=== PATIENT | female | born 1965 | race Caucasian/White ===

== ENCOUNTER 2024-09-16 09:09 | Inpatient (IN) ==
--- NOTE | 2024-09-16 09:49 | Emergency Department Note ---
History of Present Illness General Chief complaint: Shortness of Breath/Dyspnea Stated complaint: SOB Time Seen by Provider: 09/16/24 09:36 History of Present Illness This is a 59-year-old female that presents to the emergency department via private vehicle with complaints of "shortness of breath, chest tightness". The patient notes history of COPD. She notes over the past 3 weeks she has had some sinus congestion. She states that she followed up recently with her PCP and on Thursday was prescribed antibiotics to include Augmentin plus doxycycline and an inhaler. She notes that this morning she noted some increasing dyspnea. She notes the cough was initially productive but now not productive. No hemoptysis. She notes there is a tightness sensation in the chest. She notes a history of lower extremity vascular procedures performed with Dr. Damon currently on Plavix and aspirin. She had aspirin this morning. She denies any fever. She does smoke between 10 and 20 cigarettes/day. She also notes that she drinks beer, about 3/day but over the past few days has not been consuming beer noting she feels unwell. She has also had diarrhea that has worsened she notes as of recent with the antibiotic use. Home Medications Medication Instructions Recorded Confirmed Type aspirin 81 mg tablet,delayed 81 mg PO DAILY ##0 07/26/15 09/16/24 History release coenzyme Q10 75 mg capsule (Ultra 75 mg PO DAILY 09/30/22 09/16/24 History CoQ10) pantoprazole 40 mg tablet,delayed 40 mg PO DAILY 09/30/22 09/16/24 History release acetaminophen 500 mg tablet 500 mg PO Q6H PRN Pain 09/16/24 09/16/24 History albuterol sulfate 90 mcg/actuation 2 puff inhalation Q4H PRN SOB or 09/16/24 09/16/24 History aerosol inhaler wheezing atorvastatin 10 mg tablet 10 mg PO HS 09/16/24 09/16/24 History budesonide-formoterol HFA 160 2 puff inhalation BID 09/16/24 09/16/24 History mcg-4.5 mcg/actuation aerosol inhaler (Symbicort) cholecalciferol (vitamin D3) 50 50 mcg PO DAILY 09/16/24 09/16/24 History mcg (2,000 unit) tablet (Vitamin D3) clopidogrel 75 mg tablet 75 mg PO QAM 09/16/24 09/16/24 History doxycycline hyclate 100 mg capsule 100 mg PO BID 09/16/24 09/16/24 History hydrocodone 5 mg-acetaminophen 325 1 tab PO DAILY PRN Pain 09/16/24 09/16/24 History mg tablet ipratropium 20 mcg-albuterol 100 1 puff inhalation QID 09/16/24 09/16/24 History mcg/actuation mist for inhalation (Combivent Respimat) prednisone 10 mg tablet See Rx Instructions .Route .COMPLEX 09/16/24 09/16/24 History telmisartan 80 1 tab PO DAILY 09/16/24 09/16/24 History mg-hydrochlorothiazide 25 mg tablet Allergies Allergy/AdvReac Type Severity Reaction Status Date / Time azithromycin Allergy Unknown turned Verified 09/16/24 12:52 red, hives erythromycin base Allergy Unknown PT BECOMES Verified 09/16/24 12:52 EXTREMELY RED celecoxib AdvReac Unknown GI UPSET Verified 09/16/24 12:52 Past Med/Surg History Problem List (Updated 09/16/24 @ 15:41 by Rj Valencia MD) Cachexia Acute and chronic respiratory failure, unspecified whether with hypoxia or hypercapnia Dyspnea (Acute) Acute heart failure with preserved ejection fraction (HFpEF) NSTEMI (non-ST elevated myocardial infarction) (Acute) Acute bronchitis COPD exacerbation (Acute) Hypomagnesemia (Acute) Hypokalemia (Acute) Elevated troponin (Acute) Chest pain Arthritis Iliac artery occlusion (Acute) Social History Smoking Status: Current every day smoker Tobacco Type: Cigarettes Cigarettes Per Day: 10-20; Second Hand Exposure: No; Do You Dip or Chew Tobacco: No; Tobacco Cessation Education Requested by Patient: No Hx Alcohol Use: Yes Alcohol type: beer Hx Substance Use: No Preferred Language: Croatian Communication Ability: Effective 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: No Beliefs That Will Affect Care: None Current Living Situation: Spouse and Other Current Living Situation Comment: Son Other Information That Helps Us Care for You: No Feels Safe at Home: Yes Safety Concerns: Feels Safe At This Time Assistive Devices: None Review of Systems A total of 10 systems reviewed and were otherwise negative Physical Exam Vital Signs Vital Signs - 24 hr 09/16/24 09:21 09/16/24 09:51 09/16/24 10:00 Temperature 36.6 C Temperature Source Temporal Artery Scan Pulse Rate 119 H 115 H Pulse Rate from SpO2 Sensor Pulse Rhythm Regular Pulse Strength Normal Respiratory Rate 24 Respiratory Effort / Characteristics Non-Labored Spontaneous Labored Respiratory Depth Normal Blood Pressure 139/96 Blood Pressure Mean 110 Blood Pressure Position Lying Pulse Oximetry 92 Oxygen Delivery Method Room Air Sepsis Recent Fever Within 48 Hours No Sepsis New/Unexplained Change in Mental Status No Sepsis Action Taken by Nursing No Action Required 09/16/24 10:00 09/16/24 10:00 09/16/24 10:03 Temperature Temperature Source Pulse Rate 115 H Pulse Rate from SpO2 Sensor 116 H Pulse Rhythm Pulse Strength Respiratory Rate 16 Respiratory Effort / Characteristics Respiratory Depth Blood Pressure 126/89 Blood Pressure Mean 101 Blood Pressure Position Pulse Oximetry 98 97 Oxygen Delivery Method Room Air Sepsis Recent Fever Within 48 Hours Sepsis New/Unexplained Change in Mental Status Sepsis Action Taken by Nursing 09/16/24 10:18 09/16/24 10:30 09/16/24 11:27 Temperature Temperature Source Pulse Rate 118 H 112 H Pulse Rate from SpO2 Sensor 116 H 112 H Pulse Rhythm Pulse Strength Respiratory Rate 23 22 Respiratory Effort / Characteristics Respiratory Depth Blood Pressure 128/91 Blood Pressure Mean 104 Blood Pressure Position Pulse Oximetry 95 91 Oxygen Delivery Method Sepsis Recent Fever Within 48 Hours Sepsis New/Unexplained Change in Mental Status Sepsis Action Taken by Nursing 09/16/24 11:30 09/16/24 11:39 09/16/24 12:00 Temperature Temperature Source Pulse Rate 108 H Pulse Rate from SpO2 Sensor Pulse Rhythm Pulse Strength Respiratory Rate 20 Respiratory Effort / Characteristics Respiratory Depth Blood Pressure 135/95 125/85 Blood Pressure Mean 104 100 Blood Pressure Position Pulse Oximetry Oxygen Delivery Method Sepsis Recent Fever Within 48 Hours Sepsis New/Unexplained Change in Mental Status Sepsis Action Taken by Nursing 09/16/24 12:00 Temperature Temperature Source Pulse Rate 112 H Pulse Rate from SpO2 Sensor Pulse Rhythm Pulse Strength Respiratory Rate 22 Respiratory Effort / Characteristics Respiratory Depth Blood Pressure Blood Pressure Mean Blood Pressure Position Pulse Oximetry Oxygen Delivery Method Sepsis Recent Fever Within 48 Hours Sepsis New/Unexplained Change in Mental Status Sepsis Action Taken by Nursing VITAL SIGNS - Vital signs and nursing notes were reviewed. Tachycardic, otherwise stable and afebrile. GENERAL - 59-year-old female appearing her stated age who is in no acute distress but is sitting upright in bed. Communicates well with provider and answers questions appropriately. SKIN - Without rashes. Stable and afebrile. HEAD - NC/AT. EYES - PERRL with EOMI bilaterally. Sclera anicteric. EARS - No deformities of external structures noted on gross examination bilaterally. NOSE - Midline and without cyanosis. MOUTH/OROPHARYNX - Without perioral cyanosis. No drooling, stridor, trismus, wheezing or tripoding. Normal phonation. NECK - Neck with FROM. No nuchal rigidity. LUNGS - Chest wall symmetric without accessory muscle use, intercostals retractions, or central cyanosis. Expiratory wheezing noted bilat. Mildly diminished breath sounds bilat without crackles. CARDIAC - RRR. ABDOMEN - Abdominal contour normal without pulsations or visible masses. BS normoactive all four quadrants. No tenderness, palpable masses, hepatosplenomegaly, or ascites noted. EXTREMITIES - No clubbing or peripheral cyanosis. No pretibial edema present. +5/5 strength noted in UE/LE bilaterally. NEUROLOGIC - Cranial nerves II through XII grossly intact. PSYCH -alert, oriented and pleasant on exam. Course Administered Medications Atorvastatin Calcium (Atorvastatin 20 Mg Tab) 20 mg OG QAM [facility] Stop: 10/16/24 15:44 Last Admin: 09/16/24 17:38 Dose: 20 mg Documented By: HERBERT Budesonide (Budesonide 0.5 Mg/2 Ml Vial (Pulmicort)) 0.5 mg NEB BIDR [facility] Stop: 10/16/24 18:59 Last Admin: 09/16/24 19:35 Dose: 0.5 mg Documented By: LICHA Doxycycline Hyclate (Doxycycline Hyclate 100 Mg Cap) 100 mg PO BID [facility] Stop: 09/23/24 20:59 Last Admin: 09/16/24 21:05 Dose: 100 mg Documented By: [id number] Enteral Nutritional Formula (Peptamen 1.5 Jose Daniel 1,000 Ml Bag) 1,000 ml OG .See Protocol NOELLE; Protocol Stop: 10/16/24 16:59 Last Admin: 09/16/24 17:46 Dose: 1,000 ml Documented By: HERBERT Formoterol Fumarate (Formoterol 20 Mcg/2 Ml Vial) 20 mcg NEB BIDR [facility] Stop: 10/16/24 18:59 Last Admin: 09/16/24 19:35 Dose: 20 mcg Documented By: LICHA Methylprednisolone 40 mg/ (Syringe) 0.64 mls @ 1.5 mls/min IV Q8H [facility] Stop: 10/16/24 18:59 Last Admin: 09/16/24 21:04 Dose: 1.5 mls/min Documented By: [id number] Propofol (Diprivan) 1,000 mg in 100 mls @ 8.988 mls/hr IV .[id number] NOELLE; Protocol Stop: 09/19/24 15:44 Last Titration: 09/16/24 20:15 Dose: 35 mcg/kg/min, 9 mls/hr Documented By: [id number] Titration: 09/16/24 19:19 Dose: 25 mcg/kg/min, 6.4 mls/hr Documented By: [id number] Admin: 09/16/24 15:56 Dose: 25 mcg/kg/min, 6.4 mls/hr Documented By: HERBERT Co-signed By: RUPERTO Heparin Sodium/Dextrose (Heparin Sodium/Dextrose) 25,000 units in 500 mls @ 15 mls/hr IV .Q24H NOELLE; Protocol Stop: 10/16/24 16:14 Last Titration: 09/16/24 19:18 Dose: 750 units/hr, 15 mls/hr Documented By: [id number] Co-signed By: HERBERT Admin: 09/16/24 16:17 Dose: 750 units/hr, 15 mls/hr Documented By: RUPERTO Co-signed By: HERBERT Lactated Ringer's (Lr) 1,000 mls @ 80 mls/hr IV .[id number] [facility] Stop: 09/17/24 15:59 Last Admin: 09/16/24 16:35 Dose: 80 mls/hr Documented By: RUPERTO Ipratropium Elkins (Ipratropium [place]kins Neb Soln 0.02% 0.5mg/2.5ml Vial) 0.5 mg NEB Q6R [facility] Stop: 10/16/24 13:24 Last Admin: 09/16/24 19:35 Dose: Not Given Documented By: Admin: 09/16/24 14:41 Dose: 0.5 mg Documented By: JT Lansoprazole (Lansoprazole 30 Mg Soltab) 30 mg PO QAM [facility] Stop: 10/16/24 15:59 Last Admin: 09/16/24 17:38 Dose: 30 mg Documented By: HERBERT Levalbuterol HCl (Levalbuterol 1.25 Mg/3 Ml Neb) 1.25 mg NEB Q6R [facility] Stop: 10/16/24 13:59 Last Admin: 09/16/24 19:35 Dose: Not Given Documented By: Admin: 09/16/24 14:41 Dose: 1.25 mg Documented By: JT Magnesium Oxide (Magnesium Oxide 400 Mg Tab) 400 mg PO BID [facility] Stop: 10/16/24 11:59 Last Admin: 09/16/24 21:08 Dose: 400 mg Documented By: [id number] Admin: 09/16/24 12:40 Dose: 400 mg Documented By: JAYSON Metoprolol Tartrate (Metoprolol Tartrate 25 Mg Tab) 12.5 mg PO Q6 [facility] Stop: 10/16/24 17:59 Last Admin: 09/16/24 18:40 Dose: 12.5 mg Documented By: HERBERT Midazolam HCl (Midazolam Hcl 1 Mg/Ml 2ml Vial) 2 mg IV Q2H PRN PRN Reason: RASS goal -1 Stop: 10/16/24 15:30 Last Admin: 09/16/24 17:01 Dose: 2 mg Documented By: HERBERT Nitroglycerin (Nitroglycerin 2% Ointment 30gm Tube) 0.5 inch EXT Q6H [facility] Stop: 10/16/24 12:14 Last Admin: 09/16/24 17:41 Dose: 0.5 inch Documented By: Admin: 09/16/24 12:36 Dose: 0.5 inch Documented By: JAYSON Potassium Chloride (Potassium Chloride 20 Meq/15 Ml Udc) 40 meq PO QID [facility] Stop: 10/16/24 16:59 Last Admin: 09/16/24 21:05 Dose: 40 meq Documented By: [id number] Admin: 09/16/24 17:38 Dose: 40 meq Documented By: HERBERT Propofol (Propofol Bolus From Bag) 20 mg IV Q5M PRN PRN Reason: Sedation Stop: 09/19/24 15:30 Last Admin: 09/16/24 20:14 Dose: 20 mg Documented By: [id number] Co-signed By: RIVAS Admin: 09/16/24 15:57 Dose: 20 mg Documented By: HERBERT Co-signed By: RUPERTO Sterile Water (Tube Feeding Water Flush) 125 ml OG Q4H [facility] Stop: 10/16/24 16:59 Last Admin: 09/16/24 21:08 Dose: 125 ml Documented By: [id number] Admin: 09/16/24 17:38 Dose: 125 ml Documented By: HERBERT Thiamine HCl (Thiamine Hcl 100 Mg Tab) 100 mg PO BID [facility] Stop: 10/16/24 20:59 Last Admin: 09/16/24 21:05 Dose: 100 mg Documented By: [id number] Discontinued Medications Albuterol (Albut/Ipratrop 3mg/0.5mg Neb 3 Ml Vial) 3 ml NEB NOW STA; Protocol Stop: 09/16/24 09:48 Last Admin: 09/16/24 10:01 Dose: 3 ml Documented By: MINAL Furosemide (Furosemide Inj 20 Mg/2 Ml Vial) Confirm Administered Dose 20 mg IV .STK-MED ONE Stop: 09/16/24 13:58 Last Admin: 09/16/24 14:01 Dose: 20 mg Documented By: MEGAN Furosemide (Furosemide Inj 20 Mg/2 Ml Vial) 20 mg IV ONE ONE Stop: 09/16/24 14:00 Last Admin: 09/16/24 14:09 Dose: Not Given Documented By: MEGAN Guaifenesin (Guaifenesin 600 Mg Tabcr) 1,200 mg PO Q12 [facility] Stop: 10/16/24 13:24 Last Admin: 09/16/24 14:45 Dose: 1,200 mg Documented By: HERBERT Magnesium Sulfate/Dextrose (Magnesium Sulfate / D5w) 1 gm in 100 mls @ 200 mls/hr IV ONE ONE Stop: 09/16/24 11:19 Last Infusion: 09/16/24 12:27 Dose: Infused Documented By: Admin: 09/16/24 11:15 Dose: 200 mls/hr Documented By: JIHAN Potassium Chloride (K Nathan / Wtr) 10 meq in 100 mls @ 100 mls/hr IV Q1H [facility]; Protocol Stop: 09/16/24 14:59 Last Infusion: 09/16/24 12:28 Dose: Infused Documented By: Admin: 09/16/24 11:14 Dose: 100 mls/hr Documented By: JIHAN Sodium Chloride (Nss) 1,000 mls @ 80 mls/hr IV .[id number] [facility] Stop: 09/17/24 11:29 Last Infusion: 09/16/24 14:02 Dose: Infused Documented By: Admin: 09/16/24 12:24 Dose: 80 mls/hr Documented By: JAYSON Thiamine HCl 100 mg/ Syringe 10 mls @ 2 mls/min IV NOW STA Stop: 09/16/24 11:32 Last Admin: 09/16/24 12:50 Dose: 2 mls/min Documented By: JAYSON Folic Acid 1 mg/ Syringe 10 mls @ 5 mls/min IV NOW STA Stop: 09/16/24 11:29 Last Admin: 09/16/24 12:50 Dose: 5 mls/min Documented By: JAYSON Magnesium Sulfate/Dextrose (Magnesium Sulfate / D5w) 1 gm in 100 mls @ 200 mls/hr IV Q30M [facility] Stop: 09/16/24 13:29 Last Infusion: 09/16/24 14:02 Dose: Infused Documented By: Admin: 09/16/24 12:58 Dose: 200 mls/hr Documented By: Infusion: 09/16/24 12:58 Dose: Infused Documented By: Admin: 09/16/24 12:57 Dose: 200 mls/hr Documented By: Infusion: 09/16/24 12:57 Dose: Infused Documented By: Admin: 09/16/24 12:35 Dose: 200 mls/hr Documented By: JAYSON Cefepime HCl (Maxipime 2000mg) 2,000 mg in 20 mls @ 5 mls/min IV Q8H [facility]; Protocol Stop: 09/23/24 13:59 Last Admin: 09/16/24 14:44 Dose: 5 mls/min Documented By: HERBERT Methylprednisolone 40 mg/ (Syringe) 0.64 mls @ 1.5 mls/min IV ONE ONE Stop: 09/16/24 14:16 Last Admin: 09/16/24 14:08 Dose: 1.5 mls/min Documented By: MEGAN Ioversol (Optiray 320 125ml) 112 ml IV ONCE ONE Stop: 09/16/24 11:04 Last Admin: 09/16/24 11:04 Dose: 112 ml Documented By: SHU Ipratropium Elkins (Ipratropium [place]kins Neb Soln 0.02% 0.5mg/2.5ml Vial) 0.5 mg NEB NOW STA Stop: 09/16/24 12:33 Last Admin: 09/16/24 13:14 Dose: 0.5 mg Documented By: JT Levalbuterol HCl (Levalbuterol 1.25 Mg/3 Ml Neb) 1.25 mg NEB NOW STA Stop: 09/16/24 12:33 Last Admin: 09/16/24 13:14 Dose: 1.25 mg Documented By: JT Magnesium Oxide (Magnesium Oxide 400 Mg Tab) 400 mg PO NOW STA Stop: 09/16/24 11:53 Last Admin: 09/16/24 13:27 Dose: Not Given Documented By: MEGAN Methylprednisolone (Methylprednisolone 125 Mg/2 Ml Vial) 40 mg IV NOW STA Stop: 09/16/24 12:33 Last Admin: 09/16/24 13:06 Dose: 40 mg Documented By: JAYSON Midazolam HCl (Midazolam Hcl 1 Mg/Ml 2ml Vial) Confirm Administered Dose 2 mg .ROUTE .STK-MED ONE Stop: 09/16/24 15:11 Last Admin: 09/16/24 15:34 Dose: Not Given Documented By: HERBERT Midazolam HCl (Midazolam Hcl 1 Mg/Ml 2ml Vial) 2 mg IV NOW Stop: 09/16/24 15:15 Last Admin: 09/16/24 15:33 Dose: 2 mg Documented By: HERBERT Miscellaneous (Rapid Sequence Induction Bag) Confirm Administered Dose 1 each N/A .STK-MED ONE Stop: 09/16/24 14:31 Last Admin: 09/16/24 15:35 Dose: 1 each Documented By: HERBERT Morphine Sulfate (Morphine Sulfate 2 Mg/Ml Carp) Confirm Administered Dose 2 mg .ROUTE .STK-MED ONE Stop: 09/16/24 14:31 Last Admin: 09/16/24 14:45 Dose: Not Given Documented By: HERBERT Morphine Sulfate (Morphine Sulfate 2 Mg/Ml Carp) 2 mg IV NOW STA Stop: 09/16/24 14:32 Last Admin: 09/16/24 14:40 Dose: 1 mg Documented By: ROSCOE Multivitamins/Minerals (Cerovite Adv Formula Tab) 1 tab PO NOW Stop: 09/16/24 11:29 Last Admin: 09/16/24 12:50 Dose: 1 tab Documented By: JAYSON Nitroglycerin (Nitroglycerin Sl 0.4 Mg/Tab Tab) Confirm Administered Dose 0.4 mg .ROUTE .STK-MED ONE Stop: 09/16/24 14:24 Last Admin: 09/16/24 15:36 Dose: Not Given Documented By: HERBERT Nitroglycerin (Nitroglycerin Sl 0.4 Mg/Tab Tab) 0.4 mg SL NOW STA Stop: 09/16/24 14:34 Last Admin: 09/16/24 14:26 Dose: 0.4 mg Documented By: HERBERT Potassium Chloride (Potassium Chloride 20 Meq/15 Ml Udc) 40 meq PO NOW STA Stop: 09/16/24 11:50 Last Admin: 09/16/24 13:27 Dose: Not Given Documented By: MEGAN Potassium Chloride (Potassium Chloride Crtab 20 Meq Tabcr) 40 meq PO NOW STA Stop: 09/16/24 11:53 Last Admin: 09/16/24 13:27 Dose: Not Given Documented By: MEGAN Potassium Chloride (Potassium Chloride 20 Meq/15 Ml Udc) 40 meq PO NOW STA Stop: 09/16/24 11:57 Last Admin: 09/16/24 13:30 Dose: Not Given Documented By: MEGAN Potassium Chloride (Potassium Chloride Crtab 20 Meq Tabcr) 40 meq PO NOW STA Stop: 09/16/24 12:24 Last Admin: 09/16/24 12:40 Dose: 40 meq Documented By: JAYSON Potassium Chloride (Potassium Chloride Crtab 20 Meq Tabcr) 40 meq PO ONE ONE Stop: 09/16/24 13:31 Last Admin: 09/16/24 12:52 Dose: 40 meq Documented By: JAYSON Propofol (Propofol Iv Emulsion 10 Mg/Ml 100 Ml Vial) Confirm Administered Dose 1,000 mg IV .STK-MED ONE Stop: 09/16/24 14:54 Last Admin: 09/16/24 15:34 Dose: Not Given Documented By: HERBERT Critical Care Time I have personally spent about 60 minutes of critical care time in the direct management of this patient. This includes bedside care, interpretation of diagnostic studies and testing, discussion with consultants, patient, and family member, and other required patient management activities. This 60 minutes is in excess of all separately billable procedures. Medical Decision Making Laboratory Data 09/16/24 09:51 09/16/24 16:57 Lab Results 09/16/24 09/16/24 09/16/24 Range/Units 09:51 09:53 10:16 WBC 15.91 H (4.8-10.8) K/ul RBC 4.16 L (4.20-5.40) M/uL Hgb 14.1 (12.0-16.0) g/dl Hct 39.5 (37.0-47.0) % MCV 95.0 (80.0-100.0) fL MCH 33.9 (25.0-34.0) pg MCHC 35.7 (32.0-36.0) g/dL RDW Std Deviation 40.8 (36.4-46.3) fL RDW Coeff of Marisol 11.7 (11.5-14.5) % Plt Count 409 H (130-400) K/uL MPV 8.5 L (9.4-12.4) fL Immature Gran % (Auto) 0.4 % Neut % (Auto) 75.2 % Lymph % (Auto) 15.1 % [place] % (Auto) 8.9 % Eos % (Auto) 0.1 % Baso % (Auto) 0.3 % Neut # (Auto) 11.97 H (1.40-6.50) K/uL Lymph # (Auto) 2.40 (1.20-3.40) K/uL [place] # (Auto) 1.41 H (0.11-0.59) K/uL Eos # (Auto) 0.02 (0.00-0.50) K/uL Baso # (Auto) 0.04 (0.00-0.20) K/uL Immature Gran # (Auto) 0.07 (0.01-0.20) K/uL PT 11.4 (9.0-12.0) Seconds INR 1.1 (0.9-1.1) APTT 26 (21-31) Seconds PTT Ratio 1.0 Sodium 137 (136-145) mmol/L Potassium 2.6 L (3.5-5.1) mmol/L Chloride 95 L (98-107) mmol/L Carbon Dioxide 30 (21-32) mmol/L Anion Gap 12 H (3-11) BUN 20 (6-23) mg/dl Creatinine 0.55 L (0.6-1.2) mg/dl Est Cr Clr Drug Dosing 75.3 ml/min eGFR 106.18 BUN/Creatinine Ratio 36.4 H (10-20) Glucose 89 (70-99(Fasting)) mg/dl Calcium 8.4 L (8.6-10.3) mg/dl Magnesium 0.7 L* (1.7-2.4) mg/dl Total Bilirubin 0.9 (0.2-1.0) mg/dl AST 44 H (13-39) U/L ALT 33 (7-52) U/L Alkaline Phosphatase 73 (34-104) U/L Troponin I High Sens 2483.6 H* (0-14) pg/ml Total Protein 6.2 (6.0-8.3) gm/dl Albumin 4.0 (3.4-5.0) gm/dl Globulin 2.2 L (2.5-4.0) gm/dl Albumin/Globulin Ratio 1.8 (0.9-2) TSH 1.174 (0.300-4.500) uIu/ml Urine Color Yellow Urine Appearance Clear (Clear) Urine pH 6.5 (4.5-7.5) Ur Specific [place] 1.011 (1.000-1.030) Urine Protein Negative (Negative) Urine Glucose (UA) Negative (Negative) Urine Ketones Negative (Negative) Urine Blood Negative (Negative) Urine Nitrite Negative (Negative) Urine Bilirubin Negative (Negative) Urine Urobilinogen Negative (Negative) Ur Leukocyte Esterase Negative (Negative) Adenovirus (PCR) Not Detected (NotDetected) B. pertussis DNA (PCR) Not Detected (NotDetected) B.parapertussis DNA PCR Not Detected (NotDetected) C. pneumoniae DNA (PCR) Not Detected (NotDetected) Coronavirus OC43 (PCR) Not Detected (NotDetected) Coronavirus HKU1 (PCR) Not Detected (NotDetected) Coronavirus 229E (PCR) Not Detected (NotDetected) SARS-CoV-2 (PCR) Not Detected (NotDetected) Coronavirus NL63 (PCR) Not Detected (NotDetected) Human Metapneumovir PCR Not Detected (NotDetected) Influenza Type A (PCR) Not Detected (NotDetected) Influenza Type B (PCR) Not Detected (NotDetected) M. pneumoniae (PCR) Not Detected (NotDetected) Parainfluenza 1 (PCR) Not Detected (NotDetected) Parainfluenza 2 (PCR) Not Detected (NotDetected) Parainfluenza 3 (PCR) Not Detected (NotDetected) Parainfluenza 4 (PCR) Not Detected (NotDetected) RSV (PCR) Not Detected (NotDetected) Entero/Rhino (PCR) Not Detected (NotDetected) 09/16/24 Range/Units 11:54 WBC (4.8-10.8) K/ul RBC (4.20-5.40) M/uL Hgb (12.0-16.0) g/dl Hct (37.0-47.0) % MCV (80.0-100.0) fL MCH (25.0-34.0) pg MCHC (32.0-36.0) g/dL RDW Std Deviation (36.4-46.3) fL RDW Coeff of Marisol (11.5-14.5) % Plt Count (130-400) K/uL MPV (9.4-12.4) fL Immature Gran % (Auto) % Neut % (Auto) % Lymph % (Auto) % [place] % (Auto) % Eos % (Auto) % Baso % (Auto) % Neut # (Auto) (1.40-6.50) K/uL Lymph # (Auto) (1.20-3.40) K/uL [place] # (Auto) (0.11-0.59) K/uL Eos # (Auto) (0.00-0.50) K/uL Baso # (Auto) (0.00-0.20) K/uL Immature Gran # (Auto) (0.01-0.20) K/uL PT (9.0-12.0) Seconds INR (0.9-1.1) APTT (21-31) Seconds PTT Ratio Sodium (136-145) mmol/L Potassium (3.5-5.1) mmol/L Chloride (98-107) mmol/L Carbon Dioxide (21-32) mmol/L Anion Gap (3-11) BUN (6-23) mg/dl Creatinine (0.6-1.2) mg/dl Est Cr Clr Drug Dosing ml/min eGFR BUN/Creatinine Ratio (10-20) Glucose (70-99(Fasting)) mg/dl Calcium (8.6-10.3) mg/dl Magnesium (1.7-2.4) mg/dl Total Bilirubin (0.2-1.0) mg/dl AST (13-39) U/L ALT (7-52) U/L Alkaline Phosphatase (34-104) U/L Troponin I High Sens 2761.9 H* (0-14) pg/ml Total Protein (6.0-8.3) gm/dl Albumin (3.4-5.0) gm/dl Globulin (2.5-4.0) gm/dl Albumin/Globulin Ratio (0.9-2) TSH (0.300-4.500) uIu/ml Urine Color Urine Appearance (Clear) Urine pH (4.5-7.5) Ur Specific [place] (1.000-1.030) Urine Protein (Negative) Urine Glucose (UA) (Negative) Urine Ketones (Negative) Urine Blood (Negative) Urine Nitrite (Negative) Urine Bilirubin (Negative) Urine Urobilinogen (Negative) Ur Leukocyte Esterase (Negative) Adenovirus (PCR) (NotDetected) B. pertussis DNA (PCR) (NotDetected) B.parapertussis DNA PCR (NotDetected) C. pneumoniae DNA (PCR) (NotDetected) Coronavirus OC43 (PCR) (NotDetected) Coronavirus HKU1 (PCR) (NotDetected) Coronavirus 229E (PCR) (NotDetected) SARS-CoV-2 (PCR) (NotDetected) Coronavirus NL63 (PCR) (NotDetected) Human Metapneumovir PCR (NotDetected) Influenza Type A (PCR) (NotDetected) Influenza Type B (PCR) (NotDetected) M. pneumoniae (PCR) (NotDetected) Parainfluenza 1 (PCR) (NotDetected) Parainfluenza 2 (PCR) (NotDetected) Parainfluenza 3 (PCR) (NotDetected) Parainfluenza 4 (PCR) (NotDetected) RSV (PCR) (NotDetected) Entero/Rhino (PCR) (NotDetected) Imaging Data Radiologist's Impression: Chest CTA 09/16/24 09:47 CT angio chest PE protocol CT DOSE: 237.62 mGy.cm HISTORY: 59 years-old Female with dyspnea, chest tightness, cough. Acute cough with chest tightness and shortness of breath TECHNIQUE: Multiple CTA images of the chest were obtained after the intravenous administration of 112 ml Optiray. Coronal and sagittal MIPS were obtained from the axial data set and were submitted for review. All measurements were obtained according to NASCET criteria. A dose lowering technique was utilized adhering to the principles of ALARA. COMPARISON: CT abdomen and pelvis 10/18/2018 FINDINGS: CTA: Heart is normal in size. Moderate coronary artery calcifications. Atherosclerosis of the aorta without aneurysm. Patency of the imaged great vessels. No pulmonary emboli identified. CT CHEST: No pneumothorax, no pleural effusion. Moderate bronchial wall thickening with areas of multifocal mucus plugging. Intraventricular septal thickening. 5 mm solid nodule right lower lobe on image 46 series 4 is noted from prior, low clinical suspicion. No suspicious pulmonary nodules or masses identified. Central airways are patent. 1.3 cm cyst of the superior pole left kidney. There is mild likely chronic superior end plate compression T3. IMPRESSION: 1. No pulmonary emboli identified. 2. Emphysema with bronchitis and mucous plugging. 3. Mild intralobular septal thickening likely represents a component of pulmonary edema. 4. 5 mm solid nodule of the basal right lower lobe. Please refer to below summary of Fleischner criteria recommendations for follow- up of incidental CT nodules (Marybel Blake, Guidelines for management of small pulmonary nodules detected on CT scans: A statement from the Fleischner Society, Radiology 237: [phone].) SOLID NODULES Solitary nodule size: <6 mm * Low risk patients: no follow-up needed * high risk patients: optional CT at 12 months Note: newly detected indeterminate nodule in persons 35 years of age or older. * Low risk patients: minimal or absent history of smoking and/or other known risk factors * high risk patients: history of smoking or of other known risk factors (e.g. first degree relative with lung cancer, or exposure to asbestos, radon, uranium) * if a nodule up to 8 mm is partly solid or is ground glass further follow-up is required after 24 months to exclude possible slow growing adenocarcinoma ([place]ANCHO) ACT 112: Negative or not required by law. The above report was generated using voice recognition software. It may contain grammatical, syntax or spelling errors. Electronically signed by: Vikas Madera M.D. 09/16/2024 12:03 PM MDM Narrative Patient was seen and evaluated as above in room B09. Review was performed of nursing triage notes and vital signs. Patient presents to us today for evaluation of sinus congestion x 3 weeks now with dyspnea, cough and some chest tightness as of this morning. On assessment the patient does have expiratory wheezing. Patient notes history of COPD. Patient is clinically dry in appearance. EKG was performed revealing sinus tachycardia at a rate of 110 bpm. QTc 492. QRS 98. No ST elevation. IV access was established. Labs were drawn. EKG was performed. A CTA of the chest was ordered noting the patient's dyspnea with tachycardia and I did order a DuoNeb as the patient does have wheezing at this time and has history of COPD. However, we will start with the single dose DuoNeb rather than hour-long pending repeat assessment and further testing results. Laboratory studies reveal leukocytosis 15.91. No anemia. Platelet count elevated at 409. Troponin returned elevated at 2483. I then accompanied the patient to the CT suite for CTA of the chest. CT results as above. No PE. The patient does have emphysema with bronchitis and mucous plugging noted on CT. Electrolytes then began to result and patient is with hypokalemia 2.6, and magnesium of 0.7. I did order repletion of these abnormalities intravenously. I did order the patient IV thiamine, IV folic acid and multivitamins. At 11:18 AM I did speak with Dr. Mera of cardiology. Echocardiogram ordered. We discussed heparin and at this time will hold off pending further assessment. We also discussed fluids and recommendation was fluids around 60 to 80 mL/h which was ordered. The patient does note chronic diarrhea that had worsened as of recent with the antibiotics. The diarrhea may be the source of the electrolyte abnormality and may be contributing to some dehydration however will be cautious and avoid fluid bolus at the present time pending echocardiogram results/further assessment. At 11:43 AM I again spoke with Dr. Mera and the echo was finished. He did note that the patient did have abnormalities and he will discuss with legal librarian as patient may go to crown and bridge dental lab technician for further assessment. He noted severe diffuse hypokinesis akinesis of the left ventricle at the apical and mid levels with specifics further outlined in the echocardiogram report. I then spoke with Dr. Silva, hospitalist. The patient is quite ill and certainly will require further evaluation and management in the inpatient setting. The patient was updated upon todays findings throughout her time here in the ED. Continuous cardiac monitoring was ordered and performed here in the ED and revealed sinus tachycardia at a rate of 110 bpm. GCS: 15 In the evaluation and treatment of this patient the following differential diagnoses were entertained: FL, PE, pericarditis, pneumonia, bronchitis, pneumothorax, CHF, dehydration, electrolyte disturbance, among others Impression & Plan Elevated troponin, Hypokalemia, Hypomagnesemia, COPD exacerbation, NSTEMI (non- ST elevated myocardial infarction), Dyspnea Discharge Plan Visit Data Chief Complaint: Shortness of Breath/Dyspnea Stated Complaint: SOB ED Provider: Ariana Case ED Midlevel Provider: Rodrigo Vasquez Discharge Problem: Elevated troponin, Hypokalemia, Hypomagnesemia, COPD exacerbation, NSTEMI (non- ST elevated myocardial infarction), Dyspnea Patient Disposition: Admitted As Inpatient Condition: Critical Discharge Instructions Interventions: ED Discharge Assessment Last Done: 09/16/24 13:20
[2024-09-16] MEDS: ALBUT/IPRATROP 3MG/0.5MG NEB 3 ML VIAL NEB STA (10:01)
[2024-09-16 10:14] LABS: Basophils # (auto) 0.04 K/uL (0.00-0.20); Basophils % (auto) 0.3 %; Eosinophils # (auto) 0.02 K/uL (0.00-0.50); Eosinophils % (auto) 0.1 %; Hematocrit (blood only) 39.5 % (37.0-47.0); Hemoglobin 14.1 g/dl (12.0-16.0); Immature Granulocytes # (auto) 0.07 K/uL (0.01-0.20); Immature Granulocytes % (auto) 0.4 %; Lymphocytes % (auto) 15.1 %; Mean Corpuscular Hemoglobin 33.9 pg (25.0-34.0); Mean Corpuscular Hgb Conc 35.7 g/dL (32.0-36.0); Mean Platelet Volume 8.5 fL (9.4-12.4); Monocytes # (auto) 1.41 K/uL (0.11-0.59); Monocytes % (auto) 8.9 %; Neutrophils # (auto) 11.97 K/uL (1.40-6.50); Neutrophils % (auto) 75.2 %; Platelet Count 409 K/uL (130-400); RDW Coefficient of Variation 11.7 % (11.5-14.5); RDW Standard Deviation 40.8 fL (36.4-46.3); Red Blood Count 4.16 M/uL (4.20-5.40); White Blood Count 15.91 K/ul (4.8-10.8)
[2024-09-16 10:26] LABS: Appearance Urine Clear (Clear); Bilirubin Urine Negative (Negative); Blood Urine Negative (Negative); Color Urine Yellow; Glucose Urine UA Negative (Negative); Ketones Urine Negative (Negative); Leukocyte Esterase Urine Negative (Negative); Nitrite Urine Negative (Negative); Protein Urine Negative (Negative); Specific Gravity Urine 1.011 (1.000-1.030); Urobilinogen Urine Negative (Negative); pH Urine 6.5 (4.5-7.5)
[2024-09-16 10:35] LABS: INR 1.1 (0.9-1.1); Partial Thromboplastin Time 26 Seconds (21-31); Prothrombin Time 11.4 Seconds (9.0-12.0)
[2024-09-16 10:38] LABS: Troponin I High Sensitivity 2483.6 pg/ml (0-14)
[2024-09-16 10:39] LABS: Thyroid Stimulating Hormone 1.174 uIu/ml (0.300-4.500)
[2024-09-16 10:47] LABS: Calcium 8.4 mg/dl (8.6-10.3); Magnesium 0.7 mg/dl (1.7-2.4); Potassium 2.6 mmol/L (3.5-5.1)
[2024-09-16 10:48] LABS: Bilirubin,Total 0.9 mg/dl (0.2-1.0)
[2024-09-16 10:53] LABS: Albumin Globulin Ratio 1.8 (0.9-2); BUN Creatinine Ratio 36.4 (10-20); Creatinine Clr Calc Pharmacy 75.3 ml/min; Globulin 2.2 gm/dl (2.5-4.0); Total Protein 6.2 gm/dl (6.0-8.3)
[2024-09-16 10:54] LABS: Adenovirus PCR Not Detected (NotDetected); Bordetella parapertussis PCR Not Detected (NotDetected); Bordetella pertussis PCR Not Detected (NotDetected); Chlamydia pneumoniae PCR Not Detected (NotDetected); Coronavirus 229E PCR Not Detected (NotDetected); Coronavirus CoV-2 (COVID19)PCR Not Detected (NotDetected); Coronavirus HKU1 PCR Not Detected (NotDetected); Coronavirus NL63 PCR Not Detected (NotDetected); Coronavirus OC43PCR Not Detected (NotDetected); Human Metapneumovirus PCR Not Detected (NotDetected); Influenza A PCR Not Detected (NotDetected); Influenza B PCR Not Detected (NotDetected); Mycoplasma pneumoniae PCR Not Detected (NotDetected); Parainfluenza Virus 1 PCR Not Detected (NotDetected); Parainfluenza Virus 2 PCR Not Detected (NotDetected); Parainfluenza Virus 3 PCR Not Detected (NotDetected); Parainfluenza Virus 4 PCR Not Detected (NotDetected); Respiratory Syncytial VirusPCR Not Detected (NotDetected); Rhinovirus/Enterovirus PCR Not Detected (NotDetected)
[2024-09-16] MEDS: OPTIRAY 320 125ml IV ONE (11:04)
[2024-09-16] MEDS: POTASSIUM CHLORIDE / WTR 10 MEQ/100 ML PLCT IV SCH (11:14)
[2024-09-16] MEDS: MAGNESIUM SULFATE / D5W 1 GM/100 ML BAG IV ONE (11:15)
--- OUTSIDE RECORDS SUMMARY | 2024-09-16 11:33 | External Medical Summary | Summary of Care ---
Author Name Unknown Organization [facility] Address [address] [place] [address] Phone [phone] Care Team Providers Care Cutter And Presser Name Role Phone Shauna Pope PA-C Primary Care Provider [phone]- [phone] Reason for Visit * Reason Onset Date Comments Test Results 09/14/2024 Encounter Details Date Type Department Care Team (Late st Contact Info) Description 09/14/2024 Telephone [place] [address] [place], [place] [phone] Shauna Pope PA-C [address] [place], [place] [phone] Test Results Allergies Active Allergy Reactions Criticality Noted Date Comments Atorvastatin Liver complications (Please comment) 06/26/2022 Elevated LFTs Celecoxib Diarrhea 11/20/2014 Severe diarrhea Ciprofloxacin Rash 11/29/2019 Rosuvastatin Muscle pain 06/26/2022 Erythromycin Hives 11/20/2014 Itchy hives Metronidazole Rash 11/29/2019 Sulfa Antibiotics Unknown 08/25/2024 Patient had sob Azithromycin Rash Medium 02/21/2013 documented as of this encounter (statuses as of 09/14/2024) Medications Medication Sig Dispensed Refills Start Date End Date Status Aspirin 81 MG Tablet Take 1 Tablet by mouth in the morning. Active Vitamin D (Cholecalciferol) 25 MCG (1000 UT) Oral CapsuleIndications:D yslipidemia, goal LDL below 70,Encounter for long-term (current) use of medications Take 1 Capsule by mouth in the morning. Please assist patient in finding this OTC. Thanks!. 90 Capsule 1 11/14/2022 Active Pantoprazole Sodium 40 MG Oral Tablet Delayed Release (Protonix)Indication s:Gastroesophageal reflux disease without esophagitis TAKE 1 TABLET BY MOUTH EVERY DAY IN THE MORNING 90 Tablet 3 06/23/2024 Active Clopidogrel Bisulfate 75 MG Oral Tablet (pLAVix)Indications: PAD (peripheral artery disease) (HCC) TAKE 1 TABLET BY MOUTH DAILY IN THE MORNING. 90 Tablet 3 06/23/2024 Active Symbicort 160-4.5 MCG/ACT Inhalation AerosolIndications:C OPD, mild (HCC) INHALE 2 PUFFS BY MOUTH IN THE MORNING AND BEFORE BEDTIME 30.6 g 3 06/23/2024 Active Telmisartan-HCTZ 80-25 MG Oral TabletIndications:HT N, goal below 130/80 TAKE 1 TABLET BY MOUTH EVERY DAY 90 Tablet 3 2024 Active Atorvastatin Calcium 10 MG Oral Tablet (Lipitor)Indications :PAD (peripheral artery disease) (HCC),Dyslipidemia, goal LDL below 70 TAKE 1 TABLET BY MOUTH EVERYDAY AT BEDTIME 90 Tablet 3 07/16/2024 Active Nortriptyline HCl 10 MG Oral Capsule (Pamelor)Indications :Lyme arthritis of hand (HCC) Take 1 Capsule by mouth at bedtime. 30 Capsule 1 07/25/2024 Active HYDROcodone-Acetamin ophen 5-325 MG Oral TabletIndications:Ly me arthritis of hand (HCC) Take 1 Tablet by mouth daily as needed for Pain, Moderate. 30 Tablet 09/07/2024 Active Doxycycline Hyclate 100 MG Oral CapsuleIndications:L yme disease Take 1 Capsule by mouth in the morning and 1 Capsule before bedtime. Until gone.. 42 Capsule 09/07/2024 Active Combivent Respimat 20-100 MCG/ACT Inhalation Aerosol Solution (Ipratropium-Albuter ol)Indications:COPD exacerbation (HCC) Inhale 1 Puff by mouth in the morning and 1 Puff at noon and 1 Puff in the evening and 1 Puff before bedtime. 4 g 11 09/13/2024 Active Amoxicillin-Pot Clavulanate 875-125 MG Oral Tablet (Augmentin)Indicatio ns:COPD exacerbation (HCC) Take 1 Tablet by mouth in the morning and 1 Tablet before bedtime. Do all this for 10 days. 20 Tablet 09/13/2024 09/23/2024 Active predniSONE 10 MG Oral Tablet (Deltasone)Indicatio ns:COPD exacerbation (HCC) Take 5 tabs for 2 days, 4 tabs for 2 days, 3 tabs for 2 days, 2 tabs for 2 days 1 tab for 2 days 30 Tablet 09/13/2024 Active documented as of this encounter (statuses as of 09/14/2024) Active Problems Problem Noted Date Diagnosed Date COPD, group B, by GOLD 2017 classification 10/27 Overview: Per COPD GOLD Classification Gastroesophageal reflux disease without esophagi tis 06/02/2022 Dyslipidemia, goal LDL below 70 05/14/2018 Hypokalemia 05/15/2016 HTN, goal below 130/80 04/28/2016 Overview: Per HTN Protocol Tobacco abuse disorder 12/14/2014 PAD (peripheral artery disease) 05/05/2014 AK (actinic keratosis) 03/07/2013 documented as of this encounter (statuses as of 09/14/2024) Resolved Problems Problem Noted Date Diagnosed Date Resolved Date DONN (generalized anxiety disorder) 12/14/2014 11/29/2019 COPD, mild 05/05/2014 10/30/2022 Overview: Per COPD GOLD Classification HTN, goal below 140/80 05/05/201405/01 Overview: Per HTN Protocol documented as of this encounter (statuses as of 09/14/2024) Immunizations Name Administration Dates Next Due Covid-19 Ad26, Single Dose (Jen/J&J) 05/24/2021 H1N1 2009 Influenza, IM 10/22/2009 Pneumococcal Conjugate Vacci ne, 20-valent ([id number]) 06/16/2023 Pneumococcal Polysaccharide PPV23 (Pneumovax) 11/05/2018,03/16/2012 Seasonal Influenza Vac., MDV , IM, 0.5 mL (Fluzone) 08/11/2013,09/01/2011,09/26/2010,09/14,08/14/2008 Seasonal Influenza, PF, 6 M & above, IM , (FluLaval or Fluzone) 08/17/2023,08/29/2022,08/30/2020,10/25 Seasonal Influenza, Quadriva lent, No Preserve, IM 09/03/2021,09/12/2018,10/24/2016 Seasonal Influenza, Trivalen t, (IIV3), PF, (Fluzone) 08/25/2024 TDAP (age 10 and older)(Boostrix) 10/25/2018 TDAP, Age 7 and older, IM (Adacel) 03/16/2012 Zoster Vaccine Recombinant (Shingrix) 07/31/2020 ,05/30/2020 documented as of this encounter Social History Tobacco Use Types Packs/Day Years Used Date Smoking Tobacco: Every Day Cigarettes Smokeless Tobacco: Never Alcohol Use Standard Drinks/Week Comments Yes 8 (1 standard drink = 0.6 oz pur e alcohol) occasionally PHQ-2 Answer Date Recorded PHQ Adult Total Score 0 06/02/2022 Hunger Vital Sign Answer Date Recorded Within the past 12 months, y ou worried that your food would run out before you got the money to buy more. Never true 06/02/20 22 Within the past 12 months, t he food you bought just didn't last and you didn't have money to get more. Never true 06/02/2022 Utilities Answer Date Recorded Do you have trouble paying y our heating, water, or electric bill? (Adult - for ages 18 years and over) Not on file 05/03/2024 Is your family able to pay t he heat, water, or electric bill? (Household - for ages 0-17 years) Not on file 05/03/2024 Does your family have access to good internet? (Household - for ages 0-17 years) Not on file 05/03/2024 Social Connections Answer Date Recorded How often do you feel lonely or isolated from those around you? (Adult - for ages 18 years and over) Not on file 05/03/2024 Sex and Gender Information Value Date Recorded Sex Assigned at Female 06/02/2022 7:04 AM EDT Gender Identity Female 06/02/2022 7:04 AM EDT Sexual Orientation Straight 06/02/2022 7: 04 AM EDT Job Start Date Occupation Industry Not on file Not on file Not on file documented as of this encounter Miscellaneous Notes * Telephone Encounter - Kay Mariano LPN - 09/14/2024 8:01 AM EDT T/C to pt at this time. patient aware and verbalized understanding * Telephone Encounter - Shauna Pope PA-C - 09/14/2024 7:42 AM EDT CXR is negative for PNA. Continue with current treatment regimen for COPD exacerbation. documented in this encounter Plan of Treatment Upcoming Encounters Date Type Department Care Team (Late st Contact Info) Description 09/16/2024 11:00 AM EDT Appointment Radiology, [place] [address] [place] [phone] 02/21/2025 8:20 AM EDT Office Visit Dermatology, [place] [address] [place] [phone] Germaine Rosa PA-C [address] [place] [phone] 06/26/2025 8:20 AM EDT Office Visit [facility] [address] [place] [phone] Shauna Pope PA-C [address] [place] [address] [place] [phone] Health Maintenance Due Date Last Done Comments Alpha-1 Antitrypsin 1984 Hepatitis B Vaccine (1 of 3 - 19+ 3-dose series) 1985 Fecal Occult Blood Test 2011 DISCUSS TOBACCO CESSATION (REFER TO SMARTSET #3291) 06/15/2016 06/15/2015 (Declined) Cologuard 12/08/2020 12/08/2017 Depression Screening 06/02/2023 06/02/2022, 06/15/2015 (Discussed) Sigmoidoscopy 11/02/2023 11/02/2018 COVID-19 Vaccine ( season) 2024 05/24/2021 Mammogram 09/10/2024 09/10/2023, 07/18, 07/19/2021, Additional history exists GFR 06/29/2025 06/29/2024, 08/0 11/2022, 01/12/2023, Additional history exists O2 ASSESSMENT COMPLETED IN PAST YEAR FOR COPD 09/13/2025 09/13/2024 Albumin/Creatinine Ratio 06/16/2026 06/16/2023 Pap Smear 12/30/2026 12/30/2023, 05/16, 05/14/2017, Additional history exists DTap/Tdap Vaccines (3 - Td or Tdap) 10/25/2028 10/25/2018, 03/16/2012 Colonoscopy 11/06/2028 11/06/2023, 10/17, 02/04/2018, Additional history exists Colorectal Cancer Screening 11/06/2028 Cervical Cancer Screening 12/30/2028 HPV/Co-Test 12/30/2028 12/30/2023 Lipid Panel 06/29/2029 06/29/2024, 08/0 11/2022, 01/12/2023, Additional history exists *COPD SEVERITY VERIFIED BY PFT Addressed 06/15/2015 (Declined) Overridden with th e intention of not completing the topic Zoster Vaccines Completed 07/31/2020, 05/30/2020 Pneumococcal Vaccine: Pediatrics (0 to 5 Years) and At-Risk Patients (6 to 64 Years) Completed 06/16/2023, 11/05/2018, 03/16/2012 RETIRED - COLONOSCOPY-EVERY 5 YRS AGES 18-100 Discontinued 11/06/2023, 11/06/2023, 02/04/2018, Additional history exists Influenza Vaccine (FLU shot) Completed 08/25/2024, 08/17/2023, 08/29/2022, Additional history exists HPV (Gardasil) Vaccine Aged Out No lo nger eligible based on patient's age to complete this topic MENINGOCOCCAL (MENACTRA/MENVEO) Aged Out No longer eligible based on patient's age to complete this topic documented as of this encounter Medical Devices Not on filedocumented as of this encounter Care Teams Cutter And Presser Relationship Specialty Start Date End Date Shauna Pope, OLGAC [address] [address] [place] [address] PCP - General Physician French Edge Operator 05/13/17 documented as of this encounter
--- OUTSIDE RECORDS SUMMARY | 2024-09-16 11:33 | External Medical Summary | Summary of Care ---
Author Name Unknown Organization [facility] Address [address] [place] [address] Phone [phone] Care Team Providers Care Home Mission Worker Name Role Phone Shauna Pope PA-C Primary Care Provider [phone]- [phone] Reason for Visit * Reason Onset Date Comments Test Results 09/14/2024 Encounter Details Date Type Department Care Team (Late st Contact Info) Description 09/14/2024 Telephone [place] [address] [place], [place] [phone] Shauna Pope PA-C [address] [place], [place] [phone] Test Results Allergies Active Allergy Reactions Criticality [...] IM 10/22/2009 Pneumococcal Conjugate Vacci ne, 20-valent ([id number]) 06/16/2023 Pneumococcal Polysaccharide PPV23 (Pneumovax) 11/05/2018,03/16/2012 Seasonal [...] encounter Miscellaneous Notes * Telephone Encounter - Shauna Pope PA-C - 09/14/2024 7:42 AM EDT CXR is negative for PNA. Continue with current treatment regimen for COPD exacerbation. documented in this encounter Plan of Treatment Upcoming Encounters Date Type Department Care Team (Late st Contact Info) Description 09/16/2024 11:00 AM EDT Appointment Radiology, [place] [address] [address] [phone] 02/21/2025 8:20 AM EDT Office Visit Dermatology, [place] [address] [place] [phone] Germaine Rosa PA-C [address] [place] [address] 06/26/2025 8:20 AM EDT [facility] [address] [place] [phone] Shauna Pope PA-C [address] [address] Health Maintenance Due Date Last Done Comments [...] HPV/Co-Test 12/30/2028 12/30/2023 Lipid Panel 06/29/2029 06/29/2024, 11/2022, 01/12/2023, Additional history exists *COPD SEVERITY [...] filedocumented as of this encounter Care Teams Home Mission Worker Relationship Specialty Start Date End Date Shauna Pope PA-C [address] [facility] [address] [facility] [place] [address] PCP - General Physician General Manager Farm 6/28/17 documented as of this encounter
--- OUTSIDE RECORDS SUMMARY | 2024-09-16 11:34 | External Medical Summary | Summary of Care ---
Author Name Unknown Organization [facility] Address [address] [place] [facility] [place] [address] Phone [phone] Care Team Providers Care Machine Setter Automatic Name Role Phone Shauna Pope PA-C Primary Care Provider [phone]- [phone] Reason for Visit * Reason Onset Date Comments Return Visit Medication Administration 08/25/2024 Flu an d/or Pneumo Inj Encounter Details Date Type Department Care Team (Late st Contact Info) Description 08/25/2024 1:40 PM EDT Office Visit [place] [address] [place], [place] [phone] Shauna Pope PA-C [facility] [place] [address] Lyme arthritis of hand (HCC)*; Primary osteoarthritis of both hands; Need for prophylactic vaccination and inoculation against influenza Allergies Active Allergy Reactions Criticality Noted Date Comments Atorvastatin Liver complications (Please comment) 06/26/2022 Elevated LFTs Celecoxib Diarrhea 11/20/2014 Severe diarrhea Ciprofloxacin Rash 11/29/2019 Rosuvastatin Muscle pain 06/26/2022 Erythromycin Hives 11/20/2014 Itchy hives Metronidazole Rash 11/29/2019 Sulfa Antibiotics Unknown 08/25/2024 Patient had sob Azithromycin Rash Medium 02/21/2013 documented as of this encounter (statuses as of 09/13/2024) Medications Medication Sig Dispensed Refills Start Date End Date Status Aspirin 81 MG Tablet Take 1 Tablet by mouth in the morning. Active Vitamin D (Cholecalciferol) 25 MCG (1000 UT) Oral CapsuleIndication s:Dyslipidemia, goal LDL below 70,Encounter for long-term (current) use of medications Take 1 Capsule by mouth in the morning. Please assist patient in finding this OTC. Thanks!. 90 Capsule 1 11/14/2022 Active Albuterol Sulfate HFA 108 (90 Base) MCG/ACT Inhalation Aerosol SolutionIndicatio ns:COPD, mild (HCC) INHALE 2 PUFFS BY MOUTH EVERY 4 HOURS NEEDED FOR COUGH FOR SHORTNESS OF BREATH OR WHEEZE 54 g 2 04/30/2024 Active Pantoprazole Sodium 40 MG Oral Tablet Delayed Release (Protonix)Indicat ions:Gastroesopha geal reflux disease without esophagitis TAKE 1 TABLET BY MOUTH EVERY DAY IN THE MORNING 90 Tablet 3 06/23/2024 Active Clopidogrel Bisulfate 75 MG Oral Tablet (pLAVix)Indicatio ns:PAD (peripheral artery disease) ([facility]) TAKE 1 TABLET BY MOUTH DAILY IN THE MORNING. 90 Tablet 3 06/23/2024 Active Symbicort 160-4.5 MCG/ACT Inhalation AerosolIndication s:COPD, mild (HCC) INHALE 2 PUFFS BY MOUTH IN THE MORNING AND BEFORE BEDTIME 30.6 g 3 06/23/2024 Active Telmisartan-HCTZ 80-25 MG Oral TabletIndications :HTN, goal below 130/80 TAKE 1 TABLET BY MOUTH EVERY DAY 90 Tablet 3 2024 Active Atorvastatin Calcium 10 MG Oral Tablet (Lipitor)Indicati ons:PAD (peripheral artery disease) (HCC),Dyslipidemi a, goal LDL below 70 TAKE 1 TABLET BY MOUTH EVERYDAY AT BEDTIME 90 Tablet 3 07/16/2024 Active Nortriptyline HCl 10 MG Oral Capsule (Pamelor)Indicati ons:Lyme arthritis of hand (HCC) Take 1 Capsule by mouth at bedtime. 30 Capsule 1 07/25/2024 Active Doxycycline Hyclate 100 MG Oral CapsuleIndication s:Lyme disease Take 1 Capsule by mouth in the morning and 1 Capsule before bedtime. Do all this for 21 days. Until gone.. 42 Capsule 04/18/2024 09/07/2024 Discontinue d(Refill) HYDROcodone-Aceta minophen 5-325 MG Oral TabletIndications :Lyme arthritis of hand (HCC) Take 1 Tablet by mouth daily as needed for Pain, Moderate. 30 Tablet 07/25/2024 09/06/2024 Discontinue d(Refill) documented as of this encounter (statuses as of 09/13/2024) Active Problems Problem Noted Date Diagnosed Date [...] as of this encounter (statuses as of 09/13/2024) Resolved Problems Problem Noted Date Diagnosed Date Resolved Date DONN (generalized anxiety disorder) 12/14/2014 11/29/2019 COPD, mild 05/05/2014 10/30/2022 Overview: Per COPD GOLD Classification HTN, goal below 140/80 05/05/201405/01 Overview: Per HTN Protocol documented as of this encounter (statuses as of 09/13/2024) Immunizations Name Administration Dates Next Due Covid-19 Ad26, Single Dose (Jen/J&J) 05/24/2021 H1N1 2009 Influenza, IM 10/22/2009 Pneumococcal Conjugate Vacci ne, 20-valent ([id number]) 06/16/2023 Pneumococcal Polysaccharide PPV23 (Pneumovax) 11/05/2018,03/16/2012 Seasonal [...] Tobacco: Every Day Cigarettes Smokeless Tobacco: Never Tobacco Cessation:Ready to Q uit: Not Asked; Counseling Given: Not Answered Alcohol Use Standard Drinks/Week Comments Yes 8 [...] on file documented as of this encounter Last Filed Vital Signs Vital Sign Reading Time Taken Comments Blood Pressure 116/60 08/25/2024 1:46 PM EDT Pulse 78 08/25/2024 1:46 PM EDT Temperature 36.5 C (97.7 F) 08/25/2024 1:46 PM ED T Respiratory Rate 18 08/25/2024 1:46 PM EDT Oxygen Saturation 97% 08/25/2024 1:46 PM EDT Inhaled Oxygen Concentration - - Weight 41.5 kg (91 lb 6.4 oz) 08/25/2024 1:46 PM EDT Height 165.1 cm (5' 5") 08/25/2024 1:46 PM EDT Body Mass Index 15.21 08/25/2024 1:46 PM EDT documented in this encounter Progress Notes * Shauna Pope PA-C - 08/25/2024 1:54 PM EDT Subjective: Nelsy Ng is a 59 year old female. 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 Vicodin added for once daily use with relief and able to do her paperwork. CHRONIC: COPD: Mostly well controlled. Using Symbicort as prescribed. No medication side effects noted. Denies associated shortness of breath, cough, wheezing, or increased sputum production. Unfortunately she continues to smoke and has no desire to quit despite recommendations/education. Hypertension: Well controlled. Taking Telmisartan-HCTZ as prescribed. Hyperlipidemia: Well controlled. Taking atorvastatin and Zetia as prescribed. Denies chest pain, SOB, edema, syncope, or palpitations. Lipid Panel Results: Results for orders placed or performed in visit on 06/29/24 LIPID PANEL WITH DIRECT LDL IF TG IS HIGH Result Value Ref Range Triglycerides 216 (H) <=174 mg/dL Cholesterol 178 <200 mg/dL HDL Cholesterol 79 >49 mg/dL Non-HDL Cholesterol 99 <=159 mg/dL Lab Results Component Value Date/Time LDL CHOLESTEROL (DIRECT MEASURE) - MENA Meier 06/29/2024 10:43 AM GERD: Well controlled. Taking Protonix as prescribed. Denies side effects. Denies abdominal pain, indigestion, regurgitation, or difficulty swallowing. PAD. Condition has been stable. Taking Plavix as prescribed. 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 Last 01/28/24. PMH: Patient Active Problem List Diagnosis AK (actinic keratosis) PAD (peripheral artery disease) ([facility]) Tobacco abuse disorder HTN, goal below 130/80 Hypokalemia Dyslipidemia, goal LDL below 70 Gastroesophageal reflux disease without esophagitis COPD, group B, by GOLD 2017 classification ([facility]) Current Outpatient Medications Medication Sig Dispense Refill Aspirin 81 MG Tablet Take 1 Tablet by mouth in the morning. Vitamin D (Cholecalciferol) 25 MCG (1000 UT) Oral Capsule Take 1 Capsule by mouth in the morning. Please assist patient in finding this OTC. Thanks!. 90 Capsule 1 Albuterol Sulfate HFA 108 (90 Base) MCG/ACT Inhalation Aerosol Solution INHALE 2 PUFFS BY MOUTH EVERY 4 HOURS NEEDED FOR COUGH FOR SHORTNESS OF BREATH OR WHEEZE 54 g 2 Pantoprazole Sodium 40 MG Oral Tablet Delayed Release (Protonix) TAKE 1 TABLET BY MOUTH EVERY DAY IN THE MORNING 90 Tablet 3 Clopidogrel Bisulfate 75 MG Oral Tablet (pLAVix) TAKE 1 TABLET BY MOUTH DAILY IN THE MORNING. 90 Tablet 3 Symbicort 160-4.5 MCG/ACT Inhalation Aerosol INHALE 2 PUFFS BY MOUTH IN THE MORNING AND BEFORE BEDTIME 30.6 g 3 Telmisartan-HCTZ 80-25 MG Oral Tablet TAKE 1 TABLET BY MOUTH EVERY DAY 90 Tablet 3 Atorvastatin Calcium 10 MG Oral Tablet (Lipitor) TAKE 1 TABLET BY MOUTH EVERYDAY AT BEDTIME 90 Tablet 3 HYDROcodone-Acetaminophen 5-325 MG Oral Tablet Take 1 Tablet by mouth daily as needed for Pain, Moderate. 30 Tablet 0 Nortriptyline HCl 10 MG Oral Capsule (Pamelor) Take 1 Capsule by mouth at bedtime. 30 Capsule 1 No current facility-administered medications for this visit. Past Medical History: Diagnosis Date Actinic keratosis Acute sinusitis, unspecified Asthma Chronic airway obstruction, not elsewhere classified Essential hypertension, benign Mucopurulent chronic bronchitis (HCC) Obstructive chronic bronchitis with exacerbation (HCC) Tobacco use disorder Unspecified essential hypertension Unspecified sinusitis (chronic) Past Surgical History: Procedure Laterality Date DELIVERY COLONOSCOPY, DIAGNOSTIC (RECTUM) N/A 02/04/2018 serrated adenomatous polyp/1 year recall/Colonoscopy COLONOSCOPY, DIAGNOSTIC (RECTUM) N/A 02/04/2018 COLONOSCOPY FLEXIBLE PROXIMAL DIAGNOSTIC performed by Angelito Mendez MD at ENDOSCOPY [facility] DENTAL SURGERY PROCEDURE NEC REMOVE TONSILS & ADENOIDS, AGE 12+ SINUS SURGERY PROCEDURE NEC 09/12/2011 XR SINUS TRACT Review of patient's allergies indicates: Allergen Reactions Z-Raymond [Azithromycin] Rash Atorvastatin Liver complications (Please comment) Elevated LFTs Celebrex [Celecoxib] Diarrhea Severe diarrhea Ciprofloxacin Rash Crestor [Rosuvastatin] Muscle pain Erythromycin Hives Itchy hives Metronidazole Rash Sulfa Antibiotics Unknown Patient had sob Family History Problem Relation Name Age of Onset Diabetes Father Heart Disorder Father CAD Hypertension Father Lung Disorder Father COPD Other (skin ca) Father unknown type Other (Sleep Anpea) Father No Past Hx Other unaware of family hx of melanoma or skin dz Other (Hyperlipidemia) Other Other (Multiple Sclerosis) Mother due to MS Other (accident) Brother due to accident Breast Cancer Grandmother (Maternal) 50 Social History Substance Use Topics Smoking status: Current Every Day Smoker Smokeless tobacco: Never Used Alcohol use Yes Review of Systems: All reviewed and negative unless mentioned in HPI. Objective: BP 116/60 | Pulse 78 | Temp 36.5 C (97.7 F) (Tympanic) | Resp 18 | Ht 1.651 m (5' 5") | Wt 41.5kg (91 lb 6.4 oz) | SpO2 97% | BMI 15.21 kg/m | BSA 1.38 m Physical Exam: General: alert, healthy, no distress Neck: supple, no adenopathy, no bruits, thyroid normal size, non-tender, without nodularity Heart: regular rate & rhythm, no murmurs and no gallops Lungs: clear to auscultation Pulses: radial=2/4, femoral=2/4, posterior tibial=1/4, dorsalis pedis=2/4 Abdomen: abdomen soft, non-tender, normal bowel sounds and no masses Extremities: less than 2 second capillary refill, no edema, no clubbing, no cyanosis Neuro Exam: no focal motor/sensory deficits, gait normal Skin: skin color, texture, turgor are normal, no rashes Musculoskeletal: arthritic deformities of bilateral hands ASSESSMENT/PLAN: Lyme arthritis of hand (HCC) (Primary) Primary osteoarthritis of both hands - Continue with PRN Tylenol and Vicodin. Need for prophylactic vaccination and inoculation against influenza - INFLUENZA VAC, TRIVALENT, (IIV3), PF, 0.5 ML (FLUZONE) Follow Up: Return in about 10 months (around 06/25/2025) for Physical. Shauna Pope PA-C * Sparkle Saxena CCMA - 08/25/2024 1:47 PM EDT PRE - ADMINISTRATION DOCUMENTATION Are you experiencing any cold symptoms or fever? No Have you had Guillain-Beacon Syndrome (an illness that causes paralysis) within the last 6 weeks? No Have you had the flu shot in the past? YES Have you ever had a reaction to the flu shot? No RENEE Rosario, 08/25/2024 1:47 PM Immunization Administration Documentation Time Out Procedure Performed: Yes Patient Identified (Ask Name/Date of ): Yes Does the patient have a fever greater than 101 degrees today? No Patient allergic to latex? No VFC Stock: No Immunization(s) verified: Yes, Immunization Name: Flu, VIS Sheet(s) given: Yes Verified Side and Site: Yes Verified Shot(s) with Parent(s)/Patient: Yes documented in this encounter Nursing Notes * Sparkle Saxena CCMA - 08/25/2024 1:42 PM EDT Chief Complaint Patient presents with Return Visit documented in this encounter Plan of Treatment Upcoming Encounters Date Type Department Care Team (Late st Contact Info) Description 09/13/2024 9:40 AM EDT Office Visit [place] [address] [place] [address] Shauna Pope PA-C [facility] [address] [place] [address] 09/16/2024 11:00 AM EDT Appointment Tono Crenshaw [address] [facility] [place] [address] 02/21/2025 8:20 AM EDT Office Visit Dermatology, Nayla HaleyTono [address] [place] [address] Germaine Rsoa PA-C [address] [place] [address] 06/26/2025 8:20 AM EDT Office Visit Family Practice, [place] [address] [place] [phone] Shauna Pope PA-C [address] [facility] [address] [place] [address] Health Maintenance Due Date Last Done Comments [...] 07/19/2021, Additional history exists GFR 06/29/2025 06/29/2024, 08/11/2022, 01/12/2023, Additional history exists O2 ASSESSMENT COMPLETED IN PAST YEAR FOR COPD 08/25/2025 08/25/2024 Albumin/Creatinine Ratio 06/16/2026 06/16/2023 Pap Smear 12/30/2026 [...] Not on filedocumented as of this encounter Visit Diagnoses Diagnosis Lyme arthritis of hand (HCC)- Primary Lyme disease Primary osteoarthritis of both hands Need for prophylactic vaccination and inoculation against influenza documented in this encounter Care Teams Machine Setter Automatic Relationship Specialty Start Date End Date Shauna Pope PA-C [facility] [facility] [address] [facility] [place] [address] PCP - General Physician Concrete Foreman 05/13/17 documented as of this encounter
--- OUTSIDE RECORDS SUMMARY | 2024-09-16 11:34 | External Medical Summary | Summary of Care ---
Author Name Unknown Organization [facility] Address [address] [facility] [place] [address] Phone [phone] Care Team Providers Care Drier Unloader Name Role Phone Dennis Pope PA-C Primary Care Provider +1- [phone] Reason for Visit * Reason Onset Date Comments Medication Refill 09/06/2024 Encounter Details Date Type Department Care Team (Late st Contact Info) Description 09/06/2024 Refill [place] [address] [place], [place] [phone] Dennis Pope PA-C [facility] [place] [address] Lyme disease; Lyme arthritis of hand (HCC) Allergies Active Allergy Reactions Criticality Noted Date Comments Atorvastatin Liver complications (Please comment) 06/26/2022 Elevated LFTs Celecoxib Diarrhea 11/20/2014 Severe diarrhea Ciprofloxacin Rash 11/29/2019 Rosuvastatin Muscle pain 06/26/2022 Erythromycin Hives 11/20/2014 Itchy hives Metronidazole Rash 11/29/2019 Sulfa Antibiotics Unknown 08/25/2024 Patient had sob Azithromycin Rash Medium 02/21/2013 documented as of this encounter (statuses as of 09/07/2024) Medications Medication Sig Dispensed Refills Start Date [...] Oral Tablet (pLAVix)Indicatio ns:PAD (peripheral artery disease) ([facility]) TAKE 1 TABLET BY MOUTH DAILY IN [...] at bedtime. 30 Capsule 1 07/25/2024 Active HYDROcodone-Aceta minophen 5-325 MG Oral TabletIndications :Lyme arthritis of hand (HCC) Take 1 Tablet by mouth daily as needed for Pain, Moderate. 30 Tablet 09/07/2024 Active HYDROcodone-Aceta minophen 5-325 MG Oral TabletIndications :Lyme arthritis of hand (HCC) Take 1 Tablet by mouth daily as needed for Pain, Moderate. 30 Tablet 07/25/2024 09/06/2024 Discontinue d(Refill) documented as of this encounter (statuses as of 09/07/2024) Active Problems Problem Noted Date Diagnosed Date [...] as of this encounter (statuses as of 09/07/2024) Resolved Problems Problem Noted Date Diagnosed Date Resolved Date DONN (generalized anxiety disorder) 12/14/2014 11/29/2019 COPD, mild 05/05/2014 10/30/2022 Overview: Per COPD GOLD Classification HTN, goal below 140/80 05/05/201405/01 Overview: Per HTN Protocol documented as of this encounter (statuses as of 09/07/2024) Immunizations Name Administration Dates Next Due Covid-19 Ad26, Single Dose (Jen/J&J) 05/24/2021 H1N1 2009 Influenza, IM 10/22/2009 Pneumococcal Conjugate Vacci ne, 20-valent ([id number]) 06/16/2023 Pneumococcal Polysaccharide PPV23 (Pneumovax) 11/05/2018,03/16/2012 Seasonal [...] encounter Miscellaneous Notes * Telephone Encounter - Dennis Pope PA-C - 09/07/2024 7:18 AM EDTSigned Prescriptions: Disp Refills HYDROcodone-Acetaminophen 5-325 MG Oral Ta*30 Tab*0 Sig: Take 1 Tablet by mouth daily as needed for Pain, Moderate.Authorizing Provider: DENNIS POPE NRefused Prescriptions: Disp Refills Doxycycline Hyclate 100 MG Oral Capsule 42 Cap*0 Sig: Take 1 Capsule by mouth in the morning and 1 Capsule before bedtime. Until gone..Refused By: DENNIS POPE NReason for Refusal: Refill Not Appropriate * Telephone Encounter - Dennis Pope PA-C - 09/07/2024 7:17 AM EDT Refill of Vicodin provided. What does she need the doxy for? * Telephone Encounter - Nereida Norris OSA - 09/06/2024 9:42 AM EDT Did you pend patient's preferred pharmacy and medication before forwarding?yes Pharmacy: [facility] [address], [place] Pending Prescriptions: Disp Refills Doxycycline Hyclate 100 MG Oral Capsule 42 Cap*0 Sig: Take 1 Capsule by mouth in the morning and 1 Capsule before bedtime. Until gone.. HYDROcodone-Acetaminophen 5-325 MG Oral T*30 Tab*0 Sig: Take 1 Tablet by mouth daily as needed for Pain, Moderate. Last Visit: 08/25/2024 (in office), Visit date not found (telemedicine) Next Visit: Visit date not found If no future appointments scheduled, and last appointment is greater than a year ago, please schedule patient for a follow-up appointment Last date the medication was ordered: 04/18/24,07/25/24 Is this request for a controlled substance?Yes, What was the last refill date 07/25/24 w/ quantity 30and dosage 5-325 and Urine Drug Screen Not completed Urine Drug Screen:No results found for this or any previous visit. Patient Phone Numbers Labs: Lab Results Component Value Date/Time CREAT 0.6 06/29/2024 10:43 AM CREAT 0.6 05/30/2020 09:14 AM POTASSIUM 3.4 (L) 06/29/2024 10:43 AM POTASSIUM 3.9 05/30/2020 09:14 AM TSH 0.58 05/14/2016 08:44 AM LDL 71 06/29/2024 10:43 AM LDL 67 01/12/2023 08:01 AM LDL 66 05/30/2020 09:14 AM LDL NOT APPLICABLE 05/30/2020 09:14 AM ALT 56 (H) 06/29/2024 10:43 AM ALT 33 05/30/2020 09:14 AM documented in this encounter Plan of Treatment Upcoming Encounters Date Type Department Care Team (Late st Contact Info) Description 09/16/2024 11:00 AM EDT Appointment Radiology, [place] [address] [place] [address] 02/21/2025 8:20 AM EDT Office Visit Dermatology, Tono Gonzalez [address] [place] [address] Germaine Rosa PA-C [address] [place] [address] 06/26/2025 8:20 AM EDT Office Visit Family [facility] [address] [place] [address] Dennis Pope, PAAndresC [address] [place] [address] [place] [address] Health Maintenance Due Date Last Done Comments [...] of this encounter Visit Diagnoses Diagnosis Lyme disease Lyme arthritis of hand (HCC) Lyme disease documented in this encounter Care Teams Drier Unloader Relationship Specialty Start Date End Date Dennis Pope PA-C [address] [place] [address] [place] [address] PCP - General Physician Metal Tube Cutter 05/13/17 documented as of this encounter
--- OUTSIDE RECORDS SUMMARY | 2024-09-16 11:34 | External Medical Summary | Summary of Care ---
Author Name Unknown Organization [facility] Address [address] [place] [address] Phone [phone] Care Team Providers Care Clothes Wringer Name Role Phone Shauna Pope PA-C Primary Care Provider [phone]- [phone] Reason for Visit * Reason Comments Acute SOB, cough, mucus in green coloring. On going for a few weeks, pt has generalized malaise at this time, weaker than normal. Kay Mariano LPN Encounter Details Date Type Department Care Team (Late st Contact Info) Description 09/13/2024 9:40 AM EDT Office Visit [place] [address] [place] [address] Shuana Pope PA-C [address] [place] [address] [place] [address] [id number] COPD exacerbation (HCC)* Allergies Active Allergy Reactions Criticality Noted Date [...] D (Cholecalciferol) 25 MCG (1000 UT) Oral CapsuleIndications :Dyslipidemia, goal LDL below 70,Encounter for long-term (current) use of medications Take 1 Capsule by mouth in the morning. Please assist patient in finding this OTC. Thanks!. 90 Capsule 1 11/14/2022 Active Pantoprazole Sodium 40 MG Oral Tablet Delayed Release (Protonix)Indicati ons:Gastroesophage al reflux disease without esophagitis TAKE 1 TABLET BY MOUTH EVERY DAY IN THE MORNING 90 Tablet 3 06/23/2024 Active Clopidogrel Bisulfate 75 MG Oral Tablet (pLAVix)Indication s:PAD (peripheral artery disease) ([facility]) TAKE 1 TABLET BY MOUTH DAILY IN THE MORNING. 90 Tablet 3 06/23/2024 Active Symbicort 160-4.5 MCG/ACT Inhalation AerosolIndications :COPD, mild ([facility]) INHALE 2 PUFFS BY MOUTH IN THE MORNING AND BEFORE BEDTIME 30.6 g 3 06/23/2024 Active Telmisartan-HCTZ 80-25 MG Oral TabletIndications: HTN, goal below 130/80 TAKE 1 TABLET BY MOUTH EVERY DAY 90 Tablet 3 2024 Active Atorvastatin Calcium 10 MG Oral Tablet (Lipitor)Indicatio ns:PAD (peripheral artery disease) ([facility]),Dyslipidemia , goal LDL below 70 TAKE 1 TABLET BY MOUTH EVERYDAY AT BEDTIME 90 Tablet 3 07/16/2024 Active Nortriptyline HCl 10 MG Oral Capsule (Pamelor)Indicatio ns:Lyme arthritis of hand ([facility]) Take 1 Capsule by mouth at bedtime. 30 Capsule 1 07/25/2024 Active HYDROcodone-Acetam inophen 5-325 MG Oral TabletIndications: Lyme arthritis of hand (HCC) Take 1 Tablet by mouth daily as needed for Pain, Moderate. 30 Tablet 09/07/2024 Active Doxycycline Hyclate 100 MG Oral CapsuleIndications :Lyme disease Take 1 Capsule by mouth in the morning and 1 Capsule before bedtime. Until gone.. 42 Capsule 09/07/2024 Active Combivent Respimat 20-100 MCG/ACT Inhalation Aerosol Solution (Ipratropium-Albut ethan)Indications:C OPD exacerbation (HCC) Inhale 1 Puff by mouth in the morning and 1 Puff at noon and 1 Puff in the evening and 1 Puff before bedtime. 4 g 11 09/13/2024 Active Amoxicillin-Pot Clavulanate 875-125 MG Oral Tablet (Augmentin)Indicat ions:COPD exacerbation (HCC) Take 1 Tablet by mouth in the morning and 1 Tablet before bedtime. Do all this for 10 days. 20 Tablet 09/13/2024 4 Active predniSONE 10 MG Oral Tablet (Deltasone)Indicat ions:COPD exacerbation (HCC) Take 5 tabs for 2 days, 4 tabs for 2 days, 3 tabs for 2 days, 2 tabs for 2 days 1 tab for 2 days 30 Tablet 09/13/2024 Active Albuterol Sulfate HFA 108 (90 Base) MCG/ACT Inhalation Aerosol SolutionIndication s:COPD, mild (HCC) INHALE 2 PUFFS BY MOUTH EVERY 4 HOURS NEEDED FOR COUGH FOR SHORTNESS OF BREATH OR WHEEZE 54 g 2 04/30/2024 Discontinued documented as of this encounter (statuses as [...] IM 10/22/2009 Pneumococcal Conjugate Vacci ne, 20-valent ([id number]) 06/16/2023 Pneumococcal Polysaccharide PPV23 (Pneumovax) 11/05/2018,03/16/2012 Seasonal [...] Sign Reading Time Taken Comments Blood Pressure 96/52 09/13/2024 9:37 AM EDT Pulse 122 09/13/2024 9:37 AM EDT Temperature 36.7 C (98 F) 09/13/2024 9:37 AM EDT Respiratory Rate 18 09/13/2024 9:37 AM EDT Oxygen Saturation 98% 09/13/2024 9:37 AM EDT Inhaled Oxygen Concentration - - Weight 41.7 kg (91 lb 14.4 oz) 09/13/2024 9:37 A M EDT Height 167.6 cm (5' 6") 09/13/2024 9:37 AM EDT Body Mass Index 14.83 09/13/2024 9:37 AM EDT documented in this encounter Progress Notes * Shauna Pope PA-C - 09/13/2024 9:43 AM EDT Chief Complaint Patient presents with Acute SOB, cough, mucus in green coloring. On going for a few weeks, pt has generalized malaise at this time, weaker than normal. Kay Mariano LPN HPI: Nelsy Ng is a 59 year old female comes in today with productive cough, SOB, chest tightness,wheezing, and malaise progressing over the last 2 weeks. Denies fever/chills. Using Symbicort and Albuterol with little improvement. Currently on doxycycline for Lyme flare. Review of patient's allergies indicates: Allergen Reactions Z-Raymond [Azithromycin] Rash Atorvastatin Liver complications (Please comment) Elevated LFTs Celebrex [Celecoxib] Diarrhea Severe diarrhea Ciprofloxacin Rash Crestor [Rosuvastatin] Muscle pain Erythromycin Hives Itchy hives Metronidazole Rash Sulfa Antibiotics Unknown Patient had sob Social History Tobacco Use Smoking status: Every Day Current packs/day: 0.50 Types: Cigarettes Smokeless tobacco: Never Substance Use Topics Alcohol use: Yes Alcohol/week: 8.0 standard drinks of alcohol Types: 8 12 oz of beer per week Comment: occasionally Vaping/E-Cigarette Use Vaping/E-Cigarette Use Never User Vaping/E-Cigarette Substances Vaping/E-Cigarette Devices OBJECTIVE: BP 96/52 | Pulse 122 | Temp 36.7 C (98 F) (Temporal Artery) | Resp 18 | Ht 1.676 m (5' 6") | Wt41.7 kg (91 lb 14.4 oz) | SpO2 98% | BMI 14.83 kg/m | BSA 1.39 m General: Nelsy appears in no acute distress and non-toxic Ears: External ears normal, Canals clear, TM's Normal Nose: no mucosal erythema, no mucosal edema, no purulent discharge, no sinus tenderness Throat: no exudate and no erythema Neck: supple and no adenopathy Lungs: moderate expiratory wheezing throughout with decreased BS at bases Heart: Regular rate and rhythm without significant murmur Abd: soft, non-distended Ext: no clubbing, cyanosis, or edema Skin: skin color, texture, turgor are normal, no rashes ASSESSMENT/PLAN: COPD exacerbation (HCC) (Primary) - Combivent Respimat 20-100 MCG/ACT Inhalation Aerosol Solution (Ipratropium- Albuterol); Inhale 1 Puff by mouth in the morning and 1 Puff at noon and 1 Puff in the evening and 1 Puff before bedtime. - Amoxicillin-Pot Clavulanate 875-125 MG Oral Tablet (Augmentin); Take 1 Tablet by mouth in the morning and 1 Tablet before bedtime. Do all this for 10 days. - predniSONE 10 MG Oral Tablet (Deltasone); Take 5 tabs for 2 days, 4 tabs for 2 days, 3 tabs for 2days, 2 tabs for 2 days 1 tab for 2 days - XR CHEST 2 VIEWS Follow Up: Return if symptoms worsen or fail to improve. Shauna Pope PA-C * Kay Mariano LPN - 09/13/2024 9:39 AM EDT Chief Complaint Patient presents with Acute SOB, cough, mucus in green coloring. On going for a few weeks, pt has generalized malaise at this time, weaker than normal. Kay Mariano LPN Patient has been verbally educated on the need or importance of HepB Vaccine and has declined topic(s). Kay Mariano LPN documented in this encounter Plan of Treatment Upcoming Encounters Date Type Department Care Team (Late st Contact Info) Description 09/13/2024 10:30 AM EDT Imaging Radiology, [place] [address] [place] [address] 09/16/2024 11:00 AM EDT Appointment Radiology, [place] [address] [address] 02/21/2025 8:20 AM EDT Office Visit Dermatology, [place] [facility] [address] [place] [address] [address] Germaine Rosa PA-C [address] [place] [address] 06/26/2025 8:20 AM EDT Office Visit Family [facility] [address] [place] [address] Shauna Pope PA-C [address] [place] [address] [place] [address] Scheduled Orders Name Type Priority Associated Diagnoses Orde r Schedule XR CHEST 2 VIEWS Medical Imaging STAT COPD exacerbation (HCC) Ordered: 09/13/2024 Health Maintenance Due Date Last Done Comments [...] as of this encounter Visit Diagnoses Diagnosis COPD exacerbation (HCC)- Primary Obstructive chronic bronchitis with exacerbation documented in this encounter Care Teams Clothes Wringer Relationship Specialty Start Date End Date Shauna Pope, OLGAC [address] [place] [address] [place] [address] PCP - General Physician Surgery Attendant 05/13/17 documented as of this encounter
--- OUTSIDE RECORDS SUMMARY | 2024-09-16 11:34 | External Medical Summary | Summary of Care ---
Author Name Unknown Organization [facility] Address [address] [place] [address] Phone [phone] Care Team Providers Care Steam Tank Operator Name Role Phone Shauna Pope PA-C Primary Care Provider [phone]- [phone] Reason for Visit * Reason Comments Follow Up 6 month return Encounter Details Date Type Department Care Team (Late st Contact Info) Description 06/29/2024 9:40 AM EDT Office Visit [place] [address] [place], [place] [id number] Shauna Pope PA-C [facility] [address] [place] [address] PAD (peripheral artery disease) (HCC)*; Lyme arthritis of hand (HCC); Dyslipidemia, goal LDL below 70; HTN, goal below 130/80; COPD, mild (HCC); Gastroesophageal reflux disease without esophagitis Allergies Active Allergy Reactions Criticality Noted Date Comments Atorvastatin Liver complications (Please comment) 06/26/2022 Elevated LFTs Celecoxib Diarrhea 11/20/2014 Severe diarrhea Ciprofloxacin Rash 11/29/2019 Rosuvastatin Muscle pain 06/26/2022 Erythromycin Hives 11/20/2014 Itchy hives Metronidazole Rash 11/29/2019 Azithromycin Rash Medium 02/21/2013 documented as of this encounter (statuses as of 07/27/2024) Medications Medication Sig Dispensed Refills Start Date End Date Status Aspirin 81 MG Tablet Take 1 Tablet by mouth in the morning. Active Vitamin D (Cholecalciferol ) 25 MCG (1000 UT) Oral CapsuleIndicatio ns:Dyslipidemia, goal LDL below 70,Encounter for long-term (current) use of medications Take 1 Capsule by mouth in the morning. Please assist patient in finding this OTC. Thanks!. 90 Capsule 1 11/14/2022 Active Albuterol Sulfate HFA 108 (90 Base) MCG/ACT Inhalation Aerosol SolutionIndicati ons:COPD, mild (HCC) INHALE 2 PUFFS BY MOUTH EVERY 4 HOURS NEEDED FOR COUGH FOR SHORTNESS OF BREATH OR WHEEZE 54 g 2 04/30/2024 Active Pantoprazole Sodium 40 MG Oral Tablet Delayed Release (Protonix)Indica tions:Gastroesop hageal reflux disease without esophagitis TAKE 1 TABLET BY MOUTH EVERY DAY IN THE MORNING 90 Tablet 3 06/23/2024 Active Clopidogrel Bisulfate 75 MG Oral Tablet (pLAVix)Indicati ons:PAD (peripheral artery disease) (HCC) TAKE 1 TABLET BY MOUTH DAILY IN THE MORNING. 90 Tablet 3 06/23/2024 Active Symbicort 160-4.5 MCG/ACT Inhalation AerosolIndicatio ns:COPD, mild (HCC) INHALE 2 PUFFS BY MOUTH IN THE MORNING AND BEFORE BEDTIME 30.6 g 3 06/23/2024 Active Chlorhexidine Gluconate 0.12 % Mouth/Throat Solution (Periogard) PLACE 15 MLS IN THE MOUTH 2 TIMES PER DAY (AFTER MEALS), SWISH IN MOUTH FOR 30 SECONDS THEN SPIT OUT 01/30/2022 06/29/20 24 Discontinued(Med ication List Clean Up) Ezetimibe 10 MG Oral Tablet (Zetia)Indicatio ns:Dyslipidemia, goal LDL below 70 Take 1 Tablet by mouth in the morning. 90 Tablet 3 06/16/2023 06/29/20 24 Discontinued(Med ication List Clean Up) Atorvastatin Calcium 10 MG Oral Tablet (Lipitor)Indicat ions:PAD (peripheral artery disease) (HCC),Dyslipidem ia, goal LDL below 70 Take 1 Tablet by mouth at bedtime. 90 Tablet 3 06/16/2023 07/16/20 24 Discontinued Telmisartan-HCTZ 80-25 MG Oral TabletIndication s:HTN, goal below 130/80 TAKE BY MOUTH 1 TABLET DAILY . 90 Tablet 3 07/01/2023 07/09/20 24 Discontinued Ondansetron HCl 4 MG Oral Tablet Take 1 Tablet by mouth every 6 hours as needed for Nausea. 30 Tablet 1 08/28/2023 06/29/20 24 Discontinued(Med ication List Clean Up) Nortriptyline HCl 10 MG Oral Capsule (Pamelor)Indicat ions:Lyme arthritis of hand (HCC) Take 1 Capsule by mouth at bedtime. 30 Capsule 1 06/29/2024 07/25/20 24 Discontinued(Ref ill) HYDROcodone-Acet aminophen 5-325 MG Oral TabletIndication s:Lyme arthritis of hand (HCC) Take 1 Tablet by mouth daily as needed for Pain, Moderate. 3 Tablet 06/29/2024 07/01/20 24 Discontinued(Ref ill) documented as of this encounter (statuses as of 07/27/2024) Active Problems Problem Noted Date Diagnosed Date [...] as of this encounter (statuses as of 07/27/2024) Resolved Problems Problem Noted Date Diagnosed Date Resolved Date DONN (generalized anxiety disorder) 12/14/2014 11/29/2019 COPD, mild 05/05/2014 10/30/2022 Overview: Per COPD GOLD Classification HTN, goal below 140/80 05/05/201405/01 Overview: Per HTN Protocol documented as of this encounter (statuses as of 07/27/2024) Immunizations Name Administration Dates Next Due Covid-19 Ad26, Single Dose (Jen/J&J) 05/24/2021 H1N1 2009 Influenza, IM 10/22/2009 Pneumococcal Conjugate Vacci ne, 20-valent ([id number]) 06/16/2023 Pneumococcal Polysaccharide PPV23 (Pneumovax) 11/05/2018,03/16/2012 Seasonal Influenza, PF, 6 M & above, IM , (FluLaval or Fluzone) 08/17/2023,08/29/2022,08/30/2020,10/25 Seasonal Influenza, Quadriva lent, No Preserve, IM 09/03/2021,09/12/2018,10/24/2016 Seasonal Influenza, Trivalen t, (IIV3), with Preserv, (Fluzone) 08/11/2013,09/01/2011,09/26/2010,09/14,08/14/2008 TDAP (age 10 and older)(Boostrix) 10/25/2018 TDAP, [...] 7:04 AM EDT Sexual Orientation Straight 06/02/2022 7 :04 AM EDT Job Start Date Occupation Industry Not on file Not on file Not on file documented as of this encounter Last Filed Vital Signs Vital Sign Reading Time Taken Comments Blood Pressure 138/62 06/29/2024 9:44 AM EDT Pulse 60 06/29/2024 9:44 AM EDT Temperature 36.6 C (97.9 F) 06/29/2024 9:44 AM ED T Respiratory Rate 18 06/29/2024 9:44 AM EDT Oxygen Saturation - - Inhaled Oxygen Concentration - - Weight 39.4 kg (86 lb 12.8 oz) 06/29/2024 9:44 A M EDT Height 165.7 cm (5' 5.25") 06/29/2024 9:44 AM ED T Body Mass Index 14.33 06/29/2024 9:44 AM EDT documented in this encounter Progress Notes * Shauna Pope PA-C - 06/29/2024 9:59 AM EDT Subjective: Nelsy Ng is a 59 year old female. Chief Complaint Patient presents with Follow Up 6 month return HPI: Patient presents for routine follow up. States she is doing okay, but struggling with pain in her hands from her OA. Hands are crippled. Works a lot with her hands and can hardly do her job at times. Taking Tylenol with little improvement. COPD: Mostly well controlled. Using Symbicort as [...] orders placed or performed in visit on 01/12/23 LIPID PANEL WITH DIRECT LDL IF TG IS HIGH Result Value Ref Range Triglycerides 132 <=174 mg/dL Cholesterol 166 <200 mg/dL HDL Cholesterol 73 >49 mg/dL Non-HDL Cholesterol 93 <=159 mg/dL LDL Cholesterol 67 <=129 mg/dL GERD: Well controlled. Taking Protonix as prescribed. Denies side effects. Denies abdominal pain, indigestion, regurgitation, or difficulty swallowing. PAD. Condition has been stable. Taking Plavix as prescribed. 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 Last 01/28/24. PMH: Patient Active Problem List Diagnosis AK (actinic keratosis) PAD (peripheral artery disease) ([facility]) Tobacco abuse disorder HTN, goal below 130/80 Hypokalemia Dyslipidemia, goal LDL below 70 Gastroesophageal reflux disease without esophagitis COPD, group B, by GOLD 2017 classification ([facility]) Current Outpatient Medications Medication Sig Dispense Refill Aspirin 81 MG Tablet Take 1 Tablet by mouth in the morning. Vitamin D (Cholecalciferol) 25 MCG (1000 UT) Oral Capsule Take 1 Capsule by mouth in the morning. Please assist patient in finding this OTC. Thanks!. 90 Capsule 1 Atorvastatin Calcium 10 MG Oral Tablet (Lipitor) Take 1 Tablet by mouth at bedtime. 90 Tablet 3 Telmisartan-HCTZ 80-25 MG Oral Tablet TAKE BY MOUTH 1 TABLET DAILY . 90 Tablet 3 Albuterol Sulfate HFA 108 (90 Base) MCG/ACT [...] MORNING AND BEFORE BEDTIME 30.6 g 3 No current facility-administered medications for this visit. [...] pain Erythromycin Hives Itchy hives Metronidazole Rash Family History Problem Relation Name Age of [...] Used Alcohol use Yes Review of Systems: General: No change in weight, No weakness, No fatigue and No fevers, sweats, or chills Eyes: No recent significant change in vision, No eye pain, redness, discharge, or excessive tearingand No diplopia Ears: No recent change in hearing, No tinnitus or vertigo, No ear pain and No ear discharge Nose: No nasal stuffiness and No significant epistaxis Throat/Oropharynx: No teeth or gum problems, No bleeding gums, No tongue complaints, No sore throatand No recent change in voice or hoarseness Neck: No complaint of lumps in neck, No swollen glands, No recent swelling in thyroid area and No significant pain in neck Respiratory: No sputum, or hemoptysis, No wheezing, No shortness of breath and No recent change in breathing, No cough Cardiac: No chest pain, No shortness of breath, No dyspnea on exertion, No orthopnea, No paroxysmalnocturnal dyspnea, No edema, No palpitations and No syncope Gastrointestinal: No dysphagia, No significant heartburn, No significant change in appetite, No nausea, vomiting, diarrhea, or constipation, No hematemesis, No blood in stools or black tarry stools, No abdominal bloating or early satiety and No abdominal pain Urinary: No urinary frequency, No dysuria, No hematuria, No urinary urgency, No polyuria, No nocturia, No incontinence, No hesitancy and No sensation of incomplete voiding Skin: No edema, No rash and No itching Psychiatric: No depression. No anxiety Objective: BP 138/62 | Pulse 60 | Temp 36.6 C (97.9 F) (Temporal Artery) | Resp 18 | Ht 1.657 m (5' 5.25")| Wt 39.4 kg (86 lb 12.8 oz) | BMI 14.33 kg/m | BSA 1.35 m Physical Exam: General: alert, healthy, no distress Head: Normocephalic, No masses, lesions, tenderness or abnormalities Ears: External ears normal, Canals clear, TM's Normal Nose: no mucosal erythema, no mucosal edema, no purulent discharge Oropharynx: no exudate, no erythema, lips, buccal mucosa, and tongue normal and mucous membranes are moist Neck: supple, no adenopathy, no bruits, thyroid normal size, non-tender, without nodularity Heart: regular rate & rhythm, no murmurs and no gallops Lungs: clear to auscultation Pulses: radial=2/4, femoral=2/4, posterior tibial=1/4, dorsalis pedis=2/4 Abdomen: abdomen soft, non-tender, normal bowel sounds and no masses or organomegaly Extremities: less than 2 second capillary refill, no edema, no clubbing, no cyanosis Neuro Exam: alert & oriented x 3 with fluent speech, no focal motor/sensory deficits, gait normal Skin: skin color, texture, turgor are normal, no rashes or significant lesions ASSESSMENT/PLAN: PAD (peripheral artery disease) (HCC) (Primary) Lyme arthritis of hand (HCC) - Vicodin 5/325 - 1 tab by mouth daily as needed for pain. Dyslipidemia, goal LDL below 70 HTN, goal below 130/80 COPD, mild (HCC) Gastroesophageal reflux disease without esophagitis Follow Up: Return in about 6 weeks (around 08/10/2024). Shauna Pope PA-C documented in this encounter Nursing Notes * Kay Mariano LPN - 06/29/2024 9:47 AM EDT Chief Complaint Patient presents with Follow Up 6 month return Pt asking about flare up of Lymes, darkness on the hands and wrists, generalized weakness, lethargypt c/o SOB at this time she states " I know I smoke but theres something more going on here". Patient has been verbally educated on the need or importance of Immunizations: Hep B and has declined topic(s). Kay Mariano LPN documented in this encounter Plan of Treatment Upcoming Encounters Date Type Department Care Team (Late st Contact Info) Description 08/15/2024 8:20 AM EDT Office Visit [facility], [place] [address] [place] [address] Shauna Pope PA-C [facility] [address] [place] [address] 09/16/2024 11:00 AM EDT Appointment Radiology, [place] [address] [address] 02/21/2025 8:20 AM EDT Office Visit Dermatology, [place] [address] [place] [address] Germaine Rosa PA-C [address] [address] [address] Health Maintenance Due Date Last Done Comments Alpha-1 Antitrypsin 1984 Hepatitis B Vaccine (1 of 3 - 19+ 3-dose series) 1985 Fecal Occult Blood Test 2011 DISCUSS TOBACCO CESSATION (REFER TO SMARTSET #3291) 06/15/2016 06/15/2015 (Declined) Cologuard 12/08/2020 12/08/2017 Depression Screening 06/02/2023 06/02/2022, 06/15/2015 (Discussed) Sigmoidoscopy 11/02/2023 11/02/2018 COVID-19 Vaccine (2 - 2022- season) 2024 05/24/2021 Influenza Vaccine (FLU shot) (#1) 2024 08/17/2023, 08/29/2022, 09/03/2021, Additional history exists Mammogram 09/10/2024 09/10/2023, 07/18, 07/19/2021, Additional history exists O2 ASSESSMENT COMPLETED IN PAST YEAR FOR COPD 12/30/2024 12/30/2023 GFR 06/29/2025 06/29/2024, 08/0 11/2022, 01/12/2023, Additional history exists Albumin/Creatinine Ratio 06/16/2026 06/16/2023 Pap Smear 12/30/2026 [...] Discontinued 11/06/2023, 11/06/2023, 02/04/2018, Additional history exists HPV (Gardasil) Vaccine Aged Out No lo nger eligible based on patient's age to complete this topic MENINGOCOCCAL (MENACTRA/MENVEO) Aged Out No longer eligible based on patient's age to complete this topic documented as of this encounter Medical Devices Not on filedocumented as of this encounter Visit Diagnoses Diagnosis PAD (peripheral artery disease) (HCC)- Primary Peripheral vascular disease, unspecified Lyme arthritis of hand (HCC) Lyme disease Dyslipidemia, goal LDL below 70 Other and unspecified hyperlipidemia HTN, goal below 130/80 Unspecified essential hypertension COPD, mild (HCC) Chronic airway obstruction, not elsewhere classified Gastroesophageal reflux disease without esophagitis Esophageal reflux documented in this encounter Care Teams Steam Tank Operator Relationship Specialty Start Date End Date Shauna Pope PA-C [address] [facility] [address] [place] [address] PCP - General Physician Cyanide Pot Hardener 05/13/17 documented as of this encounter
--- OUTSIDE RECORDS SUMMARY | 2024-09-16 11:34 | External Medical Summary | Summary of Care ---
Author Name Unknown Organization [facility] Address [address] [facility] [place] [address] Phone [phone] Care Team Providers Care Developmental Writing Instructor Name Role Phone Shauna Pope PA-C Primary Care Provider +1- [phone] Reason for Visit * Reason Onset Date Comments Medication Refill 09/06/2024 Encounter Details Date Type Department Care Team (Late st Contact Info) Description 09/06/2024 Refill [place] [address] [place], [place] [phone] Shauna Pope PA-C [facility] [place] [address] Lyme disease; Lyme arthritis of [...] Oral Tablet (pLAVix)Indicatio ns:PAD (peripheral artery disease) ([facility]) TAKE 1 TABLET BY MOUTH DAILY IN [...] Oral Tablet (Lipitor)Indicati ons:PAD (peripheral artery disease) ([facility]),Dyslipidemi a, goal LDL below 70 TAKE 1 [...] 09/07/2024 Active Doxycycline Hyclate 100 MG Oral CapsuleIndication s:Lyme disease Take 1 Capsule by mouth in the morning and 1 Capsule before bedtime. Until gone.. 42 Capsule 09/07/2024 Active Doxycycline Hyclate 100 MG Oral CapsuleIndication [...] IM 10/22/2009 Pneumococcal Conjugate Vacci ne, 20-valent ([id number]) 06/16/2023 Pneumococcal Polysaccharide PPV23 (Pneumovax) 11/05/2018,03/16/2012 Seasonal [...] as of this encounter Miscellaneous Notes * Addendum Note - Shauna Pope PA-C - 09/07/2024 9:21 AM EDTAddended by: SHAUNA POPE on: 09/07/2024 09:21 AM Modules accepted: Orders * Telephone Encounter - Ruth Pool CCMA - 09/07/2024 8:04 AM EDT T/C to pt at this time. Relayed below message. Pt states she is having ticks on her again and she is still have symptoms relayed to her last office visit 08/25 and that is why she requested the doxycycline. * Telephone Encounter - Shauna Pope PA-C - 09/07/2024 7:18 AM EDTSigned Prescriptions: Disp Refills HYDROcodone-Acetaminophen 5-325 MG Oral Ta*30 Tab*0 Sig: Take 1Tablet by mouth daily as needed for Pain, Moderate.Authorizing Provider: SHAUNA POPE NRefused Prescriptions: Disp Refills Doxycycline Hyclate 100 MG Oral Capsule 42 Cap*0 Sig: Take 1 Capsule by mouth in the morning and 1 Capsule before bedtime. Until gone..Refused By: SHAUNA POPE NReason for Refusal: Refill Not Appropriate * Telephone Encounter - Shauna Pope PA-C - 09/07/2024 7:17 AM EDT Refill of Vicodin provided. What does she need the doxy for? * Telephone Encounter - Nereida Norris OSA - 09/06/2024 9:42 AM EDT Did you pend patient's preferred pharmacy and medication before forwarding?yes Pharmacy: [facility] [place] [address], [place] Pending Prescriptions: Disp Refills [...] 11:00 AM EDT Appointment Radiology, [place] [address] [place] [address] 02/21/2025 8:20 AM EDT Office Visit Dermatology, Nayla Haley [place] [address] [place] [address] [place] [address] Germaine Rosa PA-C [address] [place] [address] 06/26/2025 8:20 AM EDT Office Visit Family Practice, [place] [address] [place] [phone] Shauna Pope PA-C [address] [facility] [address] [place] [address] Health Maintenance Due Date Last Done Comments [...] 07/19/2021, Additional history exists GFR 06/29/2025 06/29/2024, 0811/2022, 01/12/2023, Additional history exists O2 ASSESSMENT COMPLETED [...] disease documented in this encounter Care Teams Developmental Writing Instructor Relationship Specialty Start Date End Date Shauna Pope PAAndresC [address] [facility] [address] [place] [address] PCP - General Physician Health Care Legal Assistant 05/13/17 documented as of this encounter
--- OUTSIDE RECORDS SUMMARY | 2024-09-16 11:34 | External Medical Summary | Summary of Care ---
Author Name Unknown Organization [facility] Address [address] [place] [facility] [place] [address] Phone [phone] Care Team Providers Care Plastic Tile Setter Name Role Phone Dennis Pope PA-C Primary Care Provider +1- [phone] Reason for Visit * Reason Onset Date Comments Medication Refill 09/06/2024 Encounter Details Date Type Department Care Team (Late st Contact Info) Description 09/06/2024 Refill [place] [address] [place], [place] [phone] Dennis Pope PA-C [facility] [place] [address] Lyme disease; Lyme arthritis of [...] Oral Tablet (pLAVix)Indicatio ns:PAD (peripheral artery disease) ([facility]) TAKE 1 TABLET BY MOUTH [...] IM 10/22/2009 Pneumococcal Conjugate Vacci ne, 20-valent ([id number]) 06/16/2023 Pneumococcal Polysaccharide PPV23 (Pneumovax) 11/05/2018,03/16/2012 Seasonal [...] encounter Miscellaneous Notes * Telephone Encounter - Ruth Pool CCMA - 09/07/2024 8:04 AM EDT T/C to pt at this time. Relayed below message. Pt states she is having ticks on her again and she is still have symptoms relayed to her last office visit 08/25 and that is why she requested the doxycycline. * Telephone Encounter - Dennis Pope PA-C [...] medication before forwarding?yes Pharmacy: [facility] [place] [address] [address] Pending Prescriptions: Disp Refills Doxycycline Hyclate 100 [...] EDT Appointment Radiology, [place] [address] [place] [address] 02/21/2025 8:20 AM EDT Office Visit Dermatology, [place] [address] [place] [address] [place] [address] Germaine Rosa PA-C [address] [place] [address] 06/26/2025 8:20 AM EDT Office Visit [facility] [address] [place] [phone] Dennis Pope, THEE [address] [place] [address] [place] [phone] Health Maintenance Due Date Last Done Comments Alpha-1 Antitrypsin 1984 Hepatitis B Vaccine (1 of 3 - 19+ 3-dose series) 1985 Fecal Occult Blood Test 2011 DISCUSS TOBACCO CESSATION (REFER TO SMARTSET #3601) 06/15/2016 06/15/2015 (Declined) Cologuard 12/08/2020 12/08/2017 Depression [...] disease documented in this encounter Care Teams Plastic Tile Setter Relationship Specialty Start Date End Date Dennis Pope PA-C [address] [place] [address] [place] [address] PCP - General Physician Database Consultant 05/13/17 documented as of this encounter
--- OUTSIDE RECORDS SUMMARY | 2024-09-16 11:35 | External Medical Summary ---
Author Name Unknown Address Unknown Organization K01:[facility] - [address] [facility] [place] [address] Laboratory Report Ordering Provider Test Date Status BOBY COLLINS 07/15/2024 08:12:30 Final Observation Date Value Abnormality Reference (Units ) Status Campylobacter sp DNA.diarrheagenic [Presence] in Stool by NAYELI with probe detection 07/15/2024 08:12:30 Negative Negative Final Salmonella sp rpoD gene [Presence] in Stool by NAYELI with probe detection 07/15/2024 08:12:30 Positive Abnormal Negative Final Salmonella species detected by PCR (amplified probe). Test results reported to [facility]. Shigella species+EIEC invasi on plasmid antigen H ipaH gene [Presence] in Stool by NAYELI with probe detection 07/15/2024 08:12:30 Negative Negati ve Final Vibrio sp DNA [Identifier] i n Specimen by NAYELI with probe detection 07/15/2024 08:12:30 Negative Negati ve Final Yersinia enterocolitica recN gene [Presence] in Stool by NAYELI with probe detection 07/15/2024 08:12:30 Negative Negative Final Escherichia coli Stx1 toxin stx1 gene [Presence] in Stool by NAYELI with probe detection 07/15/2024 08:12:30 Negative Negative Final Escherichia coli Stx2 toxin stx2 gene [Presence] in Stool by NAYELI with probe detection 07/15/2024 08:12:30 Negative Negative Final Norovirus genogroups I and I I RNA panel - Stool by NAYELI with probe detection 07/15/2024 08:12:30 Negative Negative Final Rotavirus A RNA [Presence] i n Stool by NAYELI with probe detection 07/15/2024 08:12:30 Negative Negative Final Performing Location [facility] - [address] [facility] [address]
--- OUTSIDE RECORDS SUMMARY | 2024-09-16 11:35 | External Medical Summary | Summary of Care ---
Author Name Unknown Organization [facility] Address [address] [place] [address] Phone [phone] Care Team Providers Care Tank Welder Name Role Phone Dennis Pope PA-C Primary Care Provider +1- [phone] Encounter Details Date Type Department Care Team (Late st Contact Info) Description 07/25/2024 Refill [place] [address] [place] [address] Dennis Pope PA-C [facility] [place], [place] [phone] Lyme arthritis of hand (HCC) Allergies Active Allergy Reactions Criticality Noted Date Comments Atorvastatin Liver complications (Please comment) 06/26/2022 Elevated LFTs Celecoxib Diarrhea 11/20/2014 Severe diarrhea Ciprofloxacin Rash 11/29/2019 Rosuvastatin Muscle pain 06/26/2022 Erythromycin Hives 11/20/2014 Itchy hives Metronidazole Rash 11/29/2019 Azithromycin Rash Medium 02/21/2013 documented as of this encounter (statuses as of 07/25/2024) Medications Medication Sig Dispensed Refills Start Date [...] Oral Tablet (pLAVix)Indicatio ns:PAD (peripheral artery disease) (HCC) TAKE 1 TABLET [...] AT BEDTIME 90 Tablet 3 07/16/2024 Active HYDROcodone-Aceta minophen 5-325 MG Oral TabletIndications :Lyme arthritis of hand (HCC) Take 1 Tablet by mouth daily as needed for Pain, Moderate. 30 Tablet 07/25/2024 Active Nortriptyline HCl 10 MG Oral Capsule (Pamelor)Indicati ons:Lyme arthritis of hand (HCC) Take 1 Capsule by mouth at bedtime. 30 Capsule 1 07/25/2024 Active Nortriptyline HCl 10 MG Oral Capsule (Pamelor)Indicati ons:Lyme arthritis of hand (HCC) Take 1 Capsule by mouth at bedtime. 30 Capsule 1 06/29/2024 07/25/2024 Discontinue d(Refill) documented as of this encounter (statuses as of 07/25/2024) Active Problems Problem Noted Date Diagnosed Date [...] as of this encounter (statuses as of 07/25/2024) Resolved Problems Problem Noted Date Diagnosed Date Resolved Date DONN (generalized anxiety disorder) 12/14/2014 11/29/2019 COPD, mild 05/05/2014 10/30/2022 Overview: Per COPD GOLD Classification HTN, goal below 140/80 05/05/201405/01 Overview: Per HTN Protocol documented as of this encounter (statuses as of 07/25/2024) Immunizations Name Administration Dates Next Due Covid-19 Ad26, Single Dose (Jen/J&J) 05/24/2021 H1N1 2009 Influenza, IM 10/22/2009 Pneumococcal Conjugate Vacci ne, 20-valent ([id number]) 06/16/2023 Pneumococcal Polysaccharide PPV23 (Pneumovax) 11/05/2018,03/16/2012 Seasonal [...] Telephone Encounter - Dennis Pope PA-C - 07/25/2024 2:18 PM EDTSigned Prescriptions: Disp Refills Nortriptyline HCl 10 MG Oral Capsule (Sheri*30 Cap*1 Sig: Take 1 Capsule by mouth at bedtime.Authorizing Provider: DENNIS POPE * Telephone Encounter - Ruth Pool CCMA - 07/25/2024 2:12 PM EDT Did you pend patient's preferred pharmacy and medication before forwarding?yes Pharmacy: [id number] [place] Pending Prescriptions: Disp Refills Nortriptyline HCl 10 MG Oral Capsule (Maddi*30 Cap*1 Sig: Take 1 Capsule by mouth at bedtime. Last Visit: 06/29/2024 (in office), Visit date not found (telemedicine) Next Visit: 08/15/2024 If no future appointments scheduled, and last appointment is greater than a year ago, please schedule patient for a follow-up appointment Last date the medication was ordered: 06/29/2024 Is this request for a controlled substance?No Urine Drug Screen:No results found for this [...] Description 08/15/2024 8:20 AM EDT Office Visit [place] [address] [place] [address] Dennis Pope, PAJeremias [address] [place] [address] 09/16/2024 11:00 AM EDT Appointment Radiology, [place] [address] [place] [address] 02/21/2025 8:20 AM EDT Office Visit Dermatology, Nayla Haley [place] [address] [place] [address] [place] [address] Germaine Rosa PA-C [address] [place] [address] Health Maintenance Due Date Last Done Comments Alpha-1 Antitrypsin 1984 Hepatitis B Vaccine (1 of 3 - 19+ 3-dose series) 1985 Fecal Occult Blood Test 2011 DISCUSS TOBACCO CESSATION (REFER TO SMARTSET #3291) 06/15/2016 06/15/2015 (Declined) Cologuard 12/08/2020 12/08/2017 Depression Screening 06/02/2023 06/02/2022, 06/15/2015 (Discussed) Sigmoidoscopy 11/02/2023 11/02/2018 COVID-19 Vaccine ( season) 2024 05/24/2021 Influenza Vaccine (FLU shot) [...] Visit Diagnoses Diagnosis Lyme arthritis of hand (HCC) Lyme disease documented in this encounter Care Teams Tank Welder Relationship Specialty Start Date End Date Dennis Pope PA-C [address] [facility] [address] [facility] [place] [address] PCP - General Physician Drugless Physician 05/13/17 documented as of this encounter
--- OUTSIDE RECORDS SUMMARY | 2024-09-16 11:35 | External Medical Summary | Summary of Care ---
Author Name Unknown Organization [facility] Address [address] [place] [address] Phone [phone] Care Team Providers Care Epic Cadence Specialists Name Role Phone Dennis Pope PA-C Primary Care Provider +1- [phone] Reason for Visit * Reason Comments eRx-Medication Refill Encounter Details Date Type Department Care Team (Late st Contact Info) Description 06/22/2024 Refill [place] [address] [place], [place] [phone] Dennis Pope PA-C [facility] [facility] [address] [place], [place] [phone] Hypokalemia*; Gastroesophageal reflux disease without esophagitis; PAD (peripheral artery disease) (HCC); Dyslipidemia, goal LDL below 70; HTN, goal below 130/80 Allergies Active Allergy Reactions Criticality Noted Date Comments Atorvastatin Liver complications (Please comment) 06/26/2022 Elevated LFTs Celecoxib Diarrhea 11/20/2014 Severe diarrhea Ciprofloxacin Rash 11/29/2019 Rosuvastatin Muscle pain 06/26/2022 Erythromycin Hives 11/20/2014 Itchy hives Metronidazole Rash 11/29/2019 Azithromycin Rash Medium 02/21/2013 documented as of this encounter (statuses as of 06/26/2024) Medications Medication Sig Dispensed Refills Start Date End Date Status Aspirin 81 MG Tablet Take 1 Tablet by mouth in the morning. Active Chlorhexidine Gluconate 0.12 % Mouth/Throat Solution (Periogard) PLACE 15 MLS IN THE MOUTH 2 TIMES PER DAY (AFTER MEALS), SWISH IN MOUTH FOR 30 SECONDS THEN SPIT OUT 01/30/2022 Active Vitamin D (Cholecalciferol ) 25 MCG (1000 UT) Oral CapsuleIndicatio ns:Dyslipidemia, goal LDL below 70,Encounter for long-term (current) use of medications Take 1 Capsule by mouth in the morning. Please assist patient in finding this OTC. Thanks!. 90 Capsule 1 11/14/2022 Active Ezetimibe 10 MG Oral Tablet (Zetia)Indicatio ns:Dyslipidemia, goal LDL below 70 Take 1 Tablet by mouth in the morning. 90 Tablet 3 06/16/2023 Active Additional Information Patient not taking.Reported on 02/18/2024 Atorvastatin Calcium 10 MG Oral Tablet (Lipitor)Indicat ions:PAD (peripheral artery disease) (HCC),Dyslipidem ia, goal LDL below 70 Take 1 Tablet by mouth at bedtime. 90 Tablet 3 06/16/2023 Active Telmisartan-HCTZ 80-25 MG Oral TabletIndication s:HTN, goal below 130/80 TAKE BY MOUTH 1 TABLET DAILY . 90 Tablet 3 07/01/2023 Active Ondansetron HCl 4 MG Oral Tablet Take 1 Tablet by mouth every 6 hours as needed for Nausea. 30 Tablet 1 08/28/2023 Active Additional Information Patient not taking.Reported on 02/18/2024 Albuterol Sulfate HFA 108 (90 Base) MCG/ACT [...] 160-4.5 MCG/ACT Inhalation AerosolIndicatio ns:COPD, mild (HCC) Inhale 2 Puffs by mouth in the morning and 2 Puffs before bedtime. 30.6 g 3 06/16/2023 08/08/202 4 Discontinued Clopidogrel Bisulfate 75 MG Oral Tablet (pLAVix)Indicati ons:PAD (peripheral artery disease) (HCC) Take 1 Tablet by mouth in the morning. 1 tablet by mouth daily. 90 Tablet 3 06/16/2023 4 Discontinued Pantoprazole Sodium 40 MG Oral Tablet Delayed Release (Protonix)Indica tions:Gastroesop hageal reflux disease without esophagitis Take 1 Tablet by mouth in the morning. 90 Tablet 3 06/16/2023 4 Discontinued documented as of this encounter (statuses as of 06/26/2024) Active Problems Problem Noted Date Diagnosed Date [...] as of this encounter (statuses as of 06/26/2024) Resolved Problems Problem Noted Date Diagnosed Date Resolved Date DONN (generalized anxiety disorder) 12/14/2014 11/29/2019 COPD, mild 05/05/2014 10/30/2022 Overview: Per COPD GOLD Classification HTN, goal below 140/80 05/05/201405/01 Overview: Per HTN Protocol documented as of this encounter (statuses as of 06/26/2024) Immunizations Name Administration Dates Next Due Covid-19 Ad26, Single Dose (Jen/J&J) 05/24/2021 H1N1 2009 Influenza, IM 10/22/2009 Pneumococcal Conjugate Vacci ne, 20-valent ([id number]) 06/16/2023 Pneumococcal Polysaccharide PPV23 (Pneumovax) 11/05/2018,03/16/2012 Seasonal Influenza, PF, 6 M & above, IM , (FluLaval or Fluzone) 08/17/2023,08/29/2022,08/30/2020,10/25 Seasonal Influenza, Quadriva lent, No Preserve, IM 09/03/2021,09/12/2018,10/24/2016 Seasonal Influenza, Split, I IV3, With Preserve, Inj 08/11/2013,09/01/2011,09/26/2010,09/14,08/14/2008 TDAP (age 10 and older)(Boostrix) 10/25/2018 [...] encounter Miscellaneous Notes * Telephone Encounter - Iah, Care Gaps - 06/26/2024 7:44 PM EDT Received message from [facility] regarding patient needing labs. Patient was notified. Successfully contacted patient and provided [facility] message. * Telephone Encounter - Mabel Jeronimo RPh - 06/23/2024 6:39 AM EDTSigned Prescriptions: Disp Refills Pantoprazole Sodium 40 MG Oral Tablet Torrie*90 Tab*3 Sig: TAKE 1 TABLET BY MOUTH EVERY DAY IN THE MORNING Authorizing Provider: DENNIS POPE Ordering User: MABEL JERONIMO Clopidogrel Bisulfate 75 MG Oral Tablet (p*90 Tab*3 Sig: TAKE 1 TABLET BY MOUTH DAILY IN THE MORNING. Authorizing Provider: DENNIS POPE Ordering User: MABEL CUELLAR * Telephone Encounter - Mabel Jeronimo RPh - 06/23/2024 6:38 AM EDT Provided 90 days supply with 0 refill(s) until upcoming appointment. Per refill protocol patient should have routine on file within past year. Reviewed AMP report, Care Gaps/Health Maintenance, medications list, and for any routine labs typically ordered for this patient. Lab orders placed. Please contact patient to advise of labs ordered for blood draw. Recommend patient to fast if able for labs. Patient may still have water and regular medications. Advise to obtain labs before requesting the next refill. Thank you, Mabel Jeronimo, PharmD. Clinical Pharmacist [facility] ([facility]) 06/23/2024, 6:38 AM documented in this encounter Plan of Treatment Upcoming Encounters Date Type Department Care Team (Late st Contact Info) Description 06/29/2024 9:40 AM EDT Office Visit Family [facility], [place] [phone] [place] [address] Dennis Pope PA-C [address] [place] [address] 09/16/2024 11:00 AM EDT Appointment Radiology, [place] [address] [place] [address] 02/21/2025 8:20 AM EDT Office Visit Dermatology, [place] [address] [place] [address] [place] [address] Germaine Rosa PA-C [address] [place] [address] Scheduled Orders Name Type Priority Associated Diagnoses Orde r Schedule COMPREHENSIVE METABOLIC PANEL Lab Routine HTN, goal below 130/80 Expected: 06/23/2024 (Approximate), Expires: 06/23/2025 LIPID PANEL WITH DIRECT LDL IF TG IS HIGH Lab Routine Dyslipidemia, goal LDL below 70 Expected: 06/23/2024 (Approximate), Expires: 06/23/2025 CBC Lab Routine PAD (peripheral artery disease) (HCC) Expected: 06/23/2024 (Approximate), Expires: 06/23/2025 Health Maintenance Due Date Last Done Comments Alpha-1 Antitrypsin 1984 Hepatitis B Vaccine (1 of 3 - 19+ 3-dose series) 1985 Fecal Occult Blood Test 2011 DISCUSS TOBACCO CESSATION (REFER TO SMARTSET #3291) 06/15/2016 06/15/2015 (Declined) Cologuard 12/08/2020 12/08/2017 Depression Screening 06/02/2023 06/02/2022, 06/15/2015 (Discussed) COVID-19 Vaccine ( season) 2023 05/24/2021 Sigmoidoscopy 11/02/2023 11/02/2018 GFR 06/16/2024 06/16/2023, 12/18, 10/02/2022, Additional history exists Influenza Vaccine (FLU shot) (#1) 2024 08/17/2023, 08/29/2022, 09/03/2021, Additional history exists Mammogram 09/10/2024 09/10/2023, 07/18, 07/19/2021, Additional history exists O2 ASSESSMENT COMPLETED IN PAST YEAR FOR COPD 12/30/2024 12/30/2023 Albumin/Creatinine Ratio 06/16/2026 06/16/2023 Pap Smear 12/30/2026 12/30/2023, 05/16, 05/14/2017, Additional history exists Lipid Panel 06/16/2028 06/16/2023, 12/18, 10/02/2022, Additional history exists DTaP,Tdap,and Td Vaccines (3 - Td or Tdap) 10/25/2028 10/25/2018, 03/16/2012 Colonoscopy 11/06/2028 11/06/2023, 10/17, 02/04/2018, Additional history exists Colorectal Cancer Screening 11/06/2028 Cervical Cancer Screening 12/30/2028 HPV/Co-Test 12/30/2028 12/30/2023 *COPD SEVERITY VERIFIED BY PFT Addressed 06/15/2015 [...] as of this encounter Visit Diagnoses Diagnosis Hypokalemia- Primary Hypopotassemia Gastroesophageal reflux disease without esophagitis Esophageal reflux PAD (peripheral artery disease) (HCC) Peripheral vascular disease, unspecified Dyslipidemia, goal LDL below 70 Other and unspecified hyperlipidemia HTN, goal below 130/80 Unspecified essential hypertension documented in this encounter Care Teams Epic Cadence Specialists Relationship Specialty Start Date End Date Dennis Pope PA-C [address] [facility] [address] [facility] [place] [address] PCP - General Physician Trimmer Press Clippings 05/13/17 documented as of this encounter
--- OUTSIDE RECORDS SUMMARY | 2024-09-16 11:35 | External Medical Summary ---
Author Name Unknown Address Unknown Organization : Laboratory Report Ordering Provider Test Date Status BOBY COLLINS 07/15/2024 08:12:30 Final Observation Date Value Abnormality Reference (Units ) Status Fat.microscopic observation [Identifier] in Stool by [place] IV stain 07/15/2024 08:12:30 Normal Normal Final
Test Performed at:
[facility]
[id number] [facility]
[place] [address]
Alf Hand M.D., Ph.D.,Director of Laboratories Performing Location
--- OUTSIDE RECORDS SUMMARY | 2024-09-16 11:35 | External Medical Summary | Summary of Care ---
Author Name Unknown Organization [facility] Address [address] [place] [address] Phone [phone] Care Team Providers Care Territory Service Representative Name Role Phone Dennis Pope PA-C Primary Care Provider +1- [phone] Reason for Visit * Reason Comments eRx-Medication Refill Encounter Details Date Type Department Care Team (Late st Contact Info) Description 07/08/2024 Refill [place] [address] [place], [place] [phone] Dennis Pope PA-C [facility] [place], [place] [phone] HTN, goal below 130/80 Allergies Active Allergy Reactions Criticality Noted Date Comments Atorvastatin Liver complications (Please comment) 06/26/2022 Elevated LFTs Celecoxib Diarrhea 11/20/2014 Severe diarrhea Ciprofloxacin Rash 11/29/2019 Rosuvastatin Muscle pain 06/26/2022 Erythromycin Hives 11/20/2014 Itchy hives Metronidazole Rash 11/29/2019 Azithromycin Rash Medium 02/21/2013 documented as of this encounter (statuses as of 2024) Medications Medication Sig Dispensed Refills Start Date [...] OTC. Thanks!. 90 Capsule 1 11/14/2022 Active Atorvastatin Calcium 10 MG Oral Tablet (Lipitor)Indicati ons:PAD (peripheral artery disease) (HCC),Dyslipidemi a, goal LDL below 70 Take 1 Tablet by mouth at bedtime. 90 Tablet 3 06/16/2023 Active Albuterol Sulfate HFA 108 (90 Base) [...] BEFORE BEDTIME 30.6 g 3 06/23/2024 Active Nortriptyline HCl 10 MG Oral Capsule (Pamelor)Indicati ons:Lyme arthritis of hand (HCC) Take 1 Capsule by mouth at bedtime. 30 Capsule 1 06/29/2024 Active HYDROcodone-Aceta minophen 5-325 MG Oral TabletIndications :Lyme arthritis of hand (HCC) Take 1 Tablet by mouth daily as needed for Pain, Moderate. 30 Tablet 07/01/2024 Active Telmisartan-HCTZ 80-25 MG Oral TabletIndications :HTN, goal below 130/80 TAKE 1 TABLET BY MOUTH EVERY DAY 90 Tablet 3 2024 Active Telmisartan-HCTZ 80-25 MG Oral TabletIndications :HTN, goal below 130/80 TAKE BY MOUTH 1 TABLET DAILY . 90 Tablet 3 07/01/2023 4 Discontinued documented as of this encounter (statuses as of 2024) Active Problems Problem Noted Date Diagnosed Date [...] as of this encounter (statuses as of 2024) Resolved Problems Problem Noted Date Diagnosed Date Resolved Date DONN (generalized anxiety disorder) 12/14/2014 11/29/2019 COPD, mild 05/05/2014 10/30/2022 Overview: Per COPD GOLD Classification HTN, goal below 140/80 05/05/201405/01 Overview: Per HTN Protocol documented as of this encounter (statuses as of 2024) Immunizations Name Administration Dates Next Due Covid-19 Ad26, Single Dose (Chat Sports/J&J) 05/24/2021 H1N1 2009 Influenza, IM 10/22/2009 Pneumococcal Conjugate Vacci ne, 20-valent ([id number]) 06/16/2023 Pneumococcal Polysaccharide PPV23 (Pneumovax) 11/05/2018,03/16/2012 Seasonal [...] encounter Miscellaneous Notes * Telephone Encounter - Nelda Purdy [facility] - 2024 11:59 AM EDTSigned Prescriptions: Disp Refills Telmisartan-HCTZ 80-25 MG Oral Tablet 90 Tab*3 Sig: TAKE 1 TABLET BY MOUTH EVERY DAYAuthorizing Provider: DENNIS POPE User: NELDA PURDY-------- documented in this encounter Plan of Treatment Upcoming Encounters Date Type Department Care Team (Late st Contact Info) Description 08/15/2024 8:20 AM EDT Office Visit Family [facility], [place] [phone] [place] [address] Dennis Pope PA-C [address] [place] [address] 09/16/2024 11:00 AM EDT Appointment Radiology, [place] [address] [place] [address] 02/21/2025 8:20 AM EDT Office Visit Dermatology, Tono Gonzalez [address] [place] [address] Germaine Rosa PA-C [address] [place] [address] Health Maintenance Due Date Last Done Comments Alpha-1 Antitrypsin 1984 Hepatitis B Vaccine (1 of 3 - 19+ 3-dose series) 1985 Fecal Occult Blood Test 2011 DISCUSS TOBACCO CESSATION (REFER TO SMARTSET #3291) 06/15/2016 06/15/2015 (Declined) Cologuard 12/08/2020 12/08/2017 Depression Screening 06/02/2023 06/02/2022, 06/15/2015 (Discussed) COVID-19 Vaccine ( season) 2023 05/24/2021 Sigmoidoscopy 11/02/2023 11/02/2018 Influenza Vaccine (FLU shot) (#1) 2024 08/17/2023, 08/29/2022, 09/03/2021, Additional history exists Mammogram 09/10/2024 09/10/2023, 07/18, 07/19/2021, Additional history exists O2 ASSESSMENT COMPLETED IN PAST YEAR FOR COPD 12/30/2024 12/30/2023 GFR 06/29/2025 06/29/2024, 08/0 11/2022, 01/12/2023, Additional history exists Albumin/Creatinine Ratio 06/16/2026 06/16/2023 Pap Smear 12/30/2026 12/30/2023, 05/16, 05/14/2017, Additional history exists DTaP,Tdap,and Td Vaccines (3 [...] as of this encounter Visit Diagnoses Diagnosis HTN, goal below 130/80 Unspecified essential hypertension documented in this encounter Care Teams Territory Service Representative Relationship Specialty Start Date End Date Dennis Pope PA-C [address] [facility] [address] [facility] [place] [address] PCP - General Physician Facilities Engineering Manager 05/13/17 documented as of this encounter
--- OUTSIDE RECORDS SUMMARY | 2024-09-16 11:35 | External Medical Summary ---
Author Name Unknown Address Unknown Organization K01:[facility] [place] [address] [place] [address] Laboratory Report Ordering Provider Test Date Status KIZZY CRUZ 06/29/2024 10:43:02 Final Observation Date Value Abnormality Reference (Units ) Status Triglyceride 06/29/2024 10:43:02 216 Above high normal <=174 (mg/dL) Final Triglyceride Reference Range s (mg/dL):
<150 Acceptable
150-174 Borderline high
175-499 High
>=500 Very high Cholesterol 06/29/2024 10:43:02 178 <200 (mg /dL) Final Total Cholesterol Reference Ranges (mg/dL):
<200 Desirable
200-239 Borderline high
>=240 High HDL 06/29/2024 10:43:02 79 >49 (mg/dL ) Final HDL Cholesterol Reference Ra nges (mg/dL):
>=60 High (Desirable)
<50 Low (Undesirable) For Females
<40 Low (Undesirable) For Males NON-HDL CHOLESTEROL 06/29/2024 10:43:02 99 <=159 (mg/dL) Final Non-HDL Cholesterol Referenc e Range (mg/dL):
<100 Target level for high risk ASCVD patient
<130 Optimal for general population
130-159 Near optimal for general population
160-189 Borderline High
190-219 High
>=220 Very High Performing Location [facility] [place] [facility] [address] [facility] [address]
--- OUTSIDE RECORDS SUMMARY | 2024-09-16 11:35 | External Medical Summary | Summary of Care ---
Author Name Unknown Organization [facility] Address [address] [place] [address] Phone [phone] Care Team Providers Care Rubber Splicer Name Role Phone Shauna Pope PA-C Primary Care Provider +1- [phone] Reason for Visit * Reason Onset Date Comments Advice 07/14/2024 Encounter Details Date Type Department Care Team (Late st Contact Info) Description 07/14/2024 Telephone [place] [address] [place], [place] [phone] Shauna Pope PA-C [facility] [facility] [address] [place], [place] [phone] Advice Allergies Active Allergy Reactions Criticality Noted Date Comments Atorvastatin Liver complications (Please comment) 06/26/2022 Elevated LFTs Celecoxib Diarrhea 11/20/2014 Severe diarrhea Ciprofloxacin Rash 11/29/2019 Rosuvastatin Muscle pain 06/26/2022 Erythromycin Hives 11/20/2014 Itchy hives Metronidazole Rash 11/29/2019 Azithromycin Rash Medium 02/21/2013 documented as of this encounter (statuses as of 07/15/2024) Medications Medication Sig Dispensed Refills Start Date [...] artery disease) (HCC),Dyslipidemia, goal LDL below 70 Take 1 Tablet by mouth at bedtime. 90 Tablet 3 06/16/2023 Active Albuterol Sulfate HFA 108 (90 Base) MCG/ACT Inhalation Aerosol SolutionIndications: COPD, mild (HCC) INHALE 2 PUFFS BY MOUTH [...] at bedtime. 30 Capsule 1 06/29/2024 Active HYDROcodone-Acetamin ophen 5-325 MG Oral TabletIndications:Ly me arthritis of hand (HCC) Take 1 Tablet by mouth daily as needed for Pain, Moderate. 30 Tablet 07/01/2024 Active Telmisartan-HCTZ 80-25 MG Oral TabletIndications:HT N, goal below 130/80 TAKE 1 TABLET BY MOUTH EVERY DAY 90 Tablet 3 2024 Active documented as of this encounter (statuses as of 07/15/2024) Active Problems Problem Noted Date Diagnosed Date [...] as of this encounter (statuses as of 07/15/2024) Resolved Problems Problem Noted Date Diagnosed Date Resolved Date DONN (generalized anxiety disorder) 12/14/2014 11/29/2019 COPD, mild 05/05/2014 10/30/2022 Overview: Per COPD GOLD Classification HTN, goal below 140/80 05/05/201405/01 Overview: Per HTN Protocol documented as of this encounter (statuses as of 07/15/2024) Immunizations Name Administration Dates Next Due Covid-19 Ad26, Single Dose (Jen/J&J) 05/24/2021 H1N1 2008 Influenza, IM 10/22/2009 Pneumococcal Conjugate Vacci ne, 20-valent ([id number]) 06/16/2023 Pneumococcal Polysaccharide PPV23 (Pneumovax) 11/05/2018,03/16/2012 Seasonal [...] encounter Miscellaneous Notes * Telephone Encounter - Radha Kennedy CCMA - 07/14/2024 3:04 PM EDT Pt called and voiced understanding, 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 * Telephone Encounter - Shauna Pope PA-C - 07/14/2024 3:00 PM EDT Orders placed * Telephone Encounter - Amairani Parrish OSA - 07/14/2024 11:41 AM EDT Patient came into the office complaining of having diarrhea "forever", but very bad in the last twoweeks. Sh stated there was "white" things in stool (she said not mucus). She has C. Diff prior and it does not seem like that. Seems more like when she had abscesses, but with no blood at this point. Patient requesting some sort of stool test to try and find out what the problem may be. Please make aware at [phone]. documented in this encounter Plan of Treatment Upcoming Encounters Date Type Department Care Team (Late st Contact Info) Description 08/15/2024 8:20 AM EDT Office Visit [facility], [place] [address] [place] [address] Shauna Pope PA-C [address] [place] [address] 09/16/2024 11:00 AM EDT Appointment Radiology, [place] [address] [place] [address] 02/21/2025 8:20 AM EDT Office Visit Dermatology, Tono Gonzalez [address] [place] [address] Germaine Rosa PA-C [address] [place] [address] Pending Results Name Type Priority Associated Diagnoses Date /Time FECAL FAT, QUALITATIVE Lab Routine Diarrhea, unspecified type 07/15/2024 8:12 AM EDT GASTROINTESTINAL PATHOGEN PANEL, STOOL Lab Routine Diarrhea, unspecified type 07/15/2024 8:12 AM EDT Scheduled Orders Name Type Priority Associated Diagnoses Orde r Schedule FECAL FAT, QUALITATIVE Lab Routine Diarrhea, unspecified type Expected: 07/14/2024, Expires: 07/14/2025 GASTROINTESTINAL PATHOGEN PANEL, STOOL Lab Routine Diarrhea, unspecified type Expected: 07/14/2024 (Approximate), Expires: 07/14/2025 Health Maintenance Due Date Last Done Comments Alpha-1 Antitrypsin 1984 Hepatitis B Vaccine (1 of 3 - 19+ 3-dose series) 1985 Fecal Occult Blood Test 2011 DISCUSS TOBACCO CESSATION (REFER TO SMARTSET #1287) 06/15/2016 06/15/2015 (Declined) Cologuard 12/08/2020 12/08/2017 Depression Screening 06/02/2023 06/02/2022, 06/15/2015 (Discussed) COVID-19 Vaccine (2 - season) 2023 05/24/2021 Sigmoidoscopy 11/02/2023 11/02/2018 Influenza [...] as of this encounter Visit Diagnoses Diagnosis Diarrhea, unspecified type- Primary documented in this encounter Additional Health Concerns Infection Onset Date Last Indicated Resolved Time C. difficile Rule-Out 07/15/2024 07/15/20242023 1:43 PM EDT Gastrointestinal Rule-Out 07/15/2024 07/15/2024 documented as of this encounter Care Teams Rubber Splicer Relationship Specialty Start Date End Date Shauna Pope PA-C [address] [facility] [place] [address] PCP - General Physician Millwright Instructor 05/13/17 documented as of this encounter
--- OUTSIDE RECORDS SUMMARY | 2024-09-16 11:35 | External Medical Summary | Summary of Care ---
Author Name Unknown Organization [facility] Address [address] [facility] [address] Phone [phone] Care Team Providers Care Manager Hvac Name Role Phone Shauna Pope PA-C Primary Care Provider +1- [phone] Reason for Referral * Medication Prior Authorization - Closed Specialty Diagnoses / Procedures Referred By Sangita jolly Referred To Contact Diagnoses Lyme arthritis of hand (HCC) Shauna Pope PA-C [address] [facility] [address] [place] [address] Referral ID Status Reason Start Date Expiration Date Visits Re quested Visits Authorized [id number] Closed [phone] Reason for Visit * Reason Onset Date Comments Medication Refill 07/01/2024 Encounter Details Date Type Department Care Team (Late st Contact Info) Description 07/01/2024 Refill [place] [address] [facility] [place] [address] Shauna Pope PA-C [facility] [facility] [address] [place] [address] Lyme arthritis of hand (HCC) Allergies Active Allergy Reactions Criticality Noted Date Comments Atorvastatin Liver complications (Please comment) 06/26/2022 Elevated LFTs Celecoxib Diarrhea 11/20/2014 Severe diarrhea Ciprofloxacin Rash 11/29/2019 Rosuvastatin Muscle pain 06/26/2022 Erythromycin Hives 11/20/2014 Itchy hives Metronidazole Rash 11/29/2019 Azithromycin Rash Medium 02/21/2013 documented as of this encounter (statuses as of 07/01/2024) Medications Medication Sig Dispensed Refills Start Date [...] 3 06/16/2023 Active Telmisartan-HCTZ 80-25 MG Oral TabletIndications :HTN, goal below 130/80 TAKE BY MOUTH 1 TABLET DAILY . 90 Tablet 3 07/01/2023 Active Albuterol Sulfate HFA 108 (90 Base) [...] for Pain, Moderate. 30 Tablet 07/01/2024 Active HYDROcodone-Aceta minophen 5-325 MG Oral TabletIndications :Lyme arthritis of hand (HCC) Take 1 Tablet by mouth daily as needed for Pain, Moderate. 30 Tablet 07/01/2024 07/01/2024 Discontinue d(Refill) documented as of this encounter (statuses as of 07/01/2024) Active Problems Problem Noted Date Diagnosed Date [...] as of this encounter (statuses as of 07/01/2024) Resolved Problems Problem Noted Date Diagnosed Date Resolved Date DONN (generalized anxiety disorder) 12/14/2014 11/29/2019 COPD, mild 05/05/2014 10/30/2022 Overview: Per COPD GOLD Classification HTN, goal below 140/80 05/05/201405/01 Overview: Per HTN Protocol documented as of this encounter (statuses as of 07/01/2024) Immunizations Name Administration Dates Next Due Covid-19 Ad26, Single Dose (Jen/J&J) 05/24/2021 H1N1 2009 Influenza, IM 10/22/2009 Pneumococcal Conjugate Vacci ne, 20-valent ([id number]) 06/16/2023 Pneumococcal Polysaccharide PPV23 (Pneumovax) 11/05/2018,03/16/2012 Seasonal [...] Telephone Encounter - Shauna Pope PA-C - 07/01/2024 4:47 PM EDTSigned Prescriptions: Disp Refills HYDROcodone-Acetaminophen 5-325 MG Oral Ta*30 Tab*0 Sig: Take 1 Tablet by mouth daily as needed for Pain, Moderate. Authorizing Provider: SHAUNA POPE * Telephone Encounter - Amairani Parrish, TRISTAN - 07/01/2024 4:27 PM EDT Did you pend patient's preferred pharmacy and medication before forwarding?yes Pharmacy: [facility] - [place] [address] [address], [place] Pending Prescriptions: Disp Refills HYDROcodone-Acetaminophen 5-325 MG Oral T*30 Tab*0 Sig: Take 1 Tablet by mouth daily as needed for Pain, Moderate. Last Visit: 06/29/2024 (in office), Visit date not found (telemedicine) Next Visit: 08/15/2024 If no future appointments scheduled, and last appointment is greater than a year ago, please schedule patient for a follow-up appointment Last date the medication was ordered: 07/01/2024. Is this request for a controlled substance?Yes, What was the last refill date 07/01/2024 w/ [id number] tablets and dosage 5/325 mg. and Urine Drug Screen Not completed Urine Drug Screen:No results found for this or any previous visit. Patient Phone Numbers Labs: Lab Results Component Value Date/Time CREAT 0.6 06/29/2024 10:43 AM CREAT 0.6 05/30/2020 09:14 AM POTASSIUM 3.4 (L) 06/29/2024 10:43 AM POTASSIUM 3.9 05/30/2020 09:14 AM TSH 0.58 05/14/2016 08:44 AM LDLCALC 67 01/12/2023 08:01 AM LDLCALC 66 05/30/2020 09:14 AM LDLDIRECT 71 06/29/2024 10:43 AM LDLDIRECT NOT APPLICABLE 05/30/2020 09:14 AM ALT 56 (H) 06/29/2024 10:43 AM ALT 33 05/30/2020 09:14 AM documented in this encounter Plan of Treatment Upcoming Encounters Date Type Department Care Team (Late st Contact Info) Description 08/15/2024 8:20 AM EDT Office Visit Family [facility], [place] [address] [place] [address] Shauna Pope PA-C [address] [facility] [address] 09/16/2024 11:00 AM EDT Appointment Radiology, [place] [address] [place] [address] 02/21/2025 8:20 AM EDT Office Visit Dermatology, T[place] Gonzalez [address] [place] [address] Germaine Rosa PA-C [address] [place] [address] Health Maintenance Due Date Last Done Comments Alpha-1 Antitrypsin 1984 Hepatitis B Vaccine (1 of 3 - 19+ 3-dose series) 1985 Fecal Occult Blood Test 2011 DISCUSS TOBACCO CESSATION (REFER TO SMARTSET #3291) 06/15/2016 06/15/2015 (Declined) Cologuard 12/08/2020 12/08/2017 Depression Screening 06/02/2023 06/02/2022, 06/15/2015 (Discussed) COVID-19 Vaccine (2 - 2022- season) 2023 05/24/2021 Sigmoidoscopy 11/02/2023 11/02/2018 Influenza [...] disease documented in this encounter Care Teams Manager Hvac Relationship Specialty Start Date End Date Shauna Pope PA-C [address] [facility] [address] [place] [address] PCP - General Physician Rooming House Keeper 05/13/17 documented as of this encounter
--- OUTSIDE RECORDS SUMMARY | 2024-09-16 11:35 | External Medical Summary | Summary of Care ---
Author Name Unknown Organization [facility] Address [address] [place] [address] Phone [phone] Care Team Providers Care Weight Tester Name Role Phone Shauna Pope PA-C Primary Care Provider +1- [phone] Reason for Visit * Reason Onset Date Comments Advice 07/15/2024 Encounter Details Date Type Department Care Team (Late st Contact Info) Description 07/15/2024 Telephone [place] [address] [place], [place] [phone] Shauna Pope PA-C [facility] [address] [place], [place] [phone] Advice Allergies Active Allergy Reactions Criticality Noted Date Comments Atorvastatin Liver complications (Please comment) 06/26/2022 Elevated LFTs Celecoxib Diarrhea 11/20/2014 Severe diarrhea Ciprofloxacin Rash 11/29/2019 Rosuvastatin Muscle pain 06/26/2022 Erythromycin Hives 11/20/2014 Itchy hives Metronidazole Rash 11/29/2019 Azithromycin Rash Medium 02/21/2013 documented as of this encounter (statuses as of 07/20/2024) Medications Medication Sig Dispensed Refills Start Date [...] Active Nortriptyline HCl 10 MG Oral Capsule (Pamelor)Indicat ions:Lyme arthritis of hand (HCC) Take 1 Capsule by mouth at bedtime. 30 Capsule 1 06/29/2024 Active Telmisartan-HCTZ 80-25 MG Oral TabletIndication s:HTN, goal below 130/80 TAKE 1 TABLET BY MOUTH EVERY DAY 90 Tablet 3 2024 Active Sulfamethoxazole -Trimethoprim 800-160 MG Oral Tablet (Bactrim DS) Take 1 Tablet by mouth in the morning and 1 Tablet before bedtime. Do all this for 7 days. Until gone. 14 Tablet 07/15/2024 07/22/20 24 Active HYDROcodone-Acet aminophen 5-325 MG Oral TabletIndication s:Lyme arthritis of hand (HCC) Take 1 Tablet by mouth daily as needed for Pain, Moderate. 30 Tablet 07/20/2024 Active Atorvastatin Calcium 10 MG Oral Tablet (Lipitor)Indicat ions:PAD (peripheral artery disease) (HCC),Dyslipidem ia, goal LDL below 70 Take 1 Tablet by mouth at bedtime. 90 Tablet 3 06/16/2023 07/16/20 24 Discontinued HYDROcodone-Acet aminophen 5-325 MG Oral TabletIndication s:Lyme arthritis of hand (HCC) Take 1 Tablet by mouth daily as needed for Pain, Moderate. 30 Tablet 07/01/2024 07/19/20 24 Discontinued(Ref ill) documented as of this encounter (statuses as of 07/20/2024) Active Problems Problem Noted Date Diagnosed Date [...] as of this encounter (statuses as of 07/20/2024) Resolved Problems Problem Noted Date Diagnosed Date Resolved Date DONN (generalized anxiety disorder) 12/14/2014 11/29/2019 COPD, mild 05/05/2014 10/30/2022 Overview: Per COPD GOLD Classification HTN, goal below 140/80 05/05/201405/01 Overview: Per HTN Protocol documented as of this encounter (statuses as of 07/20/2024) Immunizations Name Administration Dates Next Due Covid-19 Ad26, Single Dose (Jen/J&J) 05/24/2021 H1N1 2009 Influenza, IM 10/22/2009 Pneumococcal Conjugate Vacci ne, 20-valent ([id number]) 06/16/2023 Pneumococcal Polysaccharide PPV23 (Pneumovax) 11/05/2018,03/16/2012 Seasonal [...] Notes * Telephone Encounter - Ruth Pool [facility] - 07/19/2024 10:25 AM EDT Did you pend patient's preferred pharmacy and medication before forwarding?yes Pharmacy: [id number] [place] Pending Prescriptions: Disp Refills HYDROcodone-Acetaminophen 5-325 MG Oral T*30 Tab*0 Sig: Take 1 Tablet by mouth daily as needed for Pain, Moderate. Signed Prescriptions: Disp Refills Sulfamethoxazole-Trimethoprim 800-160 MG O*14 Tab*0 Sig: Take 1 Tablet by mouth in the morning and 1 Tablet before bedtime. Do all this for 7 days. Until gone. Authorizing Provider: ARCHIE ROBBINS Last Visit: 06/29/2024 (in office), Visit date not found (telemedicine) Next Visit: 08/15/2024 If no future appointments scheduled, and last appointment is greater than a year ago, please schedule patient for a follow-up appointment Last date the medication was ordered: 07/01/2024 Is this request for a controlled substance?Yes, What was the last refill date 07/01/2024 w/ quantity 30 and dosage 5-325 and Urine Drug Screen Not [...] 10:43 AM ALT 33 05/30/2020 09:14 AM * Telephone Encounter - Ruth Pool CCMA - 07/19/2024 10:15 AM EDT Pt stating has been tired for a few weeks and is asking if this would have to do with the finding of salmonella in her stool. Did advise pt that antobiotic was sent to [facility] pharmacy. Pt aware and understands. Pt also requesting hydrocodone refill sent to [facility] pharmacy. * Telephone Encounter - Archie Robbins MD - 07/15/2024 10:02 PM EDT Salmonella is noted. Antibiotic called in. Archie Robbins MD 07/15/2024 * Telephone Encounter - Alondra Avila LPN - 07/15/2024 1:28 PM EDT Andrea from the lab calling. The specimen for C-diff test was not in a sterile container so it cannot be run. They were able to run the GI pathogen panel. Andrea indicated the order provider may want to wait for the GI panel to return before reordering the C-diff. documented in this encounter Plan of Treatment Upcoming Encounters Date Type Department Care Team (Late st Contact Info) Description 08/15/2024 8:20 AM EDT Office Visit [place] [address] [place] [address] Shauna Pope PA-C [address] [place] [address] [place] [address] 09/16/2024 11:00 AM EDT Appointment Radiology, [place] [address] [place] [address] [address] 02/21/2025 8:20 AM EDT Office Visit Dermatology, [place] [address] [place] [address] Germaine Rosa PA-C [address] [place] [address] [address] Health Maintenance Due Date Last Done Comments Alpha-1 Antitrypsin 1984 Hepatitis B Vaccine (1 of 3 - 19+ 3-dose series) 1985 Fecal Occult Blood Test 2011 DISCUSS TOBACCO CESSATION (REFER TO SMARTSET #9065) 06/15/2016 06/15/2015 (Declined) Cologuard 12/08/2020 12/08/2017 Depression Screening 06/02/2023 06/02/2022, 06/15/2015 (Discussed) Sigmoidoscopy 11/02/2023 11/02/2018 COVID-19 Vaccine (2 - season) 2024 05/24/2021 Influenza Vaccine (FLU shot) [...] (HCC) Lyme disease documented in this encounter Additional Health Concerns Infection Onset Date Last Indicated Resolved Time C. difficile Rule-Out 07/15/2024 07/15/20242023 1:43 PM EDT Gastrointestinal Rule-Out 07/15/2024 07/15/2024 5:49 PM EDT documented as of this encounter Care Teams Weight Tester Relationship Specialty Start Date End Date Shauna Pope PA-C [address] [facility] [address] [place] [address] PCP - General Physician Openstack Cloud Consulting Architect 05/13/17 documented as of this encounter
--- OUTSIDE RECORDS SUMMARY | 2024-09-16 11:35 | External Medical Summary ---
Author Name Unknown Address Unknown Organization K01:[facility] [place] [facility] [address] [place] [address] Laboratory Report Ordering Provider Test Date Status KIZZY CRUZ 06/29/2024 10:43:02 Final Observation Date Value Abnormality Reference (Units ) Status WBC, Total 06/29/2024 10:43:02 8.81 4.00-10.80 (K/uL) Final RBC 06/29/2024 10:43:02 4.74 3.85-5.15 (M/uL) Final Hemoglobin 06/29/2024 10:43:02 16.6 Above high normal 12.0-15.3 (g/dL) Final HCT 06/29/2024 10:43:02 48.7 Above high normal 36.0-45.2 (%) Final MCV 06/29/2024 10:43:02 102.7 81.5-97.5 (fL) Final MCH 06/29/2024 10:43:02 35.0 27.0-34.0 (pg) Final MCHC 06/29/2024 10:43:02 34.1 32.0-36.0 (g/dL) Final RDW 06/29/2024 10:43:02 11.9 11.5-15.5 (%) Final Platelets 06/29/2024 10:43:02 463 Above high normal 140-400 (K/uL) Final MPV 06/29/2024 10:43:02 8.9 6.6-11.1 (fL) Final Nucleated erythrocytes/100 leukocytes [Ratio] in Blood by Automated count 06/29/2024 10:43:02 0 <=0 (/100 WBCs) Final Performing Location [facility] [place] [address] [place] [address]
--- OUTSIDE RECORDS SUMMARY | 2024-09-16 11:35 | External Medical Summary | Summary of Care ---
Author Name Unknown Organization [facility] Address [address] [facility] [place] [address] Phone [phone] Care Team Providers Care Valve Inserter Name Role Phone Shauna Pope PA-C Primary Care Provider +1- [phone] Reason for Visit * Reason Comments Outpatient Testing Encounter Details Date Type Department Care Team (Late st Contact Info) Description 07/15/2024 8:20 AM EDT Laboratory Laboratory, [facility] [address] [place] [id number] [address], Specimen Drop Off [facility] [address] [place], [place] [id number] Diarrhea, unspecified type Allergies Active Allergy Reactions Criticality Noted Date [...] IM 10/22/2009 Pneumococcal Conjugate Vacci ne, 20-valent ([id number]) 06/16/2023 Pneumococcal Polysaccharide PPV23 (Pneumovax) 11/05/2018,03/16/2012 Seasonal [...] on file documented as of this encounter Plan of Treatment Upcoming Encounters Date Type Department Care Team (Late st Contact Info) Description 08/15/2024 8:20 AM EDT Office Visit [place] [address] [place] [address] Shauna Pope PAJeremias [address] [place] [address] [address] [place] [address] 09/16/2024 11:00 AM EDT Appointment Radiology, [address] [address] [place] [address] [address] 02/21/2025 8:20 AM EDT Office Visit Dermatology, Tono Gonzalez [address] [place] [address] [address] Germaine Rosa PA-C [address] [address] Pending Results Name Type Priority Associated Diagnoses Date /Time FECAL FAT, QUALITATIVE Lab Routine Diarrhea, unspecified type 07/15/2024 8:12 AM EDT CLOSTRIDIUM DIFFICILE, PCR Lab Routine Diarrhea, unspecified type 07/15/2024 8:12 AM EDT GASTROINTESTINAL PATHOGEN PANEL, STOOL Lab Routine Diarrhea, unspecified type 07/15/2024 8:12 AM EDT GASTROINTESTINAL PATHOGEN PANEL PCR Lab Routine Diarrhea, unspecified type 07/15/2024 8:12 AM EDT GASTROINTESTINAL PATHOGEN PANEL CULTURE Lab Routine Diarrhea, unspecified type 07/15/2024 8:12 AM EDT Health Maintenance Due Date Last Done Comments Alpha-1 Antitrypsin 1984 Hepatitis B Vaccine (1 of 3 - 19+ 3-dose series) 1985 Fecal Occult Blood Test 2011 DISCUSS TOBACCO CESSATION (REFER TO SMARTSET #4769) 06/15/2016 06/15/2015 (Declined) Cologuard 12/08/2020 12/08/2017 Depression [...] Ratio 06/16/2026 06/16/2023 Pap Smear 12/30/2026 12/30/2023, 0703/2020, 05/14/2017, Additional history exists DTap/Tdap Vaccines (3 [...] this encounter Visit Diagnoses Diagnosis Diarrhea, unspecified type documented in this encounter Additional Health Concerns Infection Onset Date Last Indicated Resolved Time C. difficile Rule-Out 07/15/2024 07/15/2024 Gastrointestinal Rule-Out 07/15/2024 07/15/2024 documented as of this encounter Care Teams Valve Inserter Relationship Specialty Start Date End Date Shauna Pope PA-C [address] [facility] [address] [place] [address] PCP - General Physician Cloth Folder Hand 05/13/17 documented as of this encounter
--- OUTSIDE RECORDS SUMMARY | 2024-09-16 11:35 | External Medical Summary ---
Author Name Unknown Address Unknown Organization K01:LABORATORY [facility] - [address] [place] [address] Laboratory Report Ordering Provider Test Date Status KIZZY CRUZ 06/29/2024 10:43:02 Final Observation Date Value Abnormality Reference (Units ) Status LDL, (direct) 06/29/2024 10:43:02 71 <=129 (mg/dL) Final LDL Cholesterol Reference Ra nges (mg/dL):
<70 Target level for high risk ASCVD patient
<100 Optimal for general population
100-129 Near optimal for general population
130-159 Borderline high
160-189 High
>=190 Very high Performing Location LABORATORY [facility] - [address] [place] [address]
--- OUTSIDE RECORDS SUMMARY | 2024-09-16 11:35 | External Medical Summary ---
Author Name Unknown Address Unknown Organization K01:[facility]ORY [facility] [place] - [address] [facility] [place] [address] Laboratory Report Ordering Provider Test Date Status KIZZY CRUZ 06/29/2024 10:43:02 Final Observation Date Value Abnormality Reference (Units ) Status BUN 06/29/2024 10:43:02 14 6-20 (mg/dL) Final Creatinine 06/29/2024 10:43:02 0.6 0.5-1.0 (mg/dL) Final Glomerular filtration rate/1.73 sq M.predicted [Volume Rate/Area] in Serum, Plasma or Blood by Creatinine-based formula (CKD-EPI) 06/29/2024 10:43:02 >90 >=60 (mL/min) Final eGFR is calculated based on the CKD-EPI 2020 equation. Sodium 06/29/2024 10:43:02 135 135-146 (m mol/L) Final Potassium 06/29/2024 10:43:02 3.4 Below low normal 3.5 -5.1 (mmol/L) Final Cl 06/29/2024 10:43:02 92 Below low normal 98- 107 (mmol/L) Final CO2 06/29/2024 10:43:02 26 22-32 (mmo l/L) Final Anion gap 06/29/2024 10:43:02 17 Above high normal 7- 15 (mmol/L) Final Glucose 06/29/2024 10:43:02 92 70-120 (mg /dL) Final Albumin 06/29/2024 10:43:02 4.9 3.8-5.0 (g /dL) Final AST (Aspartate aminotransferase) 06/29/2024 10:43:02 65 Above high normal 10-35 (U/L) Final Alk Phos 06/29/2024 10:43:02 92 35-130 (U/ L) Final Bilirubin, Total 06/29/2024 10:43:02 0.8 <=1 .2 (mg/dL) Final Calcium 06/29/2024 10:43:02 10.1 8.4-10.2 ( mg/dL) Final Protein 06/29/2024 10:43:02 7.1 6.0-8.3 (g /dL) Final ALT (Alanine aminotransferase) 06/29/2024 10:43:02 56 Above high normal 10-35 (U/L) Final Performing Location LABORATORY [facility] [place] - [address] [facility] [address]
--- OUTSIDE RECORDS SUMMARY | 2024-09-16 11:35 | External Medical Summary | Summary of Care ---
Author Name Unknown Organization [facility] Address [address] [place] [address] Phone [phone] Care Team Providers Care Decision Analyst Name Role Phone Dennis Pope PA-C Primary Care Provider +1- [phone] Reason for Visit * Reason Comments eRx-Medication Refill Encounter Details Date Type Department Care Team (Late st Contact Info) Description 07/15/2024 Refill [place] [address] [place], [place] [phone] Dennis Pope PA-C [address] [place] [address] [address] [place], [place] [phone] PAD (peripheral artery disease) (HCC); Dyslipidemia, goal LDL below 70 Allergies Active Allergy Reactions Criticality Noted Date Comments Atorvastatin Liver complications (Please comment) 06/26/2022 Elevated LFTs Celecoxib Diarrhea 11/20/2014 Severe diarrhea Ciprofloxacin Rash 11/29/2019 Rosuvastatin Muscle pain 06/26/2022 Erythromycin Hives 11/20/2014 Itchy hives Metronidazole Rash 11/29/2019 Azithromycin Rash Medium 02/21/2013 documented as of this encounter (statuses as of 07/16/2024) Medications Medication Sig Dispensed Refills Start Date [...] AT BEDTIME 90 Tablet 3 07/16/2024 Active Sulfamethoxazole- Trimethoprim 800-160 MG Oral Tablet (Bactrim DS) Take 1 Tablet by mouth in the morning and 1 Tablet before bedtime. Do all this for 7 days. Until gone. 14 Tablet 07/15/2024 4 Active Atorvastatin Calcium 10 MG Oral Tablet (Lipitor)Indicati ons:PAD (peripheral artery disease) (HCC),Dyslipidemi a, goal LDL below 70 Take 1 Tablet by mouth at bedtime. 90 Tablet 3 06/16/2023 4 Discontinued documented as of this encounter (statuses as of 07/16/2024) Active Problems Problem Noted Date Diagnosed Date [...] as of this encounter (statuses as of 07/16/2024) Resolved Problems Problem Noted Date Diagnosed Date Resolved Date DONN (generalized anxiety disorder) 12/14/2014 11/29/2019 COPD, mild 05/05/2014 10/30/2022 Overview: Per COPD GOLD Classification HTN, goal below 140/80 05/05/201405/01 Overview: Per HTN Protocol documented as of this encounter (statuses as of 07/16/2024) Immunizations Name Administration Dates Next Due Covid-19 Ad26, Single Dose (Jen/J&J) 05/24/2021 H1N1 2009 Influenza, IM 10/22/2009 Pneumococcal Conjugate Vacci ne, 20-valent ([id number]) 06/16/2023 Pneumococcal Polysaccharide PPV23 (Pneumovax) 11/05/2018,03/16/2012 Seasonal [...] encounter Miscellaneous Notes * Telephone Encounter - Matthew Smith RPh - 07/16/2024 10:32 AM EDTSigned Prescriptions: Disp Refills Atorvastatin Calcium 10 MG Oral Tablet (Li*90 Tab*3 Sig: TAKE 1 TABLET BY MOUTH EVERYDAY AT BEDTIMEAuthorizing Provider: DENNIS POPE User: MATTHEW SMITH documented in this encounter Plan of Treatment Upcoming Encounters Date Type Department Care Team (Late st Contact Info) Description 08/15/2024 8:20 AM EDT Office Visit [facility] [place] [address] [place] [address] Dennis Pope PA-C [address] [facility] [address] [place] [address] 09/16/2024 11:00 AM EDT Appointment Radiology, [place] [address] [address] [address] 02/21/2025 8:20 AM EDT Office Visit Dermatology, Tono Gonzalez [address] [place] [address] Germaine Rosa PA-C [address] [place] [address] Health Maintenance Due Date Last Done Comments Alpha-1 Antitrypsin 1984 Hepatitis B Vaccine (1 of 3 - 19+ 3-dose series) 1985 Fecal Occult Blood Test 2011 DISCUSS TOBACCO CESSATION (REFER TO SMARTSET #3291) 06/15/2016 06/15/2015 (Declined) Cologuard 12/08/2020 12/08/2017 Depression Screening 06/02/2023 06/02/2022, 06/15/2015 (Discussed) COVID-19 Vaccine ( - season) 2023 05/24/2021 Sigmoidoscopy 11/02/2023 11/02/2018 [...] Visit Diagnoses Diagnosis PAD (peripheral artery disease) (HCC) Peripheral vascular disease, unspecified Dyslipidemia, goal LDL below 70 Other and unspecified hyperlipidemia documented in this encounter Additional Health Concerns Infection Onset Date Last Indicated Resolved Time C. difficile Rule-Out 07/15/2024 07/15/20242023 1:43 PM EDT Gastrointestinal Rule-Out 07/15/2024 07/15/2024 5:49 PM EDT documented as of this encounter Care Teams Decision Analyst Relationship Specialty Start Date End Date Dennis Pope PA-C [address] [place] [address] [place] [address] PCP - General Physician Manager File 05/13/17 documented as of this encounter
--- OUTSIDE RECORDS SUMMARY | 2024-09-16 11:35 | External Medical Summary | Summary of Care ---
Author Name Unknown Organization [facility] Address [address] [place] [address] Phone [phone] Care Team Providers Care Steel Melter Name Role Phone Shauna Pope PA-C Primary Care Provider +1- [phone] Reason for Visit * Reason Comments Outpatient Testing Encounter Details Date Type Department Care Team (Late st Contact Info) Description 06/29/2024 10:40 AM EDT Laboratory Laboratory Patient Service [place] [address] [place] [phone] [place] [address] [place] [address] HTN, goal below 130/80; Dyslipidemia, goal LDL below 70; PAD (peripheral artery disease) (HCC) Allergies Active Allergy Reactions Criticality Noted Date Comments Atorvastatin Liver complications (Please comment) 06/26/2022 Elevated LFTs Celecoxib Diarrhea 11/20/2014 Severe diarrhea Ciprofloxacin Rash 11/29/2019 Rosuvastatin Muscle pain 06/26/2022 Erythromycin Hives 11/20/2014 Itchy hives Metronidazole Rash 11/29/2019 Azithromycin Rash Medium 02/21/2013 documented as of this encounter (statuses as of 06/29/2024) Medications Medication Sig Dispensed Refills Start Date [...] 3 06/16/2023 Active Telmisartan-HCTZ 80-25 MG Oral TabletIndications:HT N, goal below 130/80 TAKE BY MOUTH 1 [...] needed for Pain, Moderate. 3 Tablet 06/29/2024 Active documented as of this encounter (statuses as of 06/29/2024) Active Problems Problem Noted Date Diagnosed Date [...] as of this encounter (statuses as of 06/29/2024) Resolved Problems Problem Noted Date Diagnosed Date Resolved Date DONN (generalized anxiety disorder) 12/14/2014 11/29/2019 COPD, mild 05/05/2014 10/30/2022 Overview: Per COPD GOLD Classification HTN, goal below 140/80 05/05/201405/01 Overview: Per HTN Protocol documented as of this encounter (statuses as of 06/29/2024) Immunizations Name Administration Dates Next Due Covid-19 Ad26, Single Dose (Jen/J&J) 05/24/2021 H1N1 2009 Influenza, IM 10/22/2009 Pneumococcal Conjugate Vacci ne, 20-valent ([id number]) 06/16/2023 Pneumococcal Polysaccharide PPV23 (Pneumovax) 11/05/2018,03/16/2012 Seasonal [...] Description 08/15/2024 8:20 AM EDT Office Visit [place] [address] [place] [address] Shauna Pope PAJeremias [address] [place] [address] [address] [place] [address] 09/16/2024 11:00 AM EDT Appointment Radiology, [place] [address] [place] [address] [address] 02/21/2025 8:20 AM EDT Office Visit Dermatology, Tono Gonzalez [address] [place] [address] [address] Germaine Rosa PA-C [address] [address] Pending Results Name Type Priority Associated Diagnoses Date /Time COMPREHENSIVE METABOLIC PANEL Lab Routine HTN, goal below 130/80 06/29/2024 10:43 AM EDT LIPID PANEL WITH DIRECT LDL IF TG IS HIGH Lab Routine Dyslipidemia, goal LDL below 70 06/29/2024 10:43 AM EDT CBC Lab Routine PAD (peripheral artery disease) (HCC) 06/29/2024 10:43 AM EDT Health Maintenance Due Date Last [...] HTN, goal below 130/80 Unspecified essential hypertension Dyslipidemia, goal LDL below 70 Other and unspecified hyperlipidemia PAD (peripheral artery disease) (HCC) Peripheral vascular disease, unspecified documented in this encounter Care Teams Steel Melter Relationship Specialty Start Date End Date Shauna Pope PA-C [address] [facility] [address] [place] [address] PCP - General Physician Supervisor [employer] 05/13/17 documented as of this encounter
--- OUTSIDE RECORDS SUMMARY | 2024-09-16 11:35 | External Medical Summary ---
Author Name Unknown Address Unknown Organization K01:LABORATORY [facility] [place] - [address] [facility] Laboratory Report Ordering Provider Test Date Status BOBY COLLINS 07/15/2024 08:12:30 Preliminary Observation Date Value Abnormality Reference (Units) Status Bacteria identified in Specimen by Culture 07/15/2024 08:12:30 No Aeromonas species or Plesiomonas species isolated. Preliminary Test: Gastrointestinal Patho gen Panel Culture
Specimen Source: Stool
Specimen Type: Stool
Specimen Date: 07/15/2024 0812
Result Date: 07/17/2024 1530
Result Status: Preliminary result
Resulting Lab: LABORATORY [facility] [place]
[address]
[place] [address]

CULTURE

No Aeromonas species or Plesiomonas species isolated.

null Performing Location LABORATORY [facility] [place] - [address] [place] [address]
--- OUTSIDE RECORDS SUMMARY | 2024-09-16 11:35 | External Medical Summary | Summary of Care ---
Author Name Unknown Organization [facility] Address [address] [place] [address] Phone [phone] Care Team Providers Care Commodities Manager Name Role Phone Dennis Pope PA-C Primary Care Provider +1- [phone] Reason for Visit * Reason Onset Date Comments Medication Refill 07/25/2024 Encounter Details Date Type Department Care Team (Late st Contact Info) Description 07/25/2024 Refill [place] [address] [place], [place] [phone] Dennis Pope PA-C [facility] [place] [address] Lyme arthritis of hand (HCC) Allergies Active [...] Oral Tablet (pLAVix)Indicatio ns:PAD (peripheral artery disease) ([facility]) TAKE 1 TABLET BY MOUTH [...] 30 Capsule 1 06/29/2024 07/25/2024 Discontinue d(Refill) HYDROcodone-Aceta minophen 5-325 MG Oral TabletIndications :Lyme arthritis of hand (HCC) Take 1 Tablet by mouth daily as needed for Pain, Moderate. 30 Tablet 07/20/2024 07/25/2024 Discontinue d(Refill) documented as of this [...] IM 10/22/2009 Pneumococcal Conjugate Vacci ne, 20-valent ([id number]) 06/16/2023 Pneumococcal Polysaccharide PPV23 (Pneumovax) 11/05/2018,03/16/2012 Seasonal [...] Telephone Encounter - Kay Mariano LPN - 07/25/2024 2:12 PM EDT T/C to pt at this time verbalized understanding at this time * Telephone Encounter - Dennis Pope PA-C - 07/25/2024 2:00 PM EDTSigned Prescriptions: Disp Refills HYDROcodone-Acetaminophen 5-325 MG Oral Ta*30 Tab*0 Sig: Take 1 Tablet by mouth daily as needed for Pain, Moderate. Authorizing Provider: DENNIS POPE * Telephone Encounter - eDnnis Pope PA-C - 07/25/2024 2:00 PM EDTSigned Prescriptions: Disp Refills HYDROcodone-Acetaminophen 5-325 MG Oral Ta*30 Tab*0 Sig: Take 1 Tablet by mouth daily as needed for Pain, Moderate. Authorizing Provider: DENNIS POPE * Telephone Encounter - Dennis Pope PA-C - 07/25/2024 2:00 PM EDT Rx sent. * Telephone Encounter - Sita Carlin CPhT - 07/25/2024 1:53 PM EDT Patient calling to check on status of Pharmacy change asking if this can be dne today Thank you, Sita Carlin Benefits Manager II [facility] ([facility]) (formerly Telepharmacy) 07/25/2024 1:53 PM * Telephone Encounter - Nereida Norris OSA - 07/25/2024 10:36 AM EDT [facility] like [facility] transfer prescription to [facility]. Did you pend patient's preferred pharmacy and medication before forwarding?yes Pharmacy: [facility] [address] [address] Pending Prescriptions: Disp Refills HYDROcodone-Acetaminophen 5-325 MG Oral T*30 Tab*0 Sig: Take 1 Tablet by mouth daily as needed for Pain, Moderate. Last Visit: 06/29/2024 (in office), Visit date not found (telemedicine) Next Visit: 08/15/2024 If no future appointments scheduled, and last appointment is greater than a year ago, please schedule patient for a follow-up appointment Last date the medication was ordered: 07/20/24 Is this request for a controlled substance?Yes, What was the last refill date 07/20/24 w/ quantity 30and dosage 325mg and Urine Drug Screen Not completed Urine [...] Description 08/15/2024 8:20 AM EDT Office Visit [place] [address] [place] [address] Dennis Pope PA-C [facility] [address] [place] [address] 09/16/2024 11:00 AM EDT Appointment Radiology, [place] [address] [address] 02/21/2025 8:20 AM EDT Office Visit Dermatology, Tono Gonzalez [address] [place] [address] [address] Germaine Rosa PA-C [address] [place] [address] Health Maintenance Due Date Last Done Comments [...] disease documented in this encounter Care Teams Commodities Manager Relationship Specialty Start Date End Date Dennis Pope PA-C [address] [facility] [address] [facility] [place] [address] PCP - General Physician Supervisor Dental Laboratory 05/13/17 documented as of this encounter
--- OUTSIDE RECORDS SUMMARY | 2024-09-16 11:35 | External Medical Summary | Summary of Care ---
Author Name Unknown Organization [facility] Address [address] [place] [address] Phone [phone] Care Team Providers Care Lapel Padder Blindstitch Name Role Phone Dennis Pope PA-C Primary Care Provider +1- [phone] Encounter Details Date Type Department Care Team (Late st Contact Info) Description 07/01/2024 Refill [place] [address] [place] [address] Dennis Pope PA-C [facility] [place], [place] [phone] Lyme arthritis of hand (HCC) Allergies Active [...] needed for Pain, Moderate. 3 Tablet 06/29/2024 07/01/2024 Discontinue d(Refill) documented as of this [...] IM 10/22/2009 Pneumococcal Conjugate Vacci ne, 20-valent ([id number]) 06/16/2023 Pneumococcal Polysaccharide PPV23 (Pneumovax) 11/05/2018,03/16/2012 Seasonal [...] Telephone Encounter - Dennis Pope PA-C - 07/01/2024 10:16 AM EDTSigned Prescriptions: Disp Refills HYDROcodone-Acetaminophen 5-325 MG Oral Ta*30 Tab*0 Sig: Take 1 Tablet by mouth daily as needed for Pain, Moderate.Authorizing Provider: DENNIS POPE * Telephone Encounter - Kay Mariano LPN - 07/01/2024 10:03 AM EDT Did you pend patient's preferred pharmacy and medication before forwarding?yes Pharmacy: [id number] [place] Pending Prescriptions: Disp Refills HYDROcodone-Acetaminophen 5-325 MG Oral T*3 Tabl*0 Sig: Take 1 Tablet by mouth daily as needed for Pain, Moderate. Last Visit: 06/29/2024 (in office), Visit date not found (telemedicine) Next Visit: 08/15/2024 If no future appointments scheduled, and last appointment is greater than a year ago, please schedule patient for a follow-up appointment Last date the medication was ordered: 06/29/24 Is this request for a controlled substance?Yes, What was the last refill date 06/29/24 w/ quantity 3and dosage 5/325mg and Urine Drug Screen Not completed Urine [...] Description 08/15/2024 8:20 AM EDT Office Visit [address] [address] Dennis Pope PA-C [address] [facility] [address] [place] [address] 09/16/2024 11:00 AM EDT Appointment Radiology, [place] [address] [place] [address] 02/21/2025 8:20 AM EDT Office Visit Dermatology, Tono Gonzalez [address] [place] [address] Germaine Rosa PA-C [address] [place] [address] Health Maintenance Due Date Last Done Comments [...] disease documented in this encounter Care Teams Lapel Padder Blindstitch Relationship Specialty Start Date End Date Dennis Pope PA-C [address] [facility] [address] [facility] [place] [address] PCP - General Physician Production Inspector 05/13/17 documented as of this encounter
--- OUTSIDE RECORDS SUMMARY | 2024-09-16 11:36 | External Medical Summary | Summary of Care ---
Author Name Unknown Organization [facility] Address [address] [place] [facility] [place] [place] [address] Phone [phone] Care Team Providers Care Clipper Automatic Name Role Phone Shauna Pope PA-C Primary Care Provider +1- [phone] Reason for Visit * Reason Comments Outpatient Testing Encounter Details Date Type Department Care Team (Late st Contact Info) Description 04/15/2024 7:40 AM EDT Laboratory Laboratory Patient Service [place] [address] [place] [phone] [place] [address] [place] [address] [id number] Arthralgia of multiple joints Allergies Active Allergy Reactions Criticality Noted Date Comments Atorvastatin Liver complications (Please comment) 06/26/2022 Elevated LFTs Celecoxib Diarrhea 11/20/2014 Severe diarrhea Ciprofloxacin Rash 11/29/2019 Rosuvastatin Muscle pain 06/26/2022 Erythromycin Hives 11/20/2014 Itchy hives Metronidazole Rash 11/29/2019 Azithromycin Rash Medium 02/21/2013 documented as of this encounter (statuses as of 04/15/2024) Medications Medication Sig Dispensed Refills Start Date End Date Status Aspirin 81 MG Tablet Take 1 Tablet by mouth in the morning. Active Chlorhexidine Gluconate 0.12 % Mouth/Throat Solution (Periogard) PLACE 15 MLS IN THE MOUTH 2 TIMES PER DAY (AFTER MEALS), SWISH IN MOUTH FOR 30 SECONDS THEN SPIT OUT 01/30/2022 Active Vitamin D (Cholecalciferol) 25 MCG (1000 UT) Oral CapsuleIndications: Dyslipidemia, goal LDL below 70,Encounter for long-term (current) use of medications Take 1 Capsule by mouth in the morning. Please assist patient in finding this OTC. Thanks!. 90 Capsule 1 11/14/2022 Active Ezetimibe 10 MG Oral Tablet (Zetia)Indications: Dyslipidemia, goal LDL below 70 Take 1 Tablet by mouth in the morning. 90 Tablet 3 06/16/2023 Active Additional Information Patient not taking.Reported on 02/18/2024 Atorvastatin Calcium 10 MG Oral Tablet (Lipitor)Indication s:PAD (peripheral artery disease) (HCC),Dyslipidemia, goal LDL below 70 Take 1 Tablet by mouth at bedtime. 90 Tablet 3 06/16/2023 Active Symbicort 160-4.5 MCG/ACT Inhalation AerosolIndications: COPD, mild (HCC) Inhale 2 Puffs by mouth in the morning and 2 Puffs before bedtime. 30.6 g 3 06/16/2023 Active Clopidogrel Bisulfate 75 MG Oral Tablet (pLAVix)Indications :PAD (peripheral artery disease) (HCC) Take 1 Tablet by mouth in the morning. 1 tablet by mouth daily. 90 Tablet 3 06/16/2023 Active Pantoprazole Sodium 40 MG Oral Tablet Delayed Release (Protonix)Indicatio ns:Gastroesophageal reflux disease without esophagitis Take 1 Tablet by mouth in the morning. 90 Tablet 3 06/16/2023 Active Telmisartan-HCTZ 80-25 MG Oral TabletIndications:H TN, goal below 130/80 TAKE BY MOUTH 1 TABLET DAILY . 90 Tablet 3 07/01/2023 Active Ondansetron HCl 4 MG Oral Tablet Take 1 Tablet by mouth every 6 hours as needed for Nausea. 30 Tablet 1 08/28/2023 Active Additional Information Patient not taking.Reported on 02/18/2024 Albuterol Sulfate HFA 108 (90 Base) MCG/ACT Inhalation Aerosol SolutionIndications :COPD, mild (HCC) Inhale 2 Puffs by mouth every 4 hours as needed for Cough, Shortness of Breath or Wheezing. 18 g 5 10/30/2023 Active documented as of this encounter (statuses as of 04/15/2024) Active Problems Problem Noted Date Diagnosed Date [...] as of this encounter (statuses as of 04/15/2024) Resolved Problems Problem Noted Date Diagnosed Date Resolved Date DONN (generalized anxiety disorder) 12/14/2014 11/29/2019 COPD, mild 05/05/2014 10/30/2022 Overview: Per COPD GOLD Classification HTN, goal below 140/80 05/05/201405/01 Overview: Per HTN Protocol documented as of this encounter (statuses as of 04/15/2024) Immunizations Name Administration Dates Next Due Covid-19 Ad26, Single Dose (Jen/J&J) 05/24/2021 H1N1 2009 Influenza, IM 10/22/2009 Pneumococcal Conjugate Vacci ne, 20-valent ([id number]) 06/16/2023 Pneumococcal Polysaccharide PPV23 (Pneumovax) 11/05/2018,03/16/2012 Seasonal [...] money to get more. Never true 06/02/2022 Sex and Gender Information Value Date Recorded [...] Description 06/29/2024 9:40 AM EDT Office Visit [address] [place] [address] Shauna Pope PA-C [facility] [address] [place] [address] 09/16/2024 11:00 AM EDT Appointment Radiology, [place] [address] [place] [address] 02/21/2025 8:20 AM EDT Office Visit Dermatology, [place] [address] [place] [address] Germaine Rosa PA-C [address] [place] [address] Pending Results Name Type Priority Associated Diagnoses Date /Time LYME DISEASE ANTIBODY SCREEN WITH REFLEX TO CONFIRMATION Lab Routine Arthralgia of multiple joints 04/15/2024 7:38 AM EDT LYME DISEASE ANTIBODY SCREEN Lab Routine Arthralgia of multiple joints 04/15/2024 7:38 AM EDT Health Maintenance Due Date Last Done Comments Alpha-1 Antitrypsin 1984 Hepatitis B (1 of 3 - 19+ 3-dose series) 1985 Fecal Occult Blood Test 2011 DISCUSS TOBACCO CESSATION (REFER TO SMARTSET #6333) 06/15/2016 06/15/2015 (Declined) Cologuard 12/08/2020 12/08/2017 Depression Screening 06/02/2023 06/02/2022, 06/15/2015 (Discussed) COVID-19 Vaccine ( season) 2023 05/24/2021 Sigmoidoscopy 11/02/2023 11/02/2018 GFR 06/16/2024 06/16/2023, 12/18, 10/02/2022, Additional history exists Mammogram 09/10/2024 09/10/2023, 07/18, [...] to 64 Years) Completed 06/16/2023, 11/05/2018, 03/16/2012 Influenza Vaccine (FLU shot) Completed 08/17/2023, 08/29/2022, 09/03/2021, Additional history exists RETIRED - COLONOSCOPY-EVERY 5 YRS AGES 18-100 Discontinued 11/06/2023, 11/06/2023, 02/04/2018, Additional history exists GARDASIL-HPV IMMUNIZATION SERIES Aged Out No longer eligible based on patient's age to complete this topic MENINGOCOCCAL (MENACTRA/MENVEO) Aged Out No longer eligible based on patient's age to complete this topic documented as of this encounter Medical Devices Not on filedocumented as of this encounter Visit Diagnoses Diagnosis Arthralgia of multiple joints Pain in joint, multiple sites documented in this encounter Care Teams Clipper Automatic Relationship Specialty Start Date End Date Shauna Pope PA-C [facility] [place] [address] PCP - General Physician Rap Artist 05/13/17 documented as of this encounter
--- OUTSIDE RECORDS SUMMARY | 2024-09-16 11:36 | External Medical Summary | Summary of Care ---
Author Name Unknown Organization [facility] Address [address] [place] [place] [address] Phone [phone] Care Team Providers Care Field Technical Assistant Name Role Phone Shauna Pope PA-C Primary Care Provider +1- [phone] Reason for Visit * Reason Comments Outpatient Testing Encounter Details Date Type Department Care Team (Late st Contact Info) Description 04/15/2024 7:40 AM EDT Laboratory Laboratory Patient Service [place] [address] [place] [phone] [place] [address] [place] [address] [phone] Arthralgia of multiple joints Allergies Active Allergy [...] IM 10/22/2009 Pneumococcal Conjugate Vacci ne, 20-valent ([id number]) 06/16/2023 Pneumococcal Polysaccharide PPV23 (Pneumovax) 11/05/2018,03/16/2012 Seasonal [...] Description 06/29/2024 9:40 AM EDT Office Visit [address] [place] [address] Shauna Pope PA-C [facility] [address] [place] [address] 09/16/2024 11:00 AM EDT Appointment Radiology, [place] [address] [address] 02/21/2025 8:20 AM EDT Office Visit Dermatology, [place] [address] [place] [address] Germaine Rosa PA-C [address] [place] [address] Pending Results Name Type Priority Associated Diagnoses [...] 2011 DISCUSS TOBACCO CESSATION (REFER TO SMARTSET #7568) 06/15/2016 06/15/2015 (Declined) Cologuard 12/08/2020 12/08/2017 Depression [...] sites documented in this encounter Care Teams Field Technical Assistant Relationship Specialty Start Date End Date Shauna Pope PA-C [facility] [place] [address] PCP - General Physician Manager Cancer 05/13/17 documented as of this encounter
--- OUTSIDE RECORDS SUMMARY | 2024-09-16 11:36 | External Medical Summary | Summary of Care ---
Author Name Unknown Organization [facility] [address] [facility] [address] Phone [phone] Care Team Providers Care Customer Marketing Manager Name Role Phone Shauna Pope PA-C Primary Care Provider +1- [phone] Encounter Details Date Type Department Care Team (Late st Contact Info) Description 06/25/2024 Orders Only PATIENT PORTAL DO NOT DELETE THIS DEPT USED BY [place] [id number] Allergies Active Allergy Reactions Criticality Noted Date Comments Atorvastatin Liver complications (Please comment) 06/26/2022 Elevated LFTs Celecoxib Diarrhea 11/20/2014 Severe diarrhea Ciprofloxacin Rash 11/29/2019 Rosuvastatin Muscle pain 06/26/2022 Erythromycin Hives 11/20/2014 Itchy hives Metronidazole Rash 11/29/2019 Azithromycin Rash Medium 02/21/2013 documented as of this encounter (statuses as of 06/25/2024) Medications Medication Sig Dispensed Refills Start Date [...] MCG/ACT Inhalation Aerosol SolutionIndications :COPD, mild (HCC) INHALE 2 PUFFS BY MOUTH EVERY 4 HOURS NEEDED FOR COUGH FOR SHORTNESS OF BREATH OR WHEEZE 54 g 2 04/30/2024 Active Pantoprazole Sodium 40 MG Oral Tablet Delayed Release (Protonix)Indicatio ns:Gastroesophageal reflux disease without esophagitis TAKE 1 TABLET BY MOUTH EVERY DAY IN THE MORNING 90 Tablet 3 06/23/2024 Active Clopidogrel Bisulfate 75 MG Oral Tablet (pLAVix)Indications :PAD (peripheral artery disease) (HCC) TAKE 1 TABLET BY MOUTH DAILY IN THE MORNING. 90 Tablet 3 06/23/2024 Active Symbicort 160-4.5 MCG/ACT Inhalation AerosolIndications: COPD, mild (HCC) INHALE 2 PUFFS BY MOUTH IN THE MORNING AND BEFORE BEDTIME 30.6 g 3 06/23/2024 Active documented as of this encounter (statuses as of 06/25/2024) Active Problems Problem Noted Date Diagnosed Date [...] as of this encounter (statuses as of 06/25/2024) Resolved Problems Problem Noted Date Diagnosed Date Resolved Date DONN (generalized anxiety disorder) 12/14/2014 11/29/2019 COPD, mild 05/05/2014 10/30/2022 Overview: Per COPD GOLD Classification HTN, goal below 140/80 05/05/201405/01 Overview: Per HTN Protocol documented as of this encounter (statuses as of 06/25/2024) Immunizations Name Administration Dates Next Due Covid-19 Ad26, Single Dose (Jen/J&J) 05/24/2021 H1N1 2009 Influenza, IM 10/22/2009 Pneumococcal Conjugate Vacci ne, 20-valent ([id number]) 06/16/2023 Pneumococcal Polysaccharide PPV23 (Pneumovax) 11/05/2018,03/16/2012 Seasonal [...] Description 06/29/2024 9:40 AM EDT Office Visit [place] [address] [place] [address] Shauna Pope PA-C [address] [place] [address] [place] [address] 09/16/2024 11:00 AM EDT Appointment Radiology, [place] [address] [address] [address] 02/21/2025 8:20 AM EDT Office Visit Dermatology, [place] [address] [place] [address] Germaine Rosa PA-C [address] [place] [address] Health Maintenance Due Date Last Done Comments Alpha-1 Antitrypsin 1984 Hepatitis B Vaccine (1 of 3 - 19+ 3-dose series) 1985 Fecal Occult Blood Test 2011 DISCUSS TOBACCO CESSATION (REFER TO SMARTSET #5074) 06/15/2016 06/15/2015 (Declined) Cologuard 12/08/2020 12/08/2017 Depression [...] filedocumented as of this encounter Care Teams Customer Marketing Manager Relationship Specialty Start Date End Date Shauna Pope PA-C [facility] [place] [address] [place] [address] PCP - General Physician Shrimp Peeler 05/13/17 documented as of this encounter
--- OUTSIDE RECORDS SUMMARY | 2024-09-16 11:36 | External Medical Summary | Summary of Care ---
Author Name Unknown Organization [facility] Address [address] [facility] [place] [address] Phone [phone] Care Team Providers Care Industrial Maintenance Tech Name Role Phone Shauna Pope PA-C Primary Care Provider +1- [phone] Reason for Visit * Reason Onset Date Comments Test Results 04/18/2024 Encounter Details Date Type Department Care Team (Late st Contact Info) Description 04/18/2024 Telephone [facility] [address] [place] [address] Cyndi Burt PA-C [address] [place] [address] Test Results Allergies Active Allergy Reactions Criticality Noted Date Comments Atorvastatin Liver complications (Please comment) 06/26/2022 Elevated LFTs Celecoxib Diarrhea 11/20/2014 Severe diarrhea Ciprofloxacin Rash 11/29/2019 Rosuvastatin Muscle pain 06/26/2022 Erythromycin Hives 11/20/2014 Itchy hives Metronidazole Rash 11/29/2019 Azithromycin Rash Medium 02/21/2013 documented as of this encounter (statuses as of 04/18/2024) Medications Medication Sig Dispensed Refills Start Date [...] 11/14/2022 Active Ezetimibe 10 MG Oral Tablet (Zetia)Indications :Dyslipidemia, goal LDL below 70 Take 1 Tablet by mouth in the morning. 90 Tablet 3 06/16/2023 Active Additional Information Patient not taking.Reported on 02/18/2024 Atorvastatin Calcium 10 MG Oral Tablet (Lipitor)Indicatio ns:PAD (peripheral artery disease) (HCC),Dyslipidemia , goal LDL below 70 Take 1 Tablet by mouth at bedtime. 90 Tablet 3 06/16/2023 Active Symbicort 160-4.5 MCG/ACT Inhalation AerosolIndications :COPD, mild (HCC) Inhale 2 Puffs by mouth in the morning and 2 Puffs before bedtime. 30.6 g 3 06/16/2023 Active Clopidogrel Bisulfate 75 MG Oral Tablet (pLAVix)Indication s:PAD (peripheral artery disease) (HCC) Take 1 Tablet by mouth in the morning. 1 tablet by mouth daily. 90 Tablet 3 06/16/2023 Active Pantoprazole Sodium 40 MG Oral Tablet Delayed Release (Protonix)Indicati ons:Gastroesophage al reflux disease without esophagitis Take 1 Tablet by mouth in the morning. 90 Tablet 3 06/16/2023 Active Telmisartan-HCTZ 80-25 MG Oral TabletIndications: HTN, goal below 130/80 TAKE BY MOUTH 1 TABLET DAILY . 90 Tablet 3 07/01/2023 Active Ondansetron HCl 4 MG Oral Tablet Take 1 Tablet by mouth every 6 hours as needed for Nausea. 30 Tablet 1 08/28/2023 Active Additional Information Patient not taking.Reported on 02/18/2024 Albuterol Sulfate HFA 108 (90 Base) MCG/ACT Inhalation Aerosol SolutionIndication s:COPD, mild (HCC) Inhale 2 Puffs by mouth every 4 hours as needed for Cough, Shortness of Breath or Wheezing. 18 g 5 10/30/2023 Active Doxycycline Hyclate 100 MG Oral CapsuleIndications :Lyme disease Take 1 Capsule by mouth in the morning and 1 Capsule before bedtime. Do all this for 21 days. Until gone.. 42 Capsule 04/18/2024 05/09/2024 Active documented as of this encounter (statuses as of 04/18/2024) Active Problems Problem Noted Date Diagnosed Date [...] as of this encounter (statuses as of 04/18/2024) Resolved Problems Problem Noted Date Diagnosed Date Resolved Date DONN (generalized anxiety disorder) 12/14/2014 11/29/2019 COPD, mild 05/05/2014 10/30/2022 Overview: Per COPD GOLD Classification HTN, goal below 140/80 05/05/201405/01 Overview: Per HTN Protocol documented as of this encounter (statuses as of 04/18/2024) Immunizations Name Administration Dates Next Due Covid-19 Ad26, Single Dose (Jen/J&J) 05/24/2021 H1N1 2009 Influenza, IM 10/22/2009 Pneumococcal Conjugate Vacci ne, 20-valent (Patuxct68) 06/16/2023 Pneumococcal Polysaccharide PPV23 (Pneumovax) 11/05/2018,03/16/2012 Seasonal [...] encounter Miscellaneous Notes * Telephone Encounter - Ngoc Marlow CMA - 04/18/2024 5:28 PM EDT Called and informed pt. * Telephone Encounter - Cyndi Burt PA-C - 04/18/2024 5:22 PM EDT Lyme's testing was positive. Should start Doxycycline 100mg twice daily for 21 days. Follow up withDR as needed Meds sent to pharmacy Pharmacy Selected: [id number] [place] Medication Orders Placed This Encounter Medications Doxycycline Hyclate 100 MG Oral Capsule Sig: Take 1 Capsule by mouth in the morning and 1 Capsule before bedtime. Do all this for 21 days. Until gone.. Dispense: 42 Capsule Refill: 0 documented in this encounter Plan of Treatment Upcoming Encounters Date Type Department Care Team (Late st Contact Info) Description 06/29/2024 9:40 AM EDT Office Visit Family Practice, [place] [address] [place] [address] Shauna Pope PA-C [address] [place] [address] 09/16/2024 11:00 AM EDT Appointment Radiology, [place] [address] [place] [address] 02/21/2025 8:20 AM EDT Office Visit Dermatology, [place] [address] [place] [address] Germaine Rosa PA-C [address] [place] [address] [place] [address] Health Maintenance Due Date Last Done Comments [...] of this encounter Visit Diagnoses Diagnosis Lyme disease- Primary documented in this encounter Care Teams Industrial Maintenance Tech Relationship Specialty Start Date End Date Shauna Pope, PAAndresC [address] [facility] [address] [place] [address] PCP - General Physician Zone Supervisor Firearms 05/13/17 documented as of this encounter
--- OUTSIDE RECORDS SUMMARY | 2024-09-16 11:36 | External Medical Summary | Summary of Care ---
Author Name Unknown Organization [facility] Address [address] [place] [address] Phone [phone] Care Team Providers Care Corporate Trust Officer Name Role Phone Dennis Pope PA-C Primary Care Provider +1- [phone] Reason for Visit * Reason Comments eRx-Medication Refill Encounter Details Date Type Department Care Team (Late st Contact Info) Description 06/23/2024 Refill [place] [address] [address] [place], [place] [phone] Dennis Pope PA-C [facility] [place], [place] [phone] COPD, mild (HCC) Allergies Active Allergy Reactions Criticality Noted Date Comments Atorvastatin Liver complications (Please comment) 06/26/2022 Elevated LFTs Celecoxib Diarrhea 11/20/2014 Severe diarrhea Ciprofloxacin Rash 11/29/2019 Rosuvastatin Muscle pain 06/26/2022 Erythromycin Hives 11/20/2014 Itchy hives Metronidazole Rash 11/29/2019 Azithromycin Rash Medium 02/21/2013 documented as of this encounter (statuses as of 06/23/2024) Medications Medication Sig Dispensed Refills Start Date [...] BEFORE BEDTIME 30.6 g 3 06/23/2024 Active Symbicort 160-4.5 MCG/ACT Inhalation AerosolIndicatio ns:COPD, mild (HCC) Inhale 2 Puffs by mouth in the morning and 2 Puffs before bedtime. 30.6 g 3 06/16/2023 4 Discontinued documented as of this encounter (statuses as of 06/23/2024) Active Problems Problem Noted Date Diagnosed Date [...] as of this encounter (statuses as of 06/23/2024) Resolved Problems Problem Noted Date Diagnosed Date Resolved Date DONN (generalized anxiety disorder) 12/14/2014 11/29/2019 COPD, mild 05/05/2014 10/30/2022 Overview: Per COPD GOLD Classification HTN, goal below 140/80 05/05/201405/01 Overview: Per HTN Protocol documented as of this encounter (statuses as of 06/23/2024) Immunizations Name Administration Dates Next Due Covid-19 Ad26, Single Dose (Jen/J&J) 05/24/2021 H1N1 2009 Influenza, IM 10/22/2009 Pneumococcal Conjugate Vacci ne, 20-valent ([id number]) 06/16/2023 Pneumococcal Polysaccharide PPV23 (Pneumovax) 11/05/2018,03/16/2012 Seasonal [...] Miscellaneous Notes * [facility] 5:48 PM EDTSigned Prescriptions: Disp Refills Symbicort 160-4.5 MCG/ACT Inhalation Aeros*30.6 g 3 Sig: INHALE 2 PUFFS BY MOUTH IN THE MORNING AND BEFORE BEDTIMEAuthorizing Provider: DENNIS POPE User: NELDA PURDY documented in this encounter Plan of Treatment Upcoming Encounters Date Type Department Care Team (Late st Contact Info) Description 06/29/2024 9:40 AM EDT Office Visit [place] [address] [address] [place] [address] Dennis Pope PA-C [facility] [address] [place] [address] [place] [address] 09/16/2024 11:00 AM EDT Appointment Radiology, [place] [address] [place] [address] 02/21/2025 8:20 AM EDT Office Visit Dermatology, [place] [address] [place] [address] Germaine Rosa PA-C [address] [place] [address] Health Maintenance Due Date Last Done Comments [...] as of this encounter Visit Diagnoses Diagnosis COPD, mild (HCC) Chronic airway obstruction, not elsewhere classified documented in this encounter Care Teams Corporate Trust Officer Relationship Specialty Start Date End Date Dennis Pope PA-C [address] [facility] [place] [address] PCP - General Physician Test Tech 05/13/17 documented as of this encounter
--- OUTSIDE RECORDS SUMMARY | 2024-09-16 11:36 | External Medical Summary | Summary of Care ---
Author Name Unknown Organization [facility] Address [address] [facility] [place] [address] Phone [phone] Care Team Providers Care Gps Field Data Collector Name Role Phone Shauna Pope PA-C Primary Care Provider +1- [phone] Reason for Visit * Reason Onset Date Comments Test Results 04/18/2024 Encounter Details Date Type Department Care Team (Late st Contact Info) Description 04/18/2024 Telephone [facility] [address] [place] [address] Cyndi Burt PA-C [address] [place] [address] Test Results Allergies Active [...] IM 10/22/2009 Pneumococcal Conjugate Vacci ne, 20-valent (Suzrmlz14) 06/16/2023 Pneumococcal Polysaccharide PPV23 (Pneumovax) 11/05/2018,03/16/2012 Seasonal [...] Meds sent to pharmacy Pharmacy Selected: [facility] #[id number] [place] Medication Orders Placed This [...] 9:40 AM EDT Office Visit Family Practice, [place] [address] [place] [address] Shauna Pope PA-C [address] [place] [address] 09/16/2024 11:00 AM EDT Appointment Radiology, [place] [address] [place] [address] 02/21/2025 8:20 AM EDT Office Visit Dermatology, [place] [address] [place] [address] Germaine Rosa PA-C [address] [place] [address] Health Maintenance Due Date Last Done Comments [...] Primary documented in this encounter Care Teams Gps Field Data Collector Relationship Specialty Start Date End Date Shauna Pope, PAAndresC [address] [facility] [address] [place] [address] PCP - General Physician Sonogram Technician 05/13/17 documented as of this encounter
--- OUTSIDE RECORDS SUMMARY | 2024-09-16 11:36 | External Medical Summary ---
Author Name Unknown Address Unknown Organization K01:[facility] - [address] [place] [address] Laboratory Report Ordering Provider Test Date Status BOBY COLLINS 04/15/2024 07:38:16 Final Observation Date Value Abnormality Reference (Units ) Status Borrelia burgdorferi IgG and IgM [Interpretation] in Serum by Immunoassay 04/15/2024 07:38:16 Positive Abnormal Negative Final Result is preliminary and no t diagnostic. Second-tier testing will be reflexively performed to confirm preliminary antibody screen result and reported separately.

Test result reported to [facility]. Performing Location [facility] - [address] [place] [address]
--- OUTSIDE RECORDS SUMMARY | 2024-09-16 11:36 | External Medical Summary ---
Author Name Unknown Address Unknown Organization K01:[facility] [place] - [facility] [address] Laboratory Report Ordering Provider Test Date Status BOBY COLLINS 04/15/2024 07:38:16 Final Observation Date Value Abnormality Reference (Units ) Status Borrelia burgdorferi IgM Ab [Presence] in Serum 04/15/2024 07:38:16 Positive Abnormal Negative Final Borrelia burgdorferi IgG Ab [Presence] in Serum 04/15/2024 07:38:16 Negative Negative Final LYME IGM/IGG CONFIRMATION INTERPRETATION- [facility] 04/15/2024 07:38:16 Final Results are consistent with acute or recent infection with B. burgdorferi (Lyme disease). IgM immunoassay results should only be considered as indicative of recent infections in patients presenting within 30 days of symptom onset. Consideration of IgM results in patients with symptoms lasting >30 days is discouraged due to the risk of false positive IgM results or prolonged IgM seropositivity following disease resolution.

Testing of a new specimen collected in 7-14 days to demonstrate IgG seroconversion may be considered to confirm infection.

Test results reported to [facility]. Performing Location [facility] [place] - [facility] [address]
--- OUTSIDE RECORDS SUMMARY | 2024-09-16 11:36 | External Medical Summary | Summary of Care ---
Author Name Unknown Organization [facility] Address [address] [place] [address] Phone [phone] Care Team Providers Care Customer Experience Leader Name Role Phone Dennis Pope PA-C Primary Care Provider +1- [phone] Reason for Visit * Reason Comments eRx-Medication Refill Encounter Details Date Type Department Care Team (Late st Contact Info) Description 04/29/2024 Refill [place] [address] [place], [place] [phone] Dennis Pope PA-C [facility] [place], [place] [phone] COPD, mild (HCC) Allergies Active Allergy Reactions Criticality Noted Date Comments Atorvastatin Liver complications (Please comment) 06/26/2022 Elevated LFTs Celecoxib Diarrhea 11/20/2014 Severe diarrhea Ciprofloxacin Rash 11/29/2019 Rosuvastatin Muscle pain 06/26/2022 Erythromycin Hives 11/20/2014 Itchy hives Metronidazole Rash 11/29/2019 Azithromycin Rash Medium 02/21/2013 documented as of this encounter (statuses as of 04/30/2024) Medications Medication Sig Dispensed Refills Start Date [...] 3 06/16/2023 Active Symbicort 160-4.5 MCG/ACT Inhalation AerosolIndicatio ns:COPD, [...] Additional Information Patient not taking.Reported on 02/18/2024 Doxycycline Hyclate 100 MG Oral CapsuleIndicatio ns:Lyme disease Take 1 Capsule by mouth in the morning and 1 Capsule before bedtime. Do all this for 21 days. Until gone.. 42 Capsule 04/18/2024 4 Active Albuterol Sulfate HFA 108 (90 Base) MCG/ACT Inhalation Aerosol SolutionIndicati ons:COPD, mild (HCC) INHALE 2 PUFFS BY MOUTH EVERY 4 HOURS NEEDED FOR COUGH FOR SHORTNESS OF BREATH OR WHEEZE 54 g 2 04/30/2024 Active Albuterol Sulfate HFA 108 (90 Base) MCG/ACT Inhalation Aerosol SolutionIndicati ons:COPD, mild (HCC) Inhale 2 Puffs by mouth every 4 hours as needed for Cough, Shortness of Breath or Wheezing. 18 g 5 10/30/2023 4 Discontinued documented as of this encounter (statuses as of 04/30/2024) Active Problems Problem Noted Date Diagnosed Date [...] as of this encounter (statuses as of 04/30/2024) Resolved Problems Problem Noted Date Diagnosed Date Resolved Date DONN (generalized anxiety disorder) 12/14/2014 11/29/2019 COPD, mild 05/05/2014 10/30/2022 Overview: Per COPD GOLD Classification HTN, goal below 140/80 05/05/201405/01 Overview: Per HTN Protocol documented as of this encounter (statuses as of 04/30/2024) Immunizations Name Administration Dates Next Due Covid-19 Ad26, Single Dose (Jen/J&J) 05/24/2021 H1N1 2009 Influenza, IM 10/22/2009 Pneumococcal Conjugate Vacci ne, 20-valent ([id number]) 06/16/2023 Pneumococcal Polysaccharide PPV23 (Pneumovax) 11/05/2018,03/16/2012 Seasonal [...] encounter Miscellaneous Notes * Telephone Encounter - Liliaen Sepulveda [facility] - 04/30/2024 7:51 AM EDT Signed Prescriptions: Disp Refills Albuterol Sulfate HFA 108 (90 Base) MCG/AC*54 g 2 Sig: INHALE 2 PUFFS BY MOUTH EVERY 4 HOURS NEEDED FOR COUGH FOR SHORTNESS OF BREATH OR WHEEZEAuthorizing Provider: DENNIS POPE User: LILIANE SEPULVEDA documented in this encounter Plan of Treatment Upcoming Encounters Date Type Department Care Team (Late st Contact Info) Description 06/29/2024 9:40 AM EDT Office Visit [facility], [place] [address] [place] [address] Dennis Pope PA-C [address] [place] [address] 09/16/2024 11:00 AM EDT Appointment Radiology, [address] [address] [place] [address] 02/21/2025 8:20 AM EDT Office Visit Dermatology, [place] [address] [place] [address] [place] [address] Germaine Rosa PA-C [address] [place] [address] [place] [address] Health Maintenance Due Date Last Done Comments [...] classified documented in this encounter Care Teams Customer Experience Leader Relationship Specialty Start Date End Date Dennis Pope PA-C [address] [facility] [address] [place] [address] PCP - General Physician Teacher Education Director 05/13/17 documented as of this encounter
--- OUTSIDE RECORDS SUMMARY | 2024-09-16 11:36 | External Medical Summary | Summary of Care ---
Author Name Unknown Organization [facility] Address [address] [place] [place] [address] Phone [phone] Care Team Providers Care Perishable Freight Inspector Name Role Phone Shauna Pope PA-C Primary Care Provider +1- [phone] Reason for Visit * Reason Onset Date Comments Precert Denied 04/18/2024 595[address] EXERCISE S TRESS DENIED Encounter Details Date Type Department Care Team (Late st Contact Info) Description 04/18/[address] [place], [place] [phone] Lee Carmona MD [address] [facility] [address] [place] [address] Precert Denied ([address] EXERCISE STRESS DENIED) Allergies Active Allergy Reactions Criticality Noted Date Comments Atorvastatin Liver complications (Please comment) 06/26/2022 Elevated LFTs Celecoxib Diarrhea 11/20/2014 Severe diarrhea Ciprofloxacin Rash 11/29/2019 Rosuvastatin Muscle pain 06/26/2022 Erythromycin Hives 11/20/2014 Itchy hives Metronidazole Rash 11/29/2019 Azithromycin Rash Medium 02/21/2013 documented as of this encounter (statuses as of 04/21/2024) Medications Medication Sig Dispensed Refills Start Date [...] as of this encounter (statuses as of 04/21/2024) Active Problems Problem Noted Date Diagnosed Date [...] as of this encounter (statuses as of 04/21/2024) Resolved Problems Problem Noted Date Diagnosed Date Resolved Date DONN (generalized anxiety disorder) 12/14/2014 11/29/2019 COPD, mild 05/05/2014 10/30/2022 Overview: Per COPD GOLD Classification HTN, goal below 140/80 05/05/201405/01 Overview: Per HTN Protocol documented as of this encounter (statuses as of 04/21/2024) Immunizations Name Administration Dates Next Due Covid-19 Ad26, Single Dose (Jen/J&J) 05/24/2021 H1N1 2009 Influenza, IM 10/22/2009 Pneumococcal Conjugate Vacci ne, 20-valent ([id number]) 06/16/2023 Pneumococcal Polysaccharide PPV23 (Pneumovax) 11/05/2018,03/16/2012 Seasonal [...] encounter Miscellaneous Notes * Telephone Encounter - Sparkle Cisneros LPN - 04/21/2024 3:52 PM EDT Patient informed * Telephone Encounter - Bharti Basilio MD - 04/21/2024 11:48 AM EDT I am unsure if this cause as I did not examine pt She can discuss with pcp in jun * Telephone Encounter - Sparkle Cisneros LPN - 04/21/2024 11:41 AM EDT I spoke to the patient, she did not have the stress test. She is aware it is denied. She reports she is currently being treated for a Lymes flair up and she is starting to feel better. This is her third time since May for having flairs and being treated. She is wondering if there sherrie reason for the frequent flairs? * Telephone Encounter - Bharti Basilio MD - 04/21/2024 8:55 AM EDT Was the test already completed? * Telephone Encounter - Vivian Watson OSA - 04/18/2024 3:11 PM EDT Good Afternoon, Per Dorian the [address] Exercise Stress scheduled for [facility] has been DENIED. Please see the DENIAL RATIONAL: Per [place]- Case DENIED- You must have one of the following. -Findings on a tracing of your heart's electrical activity (electrocardiogram or ECG) that could make it hard to tell if your heart is getting enough blood supply with exercise. -Results of an ECG and blood pressure check done before, during, and after walking on a treadmill (exercise stress test) were unclear (inconclusive) or not normal as defined in the guideline. -Other indication as listed in this guideline Please call provide case# [id number] Please advise me as well as the patient on how you would like to proceed. Thank you, Vivian documented in this encounter Plan of Treatment Upcoming Encounters Date Type Department Care Team (Late st Contact Info) Description 06/29/2024 9:40 AM EDT Office Visit [place] [address] [place] [address] Shauna Pope PA-C [address] [place] [address] [address] [place] [address] 09/16/2024 11:00 AM EDT Appointment Radiology, [place] [address] [place] [address] 02/21/2025 8:20 AM EDT Office Visit Dermatology, [place] [address] [place] [address] [place] [phone] Germaine Rosa PA-C [address] [place] [address] [place] [address] Health Maintenance Due Date Last Done Comments Alpha-1 Antitrypsin 1984 Hepatitis B (1 of 3 - 19+ 3-dose series) 1985 Fecal Occult Blood Test 2011 DISCUSS TOBACCO CESSATION (REFER TO SMARTSET #7280) 06/15/2016 06/15/2015 (Declined) Cologuard 12/08/2020 12/08/2017 Depression [...] filedocumented as of this encounter Care Teams Perishable Freight Inspector Relationship Specialty Start Date End Date Shauna Pope PAAndresC [address] [facility] [address] [place] [address] PCP - General Physician Telecommunications Operator 05/13/17 documented as of this encounter
--- OUTSIDE RECORDS SUMMARY | 2024-09-16 11:37 | External Medical Summary | Summary of Care ---
Author Name Unknown Organization [facility] Address [address] [facility] [place] [address] Phone [phone] Care Team Providers Care Svp Digital Sales Food & Cooking Name Role Phone Shauna Pope PA-C Primary Care Provider +1- [phone] Reason for Visit * Reason Onset Date Comments Advice 04/05/202404/05 Encounter Details Date Type Department Care Team (Late st Contact Info) Description 04/05/2024 Telephone [place] [address] [facility] [place] [phone] Shauna Pope PA-C [facility] [place] [address] Advice (04/05) Allergies Active Allergy Reactions Criticality Noted Date Comments Atorvastatin Liver complications (Please comment) 06/26/2022 Elevated LFTs Celecoxib Diarrhea 11/20/2014 Severe diarrhea Ciprofloxacin Rash 11/29/2019 Rosuvastatin Muscle pain 06/26/2022 Erythromycin Hives 11/20/2014 Itchy hives Metronidazole Rash 11/29/2019 Azithromycin Rash Medium 02/21/2013 documented as of this encounter (statuses as of 04/06/2024) Medications Medication Sig Dispensed Refills Start Date [...] as of this encounter (statuses as of 04/06/2024) Active Problems Problem Noted Date Diagnosed Date [...] as of this encounter (statuses as of 04/06/2024) Resolved Problems Problem Noted Date Diagnosed Date Resolved Date DONN (generalized anxiety disorder) 12/14/2014 11/29/2019 COPD, mild 05/05/2014 10/30/2022 Overview: Per COPD GOLD Classification HTN, goal below 140/80 05/05/201405/01 Overview: Per HTN Protocol documented as of this encounter (statuses as of 04/06/2024) Immunizations Name Administration Dates Next Due Covid-19 Ad26, Single Dose (Jen/J&J) 05/24/2021 H1N1 2009 Influenza, IM 10/22/2009 Pneumococcal Conjugate Vacci ne, 20-valent ([id number]) 06/16/2023 Pneumococcal Polysaccharide PPV23 (Pneumovax) 11/05/2018,03/16/2012 Seasonal Influenza, PF, 6 M & above, IM , (FluLaval or Fluzone) 08/17/2023,08/29/2022,08/30/2020,10/25 Seasonal Influenza, Quadriva lent, No Preserve, IM 09/03/2021,09/12/2018,10/24/2016 Seasonal Influenza, Split, I IV3, With Preserve, Inj 08/11/2013,09/01/2011,09/26/2010,09/14,08/14/2008 TDAP (age 10 and older)(Boostrix) 10/25/2018 TDAP (age 11 and older)(Adacel) 03/16/2012 Zoster Vaccine Recombinant (Shingrix) 07/31/2020 ,05/30/2020 [...] money to buy more. Never true 06/02/20 Within the past 12 months, t he [...] encounter Miscellaneous Notes * Telephone Encounter - Nereida Norris OSA - 04/06/2024 9:11 AM EDT Sent to gissell be at high priority. * Telephone Encounter - Ashley Roland LPN - 04/05/2024 2:41 PM EDT Ale from [facility] is asking for a prior auth for pt's stress test, they do not do those and they do not want pt get stuck with a bill. Also stated that if PCP is willing pt would benefit from seeing cardio there as well. * Telephone Encounter - Lee Carmona MD - 04/05/2024 2:19 PM EDT I am not sure the exact nature of the question. Yesterday, we received a note from the patient which stated she was scheduled for a stress test today. As this is to be done at an outside facility, I am not sure if she has had the stress echo or not. Lee Carmona MD 04/05/2024 * Telephone Encounter - Sonia Vyas OSA - 04/05/2024 11:01 AM EDT Good morning, Received a call from Ale from [facility] - Cardiology, she wanting to the know the status of the patient's referral for Echo-Stress. It's showing that "Pending Review" as of 12/30/2023. Patient is going to have to reschedule her appointment until the referral is authorized. If there are any questions, or concerns please call Ale at [phone]. Thank you. TRISTAN Kerr documented in this encounter Plan of Treatment Upcoming Encounters Date Type Department Care Team (Late st Contact Info) Description 06/29/2024 9:40 AM EDT Office Visit [address] [place] [address] Shauna Pope PA-C [address] [place] [address] [place] [address] 09/16/2024 11:00 AM EDT Appointment Radiology, [place] [address] [place] [address] [address] 02/21/2025 8:20 AM EDT Office Visit Dermatology, [place] [address] [place] [address] Germaine Rosa PA-C [address] [place] [address] [place] [address] Health Maintenance Due Date Last Done Comments [...] filedocumented as of this encounter Care Teams Svp Digital Sales Food & Cooking Relationship Specialty Start Date End Date Shauna Pope PA-C [address] [place] [address] [place] [address] PCP - General Physician International Account Executive 05/13/17 documented as of this encounter
--- OUTSIDE RECORDS SUMMARY | 2024-09-16 11:37 | External Medical Summary | Summary of Care ---
Author Name Unknown Organization [facility] Address [address] [place] [address] Phone [phone] Care Team Providers Care Coding Quality Analyst Name Role Phone Shauna Pope PA-C Primary Care Provider +1- [phone] Reason for Visit * Reason Onset Date Comments Order Request 04/13/2024 Encounter Details Date Type Department Care Team (Late st Contact Info) Description 04/13/2024 Telephone [place] [address] [place], [place] [phone] Shauna Pope PA-C [facility] [place], [place] [phone] Order Request Allergies Active Allergy Reactions Criticality Noted Date Comments Atorvastatin Liver complications (Please comment) 06/26/2022 Elevated LFTs Celecoxib Diarrhea 11/20/2014 Severe diarrhea Ciprofloxacin Rash 11/29/2019 Rosuvastatin Muscle pain 06/26/2022 Erythromycin Hives 11/20/2014 Itchy hives Metronidazole Rash 11/29/2019 Azithromycin Rash Medium 02/21/2013 documented as of this encounter (statuses as of 04/14/2024) Medications Medication Sig Dispensed Refills Start Date [...] as of this encounter (statuses as of 04/14/2024) Active Problems Problem Noted Date Diagnosed Date [...] as of this encounter (statuses as of 04/14/2024) Resolved Problems Problem Noted Date Diagnosed Date Resolved Date DONN (generalized anxiety disorder) 12/14/2014 11/29/2019 COPD, mild 05/05/2014 10/30/2022 Overview: Per COPD GOLD Classification HTN, goal below 140/80 05/05/201405/01 Overview: Per HTN Protocol documented as of this encounter (statuses as of 04/14/2024) Immunizations Name Administration Dates Next Due Covid-19 Ad26, Single Dose (Jen/J&J) 05/24/2021 H1N1 2008 Influenza, IM 10/22/2009 Pneumococcal Conjugate Vacci ne, 20-valent ([id number]) 06/16/2023 Pneumococcal Polysaccharide PPV23 (Pneumovax) 11/05/2018,03/16/2012 Seasonal [...] encounter Miscellaneous Notes * Telephone Encounter - Amairani Parrish OSA - 04/14/2024 2:15 PM EDT Call and made patient aware. * Telephone Encounter - Shauna Pope PA-C - 04/14/2024 2:01 PM EDT Ordered. * Telephone Encounter - Amairani Parrish OSA - 04/13/2024 8:41 AM EDT Patient walked into the office requesting a lyme titer stating she has been feeling achy, nauseated, tired. Feels just like last time last year when she was positive for lyme. Please call: Work: (does not get good service in [place]). documented in this encounter Plan of Treatment Upcoming Encounters Date Type Department Care Team (Late st Contact Info) Description 06/29/2024 9:40 AM EDT Office Visit [facility], [place] [address] [place] [address] Shauna Pope PA-C [address] [place] [address] 09/16/2024 11:00 AM EDT Appointment Radiology, [place] [address] [place] [address] 02/21/2025 8:20 AM EDT Office Visit Dermatology, [place] [address] [place] [address] Germaine Rosa PA-C [address] [place] [address] [place] [address] Scheduled Orders Name Type Priority Associated Diagnoses Orde r Schedule LYME DISEASE ANTIBODY SCREEN WITH REFLEX TO CONFIRMATION Lab Routine Arthralgia of multiple joints Expected: 04/14/2024 (Approximate), Expires: 04/14/2025 Health Maintenance Due Date Last Done Comments [...] encounter Visit Diagnoses Diagnosis Arthralgia of multiple joints- Primary Pain in joint, multiple sites documented in this encounter Care Teams Coding Quality Analyst Relationship Specialty Start Date End Date Shauna Pope PA-C [address] [facility] [address] [place] [address] PCP - General Physician Digital Advisor 05/13/17 documented as of this encounter
--- OUTSIDE RECORDS SUMMARY | 2024-09-16 11:37 | External Medical Summary | Summary of Care ---
Author Name Unknown Organization [facility] Address [address] [place] [address] Phone [phone] Care Team Providers Care Hop Sorter Name Role Phone Shauna Pope PA-C Primary Care Provider +1- [phone] Reason for Visit * Reason Onset Date Comments Advice 04/04/2024 Encounter Details Date Type Department Care Team (Late st Contact Info) Description 04/04/2024 Telephone [place] [address] [place], [place] [phone] Shauna Pope PA-C [facility] [address] [place], [place] [phone] Advice Allergies Active Allergy Reactions Criticality Noted Date Comments Atorvastatin Liver complications (Please comment) 06/26/2022 Elevated LFTs Celecoxib Diarrhea 11/20/2014 Severe diarrhea Ciprofloxacin Rash 11/29/2019 Rosuvastatin Muscle pain 06/26/2022 Erythromycin Hives 11/20/2014 Itchy hives Metronidazole Rash 11/29/2019 Azithromycin Rash Medium 02/21/2013 documented as of this encounter (statuses as of 04/04/2024) Medications Medication Sig Dispensed Refills Start Date [...] as of this encounter (statuses as of 04/04/2024) Active Problems Problem Noted Date Diagnosed Date [...] as of this encounter (statuses as of 04/04/2024) Resolved Problems Problem Noted Date Diagnosed Date Resolved Date DONN (generalized anxiety disorder) 12/14/2014 11/29/2019 COPD, mild 05/05/2014 10/30/2022 Overview: Per COPD GOLD Classification HTN, goal below 140/80 05/05/201405/01 Overview: Per HTN Protocol documented as of this encounter (statuses as of 04/04/2024) Immunizations Name Administration Dates Next Due Covid-19 Ad26, Single Dose (Jen/J&J) 05/24/2021 H1N1 2009 Influenza, IM 10/22/2009 Pneumococcal Conjugate Vacci ne, 20-valent ([id number]) 06/16/2023 Pneumococcal Polysaccharide PPV23 (Pneumovax) 11/05/2018,03/16/2012 Seasonal [...] Telephone Encounter - Ngoc Marlow CMA - 04/04/2024 4:53 PM EDT Called and informed pt. * Telephone Encounter - Lee Carmona MD - 04/04/2024 4:40 PM EDT Please continue routinely scheduled medications. It does not appear that she is taking a beta charis nor calcium channel charis. Lee Carmona MD 04/04/2024 * Telephone Encounter - Ngoc Marlow CMA - 04/04/2024 11:11 AM EDT Pt walked into the clinic. She is scheduled tomorrow for stress test. She got a paper in the mail stating to contact the physician that ordered the test concerning medications. (Beta blockers or calcium channel blockers) that should be held for the test. Please advise documented in this encounter Plan of Treatment Upcoming Encounters Date Type Department Care Team (Late st Contact Info) Description 06/29/2024 9:40 AM EDT Office Visit Family Practice, [place] [address] [place] [address] Shauna Pope PA-C [address] [place] [address] 09/16/2024 11:00 AM EDT Appointment Radiology, [place] [address] [place] [address] 02/21/2025 8:20 AM EDT Office Visit Dermatology, [place] [address] [place] [address] [place] [address] Germaine Rosa PA-C [address] [place] [address] [place] [address] Health Maintenance Due Date Last Done Comments [...] filedocumented as of this encounter Care Teams Hop Sorter Relationship Specialty Start Date End Date Shauna Pope PA-C [facility] [address] [place] [address] PCP - General Physician Literacy Coach 05/13/17 documented as of this encounter
--- OUTSIDE RECORDS SUMMARY | 2024-09-16 11:37 | External Medical Summary | Summary of Care ---
Author Name Unknown Organization [facility] Address [address] [place] [address] Phone [phone] Care Team Providers Care Special Forces Officer Name Role Phone Shauna Pope PA-C Primary Care Provider +1- [phone] Reason for Visit * Reason Onset Date Comments Fax 04/04/2024 Encounter Details Date Type Department Care Team (Late st Contact Info) Description 04/04/2024 Telephone [place] [address] [place], [place] [phone] Shauna Pope PA-C [facility] [address] [place], [place] [phone] Fax Allergies Active Allergy Reactions Criticality Noted Date [...] IM 10/22/2009 Pneumococcal Conjugate Vacci ne, 20-valent ([id number]) 06/16/2023 Pneumococcal Polysaccharide PPV23 (Pneumovax) 11/05/2018,03/16/2012 Seasonal [...] Encounter - Ngoc Marlow CMA - 04/04/2024 11:21 AM EDT faxed * Telephone Encounter - Yessenia Reeves OSA - 04/04/2024 11:13 AM EDT Caller requesting the following information to be faxed: Name/Company of caller: Dr Damon Information requested to be faxed: EKG and Tracing from 12/30/2023 Fax number: [phone] Attention to Name/Company: [employer] Any additional information?: na documented in this encounter Plan of Treatment Upcoming Encounters Date Type Department Care Team (Late st Contact Info) Description 06/29/2024 9:40 AM EDT Office Visit [place] [address] [place] [address] Shauna Pope PA-C [address] [place] [address] 09/16/2024 11:00 AM EDT Appointment Radiology, [place] [address] [place] [address] 02/21/2025 8:20 AM EDT Office Visit Dermatology, [place] [address] [place] [address] [place] [address] Germaine Rosa PA-C [address] [place] [address] [place] [address] Health Maintenance Due Date Last Done Comments [...] filedocumented as of this encounter Care Teams Special Forces Officer Relationship Specialty Start Date End Date Shauna Pope PA-C [address] [facility] [address] [facility] [place] [address] PCP - General Physician Corporate Communications Manager 05/13/17 documented as of this encounter
--- NOTE | 2024-09-16 11:39 | Cardiology Consultation ---
Date of Consultation September 16, 2024 Assessment & Plan (1) NSTEMI (non-ST elevated myocardial infarction): (2) Acute heart failure with preserved ejection fraction (HFpEF): (3) COPD exacerbation: (4) Hypokalemia: (5) Hypomagnesemia: Plan Patient admitted with worsening SOB and chest tightness. HS troponin elevated at 2400 EKG demonstrating NSR with possible lateral T wave abnormality Echo with apical wall motion abnormality - possible ischemic vs Takotsubo She has multiple risk factors for CAD - PVD, tobacco abuse, HTN, dyslipidemia. She was treated for COPD exacerbation 3 days ago and given Augmentin with worsening of her chronic diarrhea. Mag critically low at 0.7. Supplements started with IV mag Potassium low at 2.6 - supplements ordered Given her chest pain, wall motion abnormalities, elevated troponin, will need to proceed with diagnostic cardiac cath today once her electrolytes have stabilized and her pulm status has improved. Supplemental O2 ordered Nebulizer treatment provided in ER for wheezing She took morning dose of ASA and plavix. Nitro paste ordered. Keep NPO except meds Recheck electrolytes in 2 hours prior to cath. Trend troponin. Repeat EKG No heparin for now pending cardiac cath today. Further recommendations pending response to medications and cardiac cath later today. Case discussed with Dr. Mera I spent a total of 45 minutes on the date of service in preparation, delivery, and documentation of the care provided to this patient, excluding any time spent in the performance of separately billed services. Jessica Zamora PA-C Department of Cardiology, [facility] This chart was completed in part utilizing Speech Voice Recognition Software. Grammatical errors, random word insertions, pronoun errors, and incomplete sentences are an occasional consequence of this system due to software limitations, ambient noise, and hardware issues. Any formal questions or concerns about the content, text, or information contained within the body of this dictation should be directly addressed to the provider for clarification. Supervising Physician Co-Signing Physician Notes Attending attestation: Case reviewed with the advanced practitioner. I have personally performed a history and physical examination on the patient. I have reviewed the advanced practitioner's documentation on the date of service referenced in note, and I agree with, and take responsibility for the plan of care. Subject:59-year-old female with past medical history of ongoing cigarette smoking, peripheral arterial disease status post bifemoral bypass in 2014, d yslipidemia, hypertension, chronic diarrhea with history of partial bowel resection presents with progressive shortness of breath and chest tightness. This morning debilitatingly short of breath with minimal exertion. Described ongoing 05/25 chest tightness on my arrival in the emergency room. Exam: General appearance ill in appearance, thin Cardiovascular: Tachycardic, no murmurs, no edema Data: Troponin 2,483 pg/ ml--> 2,761 pg/ml. Summary transthoracic echocardiogram performed today in the emergency room 09/16/2024 There is normal left ventricular wall thickness. There is severe diffuse hypokinesis akinesis of the left ventricle at the apical and mid levels with relative sparing of the basal segments. Left ventricular systolic function is severely reduced. Left Ventricular Ejection Fraction = 25-30%. The right ventricle is normal size. The right ventricle is hyperdynamic. There is trace mitral regurgitation. There is trace tricuspid regurgitation. Mild to moderate pulmonary hypertension is present. The pulmonary artery systolic pressure is estimated to be 58 mmHg assuming a right atrial pressure of 8 mmHg. Potassium 2.6, magnesium 0.7 Impression/ Plan: Since patient's initial presentation, she was transferred from the emergency department to the PCU, room 244. She then developed progressive respiratory distress and a rapid response alert was called. As part of the response team, I recommended 20 mg of IV furosemide, patient also received an additional dose of 40 mg of IV Solu-Medrol. Her IV fluids and IV electrolyte replacement were discontinued. The patient did not tolerate initial trials of oxy mask or BiPAP due to sensation of claustrophobia. She was subsequently transferred to the first floor ICU. In addition to the previously placed topical nitroglycerin, a dose of sublingual nitroglycerin was administered with no improvement in symptoms. An EKG was performed at 1422, it was technically limited due to baseline artifact, but appears to reveal similar poor R wave progression in the anterior precordial leads without ST segment elevation. The patient's severe left ventricular systolic dysfunction is at a proportion to the relatively small elevation in the troponin I. Question if patient has had progressive respiratory distress due to acute exacerbation of COPD with superimposed stress-induced cardiomyopathy with or without underlying obstructive coronary heart disease. Is felt that if this was an acute coronary syndrome as a culprit, she would have a isabela ST elevation which does not appear present. She continues to have difficulty from a respiratory status standpoint. She has consented to endotracheal intubation which is underway by Dr. Valencia of critical care. Once the patient's airway is stabilized, we will plan on repeating EKG to exclude the presence of ST elevation. If ST of elevation is present, will plan on emergent invasive coronary angiography, if not, we will proceed with ongoing medical management and stabilization. Case discussed extensively with the patient's , Miki, whom I accompanied to the surgical waiting room during the intubation procedure. I spent a total of 90 minutes coordinating, documenting, and providing care for this patient excluding time spent in the performance of separately billed services or time spent by another provider. Angel Mera, DO History of Present Illness Reason for Consultation: SOB; Chest Tightness Requesting Physician: Rodrigo Vasquez PA-C, Emergency Room provider Attending Physician: Dr. Mera History of Present Illness Patient is a 59 year old female who presents to [facility] ER with complaints of SOB and chest tightness. She was evaluated by PCP office 09/13 for similar symptoms and diagnosed with COPD exacerbation. Started on Augmentin and steroids. Symptoms progressed over the last 2 days and she came to the ER for evaluation. She reports increased SOB, chest tightness, wheezing, and dyspnea with minimal exertion. On arrival, potassium low at 2.6 and magnesium critically low at 0.7. Supplements initiated. HS troponin elevated at 2,483. Chest CTA completed and was without PE, underlying emphysema and mucous plugging. Patient reports chronic diarrhea, but slightly worse over the last few days since starting Augmentin. prelim echo findings demonstrate apical wall motion abnormality consistent with possible Takotsubo vs ischemic changes EKG reviewed demonstrating NSR, T wave abnormality in lateral leads. At time of evaluation by cardiology, patient reported 7/10 chest pain. No known cardiac history. Patient was to have a stress echo in Dec 2023 but this was not completed. She is on chronic ASA, plavix for PVD. History includes: 1. PVD following with Dr. Peters - s/p selin femoral bypass surgery in 2015 at the age of 50. 2. Tobacco abuse 3. COPD 4. HTN 5. dyslipidemia 6. Hypokalemia 7. History of lyme disease 8. History of colon resection 6 years ago - chronic diarrhea Allergies Allergy/AdvReac Type Severity Reaction Status Date / Time azithromycin Allergy Unknown turned Verified 09/16/24 12:52 red, hives erythromycin base Allergy Unknown PT BECOMES Verified 09/16/24 12:52 EXTREMELY RED celecoxib AdvReac Unknown GI UPSET Verified 09/16/24 12:52 Home Medications Medication Instructions Recorded Confirmed Type aspirin 81 mg tablet,delayed 81 mg PO DAILY ##0 07/26/15 09/16/24 History release coenzyme Q10 75 mg capsule (Ultra 75 mg PO DAILY 09/30/22 09/16/24 History CoQ10) pantoprazole 40 mg tablet,delayed 40 mg PO DAILY 09/30/22 09/16/24 History release acetaminophen 500 mg tablet 500 mg PO Q6H PRN Pain 09/16/24 09/16/24 History albuterol sulfate 90 mcg/actuation 2 puff inhalation Q4H PRN SOB or 09/16/24 09/16/24 History aerosol inhaler wheezing atorvastatin 10 mg tablet 10 mg PO HS 09/16/24 09/16/24 History budesonide-formoterol HFA 160 2 puff inhalation BID 09/16/24 09/16/24 History mcg-4.5 mcg/actuation aerosol inhaler (Symbicort) cholecalciferol (vitamin D3) 50 50 mcg PO DAILY 09/16/24 09/16/24 History mcg (2,000 unit) tablet (Vitamin D3) clopidogrel 75 mg tablet 75 mg PO QAM 09/16/24 09/16/24 History doxycycline hyclate 100 mg capsule 100 mg PO BID 09/16/24 09/16/24 History hydrocodone 5 mg-acetaminophen 325 1 tab PO DAILY PRN Pain 09/16/24 09/16/24 History mg tablet ipratropium 20 mcg-albuterol 100 1 puff inhalation QID 09/16/24 09/16/24 History mcg/actuation mist for inhalation (Combivent Respimat) prednisone 10 mg tablet See Rx Instructions .Route .COMPLEX 09/16/24 09/16/24 History telmisartan 80 1 tab PO DAILY 09/16/24 09/16/24 History mg-hydrochlorothiazide 25 mg tablet Patient History Social History Smoking Status: Current every day smoker Tobacco Type: Cigarettes Preferred Language: Welsh Feels Safe at Home: Yes Review of Systems Review of Systems: All systems reviewed & are unremarkable except as noted in HPI & below Physical Exam Constitutional: + ill appearing and + thin Neck: trachea midline, no thyromegaly Respiratory: + labored breathing and + tachypneic; + not able to speak in complete sentence Auscultation: + wheezes Cardiovascular: Rate/Rhythm: regular rhythm and + tachycardic Heart Sounds: normal S1 and normal S2; no murmur Vessels: no JVD Extremities: no edema Gastrointestinal (Abdomen): normal bowel sounds, soft, nontender, no hepatosplenomegaly Skin: no rashes, warm and dry Neurologic: PERRL, EOMI, accommodation nl, no face palsy, no dysarthria Psychiatric: A+Ox3, euthymic affect Results & Data Vital Signs (Past 12 Hours) Vital Signs Temp Pulse Resp BP Pulse Ox O2 Del Method 09/16/24 09:51 115 H 09/16/24 09:21 36.6 C 119 H 24 139/96 92 Room Air Laboratory Results Cardiac Enzymes 09/16/24 Range/Units 09:51 AST 44 H (13-39) U/L Troponin I High Sens 2483.6 H* (0-14) pg/ml Coagulation 09/16/24 Range/Units 09:51 PT 11.4 (9.0-12.0) Seconds APTT 26 (21-31) Seconds CBC 09/16/24 Range/Units 09:51 WBC 15.91 H (4.8-10.8) K/ul RBC 4.16 L (4.20-5.40) M/uL Hgb 14.1 (12.0-16.0) g/dl Hct 39.5 (37.0-47.0) % Plt Count 409 H (130-400) K/uL Neut # (Auto) 11.97 H (1.40-6.50) K/uL Lymph # (Auto) 2.40 (1.20-3.40) K/uL Wharton # (Auto) 1.41 H (0.11-0.59) K/uL Eos # (Auto) 0.02 (0.00-0.50) K/uL Baso # (Auto) 0.04 (0.00-0.20) K/uL Comprehensive Metabolic Panel 09/16/24 Range/Units 09:51 Sodium 137 (136-145) mmol/L Potassium 2.6 L (3.5-5.1) mmol/L Chloride 95 L (98-107) mmol/L Carbon Dioxide 30 (21-32) mmol/L BUN 20 (6-23) mg/dl Creatinine 0.55 L (0.6-1.2) mg/dl Glucose 89 (70-99(Fasting)) mg/dl Calcium 8.4 L (8.6-10.3) mg/dl AST 44 H (13-39) U/L ALT 33 (7-52) U/L Total Protein 6.2 (6.0-8.3) gm/dl Albumin 4.0 (3.4-5.0) gm/dl Intake and Output 09/15/24 09/16/24 09/16/24 22:59 06:59 14:59 Other: Weight 42.8 kg Weight Measurement Method Chair Scale Patient Weight 09/17/24 06:59 Weight 42.8 kg Diagnostic Findings EKG reviewed from admission: NSR, T wave abnormality in lateral leads. Telemetry reviewed: SInus and sinus tachycardia at around 115 bmp Chest CTA report IMPRESSION: 1. No pulmonary emboli identified. 2. Emphysema with bronchitis and mucous plugging. 3. Mild intralobular septal thickening likely represents a component of pulmonary edema. 4. 5 mm solid nodule of the basal right lower lobe. Prelim echo report - Apical wall motion abnormality - Takotsubo vs ischemic Medications Administered Current Inpatient Medications Potassium Chloride (K Nathan / Wtr) 10 meq in 100 mls @ 100 mls/hr IV Q1H NOELLE; Protocol Stop: 09/16/24 12:59 Last Admin: 09/16/24 11:14 Dose: 100 mls/hr Sodium Chloride (Nss) 1,000 mls @ 80 mls/hr IV .[id number] NOELLE Stop: 09/17/24 11:29 Magnesium Oxide (Magnesium Oxide 400 Mg Tab) 400 mg PO BID NOELLE Stop: 10/16/24 11:59 Potassium Chloride (Potassium Chloride 20 Meq/15 Ml Udc) 40 meq PO NOW STA Stop: 09/16/24 11:50 Potassium Chloride (Potassium Chloride 20 Meq/15 Ml Udc) 40 meq PO ONE ONE Stop: 09/16/24 13:01
--- NOTE | 2024-09-16 12:05 | CT Scan Report ---
CT angio chest PE protocol CT DOSE: 237.62 mGy.cm HISTORY: 59 years-old Female with dyspnea, chest tightness, cough. Acute cough with chest tightness and shortness of breath TECHNIQUE: Multiple CTA images of the chest were obtained after the intravenous administration of 112 ml Optiray. Coronal and sagittal MIPS were obtained from the axial data set and were submitted for review. All measurements were obtained according to NASCET criteria. A dose lowering technique was u tilized adhering to the principles of ALARA. COMPARISON: CT abdomen and pelvis 10/18/2018 FINDINGS: CTA: Heart is normal in size. Moderate coronary artery calcifications. Atherosclerosis of the aorta withou t aneurysm. Patency of the imaged great vessels. No pulmonary emboli identified. CT CHEST: No pneumothorax, no pleural effusion. Moderate bronchial wall thickening with areas of multifocal muc us plugging. Intraventricular septal thickening. 5 mm solid nodule right lower lobe on image 46 serie s 4 is noted from prior, low clinical suspicion. No suspicious pulmonary nodules or masses identified . Central airways are patent. 1.3 cm cyst of the superior pole left kidney. There is mild likely chronic superior end plate ajit lacey T3. IMPRESSION: 1. No pulmonary emboli identified. 2. Emphysema with bronchitis and mucous plugging. 3. Mild intralobular septal thickening likely represents a component of pulmonary edema. 4. 5 mm solid nodule of the basal right lower lobe. Please refer to below summary of Fleischner criteria recommendations for follow-up of incidental CT n odules (Marybel Blake, Guidelines for management of small pulmonary nodules detected on CT scans: A sta tement from the Fleischner Society, Radiology 237: [id number].) SOLID NODULES Solitary nodule size: <6 mm * Low risk patients: no follow-up needed * high risk patients: optional CT at 12 months Note: newly detected indeterminate nodule in persons 35 years of age or older. * Low risk patients: minimal or absent history of smoking and/or other known risk factors * high risk patients: history of smoking or of other known risk factors (e.g. first degree relative with lung cancer, or exposure to asbestos, radon, uranium) * if a nodule up to 8 mm is partly solid or is ground glass further follow-up is required after 24 m onths to exclude possible slow growing adenocarcinoma (PANCHO) ACT 112: Negative or not required by law. The above report was generated using voice recognition software. It may contain grammatical, syntax o r spelling errors. Electronically signed by: Vikas Madera M.D. 09/16/2024 12:03 PM
[2024-09-16] MEDS: SODIUM CHLORIDE 0.9% 1,000 ML IV SCH (12:24)
[2024-09-16] MEDS: MAGNESIUM SULFATE / D5W 1 GM/100 ML BAG IV SCH (12:35)
[2024-09-16] MEDS: NITROGLYCERIN 2% OINTMENT 30GM TUBE EXT SCH (12:36)
[2024-09-16] MEDS: POTASSIUM CHLORIDE CRTAB 20 MEQ TABCR PO STA ×2 (12:40→13:27)
[2024-09-16] MEDS: MAGNESIUM OXIDE 400 MG TAB PO SCH (12:40)
[2024-09-16] MEDS: FOLIC ACID 1 MG in SYRINGE 9.8 ML IV STA (12:50)
[2024-09-16] MEDS: CEROVITE ADV FORMULA TAB PO STA (12:50)
[2024-09-16] MEDS: THIAMINE HCL 100 MG in SYRINGE 9 ML IV STA (12:50)
[2024-09-16] MEDS: POTASSIUM CHLORIDE CRTAB 20 MEQ TABCR PO ONE (12:52)
--- NOTE | 2024-09-16 12:59 | History & Physical Report ---
Date of Service September 16, 2024 Assessment & Plan (1) COPD exacerbation: (2) Acute bronchitis: (3) Elevated troponin: (4) Hypomagnesemia: (5) Hypokalemia: Plan: 59-year-old female with history of COPD, hypertension, peripheral artery disease, GERD, smoker, drinker presenting with cough and shortness of breath times few days. Acute COPD exacerbation Acute bronchitis Did not improve with outpatient Augmentin, prednisone, doxycycline prescribed [address] angiogram of the chest: 1. No pulmonary emboli identified. 2. Emphysema with bronchitis and mucous plugging. 3. Mild intralobular septal thickening likely represents a component of pulmonary edema. 4. 5 mm solid nodule of the basal right lower lobe. BioFire: Negative Currently saturating 97% on 2 L of oxygen, afebrile BioFire: Negative Sputum culture ordered ABG ordered Solu-Medrol 40 mg every 8 hours IV cefepime every 8 hours Xopenex/Atrovent every 6 hours, hypertonic saline every 12 hours Incentive spirometry, flutter valve Troponin elevation Possible non-ST elevation RI Rule out acute coronary syndrome Troponin 2761 EKG no signs of ischemia or infarct Folder Machine Adjuster consulted, evaluated by Dr. Mera and JOSE Zamora at the bedside Plan for possible cardiac cath N.p.o. for now at around 150pm, Max esparza called upon patient's arrival to PCU due to respiratory distress Seen at the bedside, tachypneic, with accessory muscle use O2 sat 98% on 10 L Positive expiratory wheezing, with some crackles EKG: No acute ischemia Chest x-ray: Positive pulmonary edema Echo: EF 25%, possible Takatsubo ABG: pH 7.3, pCO2 51, pO2 54 Patient cannot tolerate BiPAP, oxy mask maintained, saturating 98% on [address] Mera at the bedside Lasix 20 mg IV given Solu-Medrol 40 mg IV given Transferred to ICU Dr. Mera discussing with Dr. Spangler for possible cardiac cath Hypomagnesemia, hypokalemia Magnesium 0.7 Potassium 2.6 IV n.p.o. replacements ordered Repeat levels at 3 PM Patient reports she has chronic diarrhea 3-4 episodes per day after colorectal surgery Check for stool PCR and C. difficile Also on HCTZ Lyme arthritis flare, Right hand Diagnosed by PCP a few days ago Currently on doxycycline course Smoker At least 10 cigarettes/day Patient trying to quit Declines nicotine patch at this point Alcohol use Patient's last drink was a few days ago Ativan as needed, monitor closely Other chronic conditions: Hypertension-hold off on telmisartan/hydrochlorothiazide to prevent hypotension Peripheral artery disease-continue usual aspirin, Plavix, Lipitor GERD-continue Protonix DVT prophylaxis SCDs for now in light of plans for possible cardiac cath Full code as per patient Disposition Lives at home with family History of Present Illness Chief Complaint: Cough and shortness of breath times few days Primary Care Provider: Shauna Pope PA-C 59-year-old female with history of COPD, hypertension, peripheral artery disease, GERD, smoker, drinker presenting with cough and shortness of breath times few days. Patient reports having cough, chest congestion and shortness of breath for the past few days. She had a PCP visit 2 days ago and was placed on Augmentin and prednisone taper starting at 50 mg. She was also continued on her doxycycline course which she was taking for a Lyme arthritis flareup of the hand. Unfortunately patient's symptoms worsened prompting consult to the ER. On admission, patient was received with O2 sats of 92% on room air but was having bilateral wheezing. She was given a DuoNeb treatment. Troponin level was in the 1999's, EKG no signs of acute ischemia or infarct. Cardiology consulted and was seen by Dr. De Jesus and JOSE Miller at the bedside. Patient also noted to have magnesium of 0.7 and potassium of 2.6 IV magnesium and IV potassium ordered at the ER. On my exam, patient seen resting in bed, sitting up, on 2 L of O2, not in distress. States breathing treatment earlier has helped somewhat but still feels short of breath. She says she is unable to expectorate sputum. No active chest pain, nausea, vomiting, dizziness, sweating, palpitations on my exam. Allergies Allergy/AdvReac Type Severity Reaction Status Date / Time azithromycin Allergy Unknown turned Verified 09/16/24 12:52 red, hives erythromycin base Allergy Unknown PT BECOMES Verified 09/16/24 12:52 EXTREMELY RED celecoxib AdvReac Unknown GI UPSET Verified 09/16/24 12:52 Home Medications Medication Instructions Recorded Confirmed Type aspirin 81 mg tablet,delayed 81 mg PO DAILY ##0 07/26/15 09/16/24 History release coenzyme Q10 75 mg capsule (Ultra 75 mg PO DAILY 09/30/22 09/16/24 History CoQ10) pantoprazole 40 mg tablet,delayed 40 mg PO DAILY 09/30/22 09/16/24 History release acetaminophen 500 mg tablet 500 mg PO Q6H PRN Pain 09/16/24 09/16/24 History albuterol sulfate 90 mcg/actuation 2 puff inhalation Q4H PRN SOB or 09/16/24 09/16/24 History aerosol inhaler wheezing atorvastatin 10 mg tablet 10 mg PO HS 09/16/24 09/16/24 History budesonide-formoterol HFA 160 2 puff inhalation BID 09/16/24 09/16/24 History mcg-4.5 mcg/actuation aerosol inhaler (Symbicort) cholecalciferol (vitamin D3) 50 50 mcg PO DAILY 09/16/24 09/16/24 History mcg (2,000 unit) tablet (Vitamin D3) clopidogrel 75 mg tablet 75 mg PO QAM 09/16/24 09/16/24 History doxycycline hyclate 100 mg capsule 100 mg PO BID 09/16/24 09/16/24 History hydrocodone 5 mg-acetaminophen 325 1 tab PO DAILY PRN Pain 09/16/24 09/16/24 History mg tablet ipratropium 20 mcg-albuterol 100 1 puff inhalation QID 09/16/24 09/16/24 History mcg/actuation mist for inhalation (Combivent Respimat) prednisone 10 mg tablet See Rx Instructions .Route .COMPLEX 09/16/24 09/16/24 History telmisartan 80 1 tab PO DAILY 09/16/24 09/16/24 History mg-hydrochlorothiazide 25 mg tablet Past Med/Surg History Problem List (Updated 09/16/24 @ 14:17 by Rodrigo Vasquez PA-C) Dyspnea (Acute) Acute heart failure with preserved ejection fraction (HFpEF) NSTEMI (non-ST elevated myocardial infarction) (Acute) Acute bronchitis COPD exacerbation (Acute) Hypomagnesemia (Acute) Hypokalemia (Acute) Elevated troponin (Acute) Chest pain Arthritis Iliac artery occlusion (Acute) Social History Smoking Status: Current every day smoker Tobacco Type: Cigarettes Preferred Language: Welsh Feels Safe at Home: Yes Review of Systems Review of Systems: all noted and negative except for above Physical Exam Physical Exam: General- oriented x 3, not in distress, speaks in sentences with no effort or accessory muscle use Head- atraumatic Eyes- PERRL, EOMI, anicteric ENT- oropharynx clear Neck- supple, no JVD, no adenopathy, no thyromegaly; carotids +2/2, no bruits appreciated Lungs- Positive mild scattered wheeze bilaterally, no crackles noted, (+) good air entry Heart- normal rate, regular rhythm; no murmur, no gallop, no rub appreciated Abdomen- normal bowel sounds, nondistended, soft, nontender, no masses or hepatosplenomegaly Extremities- no pretibial edema, no calf tenderness; peripheral pulses intact Neuro- alert, oriented x 3; CN 2-12 grossly intact; motor 5/5 bilaterally;sensation 100% on all extremities; no other gross focal neurologic deficits Skin- warm & dry Results & Data Results & Data Vital Signs (Past 12 Hours) Vital Signs Temp Pulse Resp BP Pulse Ox O2 Del Method 09/16/24 12:24 120 H 26 H 98 09/16/24 12:00 112 H 22 09/16/24 12:00 125/85 09/16/24 11:39 108 H 20 09/16/24 11:30 135/95 09/16/24 11:27 112 H 22 91 09/16/24 10:30 128/91 09/16/24 10:18 118 H 23 95 09/16/24 10:03 115 H 16 97 09/16/24 10:00 126/89 09/16/24 10:00 98 Room Air 09/16/24 09:51 115 H 09/16/24 09:21 36.6 C 119 H 24 139/96 92 Room Air all noted and reviewed including below Laboratory Results all noted and reviewed including below Code Status & VTE Plan VTE Prophylaxis Plan VTE Prophylaxis will be ordered: Yes
[2024-09-16] MEDS ORDERED: POTASSIUM CHLORIDE 20 MEQ/15 ML UDC PO ONE (13:00)
[2024-09-16] MEDS: methylPREDNISolone 125 MG/2 ML VIAL IV STA (13:06)
[2024-09-16] MEDS: IPRATROPIUM BROMIDE NEB SOLN 0.02% 0.5MG/2.5ML VIAL NEB STA (13:14)
[2024-09-16] MEDS: LEVALBUTEROL 1.25 MG/3 ML NEB NEB STA (13:14)
[2024-09-16] MEDS ORDERED: LORazepam 2 MG/1 ML VIAL IV PRN (13:25)
[2024-09-16] MEDS ORDERED: methylPREDNISolone 125 MG/2 ML VIAL IV STA (13:27)
[2024-09-16] MEDS: MAGNESIUM OXIDE 400 MG TAB PO STA (13:27)
[2024-09-16] MEDS: POTASSIUM CHLORIDE 20 MEQ/15 ML UDC PO STA ×2 (13:27→13:30)
[2024-09-16] MEDS ORDERED: methylPREDNISolone 20 MG in SYRINGE 0 ML IV ONE (13:45)
[2024-09-16] MEDS: FUROSEMIDE INJ 20 MG/2 ML VIAL IV ONE ×2 (14:01→14:09)
[2024-09-16] MEDS: methylPREDNISolone 40 MG in SYRINGE 0 ML IV ONE (14:08)
[2024-09-16] MEDS: NITROGLYCERIN SL 0.4 MG/TAB TAB SL STA (14:26)
[2024-09-16] MEDS: LEVALBUTEROL 1.25 MG/3 ML NEB NEB SCH (14:27)
[2024-09-16] MEDS: IPRATROPIUM BROMIDE NEB SOLN 0.02% 0.5MG/2.5ML VIAL NEB SCH (14:27)
[2024-09-16] MEDS: MoRPHine SULFATE 2 MG/ML CARP IV STA (14:40)
[2024-09-16] MEDS: CEFEPIME 2000MG 2,000 MG/20 ML SYR IV SCH (14:44)
[2024-09-16] MEDS: MoRPHine SULFATE 2 MG/ML CARP ONE (14:45)
[2024-09-16] MEDS: guaiFENesin 600 MG TABCR PO SCH (14:45)
--- NOTE | 2024-09-16 14:55 | XRay Report ---
XR chest 1V portable CLINICAL HISTORY: hypoxia COMPARISON STUDY: Chest radiograph July 31, 2015. Chest CT performed earlier today. FINDINGS: Interstitial thickening has progressed. This represents pulmonary edema. There is no pneumo thorax. No definite pleural effusion is identified although costophrenic angles were excluded. There is emphysema. Bibasilar opacities have developed. IMPRESSION: 1. Progression of pulmonary edema. 2. Interval development of bibasilar opacities. These may reflect atelectasis or be related to pulmon nelly edema however aspiration pneumonia could appear similar. ACT 112: Negative or not required by law. Electronically signed by: Constantin Luevano M.D. 09/16/2024 2:54 PM
[2024-09-16 15:22] LABS: iSTAT Arterial Blood Gas HCO3 26 meg/L (19-24); iSTAT Arterial Blood Gas pCO2 51 mmHg (35-46); iSTAT Arterial Blood Gas pH 7.32 (7.35-7.45); iSTAT Arterial Blood Gas pO2 54 mmHg (80-95); iSTAT Carbon Dioxide 28 mmol/L (24-31); iSTAT Hematocrit 45 % (37-47); iSTAT Hemoglobin 15.3 g/dl (12.0-16.0); iSTAT Potassium 3.8 mmol/L (3.3-5.0); iSTAT Sodium 129 mmol/L (135-144)
--- NOTE | 2024-09-16 15:22 | Procedure Note ---
Procedure Note Date of Service September 16, 2024 INTUBATION PROCEDURE NOTE: Provider: Rj Valencia MD A time-out was completed verifying correct patient, procedure, site, positioning. Patient was evaluated and required intubation for hypoxemic and hypercarbic respiratory failure with acute COPD exacerbation failing noninvasive positive pressure ventilation. Sedative agent used: Etomidate and Versed Paralysis agent used: None Emergent consent was implied given patients rapidly declining clinical status and need for airway protection. The patient did not her head in agreement with intubation and was in agreement at the bedside The patient was prepared in the appropriate fashion. Sedation was achieved utilizing etomidate and Versed. Video laryngoscopy was performed yielding a grade 1 view. A 7.5 endotracheal tube was passed through the cords and the balloon inflated with colorimetric change and bilateral breath sounds auscultated. Tube was secured at 26 cm at the incisors. Chest x-ray pending [facility] Procedure Codes (Charges) Resuscitation Resuscitation: [id number] Endotracheal Intubation, emergency Coding CPT Codes Resuscitation - Resuscitation: 09851 Endotracheal Intubation, emergency ([id number]) Additional Codes Date of Service (PG.SURGERY)
[2024-09-16] MEDS ORDERED: STAT IV Infusion **Titration per Protocol STA (15:31)
[2024-09-16] MEDS: MIDAZOLAM HCL 1 MG/ML 2ML VIAL IV STA (15:33)
[2024-09-16] MEDS: PROPOFOL IV EMULSION 10 MG/ML 100 ML VIAL IV ONE (15:34)
[2024-09-16] MEDS: MIDAZOLAM HCL 1 MG/ML 2ML VIAL ONE (15:34)
[2024-09-16] MEDS: RAPID SEQUENCE INDUCTION BAG ONE (15:35)
[2024-09-16] MEDS: NITROGLYCERIN SL 0.4 MG/TAB TAB ONE (15:36)
--- NOTE | 2024-09-16 15:42 | Critical Care Consultation ---
Date of Consultation September 16, 2024 Assessment & Plan (1) Acute and chronic respiratory failure, unspecified whether with hypoxia or hypercapnia: (2) COPD exacerbation: (3) NSTEMI (non-ST elevated myocardial infarction): (4) Hypokalemia: (5) Hypomagnesemia: (6) Cachexia: Plan Impression: 59-year-old female with extensive history of tobacco and alcohol abuse and cachexia admitted with shortness of breath likely due to COPD exacerbation. Also found to have elevated troponin and decreased ejection fraction, possibly Takotsubo. Recommendations: 1. Neurologic: Currently sedated with propofol and Versed. Continue for now pending improvement in respiratory status and allowing for liberation of mechanical ventilation. At risk for alcohol withdrawal. Will use Versed as well as propofol on an as-needed basis. Continue high-dose thiamine and folate replacement as well as daily multivitamin. 2. Cardiovascular: Elevated troponin with decreased ejection fraction. The patient appears clinically dry. Giving 1 L crystalloid currently and then will reassess. Trend cardiac enzymes. Defer additional evaluation including assessment of coronary arteries to cardiology. No indication for heparin currently normal pulmonary standpoint. Patient has severe peripheral vascular disease status post bilateral femoral bypass graft. 3. Pulmonary: Acute exacerbation of COPD with hypoxemic and hypercarbic respiratory failure. Failed noninvasive positive pressure ventilation x 3. Intubated for persistent acidosis and respiratory failure. Continue current vent settings. Follow-up VBG. Given her vascular anatomy, do not think an arterial line will be achievable. Will place on Perforomist and budesonide as well as DuoNebs and continue Solu-Medrol. Doxycycline for acute exacerbation of COPD given her adverse effects associated with azithromycin. Daily chest x-ray 4. GI: Nutritional consult given her profound cachexia (body mass index of 15). Will initiate tube feeding per dietitian. Initiate oral PPI 5. Renal: Severe electrolyte abnormalities. Aggressively replace potassium and magnesium. Follow-up serial electrolytes. 6. Endocrine: Placing the control per protocol. 7. Heme-onc: No current issues. Subcu heparin for DVT prophylaxis 8. ID: Patient was initiated on cefepime in the emergency room. Her CT scan shows no evidence of infiltrate and I see no significant infectious etiology. Would continue doxycycline for acute exacerbation of COPD and follow clinically. Patient's prognosis is extremely guarded. She has very poor protoplasm to begin with with profound cachexia and ongoing tobacco and alcohol abuse. Discussed with in detail at bedside. I advised them that I think the utility of CPR or defibrillation in this setting would be unlikely to improve the patient's overall quality of life and he is in agreement. Will make her conditional code. He understands the severity of her current situation and is contacting family members. Patient is critically ill. A total of 90 minutes in critical care time exc lusive of procedures was spent in evaluation management stabilization of this patient History of Present Illness Attending Physician: Bill Silva MD History of Present Illness Asked by hospitalist to assist in evaluation management as patient with respiratory distress and COPD exacerbation transferred emergently to the ICU. History is obtained from review the electronic medical record as well as discussion with medical consultants. Patient is unable to provide any significant history due to respiratory extremis. Her does provide some additional history. The patient is a 59-year-old chronically ill female with an extensive history of alcohol and tobacco abuse who continues to smoke at the rate of a pack per day. She has not been seen by pulmonary previously and has never had PFTs. She has minimal records in our system and appears to receive primary care [facility]. According to the note the patient has significant peripheral vascular disease status post bilateral Calle bypass grafts in 2015. She has chronic diarrhea as well as hypertension and COPD. There is no mention of PFTs being performed in the outpatient setting based on her last clinical note and she reportedly uses Symbicort on the outpatient setting. She presented to the emergency room this morning with complaints of chest tightness and shortness of breath. She has had sinus symptoms going on for several weeks previously. She had been treated with Augmentin and then doxycycline for a sinus infection in the outpatient setting. She had an elevated troponin in the emergency room. She underwent CT angiogram without evidence of PE. Bronchitis and mucous plug ging were noted. Electrolytes were abnormal. Echocardiogram was obtained which demonstrated severe decrease in ejection fraction. Patient was admitted to the floor with plans to pursue cardiac catheterization given her depressed EF and elevated troponin. On the floor the patient developed increasing respiratory distress. Blood gas showed hypercarbic respiratory failure. Multiple attempts were made including an attempt by me to get the patient to use noninvasive positive pressure ventilation however the patient refuses to wear the mask and refuses to wear nebulized therapies. She is sitting up in bed. I had a long discussion with her and advised her that if she is not willing to consider noninvasive positive pressure ventilation, the neck step would be intubation and mechanical ventilation. She is agreeable. She was subsequently intubated. Please refer to separate procedure notes. Allergies Allergy/AdvReac Type Severity Reaction Status Date / Time azithromycin Allergy Unknown turned Verified 09/16/24 12:52 red, hives erythromycin base Allergy Unknown PT BECOMES Verified 09/16/24 12:52 EXTREMELY RED celecoxib AdvReac Unknown GI UPSET Verified 09/16/24 12:52 Home Medications Medication Instructions Recorded Confirmed Type aspirin 81 mg tablet,delayed 81 mg PO DAILY ##0 07/26/15 09/16/24 History release coenzyme Q10 75 mg capsule (Ultra 75 mg PO DAILY 09/30/22 09/16/24 History CoQ10) pantoprazole 40 mg tablet,delayed 40 mg PO DAILY 09/30/22 09/16/24 History release acetaminophen 500 mg tablet 500 mg PO Q6H PRN Pain 09/16/24 09/16/24 History albuterol sulfate 90 mcg/actuation 2 puff inhalation Q4H PRN SOB or 09/16/24 09/16/24 History aerosol inhaler wheezing atorvastatin 10 mg tablet 10 mg PO HS 09/16/24 09/16/24 History budesonide-formoterol HFA 160 2 puff inhalation BID 09/16/24 09/16/24 History mcg-4.5 mcg/actuation aerosol inhaler (Symbicort) cholecalciferol (vitamin D3) 50 50 mcg PO DAILY 09/16/24 09/16/24 History mcg (2,000 unit) tablet (Vitamin D3) clopidogrel 75 mg tablet 75 mg PO QAM 09/16/24 09/16/24 History doxycycline hyclate 100 mg capsule 100 mg PO BID 09/16/24 09/16/24 History hydrocodone 5 mg-acetaminophen 325 1 tab PO DAILY PRN Pain 09/16/24 09/16/24 History mg tablet ipratropium 20 mcg-albuterol 100 1 puff inhalation QID 09/16/24 09/16/24 History mcg/actuation mist for inhalation (Combivent Respimat) prednisone 10 mg tablet See Rx Instructions .Route .COMPLEX 09/16/24 09/16/24 History telmisartan 80 1 tab PO DAILY 09/16/24 09/16/24 History mg-hydrochlorothiazide 25 mg tablet Patient History Social History Smoking Status: Current every day smoker Tobacco Type: Cigarettes Preferred Language: Georgian Feels Safe at Home: Yes Review of Systems Review of Systems: Please refer to the admission H&P. Physical Exam Constitutional: + acute distress and + cachectic Neck: trachea midline, no thyromegaly Respiratory: + respiratory distress, + labored breath ing and + tachypneic Auscultation: + wheezes Cardiovascular: RRR, no murmur, no edema Gastrointestinal (Abdomen): normal bowel sounds, soft, nontender, no hepatosplenomegaly Musculoskeletal: Extremities: extremities normal to inspection Skin: + mottling and + purpura Neurologic: Unable to complete dedicated neurological exam due to the patient being in respiratory extremis Lymphatic: no cervical lymphadenopathy Results & Data Results & Data Vital Signs (Past 12 Hours) Vital Signs Temp Pulse Pulse Resp BP Pulse Ox O2 Del Method 09/16/24 14:41 130 H 24 100 Oxymask 09/16/24 13:16 118 H 20 99 Nasal Cannula 09/16/24 12:24 120 H 26 H 98 09/16/24 12:00 112 H 22 09/16/24 12:00 125/85 09/16/24 11:39 108 H 20 09/16/24 11:30 135/95 09/16/24 11:27 112 H 22 91 09/16/24 10:30 128/91 09/16/24 10:18 118 H 23 95 09/16/24 10:03 115 H 16 97 09/16/24 10:00 126/89 09/16/24 10:00 98 Room Air 09/16/24 09:51 115 H 09/16/24 09:21 36.6 C 119 H 24 139/96 92 Room Air O2 Flow Rate 09/16/24 14:41 9 09/16/24 13:16 2 09/16/24 12:24 09/16/24 12:00 09/16/24 12:00 09/16/24 11:39 09/16/24 11:30 09/16/24 11:27 09/16/24 10:30 09/16/24 10:18 09/16/24 10:03 09/16/24 10:00 09/16/24 10:00 09/16/24 09:51 09/16/24 09:21 Critical Care Results & Data Vital Signs (Past 12 Hours) Vital Signs Temp Pulse Pulse Resp BP Pulse Ox O2 Del Method 09/16/24 15:24 14 09/16/24 15:03 129 H 10 L 100 09/16/24 14:41 130 H 24 100 Oxymask 09/16/24 13:16 118 H 20 99 Nasal Cannula 09/16/24 12:24 120 H 26 H 98 09/16/24 12:00 112 H 22 09/16/24 12:00 125/85 09/16/24 11:39 108 H 20 09/16/24 11:30 135/95 09/16/24 11:27 112 H 22 91 09/16/24 10:30 128/91 09/16/24 10:18 118 H 23 95 09/16/24 10:03 115 H 16 97 09/16/24 10:00 126/89 09/16/24 10:00 98 Room Air 09/16/24 09:51 115 H 09/16/24 09:21 36.6 C 119 H 24 139/96 92 Room Air O2 Flow Rate FiO2 09/16/24 15:24 50 09/16/24 15:03 60 09/16/24 14:41 9 09/16/24 13:16 2 09/16/24 12:24 09/16/24 12:00 09/16/24 12:00 09/16/24 11:39 09/16/24 11:30 09/16/24 11:27 09/16/24 10:30 09/16/24 10:18 09/16/24 10:03 09/16/24 10:00 09/16/24 10:00 09/16/24 09:51 09/16/24 09:21 Lab & Micro Results (Past 24 Hours) RBC 4.16 M/uL (4.20-5.40) L 09/16/24 WBC 15.91 K/ul (4.8-10.8) H 09/16/24 Hgb 14.1 g/dl (12.0-16.0) 09/16/24 Hct 39.5 % (37.0-47.0) 09/16/24 MCV 95.0 fL (80.0-100.0) 09/16/24 MCH 33.9 pg (25.0-34.0) 09/16/24 MCHC 35.7 g/dL (32.0-36.0) 09/16/24 RDW Standard Deviation 40.8 fL (36.4-46.3) 09/16/24 RDW Coefficient of Variation 11.7 % (11.5-14.5) 09/16/24 Plt Count 409 K/uL (130-400) H 09/16/24 MPV 8.5 fL (9.4-12.4) L 09/16/24 Neutrophils (%) (Auto) 75.2 % 09/16/24 Lymphocytes (%) (Auto) 15.1 % 09/16/24 Monocytes # (Auto) 1.41 K/uL (0.11-0.59) H 09/16/24 Eosinophils # (Auto) 0.02 K/uL (0.00-0.50) 09/16/24 Immature Granulocyte % (Auto) 0.4 % 09/16/24 Neutrophils # (Auto) 11.97 K/uL (1.40-6.50) H 09/16/24 Lymphocytes # (Auto) 2.40 K/uL (1.20-3.40) 09/16/24 Monocytes # (Auto) 1.41 K/uL (0.11-0.59) H 09/16/24 Eosinophils # (Auto) 0.02 K/uL (0.00-0.50) 09/16/24 Basophils # (Auto) 0.04 K/uL (0.00-0.20) 09/16/24 Immature Granulocyte # (Auto) 0.07 K/uL (0.01-0.20) 4 Na 137 mmol/L (136-145) 09/16/24 K 2.6 mmol/L (3.5-5.1) L 09/16/24 Cl 95 mmol/L (98-107) L 09/16/24 CO2 30 mmol/L (21-32) 09/16/24 Anion Gap 12 (3-11) H 09/16/24 BUN 20 mg/dl (6-23) 09/16/24 Creatinine 0.55 mg/dl (0.6-1.2) L 09/16/24 BUN/Creatinine Ratio 36.4 (10-20) H 09/16/24 Glu 89 mg/dl (70-99(Fasting)) 09/16/24 Ca 8.4 mg/dl (8.6-10.3) L 09/16/24 Total Bilirubin 0.9 mg/dl (0.2-1.0) 09/16/24 AST 44 U/L (13-39) H 09/16/24 ALT 33 U/L (7-52) 09/16/24 Alkaline Phosphatase 73 U/L (34-104) 09/16/24 TP 6.2 gm/dl (6.0-8.3) 09/16/24 Albumin 4.0 gm/dl (3.4-5.0) 09/16/24 Globulin 2.2 gm/dl (2.5-4.0) L 09/16/24 Albumin/Globulin Ratio 1.8 (0.9-2) 09/16/24 Mg 0.7 mg/dl (1.7-2.4) L* 09/16/24 09:51 Calcium Level 8.4 mg/dl (8.6-10.3) L 09/16/24 09:51 Prothromb Time International Ratio 1.1 (0.9-1.1) 09/16/24 09:5 1 Diagnostic Findings (Past 24 Hours) Chest CTA 09/16/24 09:47 CT angio chest PE protocol CT DOSE: 237.62 mGy.cm HISTORY: 59 years-old Female with dyspnea, chest tightness, cough. Acute cough with chest tightness and shortness of breath TECHNIQUE: Multiple CTA images of the chest were obtained after the intravenous administration of 112 ml Optiray. Coronal and sagittal MIPS were obtained from the axial data set and were submitted for review. All measurements were obtained according to NASCET criteria. A dose lowering technique was utilized a dhering to the principles of ALARA. COMPARISON: CT abdomen and pelvis 10/18/2018 FINDINGS: CTA: Heart is normal in size. Moderate coronary artery calcifications. Atherosclerosis of the aorta without aneurysm. Patency of the imaged great vessels. No pulmonary emboli identified. CT CHEST: No pneumothorax, no pleural effusion. Moderate bronchial wall thickening with areas of multifocal mucus plugging. Intraventricular septal thickening. 5 mm solid nodule right lower lobe on image 46 series 4 is noted from prior, low clinical suspicion. No suspicious pulmonary nodules or masses identified. Central airways are patent. 1.3 cm cyst of the superior pole left kidney. There is mild likely chronic superior end plate compression T3. IMPRESSION: 1. No pulmonary emboli identified. 2. Emphysema with bronchitis and mucous plugging. 3. Mild intralobular septal thickening likely represents a component of pulmonary edema. 4. 5 mm solid nodule of the basal right lower lobe. Please refer to below summary of Fleischner criteria recommendations for follow- up of incidental CT nodules (Marybel Blake, Guidelines for management of small p ulmonary nodules detected on CT scans: A statement from the Fleischner Society, Radiology 237: [phone].) SOLID NODULES Solitary nodule size: <6 mm * Low risk patients: no follow-up needed * high risk patients: optional CT at 12 months Note: newly detected indeterminate nodule in persons 35 years of age or older. * Low risk patients: minimal or absent history of smoking and/or other known risk factors * high risk patients: history of smoking or of other known risk factors (e.g. first degree relative with lung cancer, or exposure to asbestos, radon, uranium) * if a nodule up to 8 mm is partly solid or is ground glass further follow-up is required after 24 months to exclude possible slow growing adenocarcinoma ([place]ANCHO) ACT 112: Negative or not required by law. The above report was generated using voice recognition software. It may contain grammatical, syntax or spelling errors. Electronically signed by: Vikas Madera M.D. 09/16/2024 12:03 PM Chest X-Ray 09/16/24 14:25 XR chest 1V portable CLINICAL HISTORY: hypoxia COMPARISON STUDY: Chest radiograph July 31, 2015. Chest CT performed earlier today. FINDINGS: Interstitial thickening has progressed. This represents pulmonary edema. There is no pneumothorax. No definite pleural effusion is identified although costophrenic angles were excluded. There is emphysema. Bibasilar opacities have developed. IMPRESSION: 1. Progression of pulmonary edema. 2. Interval development of bibasilar opacities. These may reflect atelectasis or be related to pulmonary edema however aspiration pneumonia could appear similar. ACT 112: Negative or not required by law. Electronically signed by: Constantin Luevano M.D. 09/16/2024 2:54 PM I & O Totals 24 Hours 09/15/24 09/16/24 09/17/24 06:59 06:59 06:59 Intake Total 507.333 / 507.333 Balance 507.333 / 507.333 Cumulative 09/16/24 09:09 thru 09/16/24 14:02 Intake Total 507.333 Balance 507.333 RT Ventilator Mngmt (Last Documented) Ventilator Ordered Settings Ventilator Support Mode Assist Control 09/16/24 15:03 Respiratory Rate 14 09/16/24 15:24 Ventilator Tidal Volume 500 09/16/24 15:03 Setting Minute Ventilation 4.8 09/16/24 15:03 Positive End Expiratory 8 09/16/24 15:03 Pressure Fraction of Inspired Oxygen 50 09/16/24 15:24 Machine Comment weaned to 50%O2 and RR increased 09/16/24 15:[address] Valencia Ventilator - PT Measurements Respiratory Rate 14 Exhaled Tidal Volume 500 Minute Ventilation 4.8 Peak Inspiratory Airway 26 Pressure Plateau Pressure 17 Respiratory Cycle Inspiratory: 1:5.7 Expiratory Ratio Inspiratory Phase Time 0.90 End-Tidal CO2 29 Static Lung Compliance 55.56 Dynamic Lung Compliance 27.78 Normal Static Lung Compliance 47.00 Coding Level of Care Code 81216 CRITICAL CARE EA ADD 30M Diagnoses Acute and chronic respiratory failure, unspecified whether with hypoxia or hypercapnia J96.20 COPD exacerbation J44.1 NSTEMI (non-ST elevated myocardial infarction) I21.4 Hypokalemia E87.6 Hypomagnesemia E83.42 Cachexia R64
--- NOTE | 2024-09-16 15:44 | Communication Note ---
Date of Service: September 16, 2024 Repeat EKG obtained post intubation, 09/16/2024 1524 and reviewed/interpreted independently: Sinus tachycardia 122 bpm present with mild J-point elevation limited to leads V3 and V4 without reciprocal changes. Case reviewed with interventional cardiology. Will proceed with ongoing optimization. Await results of the repeat basic metabolic panel and magnesium level with regards to electrolyte abnormalities. I will replace accordingly. If potassium level is stable, will plan on initiating metoprolol via her orogastric tube, initially with metoprolol to tartrate as it is crushable, and post intubation we will transition her to metoprolol succinate given LV systolic dysfunction. 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 Wraparound LAD territory injury however also not excluded. Will initiate heparin infusion now that intubation performed successfully. Aspirin, clopidogrel, atorvastatin to be administered via orogastric tube while intubated. Vernon Mera , DO
[2024-09-16] MEDS ORDERED: Heparin IV Adult Wt-Based Standard *NO* INITIAL Bolus Protocol IV STA (15:48)
--- NOTE | 2024-09-16 15:50 | XRay Report ---
KUB HISTORY: Status post placement of an enteric tube Check plcmt of OGT COMPARISON: CT 10/18/2018 FINDINGS: Distal tip of enteric tube projects over the distal the esophagus. Nonobstructive bowel gas pattern. Mild distention of the stomach. Left iliac arterial graft. Hyperinflation with chronic inte rstitial coarsening of the lungs. No renal calculi. No ureteral calculi. No pneumoperitoneum or pneu matosis. No fracture. IMPRESSION: Tip of enteric tube projects over the distal esophagus. Advancement of approximately 9 cm recommended with follow-up imaging. ACT 112: Negative or not required by law. The above report was generated using voice recognition software. It may contain grammatical, syntax o r spelling errors. Electronically signed by: Vikas Madera M.D. 09/16/2024 3:49 PM
--- NOTE | 2024-09-16 15:50 | XRay Report ---
XR chest 1V portable CLINICAL HISTORY: intubation /OG placement COMPARISON STUDY: Chest radiograph and chest CT performed earlier today. FINDINGS: The tip of the endotracheal tube is 3.3 cm above the rolf. Tip of nasogastric tube projec ts over the distal esophagus. There is no pneumothorax. There are trace bilateral pleural effusions. There is underlying emphysema. Interstitial thickening is again noted. There are mild right lower pat g opacities. Cardiomediastinal silhouette is stable. IMPRESSION: 1. Satisfactory positioning of the endotracheal tube. 2. Tip of nasogastric tube projects over the distal esophagus. The tube should be advanced. 3. Interstitial thickening consistent with pulmonary edema. Trace bilateral pleural effusions. 4. Mild right lower lung airspace opacity. 5. No pneumothorax. ACT 112: Negative or not required by law. Electronically signed by: Constantin Luevano M.D. 09/16/2024 3:49 PM
[2024-09-16] MEDS: propofoL 1,000 MG/100 ML VIAL IV SCH (15:56)
[2024-09-16] MEDS: PROPOFOL BOLUS FROM BAG IV PRN (15:57)
[2024-09-16] MEDS: HEPARIN SODIUM/DEXTROSE 25,000 UNITS/500 ML BAG IV SCH (16:17)
[2024-09-16] MEDS ORDERED: HEPARIN SOD (PORCINE) 1000 UNIT/ML IV ONE (16:22)
[2024-09-16 16:31] LABS: Anion Gap 16 (3-11); Blood Urea Nitrogen 17 mg/dl (6-23); Calcium 7.6 mg/dl (8.6-10.3); Carbon Dioxide 18 mmol/L (21-32); Chloride 99 mmol/L (98-107); Creatinine Clr Calc Pharmacy 67.9 ml/min; Glucose Fasting 169 mg/dl (70-99); Magnesium 2.7 mg/dl (1.7-2.4); Sodium 133 mmol/L (136-145)
[2024-09-16] MEDS: LACTATED RINGER'S 1,000 ML IV SCH (16:35)
--- NOTE | 2024-09-16 16:41 | Communication Note ---
Date of Service: September 16, 2024 Magnesium up from 0.7 to 2.7. No need for additional supplementation. POC potassium was up to 3.8 , other sample was hemolyzed. Will need to redraw potassium.
[2024-09-16 16:45] LABS: Phosphorus 5.9 mg/dl (2.5-4.9)
[2024-09-16] MEDS: MIDAZOLAM HCL 1 MG/ML 2ML VIAL IV PRN (17:01)
[2024-09-16 17:11] LABS: HCO3 VBG 28 mmol/L; Oxygen Saturation VBG < 60.0 %; PCO2 VBG 71 mmHg (38-50); PO2 VBG 35 mmHg
[2024-09-16 17:24] LABS: Potassium 3.4 mmol/L (3.5-5.1)
[2024-09-16] MEDS: ATORVASTATIN 20 MG TAB OG SCH (17:38)
[2024-09-16] MEDS: LANSOPRAZOLE 30 MG SOLTAB PO SCH (17:38)
[2024-09-16] MEDS: TUBE FEEDING WATER FLUSH OG SCH (17:38)
[2024-09-16] MEDS: POTASSIUM CHLORIDE 20 MEQ/15 ML UDC PO SCH (17:38)
[2024-09-16] MEDS: PEPTAMEN 1.5 CAL 1,000 ML BAG OG SCH (17:46)
--- NOTE | 2024-09-16 17:59 | Electrocardiogram Report ---
Test Reason : Blood Pressure : */* mmHG Vent. Rate : 122 BPM Atrial Rate : 122 BPM P-R Int : 120 ms QRS Dur : 68 ms QT Int : 304 ms P-R-T Axes : 82 52 88 degrees QTcB Int : 433 ms Poor data quality, interpretation may be adversely affected Sinus tachycardia Biatrial enlargement Cannot rule out Anteroseptal infarct (cited on or before 16-Sep-2024) ST segement elevation concerning for injury, pericarditis or early repolarization Abnormal ECG When compared with ECG of 16-Sep-2024 14:22, (unconfirmed) Nonspecific T wave abnormality now evident in Anterior leads Confirmed by Lloyd Elaine ([id number]) on 09/16/2024 5:59:25 PM Referred By: REFERRED SELF Confirmed By: Lloyd Elaine
--- NOTE | 2024-09-16 18:01 | Electrocardiogram Report ---
Test Reason : Blood Pressure : */* mmHG Vent. Rate : 134 BPM Atrial Rate : 134 BPM P-R Int : 116 ms QRS Dur : 70 ms QT Int : 280 ms P-R-T Axes : 81 35 91 degrees QTcB Int : 418 ms Poor data quality, interpretation may be adversely affected Sinus tachycardia Biatrial enlargement Anterior infarct ST segement elevation concerning for injury, pericarditis or early repolarization Abnormal ECG When compared with ECG of 16-Sep-2024 09:34, (unconfirmed) Premature atrial complexes are no longer Present Serial changes of Anterior infarct Present Confirmed by Lloyd Elaine ([id number]) on 09/16/2024 6:00:57 PM Referred By: REFERRED SELF Confirmed By: Lloyd Elaine
--- NOTE | 2024-09-16 18:01 | Electrocardiogram Report ---
Test Reason : Blood Pressure : */* mmHG Vent. Rate : 110 BPM Atrial Rate : 110 BPM P-R Int : 100 ms QRS Dur : 98 ms QT Int : 364 ms P-R-T Axes : 76 -6 75 degrees QTcB Int : 492 ms Sinus tachycardia with short GA with Premature atrial complexes Biatrial enlargement Minimal voltage criteria for LVH, may be normal variant Cannot rule out Anterior infarct , age undetermined Abnormal ECG Confirmed by Lloyd Elaine ([id number]) on 09/16/2024 6:01:18 PM Referred By: REFERRED SELF Confirmed By: Lloyd Elaine
[2024-09-16] MEDS ORDERED: MIDAZOLAM HCL 5 MG/ML 2ML VIAL IV ONE (18:30)
[2024-09-16] MEDS ORDERED: ETOMIDATE 2 MG/ML 20 ML VIAL IV ONE (18:30)
[2024-09-16 18:34] LABS: Troponin I High Sensitivity 2090.7 pg/ml (0-14)
[2024-09-16] MEDS: METOPROLOL TARTRATE 25 MG TAB PO SCH (18:40)
[2024-09-16] MEDS ORDERED: methylPREDNISolone 125 MG/2 ML VIAL IV SCH (19:00)
[2024-09-16] MEDS ORDERED: SODIUM CHLOR 7% 4 ML NEB NEB SCH (19:00)
[2024-09-16] MEDS: FORMOTEROL 20 MCG/2 ML VIAL NEB SCH (19:35)
[2024-09-16] MEDS: BUDESONIDE 0.5 MG/2 ML VIAL (PULMICORT) NEB SCH (19:35)
[2024-09-16] MEDS ORDERED: HEPARIN SOD 5,000 UNIT/0.5 ML VIAL SQ SCH (21:00)
[2024-09-16] MEDS: methylPREDNISolone 40 MG in SYRINGE 0 ML IV SCH (21:04)
[2024-09-16] MEDS: THIAMINE HCL 100 MG TAB PO SCH (21:05)
[2024-09-16] MEDS: DOXYCYCLINE HYCLATE 100 MG CAP PO SCH (21:05)
[2024-09-16 23:16] LABS: ANTI-Xa, UFH(UnfractionatedHep 0.52 IU/ml (0.3-0.7)
[2024-09-17] MEDS: ALBUMIN 5% 250 ML IV ONE (00:23)
[2024-09-17 04:42] LABS: iSTAT Allen Test Pass; iSTAT Art Bld Gas pCO2 Correct 42 mmHg (35-46); iSTAT Art Bld Gas pH Corrected 7.347 (7.35-7.45); iSTAT Arterial Blood Gas HCO3 23 meg/L (19-24); iSTAT Arterial Blood Gas pCO2 40 mmHg (35-46); iSTAT Arterial Blood Gas pH 7.36 (7.35-7.45); iSTAT Arterial Blood Gas pO2 49 mmHg (80-95); iSTAT Arterial Blood Gas pO2 C 53; iSTAT Carbon Dioxide 24 mmol/L (24-31); iSTAT FiO2 40 %; iSTAT Hematocrit 40 % (37-47); iSTAT Hemoglobin 13.6 g/dl (12.0-16.0); iSTAT Potassium 4.6 mmol/L (3.3-5.0); iSTAT Sample Type Arterial; iSTAT Site L Radial; iSTAT Sodium 133 mmol/L (135-144); iSTAT SpO2 100
[2024-09-17 04:59] LABS: Hematocrit (blood only) 40.1 % (37.0-47.0); Hemoglobin 13.8 g/dl (12.0-16.0); Immature Granulocytes # (auto) 0.05 K/uL (0.01-0.20); Immature Granulocytes % (auto) 0.4 %; Lymphocytes # (auto) 0.84 K/uL (1.20-3.40); Lymphocytes % (auto) 7.5 %; Mean Corpuscular Hgb Conc 34.4 g/dL (32.0-36.0); Mean Corpuscular Volume 98.8 fL (80.0-100.0); Mean Platelet Volume 9.1 fL (9.4-12.4); Monocytes % (auto) 6.3 %; Neutrophils # (auto) 9.55 K/uL (1.40-6.50); Neutrophils % (auto) 85.8 %; Platelet Count 338 K/uL (130-400); RDW Coefficient of Variation 12.2 % (11.5-14.5); RDW Standard Deviation 44.9 fL (36.4-46.3); Red Blood Count 4.06 M/uL (4.20-5.40); White Blood Count 11.14 K/ul (4.8-10.8)
[2024-09-17 05:23] LABS: Albumin Globulin Ratio 1.8 (0.9-2); Albumin Level 3.7 gm/dl (3.4-5.0); BUN Creatinine Ratio 22.7 (10-20); Bilirubin,Total 0.8 mg/dl (0.2-1.0); Creatinine Clr Calc Pharmacy 62.8 ml/min; Globulin 2.1 gm/dl (2.5-4.0); Magnesium 2.3 mg/dl (1.7-2.4); Phosphorus 2.7 mg/dl (2.5-4.9); Potassium 4.8 mmol/L (3.5-5.1); Total Protein 5.8 gm/dl (6.0-8.3); Troponin I High Sensitivity 1087.9 pg/ml (0-14)
[2024-09-17] MEDS: LORazepam 2 MG/1 ML VIAL IV STA ×3 (07:58→21:44)
[2024-09-17] MEDS: LORazepam 2 MG/1 ML VIAL ONE (08:02)
--- NOTE | 2024-09-17 08:32 | Critical Care Progress Note ---
Date of Service September 17, 2024 Assessment & Plan (1) Acute and chronic respiratory failure, unspecified whether with hypoxia or hypercapnia: (2) COPD exacerbation: (3) NSTEMI (non-ST elevated myocardial infarction): (4) Hypokalemia: (5) Hypomagnesemia: (6) Cachexia: Plan Impression: 59-year-old female with extensive history of tobacco and alcohol abuse and cachexia admitted with shortness of breath likely due to COPD exacerbation. Also found to have elevated troponin and decreased ejection fraction, possibly Takotsubo. 24-hour events: Patient was admitted to the floor from the ER. She decompensated was transferred to the ICU. She failed noninvasive positive pressure ventilation and was intubated due to hypoxemic hypercarbic respiratory failure and respiratory distress. She has persistent elevations of troponin which have now peaked Recommendations: 1. Neurologic: Discontinue sedation in hopes of SBT and liberation for mechanical ventilation. Continue high-dose thiamine and folate replacement as well as daily multivitamin. 2. Cardiovascular: Elevated troponin with decreased ejection fraction. Responded to crystalloid. Patient has severe peripheral vascular disease status post bilateral femoral bypass graft. Additional workup and evaluation per cardiology. May require cardiac catheterization at some point. Patient is chest pain-free. Management per cardiology 3. Pulmonary: Acute exacerbation of COPD with hypoxemic and hypercarbic respiratory failure. The patient was able to have a conversation while on the ventilator. She is now amenable to trial of noninvasive positive pressure ventilation which makes weaning her little bit easier. Will plan on pursuing vent liberation with use of BiPAP as needed. Continue budesonide Perforomist and as needed Xopenex Atrovent. Continue Solu-Medrol at 40 mg IV every 8 currently. 4. GI: Nutritional consult given her profound cachexia (body mass index of 15). Hold tube feeds and hope of vent liberation 5. Renal: Electrolytes repleted. Kidney function normal. Volume status acceptable. 6. Endocrine: Glycemic control per protocol. 7. Heme-onc: No current issues. Subcu heparin for DVT prophylaxis 8. ID: Would continue doxycycline for acute exacerbation of COPD and follow clinically. Will observe in ICU pending liberation from mechanical ventilation. Admission and Anticipated Discharge Date Admission Date: September 16, 2024 Subjective Patient seen and examined. EMR reviewed. Patient is awake on propofol on the ventilator writing notes. She does endorse some anxiety but feels her breathing is okay. She had no acute events overnight Review of Systems Review of Systems: All systems reviewed & are unremarkable except as noted in Subjective Physical Exam Constitutional: + acute distress and + cachectic Neck: trachea midline, no thyromegaly Respiratory: no respiratory distress, no labored breathing and not tachypneic Auscultation: + wheezes Cardiovascular: RRR, no murmur, no edema Gastrointestinal (Abdomen): normal bowel sounds, soft, nontender, no hepatosplenomegaly Musculoskeletal: Extremities: extremities normal to inspection Skin: + mottling and + purpura Lymphatic: no cervical lymphadenopathy Results & Data Results & Data Vital Signs (Past 12 Hours) Vital Signs Temp Pulse Pulse Resp BP BP Pulse Ox 09/17/24 08:30 37.8 C H 122 H 24 112/77 99 09/17/24 08:15 37.8 C H 117 H 27 H 98 09/17/24 08:00 37.8 C H 110 H 22 112/79 99 09/17/24 07:56 109 H 19 100 09/17/24 07:30 37.7 C H 104 H 22 116/80 100 09/17/24 07:25 106 H 21 100 09/17/24 07:00 37.7 C H 109 H 18 112/81 99 09/17/24 06:30 113 H 112/78 09/17/24 06:00 93/71 L 09/17/24 05:57 37.7 C H 116 H 18 100 09/17/24 05:54 37.7 C H 115 H 18 100 09/17/24 05:30 98/72 L 09/17/24 05:30 98/72 L 09/17/24 05:30 98/72 L 09/17/24 05:24 37.9 C H 119 H 19 100 09/17/24 05:15 37.9 C H 120 H 18 99 09/17/24 04:33 38.0 C H 123 H 21 100 09/17/24 04:30 124 H 20 99 09/17/24 04:30 125/88 09/17/24 04:30 125/88 09/17/24 04:30 125/88 09/17/24 04:00 09/17/24 04:00 09/17/24 04:00 09/17/24 04:00 103/77 09/17/24 03:50 37.9 C H 116 H 18 112/82 100 09/17/24 02:15 88/68 L 09/17/24 02:10 95/72 L 09/17/24 02:05 91/67 L 09/17/24 02:00 94/69 L 09/17/24 01:59 37.9 C H 124 H 18 100 09/17/24 01:55 89/70 L 09/17/24 01:55 89/70 L 09/17/24 01:55 89/70 L 09/17/24 01:55 89/70 L 09/17/24 01:44 38.0 C H 124 H 19 100 09/17/24 01:40 98/72 L 09/17/24 01:40 98/72 L 09/17/24 01:32 38.0 C H 121 H 19 100 09/17/24 01:30 92/66 L 09/17/24 01:30 92/66 L 09/17/24 01:30 92/66 L 09/17/24 01:30 92/66 L 09/17/24 01:25 94/67 L 09/17/24 01:17 38.0 C H 117 H 19 100 09/17/24 01:15 86/64 L 09/17/24 01:05 38.0 C H 116 H 19 100 09/17/24 01:05 89/67 L 09/17/24 01:05 89/67 L 09/17/24 01:02 38.0 C H 105 H 18 100 09/17/24 01:00 91/70 L 09/17/24 01:00 91/70 L 09/17/24 00:42 82/63 L 09/17/24 00:40 115 H 18 100 09/17/24 00:40 115 H 18 100 09/17/24 00:35 38.1 C H 121 H 18 100 09/17/24 00:33 80/59 L 09/17/24 00:33 80/59 L 09/17/24 00:29 38.1 C H 123 H 18 99 09/17/24 00:02 38.1 C H 123 H 18 100 09/17/24 00:00 09/17/24 00:00 124 H 09/17/24 00:00 83/65 L 09/16/24 23:59 38.1 C H 124 H 18 100 09/16/24 23:38 82/61 L 09/16/24 23:38 82/61 L 09/16/24 23:36 38.1 C H 124 H 18 100 09/16/24 23:30 82/66 L 09/16/24 23:27 38.2 C H 124 H 18 100 09/16/24 23:00 83/64 L 09/16/24 23:00 83/64 L 09/16/24 23:00 83/64 L 09/16/24 23:00 38.3 C H 125 H 22 100 09/16/24 22:31 97/76 L 09/16/24 22:31 97/76 L 09/16/24 22:30 38.2 C H 123 H 17 97 09/16/24 22:06 38.1 C H 120 H 23 99 09/16/24 22:00 09/16/24 22:00 91/67 L 09/16/24 22:00 91/67 L 09/16/24 21:48 37.9 C H 120 H 23 98 09/16/24 21:30 38.0 C H 125 H 25 H 100 09/16/24 21:30 95/66 L 09/16/24 21:30 95/66 L 09/16/24 21:30 95/66 L 09/16/24 21:02 86/68 L 09/16/24 21:02 86/68 L 09/16/24 21:00 37.8 C H 128 H 24 99 O2 Del Method FiO2 09/17/24 08:30 Mechanical Vent 98 09/17/24 08:15 09/17/24 08:00 Mechanical Vent 40 09/17/24 07:56 Mechanical Vent 40 09/17/24 07:30 Mechanical Vent 40 09/17/24 07:25 40 09/17/24 07:00 Mechanical Vent 40 09/17/24 06:30 09/17/24 06:00 09/17/24 05:57 09/17/24 05:54 09/17/24 05:30 09/17/24 05:30 09/17/24 05:30 09/17/24 05:24 09/17/24 05:15 09/17/24 04:33 09/17/24 04:30 40 09/17/24 04:30 09/17/24 04:30 09/17/24 04:30 09/17/24 04:00 40 09/17/24 04:00 09/17/24 04:00 09/17/24 04:00 09/17/24 03:50 Mechanical Vent 40 09/17/24 02:15 09/17/24 02:10 09/17/24 02:05 09/17/24 02:00 09/17/24 01:59 09/17/24 01:55 09/17/24 01:55 09/17/24 01:55 09/17/24 01:55 09/17/24 01:44 09/17/24 01:40 09/17/24 01:40 09/17/24 01:32 09/17/24 01:30 09/17/24 01:30 09/17/24 01:30 09/17/24 01:30 09/17/24 01:25 09/17/24 01:17 09/17/24 01:15 09/17/24 01:05 09/17/24 01:05 09/17/24 01:05 09/17/24 01:02 09/17/24 01:00 09/17/24 01:00 09/17/24 00:42 09/17/24 00:40 40 09/17/24 00:40 Mechanical Vent 40 09/17/24 00:35 09/17/24 00:33 09/17/24 00:33 09/17/24 00:29 09/17/24 00:02 09/17/24 00:00 40 09/17/24 00:00 09/17/24 00:00 09/16/24 23:59 09/16/24 23:38 09/16/24 23:38 09/16/24 23:36 09/16/24 23:30 09/16/24 23:27 09/16/24 23:00 09/16/24 23:00 09/16/24 23:00 09/16/24 23:00 09/16/24 22:31 09/16/24 22:31 09/16/24 22:30 09/16/24 22:06 09/16/24 22:00 Mechanical Vent 40 09/16/24 22:00 09/16/24 22:00 09/16/24 21:48 09/16/24 21:30 09/16/24 21:30 09/16/24 21:30 09/16/24 21:30 09/16/24 21:02 09/16/24 21:02 09/16/24 21:00 Critical Care Results & Data Vital Signs (Past 12 Hours) Vital Signs Temp Pulse Pulse Resp BP BP Pulse Ox 09/17/24 08:30 37.8 C H 122 H 24 112/77 99 09/17/24 08:15 37.8 C H 117 H 27 H 98 09/17/24 08:00 37.8 C H 110 H 22 112/79 99 09/17/24 07:56 109 H 19 100 09/17/24 07:30 37.7 C H 104 H 22 116/80 100 09/17/24 07:25 106 H 21 100 09/17/24 07:00 37.7 C H 109 H 18 112/81 99 09/17/24 06:30 113 H 112/78 09/17/24 06:00 93/71 L 09/17/24 05:57 37.7 C H 116 H 18 100 09/17/24 05:54 37.7 C H 115 H 18 100 09/17/24 05:30 98/72 L 09/17/24 05:30 98/72 L 09/17/24 05:30 98/72 L 09/17/24 05:24 37.9 C H 119 H 19 100 09/17/24 05:15 37.9 C H 120 H 18 99 09/17/24 04:33 38.0 C H 123 H 21 100 09/17/24 04:30 124 H 20 99 09/17/24 04:30 125/88 09/17/24 04:30 125/88 09/17/24 04:30 125/88 09/17/24 04:00 09/17/24 04:00 103/77 09/17/24 04:00 103/77 09/17/24 04:00 103/77 09/17/24 03:50 37.9 C H 116 H 18 112/82 100 09/17/24 02:15 88/68 L 09/17/24 02:10 95/72 L 09/17/24 02:05 91/67 L 09/17/24 02:00 94/69 L 09/17/24 01:59 37.9 C H 124 H 18 100 09/17/24 01:55 89/70 L 09/17/24 01:55 89/70 L 09/17/24 01:55 89/70 L 09/17/24 01:55 89/70 L 09/17/24 01:44 38.0 C H 124 H 19 100 09/17/24 01:40 98/72 L 09/17/24 01:40 98/72 L 09/17/24 01:32 38.0 C H 121 H 19 100 09/17/24 01:30 92/66 L 09/17/24 01:30 92/66 L 09/17/24 01:30 92/66 L 09/17/24 01:30 92/66 L 09/17/24 01:25 94/67 L 09/17/24 01:17 38.0 C H 117 H 19 100 09/17/24 01:15 86/64 L 09/17/24 01:05 38.0 C H 116 H 19 100 09/17/24 01:05 89/67 L 09/17/24 01:05 89/67 L 09/17/24 01:02 38.0 C H 105 H 18 100 09/17/24 01:00 91/70 L 09/17/24 01:00 91/70 L 09/17/24 00:42 82/63 L 09/17/24 00:40 115 H 18 100 09/17/24 00:40 115 H 18 100 09/17/24 00:35 38.1 C H 121 H 18 100 09/17/24 00:33 80/59 L 09/17/24 00:33 80/59 L 09/17/24 00:29 38.1 C H 123 H 18 99 09/17/24 00:02 38.1 C H 123 H 18 100 09/17/24 00:00 09/17/24 00:00 124 H 09/17/24 00:00 83/65 L 09/16/24 23:59 38.1 C H 124 H 18 100 09/16/24 23:38 82/61 L 09/16/24 23:38 82/61 L 09/16/24 23:36 38.1 C H 124 H 18 100 09/16/24 23:30 82/66 L 09/16/24 23:27 38.2 C H 124 H 18 100 09/16/24 23:00 83/64 L 09/16/24 23:00 83/64 L 09/16/24 23:00 83/64 L 09/16/24 23:00 38.3 C H 125 H 22 100 09/16/24 22:31 97/76 L 09/16/24 22:31 97/76 L 09/16/24 22:30 38.2 C H 123 H 17 97 09/16/24 22:06 38.1 C H 120 H 23 99 09/16/24 22:00 09/16/24 22:00 91/67 L 09/16/24 22:00 91/67 L 09/16/24 21:48 37.9 C H 120 H 23 98 09/16/24 21:30 38.0 C H 125 H 25 H 100 09/16/24 21:30 95/66 L 09/16/24 21:30 95/66 L 09/16/24 21:30 95/66 L 09/16/24 21:02 86/68 L 09/16/24 21:02 86/68 L 09/16/24 21:00 37.8 C H 128 H 24 99 O2 Del Method FiO2 09/17/24 08:30 Mechanical Vent 98 09/17/24 08:15 09/17/24 08:00 Mechanical Vent 40 09/17/24 07:56 Mechanical Vent 40 09/17/24 07:30 Mechanical Vent 40 09/17/24 07:25 40 09/17/24 07:00 Mechanical Vent 40 09/17/24 06:30 09/17/24 06:00 09/17/24 05:57 09/17/24 05:54 09/17/24 05:30 09/17/24 05:30 09/17/24 05:30 09/17/24 05:24 09/17/24 05:15 09/17/24 04:33 09/17/24 04:30 40 09/17/24 04:30 09/17/24 04:30 09/17/24 04:30 09/17/24 04:00 40 09/17/24 04:00 09/17/24 04:00 09/17/24 04:00 09/17/24 03:50 Mechanical Vent 40 09/17/24 02:15 09/17/24 02:10 09/17/24 02:05 09/17/24 02:00 09/17/24 01:59 09/17/24 01:55 09/17/24 01:55 09/17/24 01:55 09/17/24 01:55 09/17/24 01:44 09/17/24 01:40 09/17/24 01:40 09/17/24 01:32 09/17/24 01:30 09/17/24 01:30 09/17/24 01:30 09/17/24 01:30 09/17/24 01:25 09/17/24 01:17 09/17/24 01:15 09/17/24 01:05 09/17/24 01:05 09/17/24 01:05 09/17/24 01:02 09/17/24 01:00 09/17/24 01:00 09/17/24 00:42 09/17/24 00:40 40 09/17/24 00:40 Mechanical Vent 40 09/17/24 00:35 09/17/24 00:33 09/17/24 00:33 09/17/24 00:29 09/17/24 00:02 09/17/24 00:00 40 09/17/24 00:00 09/17/24 00:00 09/16/24 23:59 09/16/24 23:38 09/16/24 23:38 09/16/24 23:36 09/16/24 23:30 09/16/24 23:27 09/16/24 23:00 09/16/24 23:00 09/16/24 23:00 09/16/24 23:00 09/16/24 22:31 09/16/24 22:31 09/16/24 22:30 09/16/24 22:06 09/16/24 22:00 Mechanical Vent 40 09/16/24 22:00 09/16/24 22:00 09/16/24 21:48 09/16/24 21:30 09/16/24 21:30 09/16/24 21:30 09/16/24 21:30 09/16/24 21:02 09/16/24 21:02 09/16/24 21:00 Lab & Micro Results (Past 24 Hours) RBC 4.06 M/uL (4.20-5.40) L 09/17/24 WBC 11.14 K/ul (4.8-10.8) H 09/17/24 Hgb 13.8 g/dl (12.0-16.0) 09/17/24 Hct 40.1 % (37.0-47.0) 09/17/24 MCV 98.8 fL (80.0-100.0) 09/17/24 MCH 34.0 pg (25.0-34.0) 09/17/24 MCHC 34.4 g/dL (32.0-36.0) 09/17/24 RDW Standard Deviation 44.9 fL (36.4-46.3) 09/17/24 RDW Coefficient of Variation 12.2 % (11.5-14.5) 09/17/24 Plt Count 338 K/uL (130-400) 09/17/24 MPV 9.1 fL (9.4-12.4) L 09/17/24 Neutrophils (%) (Auto) 85.8 % 09/17/24 Lymphocytes (%) (Auto) 7.5 % 09/17/24 Monocytes # (Auto) 0.70 K/uL (0.11-0.59) H 09/17/24 Eosinophils # (Auto) 0.00 K/uL (0.00-0.50) 09/17/24 Immature Granulocyte % (Auto) 0.4 % 09/17/24 Neutrophils # (Auto) 9.55 K/uL (1.40-6.50) H 09/17/24 Lymphocytes # (Auto) 0.84 K/uL (1.20-3.40) L 09/17/24 Monocytes # (Auto) 0.70 K/uL (0.11-0.59) H 09/17/24 Eosinophils # (Auto) 0.00 K/uL (0.00-0.50) 09/17/24 Basophils # (Auto) 0.00 K/uL (0.00-0.20) 09/17/24 Immature Granulocyte # (Auto) 0.05 K/uL (0.01-0.20) 4 Na 136 mmol/L (136-145) 09/17/24 K 4.8 mmol/L (3.5-5.1) 09/17/24 Cl 102 mmol/L (98-107) 09/17/24 CO2 25 mmol/L (21-32) 09/17/24 Anion Gap 9 (3-11) 09/17/24 BUN 15 mg/dl (6-23) 09/17/24 Creatinine 0.66 mg/dl (0.6-1.2) 09/17/24 BUN/Creatinine Ratio 22.7 (10-20) H 09/17/24 Glu 189 mg/dl (70-99(Fasting)) H 09/17/24 Ca 8.0 mg/dl (8.6-10.3) L 09/17/24 Phosphorus Level 2.7 mg/dl (2.5-4.9) 09/17/24 Total Bilirubin 0.8 mg/dl (0.2-1.0) 09/17/24 AST 55 U/L (13-39) H 09/17/24 ALT 34 U/L (7-52) 09/17/24 Alkaline Phosphatase 64 U/L (34-104) 09/17/24 TP 5.8 gm/dl (6.0-8.3) L 09/17/24 Albumin 3.7 gm/dl (3.4-5.0) 09/17/24 Globulin 2.1 gm/dl (2.5-4.0) L 09/17/24 Albumin/Globulin Ratio 1.8 (0.9-2) 09/17/24 Mg 2.3 mg/dl (1.7-2.4) 09/17/24 04:20 Calcium Level 8.0 mg/dl (8.6-10.3) L 09/17/24 04:20 Prothromb Time International Ratio 1.1 (0.9-1.1) 09/16/24 09:5 1 Venous Blood pH 7.20 (7.36-7.41) L 09/16/24 16:57 Venous Blood Partial Pressure CO2 71 mmHg (38-50) H 09/16/24 16 :57 Venous Blood Partial Pressure O2 35 mmHg 09/16/24 16:57 Venous Blood HCO3 28 mmol/L 09/16/24 16:57 Venous Blood Base Excess -2.0 mEq/L 09/16/24 16:57 Venous Blood Oxygen Saturation < 60.0 % 09/16/24 16:57 Pierce Test Pass 09/17/24 04:32 Diagnostic Findings (Past 24 Hours) Chest CTA 09/16/24 09:47 CT angio chest PE protocol CT DOSE: 237.62 mGy.cm HISTORY: 59 years-old Female with dyspnea, chest tightness, cough. Acute cough with chest tightness and shortness of breath TECHNIQUE: Multiple CTA images of the chest were obtained after the intravenous administration of 112 ml Optiray. Coronal and sagittal MIPS were obtained from the axial data set and were submitted for review. All measurements were obtained according to NASCET criteria. A dose lowering technique was utilized adhering to the principles of ALARA. COMPARISON: CT abdomen and pelvis 10/18/2018 FINDINGS: CTA: Heart is normal in size. Moderate coronary artery calcifications. Atherosclerosis of the aorta without aneurysm. Patency of the imaged great vessels. No pulmonary emboli identified. CT CHEST: No pneumothorax, no pleural effusion. Moderate bronchial wall thickening with areas of multifocal mucus plugging. Intraventricular septal thickening. 5 mm solid nodule right lower lobe on image 46 series 4 is noted from prior, low clinical suspicion. No suspicious pulmonary nodules or masses identified. Central airways are patent. 1.3 cm cyst of the superior pole left kidney. There is mild likely chronic superior end plate compression T3. IMPRESSION: 1. No pulmonary emboli identified. 2. Emphysema with bronchitis and mucous plugging. 3. Mild intralobular septal thickening likely represents a component of pulmonary edema. 4. 5 mm solid nodule of the basal right lower lobe. Please refer to below summary of Fleischner criteria recommendations for follow- up of incidental CT nodules (Marybel Blake, Guidelines for management of small pulmonary nodules detected on CT scans: A statement from the Fleischner Society, Radiology 237: [phone].) SOLID NODULES Solitary nodule size: <6 mm * Low risk patients: no follow-up needed * high risk patients: optional CT at 12 months Note: newly detected indeterminate nodule in persons 35 years of age or older. * Low risk patients: minimal or absent history of smoking and/or other known risk factors * high risk patients: history of smoking or of other known risk factors (e.g. first degree relative with lung cancer, or exposure to asbestos, radon, uranium) * if a nodule up to 8 mm is partly solid or is ground glass further follow-up is required after 24 months to exclude possible slow growing adenocarcinoma ([place]) ACT 112: Negative or not required by law. The above report was generated using voice recognition software. It may contain grammatical, syntax or spelling errors. Electronically signed by: Vikas Madera M.D. 09/16/2024 12:03 PM Chest X-Ray 09/16/24 14:25 XR chest 1V portable CLINICAL HISTORY: hypoxia COMPARISON STUDY: Chest radiograph July 31, 2015. Chest CT performed earlier today. FINDINGS: Interstitial thickening has progressed. This represents pulmonary edema. There is no pneumothorax. No definite pleural effusion is identified although costophrenic angles were excluded. There is emphysema. Bibasilar opacities have developed. IMPRESSION: 1. Progression of pulmonary edema. 2. Interval development of bibasilar opacities. These may reflect atelectasis or be related to pulmonary edema however aspiration pneumonia could appear similar. ACT 112: Negative or not required by law. Electronically signed by: Constantin Luevano M.D. 09/16/2024 2:54 PM Chest X-Ray 09/16/24 15:07 XR chest 1V portable CLINICAL HISTORY: intubation /OG placement COMPARISON STUDY: Chest radiograph and chest CT performed earlier today. FINDINGS: The tip of the endotracheal tube is 3.3 cm above the rolf. Tip of nasogastric tube projects over the distal esophagus. There is no pneumothorax. There are trace bilateral pleural effusions. There is underlying emphysema. Interstitial thickening is again noted. There are mild right lower lung opacities. Cardiomediastinal silhouette is stable. IMPRESSION: 1. Satisfactory positioning of the endotracheal tube. 2. Tip of nasogastric tube projects over the distal esophagus. The tube should be advanced. 3. Interstitial thickening consistent with pulmonary edema. Trace bilateral pleural effusions. 4. Mild right lower lung airspace opacity. 5. No pneumothorax. ACT 112: Negative or not required by law. Electronically signed by: Constantin Luevano M.D. 09/16/2024 3:49 PM KUB X-Ray 09/16/24 15:32 KUB HISTORY: Status post placement of an enteric tube Check plcmt of OGT COMPARISON: CT 10/18/2018 FINDINGS: Distal tip of enteric tube projects over the distal the esophagus. Nonobstructive bowel gas pattern. Mild distention of the stomach. Left iliac arterial graft. Hyperinflation with chronic interstitial coarsening of the lungs. No renal calculi. No ureteral calculi. No pneumoperitoneum or pneumatosis. No fracture. IMPRESSION: Tip of enteric tube projects over the distal esophagus. Advancement of approximately 9 cm recommended with follow-up imaging. ACT 112: Negative or not required by law. The above report was generated using voice recognition software. It may contain grammatical, syntax or spelling errors. Electronically signed by: Vikas Madera M.D. 09/16/2024 3:49 PM I & O Totals 24 Hours 09/16/24 09/17/24 09/18/24 06:59 06:59 05:59 Intake Total 2001.676 / 2001.676 70.458 / 70.458 Output Total 775 / 775 Balance 1227.676 / 1227.676 70.458 / 70.458 Cumulative 09/16/24 09:09 thru 09/17/24 08:17 Intake Total 2073.134 Output Total 775 Balance 1298.134 RT Ventilator Mngmt (Last Documented) Ventilator Ordered Settings Ventilator Support Mode CPAP 09/17/24 07:25 Respiratory Rate 24 09/17/24 08:30 Ventilator Tidal Volume 500 09/17/24 04:30 Setting Minute Ventilation 9.8 09/17/24 07:25 Ventilator Positive Pressure 8 09/17/24 07:25 Support Setting Positive End Expiratory 5 09/17/24 07:55 Pressure Fraction of Inspired Oxygen 98 09/17/24 08:30 Machine Comment weaned peep to [address] Valencia 09/17/24 07:55 Ventilator - PT Measurements Respiratory Rate 24 Exhaled Tidal Volume 488 Minute Ventilation 9.8 Peak Inspiratory Airway 20 Pressure Plateau Pressure 20 Respiratory Cycle Inspiratory: 1:2.6 Expiratory Ratio Inspiratory Phase Time 1.0 End-Tidal CO2 31 Static Lung Compliance 42.17 Dynamic Lung Compliance 40.67 Normal Static Lung Compliance 48.00 Coding Level of Care Code 78862 SUB INP/OBS CARE 3/50MIN Diagnoses Acute and chronic respiratory failure, unspecified whether with hypoxia or hypercapnia J96.20 COPD exacerbation J44.1 NSTEMI (non-ST elevated myocardial infarction) I21.4 Hypokalemia E87.6 Hypomagnesemia E83.42 Cachexia R64
--- NOTE | 2024-09-17 08:53 | XRay Report ---
EXAM: XR KUB/Abdomen 1 view CLINICAL HISTORY: PLACEMENT OF OGT BME/KIS TECHNIQUE: A limited X-ray image of the chest and upper abdomen is obtained in AP projection. COMPARISON: No prior studies are available for comparison. FINDINGS: The naso/orogastric tube is seen, its tip lies within the stomach, and its side opening is seen at the gastroesophageal junction. An endotracheal tube is seen as well positioned. Mild right pleural effusion with basal atelectasis. COPD changes in the visualized lungs. IMPRESSION: The naso/orogastric tube is seen, its tip lies within the stomach, and its side opening is seen at the gastroesophageal junction. An approximate 5 cm push is advised for proper position. The endotracheal tube is well positioned. Electronically signed by Clyde Gabriel 09-17-2024 08:53 AM
[2024-09-17] MEDS ORDERED: ASPIRIN 81 MG ECTAB PO SCH (09:00)
[2024-09-17] MEDS ORDERED: THIAMINE HCL 100 MG TAB PO SCH (09:00)
[2024-09-17] MEDS: ASPIRIN 81 MG CHEW PO SCH (10:11)
[2024-09-17] MEDS: CLOPIDOGREL BISULFATE 75 MG TAB PO SCH (10:12)
[2024-09-17] MEDS: FOLIC ACID 1 MG TAB PO SCH (10:13)
[2024-09-17] MEDS: MULTIVITAMIN TAB PO SCH (10:13)
--- NOTE | 2024-09-17 11:31 | XRay Report ---
XR chest 1V portable HISTORY: 59 years-old Female Resp failure acute respiratory failure COMPARISON: 09/16/2024 TECHNIQUE: AP view of the chest FINDINGS: Cardiac silhouette is normal. Endotracheal tube overlies midline, 5.7 cm superior to the rolf. Dist al tip of enteric tube projects over the mid stomach. No pneumothorax, large pleural effusion or over t pulmonary edema. There is improvement of the previously seen pulmonary edema. Prove aeration of the lung bases. Emphysema with chronic interstitial coarsening. IMPRESSION: 1. Emphysema with improvement of the pulmonary edema with improved aeration of the lung bases. 2. Lines and tubes as above. 3. No pneumothorax. ACT 112: Negative or not required by law. The above report was generated using voice recognition software. It may contain grammatical, syntax o r spelling errors. Electronically signed by: Vikas Madera M.D. 09/17/2024 11:29 AM
--- NOTE | 2024-09-17 11:45 | Hospitalist Progress Note ---
Date of Service September 17, 2024 Assessment & Plan (1) COPD exacerbation: (2) Acute bronchitis: (3) Elevated troponin: (4) Hypomagnesemia: (5) Hypokalemia: Plan: 59-year-old female with history of COPD, hypertension, peripheral artery disease, GERD, smoker, drinker presenting with cough and shortness of breath times few days. Acute respiratory failure with hypoxia and hypercarbia Acute COPD exacerbation Failed outpatient treatment with Augmentin, prednisone, doxycycline prescribed 2 days ago -- CTA: No pulmonary emboli identified. Emphysema with bronchitis and mucous plugging. Mild intralobular septal thickening likely represents a component of pulmonary edema. 5 mm solid nodule of the basal right lower lobe. --BioFire: Negative -- S/P extubation on 09/17/2024 --Wean off of supplemental oxygen as able to keep sats 88 to 92% --Continue IV Solu-Medrol, budesonide, Perforomist, nebs --Continue doxycycline Counseled to quit smoking Appreciate critical care input Continue pulmonary hygiene with spirometry, flutter Aspiration precautions Takotsubo syndrome Pulmonary edema Secondary to above Suspected NSTEMI H/O peripheral vascular disease S/P bilateral femoral bypass graft --ECHO: Severe diffuse hypokinesis akinesis of the left ventricular the apical and mid levels with relative sparing of the basal segments. EF 25 to 30%. Right ventricle is hyperdynamic. Trace mitral, tricuspid regurgitation, mild to moderate pulmonary hypertension. -- Continue Plavix, atorvastatin --Added aspirin, metoprolol -- Continue IV heparin for now --Appreciate cardiology input --May need cardiac cath eventually --Will need repeat echo in 1 month --Check lipid panel Received IV Lasix Monitor volume status closely Right lower lobe pulmonary nodule Tobacco use disorder Counseled to quit smoking Needs follow-up as outpatient Hypomagnesemia Hypokalemia Reports chronic diarrhea after colorectal surgery HCTZ likely contributing as well Monitor and replete electrolytes as needed Lyme arthritis flare, Right hand Diagnosed by PCP a few days ago Currently on doxycycline course Tobacco use disorder Counseled to quit smoking Alcohol use Patient's last drink was a few days ago Continue thiamine, folic acid Monitor for withdrawal Other chronic conditions: Hypertension GERD Cachexia Continue home medications as able DVT Px: On IV heparin CODE STATUS Conditional code Admission and Anticipated Discharge Date Admission Date: September 16, 2024 Subjective Patient is seen and examined at bedside Extubated this morning Currently saturating well on 2 L supplemental oxygen Sinus tachycardia on monitor Chest pain resolved Dyspnea much improved States having minimal cough Family at bedside Offers no other complaints Review of Systems Review of Systems: All systems reviewed & are unremarkable except as noted in Subjective Physical Exam Physical Exam: Physical Exam: Vitals signs as noted above General Appearance: Thin, frail, no apparent distress Head: normocephalic, Atraumatic Eyes: normal inspection, EOMI Neck: supple, Trachea midline Respiratory/Chest: B/L coarse breath sounds, no accessory muscle use Cardiovascular: S1, S2, No murmur, tachycardia Abdomen/GI:Soft, Non tender, Bowel sounds present Extremities/Musculoskeletal:normal inspection, no edema Neurologic/Psych:AAOX3, grossly no focal neurological deficits Skin: normal color, warm Results & Data Results & Data Vital Signs (Past 12 Hours) Vital Signs Temp Pulse Pulse Resp BP BP Pulse Ox 09/17/24 10:30 37.5 C 114 H 20 112/76 97 09/17/24 10:00 37.6 C H 120 H 22 100/71 96 09/17/24 09:36 37.5 C 117 H 25 H 109/77 98 09/17/24 09:00 37.6 C H 121 H 23 104/69 98 09/17/24 08:30 112/77 09/17/24 08:30 37.8 C H 122 H 24 112/77 99 09/17/24 08:15 37.8 C H 117 H 27 H 98 09/17/24 08:00 37.8 C H 110 H 22 112/79 99 09/17/24 07:56 109 H 19 100 09/17/24 07:30 37.7 C H 104 H 22 116/80 100 09/17/24 07:25 09/17/24 07:25 106 H 21 100 09/17/24 07:00 09/17/24 07:00 37.7 C H 109 H 18 112/81 99 09/17/24 07:00 09/17/24 06:30 113 H 112/78 09/17/24 06:00 93/71 L 09/17/24 05:57 37.7 C H 116 H 18 100 09/17/24 05:54 37.7 C H 115 H 18 100 09/17/24 05:30 98/72 L 09/17/24 05:30 98/72 L 09/17/24 05:30 98/72 L 09/17/24 05:24 37.9 C H 119 H 19 100 09/17/24 05:15 37.9 C H 120 H 18 99 09/17/24 04:33 38.0 C H 123 H 21 100 09/17/24 04:30 124 H 20 99 09/17/24 04:30 125/88 09/17/24 04:30 125/88 09/17/24 04:30 125/88 09/17/24 04:00 09/17/24 04:00 103/77 09/17/24 04:00 103/77 09/17/24 04:00 103/77 09/17/24 03:50 37.9 C H 116 H 18 112/82 100 09/17/24 02:15 88/68 L 09/17/24 02:10 95/72 L 09/17/24 02:05 91/67 L 09/17/24 02:00 94/69 L 09/17/24 01:59 37.9 C H 124 H 18 100 09/17/24 01:55 89/70 L 09/17/24 01:55 89/70 L 09/17/24 01:55 89/70 L 09/17/24 01:55 89/70 L 09/17/24 01:44 38.0 C H 124 H 19 100 09/17/24 01:40 98/72 L 09/17/24 01:40 98/72 L 09/17/24 01:32 38.0 C H 121 H 19 100 09/17/24 01:30 92/66 L 09/17/24 01:30 92/66 L 09/17/24 01:30 92/66 L 09/17/24 01:30 92/66 L 09/17/24 01:25 94/67 L 09/17/24 01:17 38.0 C H 117 H 19 100 09/17/24 01:15 86/64 L 09/17/24 01:05 38.0 C H 116 H 19 100 09/17/24 01:05 89/67 L 09/17/24 01:05 89/67 L 09/17/24 01:02 38.0 C H 105 H 18 100 09/17/24 01:00 91/70 L 09/17/24 01:00 91/70 L 09/17/24 00:42 82/63 L 09/17/24 00:40 115 H 18 100 09/17/24 00:40 115 H 18 100 09/17/24 00:35 38.1 C H 121 H 18 100 09/17/24 00:33 80/59 L 09/17/24 00:33 80/59 L 09/17/24 00:29 38.1 C H 123 H 18 99 09/17/24 00:02 38.1 C H 123 H 18 100 09/17/24 00:00 09/17/24 00:00 124 H 09/17/24 00:00 83/65 L 09/16/24 23:59 38.1 C H 124 H 18 100 09/16/24 23:38 82/61 L 09/16/24 23:38 82/61 L 09/16/24 23:36 38.1 C H 124 H 18 100 09/16/24 23:30 82/66 L O2 Del Method O2 Flow Rate FiO2 09/17/24 10:30 Nasal Cannula 2 09/17/24 10:00 Nasal Cannula 2 09/17/24 09:36 Mechanical Vent 40 09/17/24 09:00 Mechanical Vent 40 09/17/24 08:30 09/17/24 08:30 Mechanical Vent 98 09/17/24 08:15 09/17/24 08:00 Mechanical Vent 40 09/17/24 07:56 Mechanical Vent 40 09/17/24 07:30 Mechanical Vent 40 09/17/24 07:25 40 09/17/24 07:25 40 09/17/24 07:00 Mechanical Vent 40 09/17/24 07:00 Mechanical Vent 40 09/17/24 07:00 40 09/17/24 06:30 09/17/24 06:00 09/17/24 05:57 09/17/24 05:54 09/17/24 05:30 09/17/24 05:30 09/17/24 05:30 09/17/24 05:24 09/17/24 05:15 09/17/24 04:33 09/17/24 04:30 40 09/17/24 04:30 09/17/24 04:30 09/17/24 04:30 09/17/24 04:00 40 09/17/24 04:00 09/17/24 04:00 09/17/24 04:00 09/17/24 03:50 Mechanical Vent 40 09/17/24 02:15 09/17/24 02:10 09/17/24 02:05 09/17/24 02:00 09/17/24 01:59 09/17/24 01:55 09/17/24 01:55 09/17/24 01:55 09/17/24 01:55 09/17/24 01:44 09/17/24 01:40 09/17/24 01:40 09/17/24 01:32 09/17/24 01:30 09/17/24 01:30 09/17/24 01:30 09/17/24 01:30 09/17/24 01:25 09/17/24 01:17 09/17/24 01:15 09/17/24 01:05 09/17/24 01:05 09/17/24 01:05 09/17/24 01:02 09/17/24 01:00 09/17/24 01:00 09/17/24 00:42 09/17/24 00:40 40 09/17/24 00:40 Mechanical Vent 40 09/17/24 00:35 09/17/24 00:33 09/17/24 00:33 09/17/24 00:29 09/17/24 00:02 09/17/24 00:00 40 09/17/24 00:00 09/17/24 00:00 09/16/24 23:59 09/16/24 23:38 09/16/24 23:38 09/16/24 23:36 09/16/24 23:30 Laboratory Results Short CBC 09/17/24 Range/Units 04:20 WBC 11.14 H (4.8-10.8) K/ul Hgb 13.8 (12.0-16.0) g/dl Hct 40.1 (37.0-47.0) % Plt Count 338 (130-400) K/uL BMP 09/16/24 09/16/24 09/17/24 15:51 16:57 04:20 Sodium 133 L 136 Potassium TNP 3.4 L D 4.8 D Chloride 99 102 Carbon Dioxide 18 L 25 BUN 17 15 Creatinine 0.61 0.66 Glucose 189 H Calcium 7.6 L 8.0 L Liver Function 09/16/24 09/17/24 Range/Units 09:51 04:20 Total Bilirubin 0.8 (0.2-1.0) mg/dl AST 55 H (13-39) U/L ALT 34 (7-52) U/L Alkaline Phosphatase 73 64 (34-104) U/L Albumin 3.7 (3.4-5.0) gm/dl
--- NOTE | 2024-09-17 12:16 | Cardiology Progress Note ---
Date of Service September 17, 2024 Assessment & Plan (1) Acute and chronic respiratory failure, unspecified whether with hypoxia or hypercapnia: (2) NSTEMI (non-ST elevated myocardial infarction): (3) COPD exacerbation: (4) Hypokalemia: (5) Hypomagnesemia: (6) Acute heart failure with reduced ejection fraction (HFrEF, <= 40%) and combined systolic and diastolic dysfunction: Plan 09/16/24: Patient admitted with worsening SOB and chest tightness. HS troponin elevated at 2400 EKG demonstrating NSR with possible lateral T wave abnormality Echo with apical wall motion abnormality - possible ischemic vs Takotsubo She has multiple risk factors for CAD - PVD, tobacco abuse, HTN, dyslipidemia. She was treated for COPD exacerbation 3 days ago and given Augmentin with worsening of her chronic diarrhea. Mag critically low at 0.7. Supplements started with IV mag Potassium low at 2.6 - supplements ordered Given her chest pain, wall motion abnormalities, elevated troponin, will need to proceed with diagnostic cardiac cath today once her electrolytes have stabilized and her pulm status has improved. Supplemental O2 ordered Nebulizer treatment provided in ER for wheezing She took morning dose of ASA and plavix. Nitro paste ordered. Keep NPO except meds Recheck electrolytes in 2 hours prior to cath. Since patient's initial presentation, she was transferred from the emergency department to the PCU, room 244. She then developed progressive respiratory distress and a rapid response alert was called. As part of the response team, I recommended 20 mg of IV furosemide, patient also received an additional dose of 40 mg of IV Solu-Medrol. Her IV fluids and IV electrolyte replacement were discontinued. The patient did not tolerate initial trials of oxy mask or BiPAP due to sensation of claustrophobia. She was subsequently transferred to the first floor ICU. In addition to the previously placed topical nitroglycerin, a dose of sublingual nitroglycerin was administered with no improvement in symptoms. An EKG was performed at 1422, it was technically limited due to baseline artifact, but appears to reveal similar poor R wave progression in the anterior precordial leads without ST segment elevation. The patient's severe left ventricular systolic dysfunction is at a proportion to the relatively small elevation in the troponin I. Question if patient has had progressive respiratory distress due to acute exacerbation of COPD with superimposed stress-induced cardiomyopathy with or without underlying obstructive coronary heart disease. Is felt that if this was an acute coronary syndrome as a culprit, she would have a isabela ST elevation which does not appear present. Repeat EKG obtained post intubation, 09/16/2024 1524 and reviewed/interpreted independently: Sinus tachycardia 122 bpm present with mild J-point elevation limited to leads V3 and V4 without reciprocal changes. Case reviewed with interventional cardiology. Will proceed with ongoing optimization. Await results of the repeat basic metabolic panel and magnesium level with regards to electrolyte abnormalities. I will replace accordingly. If potassium level is stable, will plan on initiating metoprolol via her orogastric tube, initially with metoprolol to tartrate as it is crushable, and post intubation we will transition her to metoprolol succinate given LV systolic dysfunction. 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 Wraparound LAD territory injury however also not excluded. Will initiate heparin infusion now that intubation performed successfully. 09/17/24 Patient managed by critical care overnight. She was successfully extubated this morning and maintaining oxygen saturations on 2 L NC No reported chest pain. EKG this morning with evidence of anterior infarct and T wave inversions in anterolateral leads Continue IV heparin Continue nitro paste Increase metoprolol tartrate to 25 mg q6 hours for HR support. Currently sinus tachycardia in the 120's. HS troponin peaked at 2761 and now 1087 this morning. LVEF reduced at 25%. Consider stress induced cardiomyopathy vs ischemic. Will need respiratory status optimized and then likely cardiac cath early next week. Continue ASA, plavix (taking for PVD), and statin Ongoing wheezing noted on evaluation. Appreciate recommendations from critical care/pulm team. Case discussed with Dr. Marie I spent a total of 35 minutes on the date of service in preparation, delivery, and documentation of the care provided to this patient, excluding any time spent in the performance of separately billed services. Jessica Zamora PA-C Department of Cardiology, [facility] This chart was completed in part utilizing Speech Voice Recognition Software. Grammatical errors, random word insertions, pronoun errors, and incomplete sentences are an occasional consequence of this system due to software limitations, ambient noise, and hardware issues. Any formal questions or concerns about the content, text, or information contained within the body of this dictation should be directly addressed to the provider for clarification. Admission and Anticipated Discharge Date Admission Date: September 16, 2024 Supervising Physician Co-Signing Physician Notes Attending attestation: Case reviewed with the advanced practitioner. I have personally performed a history and physical examination on the patient. I have reviewed the advanced practitioner's documentation on the date of service referenced in note, and I agree with, and take responsibility for the plan of care. 59-year-old female with known history of COPD, smoker, peripheral vascular disease post bifemoral bypass, hypertension, dyslipidemia presents with hypokalemia chest tightness noted to have significant frequently elevated troponins 2700 . She developed worsening respiratory distress and required intubation yesterday . echocardiogram showed severe systolic dysfunction , with basal hyperkinesis and distal to mid hypokinesis concern for ischemic/Takotsubo cardiomyopathy. On heparin drip. Overnight patient did good today morning she has been extubated . Denies further chest pain Assessment and plan Non-STEMI with EF of 25% possible stress-induced/ischemic we will continue with heparin drip EKG today shows T wave inversions in the anterior leads, troponins have been downtrending electrolytes stable Plan for cardiac cath early next week I spent a total of 15 minutes coordinating, documenting, and providing care for this patient excluding time spent in the performance of separately billed services or time spent by another provider. Subjective Patient successfully extubated this morning. Sitting in bed, eating lunch. Reports feeling much better than yesterady. Denies chest pain. SOB improved. Still with audible wheezing and cough. No LE edema. Review of Systems Review of Systems: All systems reviewed & are unremarkable except as noted in HPI & below Physical Exam Constitutional: + ill appearing and + thin Neck: trachea midline, no thyromegaly Respiratory: no labored breathing Auscultation: + wheezes Cardiovascular: Rate/Rhythm: regular rhythm and + tachycardic Heart Sounds: normal S1 and normal S2; no murmur Vessels: no JVD Extremities: no edema Gastrointestinal (Abdomen): normal bowel sounds, soft, nontender, no hepatosplenomegaly Skin: no rashes, warm and dry Neurologic: PERRL, EOMI, accommodation nl, no face palsy, no dysarthria Psychiatric: A+Ox3, euthymic affect Results & Data Vital Signs (Past 12 Hours) Vital Signs Temp Pulse Pulse Resp BP BP Pulse Ox 09/17/24 11:31 37.6 C H 125 H 24 119/89 93 09/17/24 11:00 37.5 C 115 H 23 105/72 99 09/17/24 10:30 37.5 C 114 H 20 112/76 97 09/17/24 10:00 37.6 C H 120 H 22 100/71 96 09/17/24 09:36 37.5 C 117 H 25 H 109/77 98 09/17/24 09:00 37.6 C H 121 H 23 104/69 98 09/17/24 08:30 112/77 09/17/24 08:30 37.8 C H 122 H 24 112/77 99 09/17/24 08:15 37.8 C H 117 H 27 H 98 09/17/24 08:00 37.8 C H 110 H 22 112/79 99 09/17/24 07:56 109 H 19 100 09/17/24 07:30 37.7 C H 104 H 22 116/80 100 09/17/24 07:25 09/17/24 07:25 106 H 21 100 09/17/24 07:00 09/17/24 07:00 37.7 C H 109 H 18 112/81 99 09/17/24 07:00 09/17/24 06:30 113 H 112/78 09/17/24 06:00 93/71 L 09/17/24 05:57 37.7 C H 116 H 18 100 09/17/24 05:54 37.7 C H 115 H 18 100 09/17/24 05:30 98/72 L 09/17/24 05:30 98/72 L 09/17/24 05:30 98/72 L 09/17/24 05:24 37.9 C H 119 H 19 100 09/17/24 05:15 37.9 C H 120 H 18 99 09/17/24 04:33 38.0 C H 123 H 21 100 09/17/24 04:30 124 H 20 99 09/17/24 04:30 125/88 09/17/24 04:30 125/88 09/17/24 04:30 125/88 09/17/24 04:00 09/17/24 04:00 103/77 09/17/24 04:00 103/77 09/17/24 04:00 103/77 09/17/24 03:50 37.9 C H 116 H 18 112/82 100 09/17/24 02:15 88/68 L 09/17/24 02:10 95/72 L 09/17/24 02:05 91/67 L 09/17/24 02:00 94/69 L 09/17/24 01:59 37.9 C H 124 H 18 100 09/17/24 01:55 89/70 L 09/17/24 01:55 89/70 L 09/17/24 01:55 89/70 L 09/17/24 01:55 89/70 L 09/17/24 01:44 38.0 C H 124 H 19 100 09/17/24 01:40 98/72 L 09/17/24 01:40 98/72 L 09/17/24 01:32 38.0 C H 121 H 19 100 09/17/24 01:30 92/66 L 09/17/24 01:30 92/66 L 09/17/24 01:30 92/66 L 09/17/24 01:30 92/66 L 09/17/24 01:25 94/67 L 09/17/24 01:17 38.0 C H 117 H 19 100 09/17/24 01:15 86/64 L 09/17/24 01:05 38.0 C H 116 H 19 100 09/17/24 01:05 89/67 L 09/17/24 01:05 89/67 L 09/17/24 01:02 38.0 C H 105 H 18 100 09/17/24 01:00 91/70 L 09/17/24 01:00 91/70 L 09/17/24 00:42 82/63 L 09/17/24 00:40 115 H 18 100 09/17/24 00:40 115 H 18 100 09/17/24 00:35 38.1 C H 121 H 18 100 09/17/24 00:33 80/59 L 09/17/24 00:33 80/59 L 09/17/24 00:29 38.1 C H 123 H 18 99 O2 Del Method O2 Flow Rate FiO2 09/17/24 11:31 Nasal Cannula 2 09/17/24 11:00 Nasal Cannula 2 09/17/24 10:30 Nasal Cannula 2 09/17/24 10:00 Nasal Cannula 2 09/17/24 09:36 Mechanical Vent 40 09/17/24 09:00 Mechanical Vent 40 09/17/24 08:30 09/17/24 08:30 Mechanical Vent 98 09/17/24 08:15 09/17/24 08:00 Mechanical Vent 40 09/17/24 07:56 Mechanical Vent 40 09/17/24 07:30 Mechanical Vent 40 09/17/24 07:25 40 09/17/24 07:25 40 09/17/24 07:00 Mechanical Vent 40 09/17/24 07:00 Mechanical Vent 40 09/17/24 07:00 40 09/17/24 06:30 09/17/24 06:00 09/17/24 05:57 09/17/24 05:54 09/17/24 05:30 09/17/24 05:30 09/17/24 05:30 09/17/24 05:24 09/17/24 05:15 09/17/24 04:33 09/17/24 04:30 40 09/17/24 04:30 09/17/24 04:30 09/17/24 04:30 09/17/24 04:00 40 09/17/24 04:00 09/17/24 04:00 09/17/24 04:00 09/17/24 03:50 Mechanical Vent 40 09/17/24 02:15 09/17/24 02:10 09/17/24 02:05 09/17/24 02:00 09/17/24 01:59 09/17/24 01:55 09/17/24 01:55 09/17/24 01:55 09/17/24 01:55 09/17/24 01:44 09/17/24 01:40 09/17/24 01:40 09/17/24 01:32 09/17/24 01:30 09/17/24 01:30 09/17/24 01:30 09/17/24 01:30 09/17/24 01:25 09/17/24 01:17 09/17/24 01:15 09/17/24 01:05 09/17/24 01:05 09/17/24 01:05 09/17/24 01:02 09/17/24 01:00 09/17/24 01:00 09/17/24 00:42 09/17/24 00:40 40 09/17/24 00:40 Mechanical Vent 40 09/17/24 00:35 09/17/24 00:33 09/17/24 00:33 09/17/24 00:29 Laboratory Results Cardiac Enzymes 09/16/24 09/16/24 09/17/24 Range/Units 11:54 16:57 04:20 AST 55 H (13-39) U/L Troponin I High Sens 2761.9 H* 2090.7 H* D 1087.9 H* D (0-14) pg/ml CBC 09/17/24 Range/Units 04:20 WBC 11.14 H (4.8-10.8) K/ul RBC 4.06 L (4.20-5.40) M/uL Hgb 13.8 (12.0-16.0) g/dl Hct 40.1 (37.0-47.0) % Plt Count 338 (130-400) K/uL Neut # (Auto) 9.55 H (1.40-6.50) K/uL Lymph # (Auto) 0.84 L (1.20-3.40) K/uL [place] # (Auto) 0.70 H (0.11-0.59) K/uL Eos # (Auto) 0.00 (0.00-0.50) K/uL Baso # (Auto) 0.00 (0.00-0.20) K/uL Comprehensive Metabolic Panel 09/16/24 09/16/24 09/17/24 Range/Units 15:51 16:57 04:20 Sodium 133 L 136 (136-145) mmol/L Potassium TNP 3.4 L D 4.8 D Chloride 99 102 (98-107) mmol/L Carbon Dioxide 18 L 25 (21-32) mmol/L BUN 17 15 (6-23) mg/dl Creatinine 0.61 0.66 (0.6-1.2) mg/dl Glucose 189 H (70-99(Fasting)) mg/dl Calcium 7.6 L 8.0 L (8.6-10.3) mg/dl AST 55 H (13-39) U/L ALT 34 (7-52) U/L Alkaline Phosphatase 64 (34-104) U/L Total Protein 5.8 L (6.0-8.3) gm/dl Albumin 3.7 (3.4-5.0) gm/dl Intake and Output 09/16/24 09/17/24 09/17/24 22:59 06:59 14:59 Intake Total 72.876 / 2001.676 1422.467 / 6 458.458 / 458.458 Output Total 550 / 775 225 / 775 175 / 175 Balance -477.124 / 8025.429 1673.467 / 1227.676 283.458 / 283.458 Intake: IV 72.876 / 676 1422.467 / 6 458.458 / 458.458 Albumin 5% 250 ml @ 500 mls/hr 250 / 250 IV ONE ONE Rx#:[id number] Heparin Sodium/Dextrose 25,000 45.25 / 200.50 155.25 / 200.50 22.5 / 22.5 units In 500 ml @ 750 UNITS/HR 15 mls/hr IV .Q24H [facility] Rx#: [id number] Lactated Ringer's 1,000 ml @ 80 978.667 / 978.667 388 / 388 mls/hr IV .[id number] NOELLE Rx#: [id number] propofoL 1,000 mg In 100 ml @ 0 27.626 / 66.176 38.55 / 66.176 47.958 / 47.958 MCG/KG/MIN IV .Q0M [facility] Rx#: [id number] Output: Urine Amount (Catheter) 550 / 775 225 / 775 175 / 175 Dolan/Indwelling 550 / 775 225 / 775 175 / 175 Other: Weight 42.8 kg 44.9 kg Weight Measurement Method Built in [facility] Diagnostic Findings Telemetry reviewed: Sinus tachycardia - 110-130's. No arrhythmias EKG reviewed from this morning at 5:19 AM Sinus tachycardia with evidence of anterior infarct and T wave abnormality in anterolateral leads Summary transthoracic echocardiogram performed today in the emergency room 09/16/2024 There is normal left ventricular wall thickness. There is severe diffuse hypokinesis akinesis of the left ventricle at the apical and mid levels with relative sparing of the basal segments. Left ventricular systolic function is severely reduced. Left Ventricular Ejection Fraction = 25-30%. The right ventricle is normal size. The right ventricle is hyperdynamic. There is trace mitral regurgitation. There is trace tricuspid regurgitation. Mild to moderate pulmonary hypertension is present. The pulmonary artery systolic pressure is estimated to be 58 mmHg assuming a right atrial pressure of 8 mmHg. (1) Acute and chronic respiratory failure, unspecified whether with hypoxia or hypercapnia Respiratory failure complication: hypoxia Qualified Code(s): J96.21 - Acute and chronic respiratory failure with hypoxia
[2024-09-17] MEDS: METOPROLOL TARTRATE 25 MG TAB PO SCH ×2 (12:19→17:32)
[2024-09-17 13:46] LABS: Adenovirus F 40/41 PCR Not Detected (NotDetected); Astrovirus PCR Not Detected (NotDetected); Campylobacter PCR Not Detected (NotDetected); Cryptosporidium PCR Not Detected (NotDetected); Cyclospora cayetanensis PCR Not Detected (NotDetected); Entamoeba histolytica PCR Not Detected (NotDetected); Enteroaggregative E.coli(EAEC) Not Detected (NotDetected); Enteropathogenic E.coli (EPEC) Not Detected (NotDetected); Enterotoxigenic E.coli (ETEC) Not Detected (NotDetected); Giardia lamblia PCR Not Detected (NotDetected); Norovirus GI/GII PCR Not Detected (NotDetected); Plesiomonas shigelloides PCR Not Detected (NotDetected); Rotavirus A PCR Not Detected (NotDetected); Salmonella PCR Not Detected (NotDetected); Sapovirus PCR Not Detected (NotDetected); Shiga-like Toxin E.coli (STEC) Not Detected (NotDetected); Shigella/Enteroinvasive E.coli Not Detected (NotDetected); Vibrio cholerae PCR Not Detected (NotDetected); Vibrio species PCR Not Detected (NotDetected); Yersinia enterocolitica PCR Not Detected (NotDetected)
--- NOTE | 2024-09-17 19:50 | Electrocardiogram Report ---
Test Reason : Blood Pressure : */* mmHG Vent. Rate : 120 BPM Atrial Rate : 120 BPM P-R Int : 120 ms QRS Dur : 74 ms QT Int : 344 ms P-R-T Axes : 85 71 224 degrees QTcB Int : 486 ms Sinus tachycardia Anterior infarct (cited on or before 16-Sep-2024) probably recent T wave abnormality, consider inferolateral ischemia Abnormal ECG When compared with ECG of 16-Sep-2024 15:24, Serial changes of evolving Anterior infarct Present Confirmed by Renea Hunt ([id number]) on 09/17/2024 7:50:09 PM Referred By: REFERRED SELF Confirmed By: Renea Hunt
[2024-09-17] MEDS: RACEPINEPHRINE 2.25% NEBU SOLN 0.5 ML VIAL NEB STA ×2 (21:36→22:54)
[2024-09-17] MEDS: RACEPINEPHRINE 2.25% NEBU SOLN 0.5 ML VIAL ONE (21:41)
[2024-09-17] MEDS ORDERED: STAT IV Infusion **Titration per Protocol STA (21:43)
[2024-09-17] MEDS: dexMEDEtomidine 200 MCG/50 ML BAG IV SCH (21:57)
[2024-09-17 22:39] LABS: Base Excess VBG -7.9 mEq/L; HCO3 VBG 22 mmol/L; Oxygen Saturation VBG 60.6 %; PCO2 VBG 65 mmHg (38-50); PO2 VBG 46 mmHg; pH VBG 7.14 (7.36-7.41)
--- NOTE | 2024-09-18 00:59 | Communication Note ---
Date of Service: September 18, 2024 Earlier this evening patient was noted to have upper airway wheezing with tripoding and labored breathing. She was given racemic epi x 2 and had recently had Xopenex and Atrovent nebulizers. She showed marginal improvement and was placed on BiPAP after receiving Ativan and was started on Precedex drip due to agitation. She continued to be noncompliant with BiPAP despite sedation and continued to rip off/refuse BiPAP mask. VBG showed worsening respiratory acidosis. She continued to have labored breathing with tachypnea. Decision was made to emergently intubate in which the emergency department physician presented to the bedside and intubated the patient without issue. Propofol and fentanyl drips ordered for sedation. Postintubation chest x-ray with appropriate ET tube placement. Repeat ABG is currently pending. Will continue further management in ICU for now. CRITICAL CARE TIME I have personally spent 35 minutes of critical care time in the direct management of this patient. This is a life/limb threatening event. This includes time spent evaluating patient, direct bedside care, chart review, placing orders, interpretation of diagnostic studies, discussion with consultants, patient, and family members, as well as other required patient management activities. This time is exclusive of all separately billable procedures, and teaching time and separate from and in addition to any other critical care service time. Coding Level of Care Code 85312 Prolonged Care (int'l)
[2024-09-18] MEDS: MIDAZOLAM HCL 1 MG/ML 2ML VIAL IV PRN (01:10)
--- NOTE | 2024-09-18 01:11 | Emergency Department Note ---
ED Visit Note I was asked for assistance from the ICU staff for intubation. Patient has been in the ICU for COPD exacerbation. Patient over the past few hours has been increasingly short of breath, was on BiPAP but not tolerating. Now she is sedated and needs airway protection. She is currently tachypneic. Endotracheal Intubation Indication airway protection, COPD observation, failed BiPAP The patient was on 100% oxygen via NRB prior to the procedure. Suction, airway equipment, RSI drugs, respiratory equipment, and appropriate personnel were prepared prior to the initiation of the procedure. A time out was taken. Induction was performed with succinylcholine and ketamine. After observing the clinical benefit of the medications, the airway was easily visualized utilizing a video laryngoscopy. A 7.5 size ETT tube was placed atraumatically to 24 cm using standard technique. The cuff inflated without signs of malfunction. There were bilateral breath sounds, positive colormetric change, no gastric sounds, a good capnography waveform, and post procedure pulse oximetry was 100%. Post intubation sedation and paralysis was administered using propofol. There were no complications. Chest Xray independently interpreted by me showing ET tube about 4 cm from rolf, no pneumothorax, or pleural effusions. .
[2024-09-18] MEDS: NOREPINEPHRINE/D5W 4 MG/250 ML PLCT IV SCH (01:20)
[2024-09-18] MEDS: RAPID SEQUENCE INDUCTION BAG ONE (01:32)
[2024-09-18 01:33] LABS: iSTAT Allen Test Pass; iSTAT Art Bld Gas pCO2 Correct 59 mmHg (35-46); iSTAT Art Bld Gas pH Corrected 7.228 (7.35-7.45); iSTAT Arterial Blood Gas HCO3 25 meg/L (19-24); iSTAT Arterial Blood Gas pCO2 65 mmHg (35-46); iSTAT Arterial Blood Gas pO2 206 mmHg (80-95); iSTAT Arterial Blood Gas pO2 C 194; iSTAT Carbon Dioxide 27 mmol/L (24-31); iSTAT FiO2 50 %; iSTAT Hematocrit 40 % (37-47); iSTAT Hemoglobin 13.6 g/dl (12.0-16.0); iSTAT Potassium 5.1 mmol/L (3.3-5.0); iSTAT Sample Type Arterial; iSTAT Site L Radial; iSTAT Sodium 132 mmol/L (135-144); iSTAT SpO2 100
[2024-09-18] MEDS ORDERED: STAT IV Infusion **Titration per Protocol STA ×3 (01:50→08:22)
[2024-09-18] MEDS: propofoL 1,000 MG/100 ML VIAL IV SCH (01:50)
[2024-09-18] MEDS ORDERED: PROPOFOL BOLUS FROM BAG IV PRN (01:50)
[2024-09-18] MEDS: NOREPINEPHRINE/D5W 4 MG/250 ML IV ONE (02:06)
[2024-09-18] MEDS: PROPOFOL IV EMULSION 10 MG/ML 100 ML VIAL IV ONE (02:06)
--- NOTE | 2024-09-18 02:29 | XRay Report ---
EXAM: XR KUB/Abdomen 1 view CLINICAL HISTORY: OB TUBE PLACEMENT F TECHNIQUE: X-ray image of the abdomen was obtained in supine positions. COMPARISON: Comparison with the previous study dated 09/16/2024. FINDINGS: NG tube is seen pushed downwards in comparison with the previous study with a side hole seen distal to the gastroesophageal junction with a distance of about 6cm in comparison with the previous study. Severe Emphysematous changes of both lungs. IMPRESSION: Normal position of NG tube with a side hole at a distance of about 6 cm from the gastroesophageal junction in comparison with previous study. Electronically signed by Clyde Gabriel 09-18-2024 02:29 AM
--- NOTE | 2024-09-18 02:46 | XRay Report ---
EXAM: XR chest 1V portable CLINICAL HISTORY: TECHNIQUE: X-ray image of the chest was obtained in 1 view: AP projection. COMPARISON: Previous X-ray study dated 09/17/2024 was reviewed. FINDINGS: Pulmonary Parenchyma: ET tube is seen slightly downwards with a distance to the rolf measuring about 3.9 cm in comparison to 5.7 cm in the previous study. severe hyperinflated both lungs with flattening of both hemidiaphragm. RIght lower para cardiac interstitial opacity which may suggest an ongoing infectious/ inflammatory process. diffuse bilateral increase interstitial markings. Blunting of left costophrenic angle denoting mild left-sided pleural effusion No collapse or pulmonary nodules are identified. Heart and Mediastinum: Heart size and shape are normal. No mediastinal widening or masses. No hilar or mediastinal lymphadenopathy. Bony Thorax: Bony thorax appears intact without fractures or deformities. Soft Tissues: Soft tissues overlying the chest wall are unremarkable. IMPRESSION: 1. ET tube is seen slightly pushed downwards the rolf with a distance measures about 3.9 cm in comparison with the previous study which was 5.7 cm from the rolf. 2. Right lower lung zone in para cardiac location, increased interstitial opacity which may denote ongoing infectious/ inflammatory processes for clinical correlation. ( new finding). 3. Severe emphysematous changes ( same finding). Electronically signed by Clyde Gabriel 09-18-2024 02:46 AM
--- NOTE | 2024-09-18 03:31 | XRay Report ---
Exam(s): XR CXR 1 VIEW EXAM: XR Chest, 1 View CLINICAL HISTORY: Reason for exam: resp distress. TECHNIQUE: Frontal view of the chest. COMPARISON: Single view of the chest September 17, 2024 IMPRESSION: 1. Interval extubation and removal of gastric drainage tube. 2. Worsening interstitial changes in the lungs which may relate to worsening interstitial pulmonary edema. 3. Small bilateral pleural effusions which may relate to volume overload. 4. Hyperinflated lungs which may relate to obstructive lung disease. Electronically signed by: Boo Duffy MD 09/18/24 03:30 AM
[2024-09-18 04:17] LABS: iSTAT Allen Test Pass; iSTAT Art Bld Gas pCO2 Correct 38 mmHg (35-46); iSTAT Art Bld Gas pH Corrected 7.424 (7.35-7.45); iSTAT Arterial Blood Gas HCO3 25 meg/L (19-24); iSTAT Arterial Blood Gas pCO2 38 mmHg (35-46); iSTAT Arterial Blood Gas pH 7.42 (7.35-7.45); iSTAT Arterial Blood Gas pO2 106 mmHg (80-95); iSTAT Arterial Blood Gas pO2 C 105; iSTAT Carbon Dioxide 26 mmol/L (24-31); iSTAT FiO2 30 %; iSTAT Hematocrit 37 % (37-47); iSTAT Hemoglobin 12.6 g/dl (12.0-16.0); iSTAT Potassium 4.4 mmol/L (3.3-5.0); iSTAT Sample Type Arterial; iSTAT Site L Radial; iSTAT Sodium 132 mmol/L (135-144); iSTAT SpO2 98
[2024-09-18] MEDS: fentaNYL citrate 2,500 MCG/250 ML BAG IV SCH (04:33)
[2024-09-18] MEDS: fentaNYL BOLUS from BAG IV PRN (04:33)
[2024-09-18 04:40] LABS: Hematocrit (blood only) 36.3 % (37.0-47.0); Hemoglobin 12.4 g/dl (12.0-16.0); Mean Corpuscular Hemoglobin 33.5 pg (25.0-34.0); Mean Corpuscular Hgb Conc 34.2 g/dL (32.0-36.0); Mean Corpuscular Volume 98.1 fL (80.0-100.0); Mean Platelet Volume 9.1 fL (9.4-12.4); Platelet Count 330 K/uL (130-400); RDW Standard Deviation 43.8 fL (36.4-46.3); White Blood Count 17.32 K/ul (4.8-10.8)
[2024-09-18] MEDS: SODIUM CHLORIDE 0.9% 1,000 ML IV ONE (04:50)
[2024-09-18 04:58] LABS: Chol HDL Ratio 1.8 (0-5); Magnesium 2.3 mg/dl (1.7-2.4); Phosphorus 2.8 mg/dl (2.5-4.9)
[2024-09-18 06:46] LABS: Albumin Globulin Ratio 1.8 (0.9-2); Albumin Level 3.5 gm/dl (3.4-5.0); BUN Creatinine Ratio 32.7 (10-20); Bilirubin,Total 0.7 mg/dl (0.2-1.0); Calcium 8.3 mg/dl (8.6-10.3); Creatinine Clr Calc Pharmacy 86.9 ml/min; Potassium 4.7 mmol/L (3.5-5.1); Total Protein 5.5 gm/dl (6.0-8.3)
[2024-09-18 07:20] LABS: Estimated Average Glucose 105 mg/dl; Hemoglobin A1C 5.3 % (4.5-5.6)
--- NOTE | 2024-09-18 08:28 | Critical Care Progress Note ---
Date of Service September 18, 2024 Assessment & Plan (1) Acute and chronic respiratory failure, unspecified whether with hypoxia or hypercapnia: (2) COPD exacerbation: (3) NSTEMI (non-ST elevated myocardial infarction): (4) Hypokalemia: (5) Hypomagnesemia: (6) Cachexia: Plan Impression: 59-year-old female with extensive history of tobacco and alcohol abuse and cachexia admitted with shortness of breath likely due to COPD exacerbation. Also found to have elevated troponin and decreased ejection fraction, possibly Takotsubo. 24-hour events: Patient developed increasing respiratory distress yesterday. Attempts were made to use mild sedation and noninvasive positive pressure ventilation but the patient was poorly tolerant despite multiple modalities and eventually required reintubation. Sedation with propofol and Precedex resulted in hypotension and she is currently maintained on fentanyl. Recommendations: 1. Neurologic: Continue sedation with fentanyl and add Versed. Continue high- dose thiamine and folate replacement as well as daily multivitamin. 2. Cardiovascular: Elevated troponin with decreased ejection fraction. Will give an additional 1 L crystalloid. Patient has severe peripheral vascular disease status post bilateral femoral bypass graft. Currently on heparin infusion. Additional workup and evaluation per cardiology. Will require cardiac catheterization at some point. Patient is chest pain-free. Management per cardiology 3. Pulmonary: Acute exacerbation of COPD with hypoxemic and hypercarbic respiratory failure. Patient failed a trial of extubation yesterday. Continue budesonide Perforomist and as needed Xopenex Atrovent. Continue Solu-Medrol at 40 mg IV every 8 currently. Continue doxycycline for acute exacerbation of COPD. Would pursue at least 24 to 36 hours of mechanical ventilation to improve respiratory mechanics prior to pursuing repeat extubation 4. GI: Nutritional consult given her profound cachexia (body mass index of 15). Reinitiate enteric feeding 5. Renal: Electrolytes repleted. Kidney function normal. Volume status acceptable. 6. Endocrine: Glycemic control per protocol. 7. Heme-onc: No current issues. Heparin infusion for cardiac disease. 8. ID: Would continue doxycycline for acute exacerbation of COPD and follow clinically. Patient remains critically ill at this point in time with multiple life- threatening issues. A total of 42 minutes in critical care time was spent in evaluation management stabilization of this patient Admission and Anticipated Discharge Date Admission Date: September 16, 2024 Subjective Patient seen and examined. EMR reviewed. Discussed with overnight critical care ANGIE and with bedside critical care nurse. 24-hour events noted. Patient is intubated and sedated Review of Systems Review of Systems: Unobtainable due to endotracheal tube Physical Exam Constitutional: + acute distress and + cachectic Neck: trachea midline, no thyromegaly Respiratory: no respiratory distress, no labored breathing and not tachypneic Auscultation: + wheezes Cardiovascular: RRR, no murmur, no edema Gastrointestinal (Abdomen): normal bowel sounds, soft, nontender, no hepa tosplenomegaly Musculoskeletal: Extremities: extremities normal to inspection Skin: + mottling and + purpura Lymphatic: no cervical lymphadenopathy Results & Data Results & Data Vital Signs (Past 12 Hours) Vital Signs Temp Pulse Pulse Resp BP BP Pulse Ox 09/18/24 08:00 96 H 28 H 111/77 98 09/18/24 07:45 97 H 28 H 104/73 98 09/18/24 07:30 100 H 28 H 120/81 98 09/18/24 07:20 99 H 28 H 99 09/18/24 07:15 99 H 28 H 119/80 97 09/18/24 07:00 113 H 29 H 147/101 H 100 09/18/24 07:00 09/18/24 06:45 103 H 122/81 09/18/24 06:00 36.5 C 98 H 112/74 99 09/18/24 05:00 36.5 C 102 H 22 109/77 99 09/18/24 05:00 09/18/24 04:40 119 H 29 H 99 09/18/24 04:00 119 H 28 H 89/66 L 98 09/18/24 03:45 117 H 23 93/69 L 100 09/18/24 03:30 118 H 28 H 100/60 100 09/18/24 02:45 80/63 L 09/18/24 02:42 120 H 28 H 100 09/18/24 02:35 84/60 L 09/18/24 02:35 84/60 L 09/18/24 02:35 84/60 L 09/18/24 02:30 123 H 28 H 69/52 L 100 09/18/24 02:15 63/47 L 09/18/24 02:15 63/47 L 09/18/24 02:00 120 H 28 H 67/37 L 99 09/18/24 01:57 EST 116 H 28 H 90/66 L 94 09/18/24 01:51 EST 09/18/24 01:46 EST 109/78 09/18/24 01:36 EST 118 H 28 H 109/78 100 09/18/24 01:30 EST 124 H 28 H 75/58 L 100 09/18/24 01:00 EST 122 H 21 73/51 L 100 09/18/24 01:52 EDT 09/18/24 01:34 EDT 28 H 09/18/24 01:30 EDT 115 H 24 100 09/17/24 23:53 116 H 09/17/24 23:30 116 H 21 125/92 100 09/17/24 22:35 36.5 C 120 H 28 H 154/95 H 96 09/17/24 21:50 135 H 31 H 98 09/17/24 21:30 140 H 19 98 O2 Del Method O2 Flow Rate FiO2 09/18/24 08:00 Mechanical Vent 30 09/18/24 07:45 Mechanical Vent 30 09/18/24 07:30 Mechanical Vent 30 09/18/24 07:20 30 09/18/24 07:15 Mechanical Vent 30 09/18/24 07:00 Mechanical Vent 30 09/18/24 07:00 30 09/18/24 06:45 09/18/24 06:00 Mechanical Vent 100 09/18/24 05:00 Mechanical Vent 30 09/18/24 05:00 30 09/18/24 04:40 30 09/18/24 04:00 Mechanical Vent 40 09/18/24 03:45 Mechanical Vent 40 09/18/24 03:30 Mechanical Vent 40 09/18/24 02:45 09/18/24 02:42 09/18/24 02:35 09/18/24 02:35 09/18/24 02:35 09/18/24 02:30 Mechanical Vent 09/18/24 02:15 09/18/24 02:15 09/18/24 02:00 Mechanical Vent 09/18/24 01:57 EST Mechanical Vent 09/18/24 01:51 EST 50 09/18/24 01:46 EST 09/18/24 01:36 EST Mechanical Vent 09/18/24 01:30 EST Mechanical Vent 09/18/24 01:00 EST Mechanical Vent 09/18/24 01:52 EDT 50 09/18/24 01:34 EDT 40 09/18/24 01:30 EDT 50 09/17/24 23:53 09/17/24 23:30 CPAP 40 09/17/24 22:35 BiPAP 40 09/17/24 21:50 40 09/17/24 21:30 Nasal Cannula 2 Critical Care Results & Data Vital Signs (Past 12 Hours) Vital Signs Temp Pulse Pulse Resp BP BP Pulse Ox 09/18/24 08:00 96 H 28 H 111/77 98 09/18/24 07:45 97 H 28 H 104/73 98 09/18/24 07:30 100 H 28 H 120/81 98 09/18/24 07:20 99 H 28 H 99 09/18/24 07:15 99 H 28 H 119/80 97 09/18/24 07:00 113 H 29 H 147/101 H 100 09/18/24 07:00 09/18/24 06:45 103 H 122/81 09/18/24 06:00 36.5 C 98 H 112/74 99 09/18/24 05:00 36.5 C 102 H 22 109/77 99 09/18/24 05:00 09/18/24 04:40 119 H 29 H 99 09/18/24 04:00 119 H 28 H 89/66 L 98 09/18/24 03:45 117 H 23 93/69 L 100 09/18/24 03:30 118 H 28 H 100/60 100 09/18/24 02:45 80/63 L 09/18/24 02:42 120 H 28 H 100 09/18/24 02:35 84/60 L 09/18/24 02:35 84/60 L 09/18/24 02:35 84/60 L 09/18/24 02:30 123 H 28 H 69/52 L 100 09/18/24 02:15 63/47 L 09/18/24 02:15 63/47 L 09/18/24 02:00 120 H 28 H 67/37 L 99 09/18/24 01:57 EST 116 H 28 H 90/66 L 94 09/18/24 01:51 EST 09/18/24 01:46 EST 109/78 09/18/24 01:36 EST 118 H 28 H 109/78 100 09/18/24 01:30 EST 124 H 28 H 75/58 L 100 09/18/24 01:00 EST 122 H 21 73/51 L 100 09/18/24 01:52 EDT 09/18/24 01:34 EDT 28 H 09/18/24 01:30 EDT 115 H 24 100 09/17/24 23:53 116 H 09/17/24 23:30 116 H 21 125/92 100 09/17/24 22:35 36.5 C 120 H 28 H 154/95 H 96 09/17/24 21:50 135 H 31 H 98 09/17/24 21:30 140 H 19 98 O2 Del Method O2 Flow Rate FiO2 09/18/24 08:00 Mechanical Vent 30 09/18/24 07:45 Mechanical Vent 30 09/18/24 07:30 Mechanical Vent 30 09/18/24 07:20 30 09/18/24 07:15 Mechanical Vent 30 09/18/24 07:00 Mechanical Vent 30 09/18/24 07:00 30 09/18/24 06:45 09/18/24 06:00 Mechanical Vent 100 09/18/24 05:00 Mechanical Vent 30 09/18/24 05:00 30 09/18/24 04:40 30 09/18/24 04:00 Mechanical Vent 40 09/18/24 03:45 Mechanical Vent 40 09/18/24 03:30 Mechanical Vent 40 09/18/24 02:45 09/18/24 02:42 09/18/24 02:35 09/18/24 02:35 09/18/24 02:35 09/18/24 02:30 Mechanical Vent 09/18/24 02:15 09/18/24 02:15 09/18/24 02:00 Mechanical Vent 09/18/24 01:57 EST Mechanical Vent 09/18/24 01:51 EST 50 09/18/24 01:46 EST 09/18/24 01:36 EST Mechanical Vent 09/18/24 01:30 EST Mechanical Vent 09/18/24 01:00 EST Mechanical Vent 09/18/24 01:52 EDT 50 09/18/24 01:34 EDT 40 09/18/24 01:30 EDT 50 09/17/24 23:53 09/17/24 23:30 CPAP 40 09/17/24 22:35 BiPAP 40 09/17/24 21:50 40 09/17/24 21:30 Nasal Cannula 2 Lab & Micro Results (Past 24 Hours) RBC 3.70 M/uL (4.20-5.40) L 09/18/24 WBC 17.32 K/ul (4.8-10.8) H 09/18/24 Hgb 12.4 g/dl (12.0-16.0) 09/18/24 Hct 36.3 % (37.0-47.0) L 09/18/24 MCV 98.1 fL (80.0-100.0) 09/18/24 MCH 33.5 pg (25.0-34.0) 09/18/24 MCHC 34.2 g/dL (32.0-36.0) 09/18/24 RDW Standard Deviation 43.8 fL (36.4-46.3) 09/18/24 RDW Coefficient of Variation 12.0 % (11.5-14.5) 09/18/24 Plt Count 330 K/uL (130-400) 09/18/24 MPV 9.1 fL (9.4-12.4) L 09/18/24 Na 135 mmol/L (136-145) L 09/18/24 K 4.7 mmol/L (3.5-5.1) 09/18/24 Cl 102 mmol/L (98-107) 09/18/24 CO2 23 mmol/L (21-32) 09/18/24 Anion Gap 10 (3-11) 09/18/24 BUN 16 mg/dl (6-23) 09/18/24 Creatinine 0.49 mg/dl (0.6-1.2) L 09/18/24 BUN/Creatinine Ratio 32.7 (10-20) H 09/18/24 Glu 146 mg/dl (70-99(Fasting)) H 09/18/24 Ca 8.3 mg/dl (8.6-10.3) L 09/18/24 Phosphorus Level 2.8 mg/dl (2.5-4.9) 09/18/24 Total Bilirubin 0.7 mg/dl (0.2-1.0) 09/18/24 AST 76 U/L (13-39) H 09/18/24 ALT 44 U/L (7-52) 09/18/24 Alkaline Phosphatase 65 U/L (34-104) 09/18/24 TP 5.5 gm/dl (6.0-8.3) L 09/18/24 Albumin 3.5 gm/dl (3.4-5.0) 09/18/24 Globulin 2.0 gm/dl (2.5-4.0) L 09/18/24 Albumin/Globulin Ratio 1.8 (0.9-2) 09/18/24 Mg 2.3 mg/dl (1.7-2.4) 09/18/24 04:18 Calcium Level 8.3 mg/dl (8.6-10.3) L 09/18/24 04:18 Venous Blood pH 7.14 (7.36-7.41) L 09/17/24 22:26 Venous Blood Partial Pressure CO2 65 mmHg (38-50) H 09/17/24 22 :26 Venous Blood Partial Pressure O2 46 mmHg 09/17/24 22:26 Venous Blood HCO3 22 mmol/L 09/17/24 22:26 Venous Blood Base Excess -7.9 mEq/L 09/17/24 22:26 Venous Blood Oxygen Saturation 60.6 % 09/17/24 22:26 Pierce Test Pass 09/18/24 03:59 Microbiology 09/17/24 Unknown Gram Stain - Final Sputum, Expectorated Diagnostic Findings (Past 24 Hours) Chest X-Ray 09/17/24 07:00 XR chest 1V portable HISTORY: 59 years-old Female Resp failure acute respiratory failure COMPARISON: 09/16/2024 TECHNIQUE: AP view of the chest FINDINGS: Cardiac silhouette is normal. Endotracheal tube overlies midline, 5.7 cm superior to the rolf. Distal tip of enteric tube projects over the mid stomach. No pneumothorax, large pleural effusion or overt pulmonary edema. There is improvement of the previously seen pulmonary edema. Prove aeration of the lung bases. Emphysema with chronic interstitial coarsening. IMPRESSION: 1. Emphysema with improvement of the pulmonary edema with improved aeration of the lung bases. 2. Lines and tubes as above. 3. No pneumothorax. ACT 112: Negative or not required by law. The above report was generated using voice recognition software. It may contain grammatical, syntax or spelling errors. Electronically signed by: Vikas Maedra M.D. 09/17/2024 11:29 AM Chest X-Ray 09/17/24 22:15 Exam(s): XR CXR 1 VIEW EXAM: XR Chest, 1 View CLINICAL HISTORY: Reason for exam: resp distress. TECHNIQUE: Frontal view of the chest. COMPARISON: Single view of the chest September 17, 2024 IMPRESSION: 1. Interval extubation and removal of gastric drainage tube. 2. Worsening interstitial changes in the lungs which may relate to worsening interstitial pulmonary edema. 3. Small bilateral pleural effusions which may relate to volume overload. 4. Hyperinflated lungs which may relate to obstructive lung disease. Electronically signed by: Boo Duffy MD 09/18/24 03:30 AM Chest X-Ray 09/18/24 00:44 EXAM: XR chest 1V portable CLINICAL HISTORY: TECHNIQUE: X-ray image of the chest was obtained in 1 view: AP projection. COMPARISON: Previous X-ray study dated 09/17/2024 was reviewed. FINDINGS: Pulmonary Parenchyma: ET tube is seen slightly downwards with a distance to the rolf measuring about 3.9 cm in comparison to 5.7 cm in the previous study. severe hyperinflated both lungs with flattening of both hemidiaphragm. RIght lower para cardiac interstitial opacity which may suggest an ongoing infectious/ inflammatory process. diffuse bilateral increase interstitial markings. Blunting of left costophrenic angle denoting mild left-sided pleural effusion No collapse or pulmonary nodules are identified. Heart and Mediastinum: Heart size and shape are normal. No mediastinal widening or masses. No hilar or mediastinal lymphadenopathy. Bony Thorax: Bony thorax appears intact without fractures or deformities. Soft Tissues: Soft tissues overlying the chest wall are unremarkable. IMPRESSION: 1. ET tube is seen slightly pushed downwards the rolf with a distance measures about 3.9 cm in comparison with the previous study which was 5.7 cm from the rolf. 2. Right lower lung zone in para cardiac location, increased interstitial opacity which may denote ongoing infectious/ inflammatory processes for clinical correlation. ( new finding). 3. Severe emphysematous changes ( same finding). Electronically signed by Clyde Gabriel 09-18-2024 02:46 AM KUB X-Ray 09/18/24 00:54 EXAM: XR KUB/Abdomen 1 view CLINICAL HISTORY: OB TUBE PLACEMENT JMF TECHNIQUE: X-ray image of the abdomen was obtained in supine positions. COMPARISON: Comparison with the previous study dated 09/16/2024. FINDINGS: NG tube is seen pushed downwards in comparison with the previous study with a side hole seen distal to the gastroesophageal junction with a distance of about 6cm in comparison with the previous study. Severe Emphysematous changes of both lungs. IMPRESSION: Normal position of NG tube with a side hole at a distance of about 6 cm from the gastroesophageal junction in comparison with previous study. Electronically signed by Clyde Gabriel 09-18-2024 02:29 AM I & O Totals 24 Hours 09/17/24 09/18/24 09/19/24 07:59 06:59 06:59 Intake Total 1003.140 / 1003.140 Output Total 105 / 105 Balance 898.140 / 898.140 Cumulative 09/16/24 09:09 thru 09/18/24 08:17 Intake Total 4004.743 Output Total 1736 Balance 2268.743 RT Ventilator Mngmt (Last Documented) Ventilator Ordered Settings Ventilator Support Mode Assist Control 09/18/24 07:20 Respiratory Rate 28 09/18/24 08:00 Ventilator Tidal Volume 350 09/18/24 07:20 Setting Minute Ventilation 9.7 09/18/24 07:20 Ventilator Positive Pressure 8 09/17/24 07:25 Support Setting Positive End Expiratory 5 09/18/24 07:20 Pressure Fraction of Inspired Oxygen 30 09/18/24 08:00 Machine Comment fi02 titrated to 30% 09/18/24 04:40 Ventilator - PT Measurements Respiratory Rate 28 Exhaled Tidal Volume 350 Minute Ventilation 9.7 Peak Inspiratory Airway 24 Pressure Plateau Pressure 16 Respiratory Cycle Inspiratory: 1:2.1 Expiratory Ratio Inspiratory Phase Time 0.70 End-Tidal CO2 22 Static Lung Compliance 31.82 Dynamic Lung Compliance 18.42 Normal Static Lung Compliance 45.00 Patient Measurements Comment pt reintubated at this time Coding Level of Care Code 44291 CRITICAL CARE 1ST 30-74M Diagnoses Acute on chronic respiratory failure with hypoxia J96.21 Respiratory failure complication: hypoxia COPD exacerbation J44.1 NSTEMI (non-ST elevated myocardial infarction) I21.4 Hypokalemia E87.6 Hypomagnesemia E83.42 Cachexia R64 (1) Acute and chronic respiratory failure, unspecified whether with hypoxia or hypercapnia Respiratory failure complication: hypoxia Qualified Code(s): J96.21 - Acute and chronic respiratory failure with hypoxia
[2024-09-18] MEDS: MIDAZOLAM HCL 125 MG/250 ML BAG IV SCH (08:45)
[2024-09-18] MEDS: LACTATED RINGER'S 1,000 ML IV ONE (08:52)
[2024-09-18] MEDS: LACTATED RINGER'S 1,000 ML IV SCH (09:01)
[2024-09-18] MEDS: TUBE FEEDING WATER FLUSH GT SCH (10:32)
--- NOTE | 2024-09-18 10:42 | XRay Report ---
XR chest 1V portable HISTORY: 59 years-old Female resp failure acute respiratory failure COMPARISON: 09/18/2024 TECHNIQUE: AP view of the chest FINDINGS: Cardiac silhouette is normal. Endotracheal tube overlies the midline, 4.5 cm superior to the rolf. Enteric tube courses into the stomach. No pneumothorax. Chronic interstitial coarsening and emphysema . Mild right basilar opacities are again noted. Bones appear grossly intact. IMPRESSION: 1. Endotracheal and enteric tube placement as above. 2. Pulmonary emphysema with persistent right basilar opacities. 3. No pneumothorax. ACT 112: Negative or not required by law. The above report was generated using voice recognition software. It may contain grammatical, syntax o r spelling errors. Electronically signed by: Vikas Madera M.D. 09/18/2024 10:41 AM
[2024-09-18] MEDS: PEPTAMEN 1.5 CAL 1,000 ML BAG GT SCH (10:44)
--- NOTE | 2024-09-18 12:10 | Cardiology Progress Note ---
Date of Service September 18, 2024 Assessment & Plan (1) Acute and chronic respiratory failure, unspecified whether with hypoxia or hypercapnia: (2) NSTEMI (non-ST elevated myocardial infarction): (3) COPD exacerbation: (4) Hypokalemia: (5) Hypomagnesemia: (6) Acute heart failure with reduced ejection fraction (HFrEF, <= 40%) and combined systolic and diastolic dysfunction: Plan 09/16/24: Patient admitted with worsening SOB and chest tightness. HS troponin elevated at 2400 EKG demonstrating NSR with possible lateral T wave abnormality Echo with apical wall motion abnormality - possible ischemic vs Takotsubo She has multiple risk factors for CAD - PVD, tobacco abuse, HTN, dyslipidemia. She was treated for COPD exacerbation 3 days ago and given Augmentin with worsening of her chronic diarrhea. Mag critically low at 0.7. Supplements started with IV mag Potassium low at 2.6 - supplements ordered Given her chest pain, wall motion abnormalities, elevated troponin, will need to proceed with diagnostic cardiac cath today once her electrolytes have stabilized and her pulm status has improved. Supplemental O2 ordered Nebulizer treatment provided in ER for wheezing She took morning dose of ASA and plavix. Nitro paste ordered. Keep NPO except meds Recheck electrolytes in 2 hours prior to cath. Since patient's initial presentation, she was transferred from the emergency department to the PCU, room 244. She then developed progressive respiratory distress and a rapid response alert was called. As part of the response team, I recommended 20 mg of IV furosemide, patient also received an additional dose of 40 mg of IV Solu-Medrol. Her IV fluids and IV electrolyte replacement were discontinued. The patient did not tolerate initial trials of oxy mask or BiPAP due to sensation of claustrophobia. She was subsequently transferred to the first floor ICU. In addition to the previously placed topical nitroglycerin, a dose of sublingual nitroglycerin was administered with no improvement in symptoms. An EKG was performed at 1422, it was technically limited due to baseline artifact, but appears to reveal similar poor R wave progression in the anterior precordial leads without ST segment elevation. The patient's severe left ventricular systolic dysfunction is at a proportion to the relatively small elevation in the troponin I. Question if patient has had progressive respiratory distress due to acute exacerbation of COPD with superimposed stress-induced cardiomyopathy with or without underlying obstructive coronary heart disease. Is felt that if this was an acute coronary syndrome as a culprit, she would have a isabela ST elevation which does not appear present. Repeat EKG obtained post intubation, 09/16/2024 1524 and reviewed/interpreted independently: Sinus tachycardia 122 bpm present with mild J-point elevation limited to leads V3 and V4 without reciprocal changes. Case reviewed with interventional cardiology. Will proceed with ongoing optimization. Await results of the repeat basic metabolic panel and magnesium level with regards to electrolyte abnormalities. I will replace accordingly. If potassium level is stable, will plan on initiating metoprolol via her orogastric tube, initially with metoprolol to tartrate as it is crushable, and post intubation we will transition her to metoprolol succinate given LV systolic dysfunction. 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 Wraparound LAD territory injury however also not excluded. Will initiate heparin infusion now that intubation performed successfully. 09/17/24 Patient managed by critical care overnight. She was successfully extubated this morning and maintaining oxygen saturations on 2 L NC No reported chest pain. EKG this morning with evidence of anterior infarct and T wave inversions in anterolateral leads Continue IV heparin Continue nitro paste Increase metoprolol tartrate to 25 mg q6 hours for HR support. Currently sinus tachycardia in the 120's. HS troponin peaked at 2761 and now 1087 this morning. LVEF reduced at 25%. Consider stress induced cardiomyopathy vs ischemic. Will need respiratory status optimized and then likely cardiac cath early next week. Continue ASA, plavix (taking for PVD), and statin Ongoing wheezing noted on evaluation. Appreciate recommendations from critical care/pulm team. 09/18/24: Unfortunately patient developed worsening respiratory status last night. Intolerant to BIPAP therapy and no improvement with steroids/nebs. Decision was made to re-intubate. Currently resting comfortable. Awake. No chest pain. She was significantly hypotensive through the night and given IV fluids. Nitro paste discontinued and metoprolol held. This morning vitals are improved. Resume metoprolol as able and BP allows Continue IV heparin for NSTEMI and reduced LVEF. Possible stress induced cardiomyopathy. Consider repeat limited echo when patient is extubated. Cardiac cath when respiratory status improved. Continue ASA/statin. Monitor fluid status closely with severely reduced LVEF. Her current respiratory status is likely due to severe COPD, non cardiac. Repeat chest xray reviewed and signs of severe emphysema noted. no signs of CHF Case discussed with Dr. Marie I spent a total of 35 minutes on the date of service in preparation, delivery, and documentation of the care provided to this patient, excluding any time spent in the performance of separately billed services. Jessica Zamora PA-C Department of Cardiology, [facility] This chart was completed in part utilizing Speech Voice Recognition Software. Grammatical errors, random word insertions, pronoun errors, and incomplete sentences are an occasional consequence of this system due to software limitations, ambient noise, and hardware issues. Any formal questions or concerns about the content, text, or information contained within the body of this dictation should be directly addressed to the provider for clarification. Admission and Anticipated Discharge Date Admission Date: September 16, 2024 Supervising Physician Co-Signing Physician Notes Attending attestation: Case reviewed with the advanced practitioner. I have personally performed a history and physical examination on the patient. I have reviewed the advanced practitioner's documentation on the date of service referenced in note, and I agree with, and take responsibility for the plan of care. 59-year-old female with known history of COPD, smoker, peripheral vascular disease post bifemoral bypass, hypertension, dyslipidemia presents with hypokalemia chest tightness noted to have significant frequently elevated troponins 2700 . She developed worsening respiratory distress and required intubation on Thursday .echocardiogram showed severe systolic dysfunction , with basal hyperkinesis and distal to mid hypokinesis concern for ischemic/Takotsubo cardiomyopathy. On heparin drip. 09/17 Overnight patient did good today morning was extubated. Later in the night respiratory status worsened and she required to be reintubated 09/18 intubated awake and communicating by writing. Reports that she is very anxious and panics when she needs a breathing treatment. requesting for something to calm her down Assessment and plan Non-STEMI with EF of 25% possible stress-induced/ischemic continue with heparin drip EKG 09/17 shows T wave inversions in the anterior leads, troponins have been downtrending electrolytes stable will rachana needs cath next week when stable from respiratory standpoint is very anxious and requesting for meds to relax with low EF would be cautious with IV fluids, consider holding fluids I spent a total of 15 minutes coordinating, documenting, and providing care for this patient excluding time spent in the performance of separately billed services or time spent by another provider. Subjective Patient re-intubated Thursday evening due to worsening respiratory status, respiratory acidosis noted on ABG's. Intolerant of BiPAP therapy. Decision was made to re-intubate. Patient was hypotensive earlier and nitro removed and metoprolol on hold. her HR is currently in the 90's. BP improved. This morning, patient is awake/alert. Able to shake her head yes/no in regards to questions. She denies chest pain. Ongoing audible wheezing noted. No edema. Review of Systems Review of Systems: Unobtainable due to endotracheal tube Physical Exam Constitutional: + ill appearing and + thin Neck: trachea midline, no thyromegaly Respiratory: + abnormal respiratory effort (Patient i ntubated) Auscultation: + wheezes Cardiovascular: Rate/Rhythm: regular rhythm and + tachycardic Heart Sounds: normal S1 and normal S2; no murmur Vessels: no JVD Extremities: no edema Gastrointestinal (Abdomen): normal bowel sounds, soft, nontender, no hepatosplenomegaly Skin: no rashes, warm and dry Neurologic: PERRL, EOMI, accommodation nl, no face palsy, no dysarthria Psychiatric: A+Ox3, euthymic affect Results & Data Vital Signs (Past 12 Hours) Vital Signs Temp Pulse Resp BP Pulse Ox O2 Del Method FiO2 09/18/24 11:30 86 28 H 106/69 99 Mechanical Vent 30 09/18/24 11:03 90 28 H 119/77 99 Mechanical Vent 30 09/18/24 11:00 30 09/18/24 10:59 98 H 30 H 100 30 09/18/24 10:00 89 28 H 117/82 100 Mechanical Vent 30 09/18/24 09:30 89 28 H 121/82 100 Mechanical Vent 30 09/18/24 09:00 96 H 28 H 123/85 99 Mechanical Vent 30 09/18/24 08:00 96 H 28 H 111/77 98 Mechanical Vent 30 09/18/24 07:45 97 H 28 H 104/73 98 Mechanical Vent 30 09/18/24 07:30 100 H 28 H 120/81 98 Mechanical Vent 30 09/18/24 07:20 99 H 28 H 99 30 09/18/24 07:15 99 H 28 H 119/80 97 Mechanical Vent 30 09/18/24 07:00 Mechanical Vent 30 09/18/24 07:00 36.5 C 09/18/24 07:00 113 H 29 H 147/101 H 100 Mechanical Vent 30 09/18/24 07:00 30 09/18/24 06:45 103 H 122/81 09/18/24 06:00 36.5 C 98 H 112/74 99 Mechanical Vent 100 09/18/24 05:00 36.5 C 102 H 22 109/77 99 Mechanical Vent 30 09/18/24 05:00 30 09/18/24 04:40 119 H 29 H 99 30 09/18/24 04:00 119 H 28 H 89/66 L 98 Mechanical Vent 40 09/18/24 03:45 117 H 23 93/69 L 100 Mechanical Vent 40 09/18/24 03:30 118 H 28 H 100/60 100 Mechanical Vent 40 09/18/24 02:45 80/63 L 09/18/24 02:42 120 H 28 H 100 09/18/24 02:35 84/60 L 09/18/24 02:35 84/60 L 09/18/24 02:35 84/60 L 09/18/24 02:30 123 H 28 H 69/52 L 100 Mechanical Vent 09/18/24 02:15 63/47 L 09/18/24 02:15 63/47 L 09/18/24 02:00 120 H 28 H 67/37 L 99 Mechanical Vent 09/18/24 01:57 EST 116 H 28 H 90/66 L 94 Mechanical Vent 09/18/24 01:51 EST 50 09/18/24 01:46 EST 109/78 09/18/24 01:36 EST 118 H 28 H 109/78 100 Mechanical Vent 09/18/24 01:30 EST 124 H 28 H 75/58 L 100 Mechanical Vent 09/18/24 01:00 EST 122 H 21 73/51 L 100 Mechanical Vent 09/18/24 01:52 EDT 50 09/18/24 01:34 EDT 28 H 40 09/18/24 01:30 EDT 115 H 24 100 50 Laboratory Results Cardiac Enzymes 09/18/24 Range/Units 04:18 AST 76 H (13-39) U/L Lipids 09/18/24 Range/Units 04:18 Triglycerides 138 (0-150) mg/dl Cholesterol 128 (0-200) mg/dl HDL Cholesterol 72 mg/dl Cholesterol/HDL Ratio 1.8 (0-5) CBC 09/18/24 Range/Units 04:18 WBC 17.32 H (4.8-10.8) K/ul RBC 3.70 L (4.20-5.40) M/uL Hgb 12.4 (12.0-16.0) g/dl Hct 36.3 L (37.0-47.0) % Plt Count 330 (130-400) K/uL Comprehensive Metabolic Panel 09/18/24 Range/Units 04:18 Sodium 135 L (136-145) mmol/L Potassium 4.7 (3.5-5.1) mmol/L Chloride 102 (98-107) mmol/L Carbon Dioxide 23 (21-32) mmol/L BUN 16 (6-23) mg/dl Creatinine 0.49 L (0.6-1.2) mg/dl Glucose 146 H (70-99(Fasting)) mg/dl Calcium 8.3 L (8.6-10.3) mg/dl AST 76 H (13-39) U/L ALT 44 (7-52) U/L Alkaline Phosphatase 65 (34-104) U/L Total Protein 5.5 L (6.0-8.3) gm/dl Albumin 3.5 (3.4-5.0) gm/dl Intake and Output 09/17/24 09/18/24 09/18/24 23:59 06:59 14:59 Intake Total 2083. / Output Total 145 / 145 Balance 1938.213 / 193.213 Intake: IV / Heparin Sodium/Dextrose 25,000 units In 500 ml @ 750 UNITS/HR 15 mls/hr IV .Q24H [facility] Rx#: [id number] Lactated Ringer's 1,000 ml @ 1000 / 1000 999 mls/hr IV .Q1H1M ONE Rx#: [id number] Norepinephrine/D5w 4 mg In 250 22.588 / 22.588 ml @ 0.04 MCG/KG/MIN 6.735 mls/ hr IV .Q24H [facility] Rx#:[id number] Sodium Chloride 0.9% 1,000 ml @ 1000 / 1000 500 mls/hr IV .Q2H ONE Rx#: [id number] dexMEDEtomidine 200 mcg In 50 ml @ 1.2 MCG/KG/HR 13.47 mls/hr IV .Q3H43M [facility] Rx#:[id number] fentaNYL citrate 2,500 mcg In 1.625 / 1.625 250 ml @ 50 MCG/HR 5 mls/hr IV .Q50H [facility] Rx#:[id number] propofoL 1,000 mg In 100 ml @ 0 0 / 0 MCG/KG/MIN IV .Q0M [facility] Rx#: [id number] Tube Irrigant 60 / 60 Output: Urine Amount (Catheter) 145 / 145 Dolan/Indwelling 145 / 145 Other: Weight 44 kg Patient Weight 09/19/24 06:59 Weight 44 kg Diagnostic Findings Telemetry reviewed: Currently NSR in the 90's. HR's improved over the last 24 hours. She had 2 runs of non sustained VT yesterday afternoon, lasting about 6 beats Medications Administered Current Inpatient Medications Acetaminophen (Acetaminophen 325 Mg Tab) 650 mg PO Q4H PRN PRN Reason: Pain or Fever Stop: 10/16/24 13:24 Aspirin (Aspirin 81 Mg Chew) 81 mg PO DAILY [facility] Stop: 10/17/24 08:59 Last Admin: 09/18/24 09:19 Dose: 81 mg Atorvastatin Calcium (Atorvastatin 20 Mg Tab) [facility] Stop: 10/16/24 15:44 Last Admin: 09/18/24 09:19 Dose: 20 mg Budesonide (Budesonide 0.5 Mg/2 Ml Vial (Pulmicort)) 0.5 mg NEB BIDR [facility] Stop: 10/16/24 18:59 Last Admin: 09/18/24 07:20 Dose: 0.5 mg Clopidogrel Bisulfate (Clopidogrel Bisulfate 75 Mg Tab) 75 mg PO QAM [facility] Stop: 10/17/24 08:59 Last Admin: 09/18/24 09:19 Dose: 75 mg Doxycycline Monohydrate (Doxycycline Susp 25 Mg/5 Ml 60ml) 100 mg PO BID@0700,1900 [facility] Stop: 09/23/24 18:59 Enteral Nutritional Formula (Peptamen 1.5 Jose Daniel 1,000 Ml Bag) 0 ml GT .See Protocol [facility]; Protocol Stop: 10/18/24 09:29 Last Admin: 09/18/24 10:44 Dose: 1,000 ml Fentanyl Citrate (Fentanyl Bolus From Bag) 50 mcg IV Q60M PRN PRN Reason: Pain or Agitation Stop: 10/02/24 04:19 Last Admin: 09/18/24 04:33 Dose: 50 mcg Folic Acid (Folic Acid 1 Mg Tab) 1 mg PO QAM [facility] Stop: 10/17/24 08:59 Last Admin: 09/18/24 09:20 Dose: 1 mg Formoterol Fumarate (Formoterol 20 Mcg/2 Ml Vial) 20 mcg NEB BIDR [facility] Stop: 10/16/24 18:59 Last Admin: 09/18/24 07:20 Dose: 20 mcg Methylprednisolone 40 mg/ (Syringe) 0.64 mls @ 1.5 mls/min IV Q8H [facility] Stop: 10/16/24 18:59 Last Admin: 09/18/24 10:33 Dose: 1.5 mls/min Heparin Sodium/Dextrose (Heparin Sodium/Dextrose) 25,000 units in 500 mls @ 15 mls/hr IV .Q24H [facility]; Protocol Stop: 10/16/24 16:14 Last Titration: 09/18/24 06:51 Dose: 750 units/hr, 15 mls/hr Norepinephrine Bitartrate (Levophed/D5w) 4 mg in 250 mls @ 0 mls/hr IV .Q0M [facility]; Protocol Stop: 10/18/24 01:59 Last Titration: 09/18/24 10:23 Dose: 0 mcg/kg/min, 0 mls/hr Fentanyl Citrate (Fentanyl Citrate) 2,500 mcg in 250 mls @ 5 mls/hr IV .Q50H [facility]; Protocol Stop: 10/02/24 04:29 Last Titration: 09/18/24 07:30 Dose: 50 mcg/hr, 5 mls/hr Midazolam HCl (Versed) 125 mg in 250 mls @ 2 mls/hr IV .Q96H [facility]; Protocol Stop: 10/18/24 08:29 Last Admin: 09/18/24 08:45 Dose: 1 mg/hr, 2 mls/hr Lactated Ringer's (Lr) 1,000 mls @ 80 mls/hr IV .[id number] [facility] Stop: 09/19/24 08:44 Last Admin: 09/18/24 09:01 Dose: 80 mls/hr Ipratropium Montrose (Ipratropium [place]rose Neb Soln 0.02% 0.5mg/2.5ml Vial) 0.5 mg NEB Q6R [facility] Stop: 10/16/24 13:24 Last Admin: 09/18/24 07:20 Dose: Not Given Lansoprazole (Lansoprazole 30 Mg Soltab) 30 mg PO QAM [facility] Stop: 10/16/24 15:59 Last Admin: 09/18/24 09:20 Dose: 30 mg Levalbuterol HCl (Levalbuterol 1.25 Mg/3 Ml Neb) 1.25 mg NEB Q6R [facility] Stop: 10/16/24 13:59 Last Admin: 09/18/24 07:20 Dose: Not Given Metoprolol Tartrate (Metoprolol Tartrate 25 Mg Tab) 25 mg PO Q6 [facility] Stop: 10/17/24 17:59 Last Admin: 09/18/24 03:49 Dose: Not Given Midazolam HCl (Midazolam Bolus From Bag) 2 mg IV Q60M PRN PRN Reason: Sedation Stop: 10/18/24 08:21 Miscellaneous (Icu Electrolyte Replacement Protocol) 1 each N/A BID@06,18 [facility]; Protocol Stop: 09/25/24 17:59 Multivitamins/Minerals (Multi Vit W/Minerals Liquid 15 Ml Udc) 15 ml PO QAM [facility] Stop: 10/19/24 08:59 Nitroglycerin (Nitroglycerin 2% Ointment 30gm Tube) 0.5 inch EXT Q6H [facility] Stop: 10/16/24 12:14 Last Admin: 09/18/24 03:49 Dose: Not Given Sterile Water (Tube Feeding Water Flush) 125 ml GT Q4H [facility] Stop: 10/18/24 09:29 Last Admin: 09/18/24 10:32 Dose: 125 ml Thiamine HCl (Thiamine Hcl 100 Mg Tab) 100 mg PO BID [facility] Stop: 10/16/24 20:59 Last Admin: 09/18/24 09:21 Dose: 100 mg (1) Acute and chronic respiratory failure, unspecified whether with hypoxia or hypercapnia Respiratory failure complication: hypoxia Qualified Code(s): J96.21 - Acute and chronic respiratory failure with hypoxia
--- NOTE | 2024-09-18 13:16 | Hospitalist Progress Note ---
Date of Service September 18, 2024 Assessment & Plan (1) COPD exacerbation: (2) Acute bronchitis: (3) Elevated troponin: (4) Hypomagnesemia: (5) Hypokalemia: Plan: 59-year-old female with history of COPD, hypertension, peripheral artery disease, GERD, smoker, drinker presenting with cough and shortness of breath times few days. Acute respiratory failure with hypoxia and hypercarbia Acute COPD exacerbation Failed outpatient treatment with Augmentin, prednisone, doxycycline prescribed 2 days ago -- CTA: No pulmonary emboli identified. Emphysema with bronchitis and mucous plugging. Mild intralobular septal thickening likely represents a component of pulmonary edema. 5 mm solid nodule of the basal right lower lobe. --BioFire: Negative -- S/P extubation on 09/17/2024 --Reintubated on 09/17/2024 due to worsening respiratory acidosis, distress --Continue IV Solu-Medrol, budesonide, Perforomist, nebs --Continue doxycycline Counseled to quit smoking Appreciate critical care input Aspiration precautions Vent management as per critical care team Takotsubo syndrome Pulmonary edema Secondary to above Suspected NSTEMI H/O peripheral vascular disease S/P bilateral femoral bypass graft --ECHO: Severe diffuse hypokinesis akinesis of the left ventricular the apical and mid levels with relative sparing of the basal segments. EF 25 to 30%. Right ventricle is hyperdynamic. Trace mitral, tricuspid regurgitation, mild to moderate pulmonary hypertension. --Lipid panel within normal limits -- Continue Plavix, atorvastatin --Added aspirin -- Continue IV heparin for now --Appreciate cardiology input --May need cardiac cath eventually --Will need repeat echo in 1 month Received IV Lasix Monitor volume status closely Nitroglycerin, metoprolol held due to hypotension Plan to resume metoprolol as able Right lower lobe pulmonary nodule Tobacco use disorder Counseled to quit smoking Needs follow-up as outpatient Hypomagnesemia Hypokalemia Reports chronic diarrhea after colorectal surgery HCTZ likely contributing as well Monitor and replete electrolytes as needed Lyme arthritis flare, Right hand Diagnosed by PCP a few days ago Currently on doxycycline course Tobacco use disorder Counseled to quit smoking Alcohol use Patient's last drink was a few days ago patient Started on Precedex due to agitation, leading to hypotension Wean off of pressors as able Continue IV fluids as needed to help with hypotension Continue thiamine, folic acid Monitor for withdrawal Other chronic conditions: Hypertension GERD Cachexia Continue home medications as able DVT Px: On IV heparin CODE STATUS Conditional code Admission and Anticipated Discharge Date Admission Date: September 16, 2024 Subjective Patient is seen and examined at bedside Patient got reintubated x-ray due to worsening respiratory distress/acidosis Currently on pressors being weaned off Remains intubated during my encounter this morning Unable to provide much history On IV heparin, no bleeding issues Shakes head no to chest/abdominal pain Nitroglycerin held due to hypotension Review of Systems Review of Systems: Unobtainable due to endotracheal tube Physical Exam Physical Exam: Physical Exam: Vitals signs as noted above General Appearance: Thin, frail, no apparent distress, + intubated Head: normocephalic, Atraumatic Eyes: normal inspection, EOMI Neck: supple, Trachea midline Respiratory/Chest: B/L coarse breath sounds, scattered wheezes, no accessory muscle use Cardiovascular: S1, S2, No murmur, tachycardia Abdomen/GI:Soft, Non tender, Bowel sounds present Extremities/Musculoskeletal:normal inspection, no edema Neurologic/Psych:AAOX3, grossly no focal neurological deficits Skin: normal color, warm Results & Data Results & Data Vital Signs (Past 12 Hours) Vital Signs Temp Pulse Pulse Resp BP Pulse Ox O2 Del Method 09/18/24 12:22 93 H 29 H 100 Mechanical Vent 09/18/24 12:06 83 28 H 110/72 99 Mechanical Vent 09/18/24 12:00 37.2 C 09/18/24 11:30 86 28 H 106/69 99 Mechanical Vent 09/18/24 11:03 90 28 H 119/77 99 Mechanical Vent 09/18/24 11:00 09/18/24 10:59 98 H 30 H 100 09/18/24 10:00 89 28 H 117/82 100 Mechanical Vent 09/18/24 09:30 89 28 H 121/82 100 Mechanical Vent 09/18/24 09:00 96 H 28 H 123/85 99 Mechanical Vent 09/18/24 08:00 96 H 28 H 111/77 98 Mechanical Vent 09/18/24 07:45 97 H 28 H 104/73 98 Mechanical Vent 09/18/24 07:30 100 H 28 H 120/81 98 Mechanical Vent 09/18/24 07:20 99 H 28 H 99 09/18/24 07:15 99 H 28 H 119/80 97 Mechanical Vent 09/18/24 07:00 Mechanical Vent 09/18/24 07:00 36.5 C 09/18/24 07:00 113 H 29 H 147/101 H 100 Mechanical Vent 09/18/24 07:00 09/18/24 06:45 103 H 122/81 09/18/24 06:00 36.5 C 98 H 112/74 99 Mechanical Vent 09/18/24 05:00 36.5 C 102 H 22 109/77 99 Mechanical Vent 09/18/24 05:00 09/18/24 04:40 119 H 29 H 99 09/18/24 04:00 119 H 28 H 89/66 L 98 Mechanical Vent 09/18/24 03:45 117 H 23 93/69 L 100 Mechanical Vent 09/18/24 03:30 118 H 28 H 100/60 100 Mechanical Vent 09/18/24 02:45 80/63 L 09/18/24 02:42 120 H 28 H 100 09/18/24 02:35 84/60 L 09/18/24 02:35 84/60 L 09/18/24 02:35 84/60 L 09/18/24 02:30 123 H 28 H 69/52 L 100 Mechanical Vent 09/18/24 02:15 63/47 L 09/18/24 02:15 63/47 L 09/18/24 02:00 120 H 28 H 67/37 L 99 Mechanical Vent 09/18/24 01:57 EST 116 H 28 H 90/66 L 94 Mechanical Vent 09/18/24 01:51 EST 09/18/24 01:46 EST 109/78 09/18/24 01:36 EST 118 H 28 H 109/78 100 Mechanical Vent 09/18/24 01:30 EST 124 H 28 H 75/58 L 100 Mechanical Vent FiO2 09/18/24 12:22 30 09/18/24 12:06 30 09/18/24 12:00 09/18/24 11:30 30 09/18/24 11:03 30 09/18/24 11:00 30 09/18/24 10:59 30 09/18/24 10:00 30 09/18/24 09:30 30 09/18/24 09:00 30 09/18/24 08:00 30 09/18/24 07:45 30 09/18/24 07:30 30 09/18/24 07:20 30 09/18/24 07:15 30 09/18/24 07:00 30 09/18/24 07:00 09/18/24 07:00 30 09/18/24 07:00 30 09/18/24 06:45 09/18/24 06:00 100 09/18/24 05:00 30 09/18/24 05:00 30 09/18/24 04:40 30 09/18/24 04:00 40 09/18/24 03:45 40 09/18/24 03:30 40 09/18/24 02:45 09/18/24 02:42 09/18/24 02:35 09/18/24 02:35 09/18/24 02:35 09/18/24 02:30 09/18/24 02:15 09/18/24 02:15 09/18/24 02:00 09/18/24 01:57 EST 09/18/24 01:51 EST 50 09/18/24 01:46 EST 09/18/24 01:36 EST 09/18/24 01:30 EST Laboratory Results Short CBC 09/18/24 Range/Units 04:18 WBC 17.32 H (4.8-10.8) K/ul Hgb 12.4 (12.0-16.0) g/dl Hct 36.3 L (37.0-47.0) % Plt Count 330 (130-400) K/uL BMP 09/18/24 04:18 Sodium 135 L Potassium 4.7 Chloride 102 Carbon Dioxide 23 BUN 16 Creatinine 0.49 L Glucose 146 H Calcium 8.3 L Liver Function 09/18/24 Range/Units 04:18 Total Bilirubin 0.7 (0.2-1.0) mg/dl AST 76 H (13-39) U/L ALT 44 (7-52) U/L Alkaline Phosphatase 65 (34-104) U/L Albumin 3.5 (3.4-5.0) gm/dl
[2024-09-18] MEDS ORDERED: SUCCINYLCHOLINE CHLORIDE 20 MG/ML 10 ML VIAL IV ONE (18:30)
[2024-09-18] MEDS ORDERED: KETAMINE HCL INJ 50 MG/ML 10 ML VIAL IV ONE (18:30)
[2024-09-18 18:51] LABS: Magnesium 1.9 mg/dl (1.7-2.4); Phosphorus 1.7 mg/dl (2.5-4.9); Potassium 4.6 mmol/L (3.5-5.1)
[2024-09-18] MEDS: ICU ELECTROLYTE REPLACEMENT PROTOCOL SCH (19:06)
[2024-09-18] MEDS ORDERED: SODIUM PHOSPHATE 3 MMOL/1 ML INFUSION IV STA (19:07)
[2024-09-18] MEDS: DOXYCYCLINE SUSP 25 MG/5 ML 60ML PO SCH (19:56)
[2024-09-18] MEDS: MAGNESIUM OXIDE 400 MG TAB NG SCH (19:56)
[2024-09-18] MEDS: SODIUM PHOSPHATE 21 MMOL in DEXTROSE 5% 500 ML IV ONE (19:56)
[2024-09-19 04:19] LABS: Hematocrit (blood only) 31.5 % (37.0-47.0); Hemoglobin 10.7 g/dl (12.0-16.0); Mean Corpuscular Hemoglobin 34.1 pg (25.0-34.0); Mean Corpuscular Volume 100.3 fL (80.0-100.0); Mean Platelet Volume 9.5 fL (9.4-12.4); Platelet Count 241 K/uL (130-400); RDW Coefficient of Variation 12.3 % (11.5-14.5); RDW Standard Deviation 45.1 fL (36.4-46.3); Red Blood Count 3.14 M/uL (4.20-5.40)
[2024-09-19 04:23] LABS: Albumin Globulin Ratio 1.7 (0.9-2); BUN Creatinine Ratio 31.3 (10-20); Bilirubin,Total 0.4 mg/dl (0.2-1.0); Creatinine Clr Calc Pharmacy 133.1 ml/min; Globulin 1.8 gm/dl (2.5-4.0); Magnesium 1.9 mg/dl (1.7-2.4); Phosphorus 1.9 mg/dl (2.5-4.9); Potassium 4.4 mmol/L (3.5-5.1); Total Protein 4.8 gm/dl (6.0-8.3)
[2024-09-19 04:26] LABS: ANTI-Xa, UFH(UnfractionatedHep 0.28 IU/ml (0.3-0.7)
[2024-09-19] MEDS ORDERED: SODIUM PHOSPHATE 3 MMOL/1 ML INFUSION IV STA (04:30)
[2024-09-19 04:53] LABS: iSTAT Allen Test Pass; iSTAT Art Bld Gas pCO2 Correct 34 mmHg (35-46); iSTAT Art Bld Gas pH Corrected 7.484 (7.35-7.45); iSTAT Arterial Blood Gas HCO3 25 meg/L (19-24); iSTAT Arterial Blood Gas pCO2 34 mmHg (35-46); iSTAT Arterial Blood Gas pH 7.48 (7.35-7.45); iSTAT Arterial Blood Gas pO2 114 mmHg (80-95); iSTAT Arterial Blood Gas pO2 C 114; iSTAT Carbon Dioxide 26 mmol/L (24-31); iSTAT FiO2 30 %; iSTAT Hematocrit 31 % (37-47); iSTAT Hemoglobin 10.5 g/dl (12.0-16.0); iSTAT Potassium 4.4 mmol/L (3.3-5.0); iSTAT Sample Type Arterial; iSTAT Site L Radial; iSTAT Sodium 130 mmol/L (135-144); iSTAT SpO2 100
[2024-09-19] MEDS: SODIUM PHOSPHATE 21 MMOL in DEXTROSE 5% 500 ML IV ONE (05:12)
[2024-09-19] MEDS: MAGNESIUM OXIDE 400 MG TAB NG SCH (05:12)
--- NOTE | 2024-09-19 07:16 | Critical Care Progress Note ---
Date of Service September 19, 2024 Assessment & Plan (1) Acute and chronic respiratory failure, unspecified whether with hypoxia or hypercapnia: (2) COPD exacerbation: (3) NSTEMI (non-ST elevated myocardial infarction): (4) Cachexia: Plan Impression: 59-year-old female with extensive history of tobacco and alcohol abuse and cachexia admitted with shortness of breath likely due to COPD exacerbation. Also found to have elevated troponin and decreased ejection fraction, possibly Takotsubo. CT chest 09/16/2024 personally reviewed: Centrilobular emphysema appreciated bilaterally Increased bronchial wall thickening 5 mm right lower lobe pulmonary nodule No significant mediastinal lymphadenopathy Recommendations: -- Neurologic: Continue high-dose thiamine and folate replacement as well as daily multivitamin. Sedation with propofol and Precedex resulted in hypotension and she is currently maintained on fentanyl. -- Cardiovascular: --Type II MO Elevated troponin with decreased ejection fraction Cardiology on board --Peripheral vascular disease Status post bilateral femoral bypass graft. Currently on heparin infusion. -- Pulmonary: -- VDRF Likely secondary to hypercapnic hypoxic respiratory failure secondary to COPD exacerbation Continue with ventilatory support Daily sedation holidays and SBT's Reintubated 09/17/2024 Continue with nebulized treatment and Solu-Medrol, complete the course of doxycycline Respiratory BioFire negative for everything -- GI: Nutritional consult given her profound cachexia (body mass index of 15) -- Renal: -- Monitor BUNs/creatinine Avoid nephrotoxic medication -- Endocrine: ICU hypoglycemia protocol -- Heme-onc: Monitor H&H -- ID: Complete the course of doxycycline for COPD exacerbations --Prophylaxis VTE: Heparin drip GI: Lansoprazole Lines: Peripheral Diet: Tube feeds Plan: In/out: +2.3 L, urine output 1280, +4.7 L since coming to the hospital Magnesium, phosphorus being replaced I will add Mucomyst to the patient's regimen. Given that the patient failed extubation and needed to be reintubated. I will keep the patient intubated for 24 hours Start the patient on Lexapro for anxiety DC midazolam I have personally spent 40 minutes of critical care time in the direct management of this patient. This is a life/limb threatening event. This includes time spent evaluating patient, direct bedside care, chart review, placing orders, interpretation of diagnostic studies, discussion with consultants, patient, and family members, as well as other required patient management activities. This time is exclusive of all separately billable procedures, and teaching time and separate from and in addition to any other critical care service time. Please note the above document was generated using voice recognition software. It may contain grammatical, syntax or spelling errors. Admission and Anticipated Discharge Date Admission Date: September 16, 2024 Subjective Patient seen and examined at bedside. 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 Awake and alert, answering all the questions appropriately Complaining of having anxiety biopsy Denied any headache, no nausea vomiting No chest pain, no abdominal pain Review of Systems 2 Review of Systems: Unobtainable due to endotracheal tube Physical Exam 2 Physical Exam: Constitutional: No acute distress HEENT: EOMI, PERRLA Respiratory system: Decreased air entry bilaterally, no rhonchi, mild crackles bilateral lower lobes, positive expiratory wheeze CVS: S1-S2 positive, no murmurs or gallops Abdomen: Soft, nontender, nondistended, positive bowel sounds x4 Extremities: +2 pulses bilaterally radialis/ dorsalis pedis, no cyanosis, no edema Neuro: Awake alert oriented x3 Psych: Normal mood and affect G/U: Positive Dolan Skin: no rashes, warm and dry Lymphatic: no cervical or axillary lymphadenopathy Results & Data Results & Data Vital Signs (Past 12 Hours) Vital Signs Temp Pulse Resp BP Pulse Ox O2 Del Method FiO2 09/19/24 05:09 84 24 99 09/19/24 05:00 118/74 09/19/24 04:33 87 28 H 99 09/19/24 04:25 84 29 H 98 30 09/19/24 04:00 93 H 28 H 100 09/19/24 04:00 112/69 09/19/24 04:00 36.9 C 09/19/24 04:00 30 09/19/24 03:30 93 H 28 H 98 09/19/24 03:06 87 28 H 100 09/19/24 03:00 117/73 09/19/24 02:30 94 H 28 H 99 09/19/24 02:09 98 H 28 H 100 09/19/24 02:00 133/85 09/19/24 01:30 93 H 28 H 99 09/19/24 01:21 100 H 28 H 97 09/19/24 01:00 116/64 09/19/24 00:30 90 28 H 99 09/19/24 00:00 87 28 H 99 09/19/24 00:00 30 09/19/24 00:00 117/76 09/18/24 23:45 94 H 28 H 100 09/18/24 23:39 85 09/18/24 23:30 83 28 H 100 30 09/18/24 23:09 92 H 28 H 100 09/18/24 23:04 36.9 C 131/80 09/18/24 22:42 86 28 H 99 09/18/24 22:00 80 28 H 100 09/18/24 22:00 113/69 09/18/24 21:51 81 28 H 100 09/18/24 21:00 110/70 09/18/24 21:00 79 28 H 100 09/18/24 20:39 81 28 H 100 09/18/24 20:00 115/72 09/18/24 20:00 36.9 C 09/18/24 20:00 30 09/18/24 20:00 Mechanical Vent 30 09/18/24 19:45 79 28 H 100 30 09/18/24 19:33 85 28 H 100 Laboratory Results 09/19/24 03:37 09/19/24 03:37 Coding Level of Care Code 09110 CRITICAL CARE 1ST 30-74M Diagnoses Acute on chronic respiratory failure with hypoxia J96.21 Respiratory failure complication: hypoxia COPD exacerbation J44.1 NSTEMI (non-ST elevated myocardial infarction) I21.4 Cachexia R64 (1) Acute and chronic respiratory failure, unspecified whether with hypoxia or hypercapnia Respiratory failure complication: hypoxia Qualified Code(s): J96.21 - Acute and chronic respiratory failure with hypoxia
--- NOTE | 2024-09-19 08:06 | XRay Report ---
XR chest 1V portable HISTORY: 59 years-old Female resp failure acute respiratory failure COMPARISON: 09/18/2024 TECHNIQUE: AP view of the chest FINDINGS: Cardiac silhouette is normal. Endotracheal tube overlies the midline, 3.6 cm superior to the rolf. Enteric tube courses into the stomach. No pneumothorax. Chronic interstitial coarsening and emphysema . Decreased right basilar opacities compared to yesterday's study. Bones appear grossly intact. IMPRESSION: 1. Endotracheal and enteric tube placement as above. 2. Pulmonary emphysema with improved aeration of the right lung base. 3. No pneumothorax. ACT 112: Negative or not required by law. The above report was generated using voice recognition software. It may contain grammatical, syntax o r spelling errors. Electronically signed by: Vikas Madera M.D. 09/19/2024 8:03 AM
[2024-09-19] MEDS: MULTI VIT W/MINERALS LIQUID 15 ML UDC PO SCH (08:40)
[2024-09-19] MEDS: ACETYLCYSTEINE 20% INHAL SOLN 4ML ***DISPENSED BY RESP. INH SCH (09:18)
[2024-09-19] MEDS: ESCITALOPRAM OXALATE 10 MG TAB PO SCH (10:00)
--- NOTE | 2024-09-19 10:29 | Cardiology Progress Note ---
Date of Service September 19, 2024 Assessment & Plan (1) Acute and chronic respiratory failure, unspecified whether with hypoxia or hypercapnia: (2) NSTEMI (non-ST elevated myocardial infarction): (3) Acute heart failure with reduced ejection fraction (HFrEF, <= 40%) and combined systolic and diastolic dysfunction: (4) COPD exacerbation: (5) PVD (peripheral vascular disease): Plan Risk versus benefit of left heart catheterization with coronary angiography discussed. Patient agreeable to proceed while on ventilator. Recommendations reviewed with her via telephone who is also in agreement. Continue aspirin, clopidogrel, statin, and IV heparin. Discontinue IV hydration. Further recommendations pending result of coronary angiography. Initiation of anxiolytic therapy and possible extubation in 24 hours per discussion with [employer] sales consultant. Admission and Anticipated Discharge Date Admission Date: September 16, 2024 Subjective 59-year-old female seen examined at the bedside. Awake on ventilator. Communicating via writing pad. Reports feeling hot. Requesting reduction in the room temperature. Denies chest pain or heaviness. Extubated over the weekend, however, reintubated after she experienced significant anxiety and respiratory distress. Review of Systems Review of Systems: All systems reviewed & are unremarkable except as noted in Subjective Physical Exam Constitutional: + ill appearing Respiratory: no respiratory distress, no labored breathing and no retractions Auscultation: + rhonchi and + wheezes Cardiovascular: Rate/Rhythm: regular rate and regular rhythm Heart Sounds: normal S1 and normal S2; no murmur Vessels: no JVD and no carotid bruit Extremities: no edema Neurologic: moves all extremities; no focal motor deficits Results & Data Vital Signs (Past 12 Hours) Vital Signs Temp Pulse Pulse Resp BP Pulse Ox O2 Del Method 09/19/24 09:19 101 H 22 91 Mechanical Vent 09/19/24 09:18 110 H 19 92 09/19/24 08:15 Mechanical Vent 09/19/24 08:10 09/19/24 08:00 100 H 24 100 Mechanical Vent 09/19/24 07:31 87 24 100 09/19/24 07:03 93 H 24 100 09/19/24 05:09 84 24 99 09/19/24 05:00 118/74 09/19/24 04:33 87 28 H 99 09/19/24 04:25 84 29 H 98 09/19/24 04:00 93 H 28 H 100 09/19/24 04:00 112/69 09/19/24 04:00 36.9 C 09/19/24 04:00 09/19/24 03:30 93 H 28 H 98 09/19/24 03:06 87 28 H 100 09/19/24 03:00 117/73 09/19/24 02:30 94 H 28 H 99 09/19/24 02:09 98 H 28 H 100 09/19/24 02:00 133/85 09/19/24 01:30 93 H 28 H 99 09/19/24 01:21 100 H 28 H 97 09/19/24 01:00 116/64 09/19/24 00:30 90 28 H 99 09/19/24 00:00 87 28 H 99 09/19/24 00:00 09/19/24 00:00 117/76 09/18/24 23:45 94 H 28 H 100 09/18/24 23:39 85 09/18/24 23:30 83 28 H 100 09/18/24 23:09 92 H 28 H 100 09/18/24 23:04 36.9 C 131/80 09/18/24 22:42 86 28 H 99 FiO2 09/19/24 09:19 21 09/19/24 09:18 09/19/24 08:15 30 09/19/24 08:10 30 09/19/24 08:00 0.3 09/19/24 07:31 30 09/19/24 07:03 09/19/24 05:09 09/19/24 05:00 09/19/24 04:33 09/19/24 04:25 30 09/19/24 04:00 09/19/24 04:00 09/19/24 04:00 09/19/24 04:00 30 09/19/24 03:30 09/19/24 03:06 09/19/24 03:00 09/19/24 02:30 09/19/24 02:09 09/19/24 02:00 09/19/24 01:30 09/19/24 01:21 09/19/24 01:00 09/19/24 00:30 09/19/24 00:00 09/19/24 00:00 30 09/19/24 00:00 09/18/24 23:45 09/18/24 23:39 09/18/24 23:30 30 09/18/24 23:09 09/18/24 23:04 09/18/24 22:42 Laboratory Results Cardiac Enzymes 09/19/24 Range/Units 03:37 AST 24 (13-39) U/L CBC 09/19/24 Range/Units 03:37 WBC 9.50 (4.8-10.8) K/ul RBC 3.14 L (4.20-5.40) M/uL Hgb 10.7 L (12.0-16.0) g/dl Hct 31.5 L (37.0-47.0) % Plt Count 241 (130-400) K/uL Comprehensive Metabolic Panel 09/18/24 09/19/24 Range/Units 18:05 03:37 Sodium 131 L (136-145) mmol/L Potassium 4.6 4.4 (3.5-5.1) mmol/L Chloride 98 (98-107) mmol/L Carbon Dioxide 27 (21-32) mmol/L BUN 10 (6-23) mg/dl Creatinine 0.32 L (0.6-1.2) mg/dl Glucose 175 H (70-99(Fasting)) mg/dl Calcium 8.0 L (8.6-10.3) mg/dl AST 24 (13-39) U/L ALT 30 (7-52) U/L Alkaline Phosphatase 49 (34-104) U/L Total Protein 4.8 L (6.0-8.3) gm/dl Albumin 3.0 L (3.4-5.0) gm/dl Intake and Output 09/18/24 09/19/24 09/19/24 22:59 06:59 14:59 Intake Total 1348.225 / 4679.430 1246.992 / 4679.430 42.2 / 42.2 Output Total 380 / 1280 650 / 1280 Balance 968.225 / 3399.430 596.992 / 3399.430 42.2 / 42.2 Intake: IV 1268.225 / 4079.430 786.992 / 4079.430 42.2 / 42.2 Heparin Sodium/Dextrose 25,000 182.5 / 362.05 179.55 / 362.05 42.2 / 42.2 units In 500 ml @ 800 UNITS/HR 16 mls/hr IV .Q24H [facility] Rx#: [id number] Lactated Ringer's 1,000 ml @ 80 1000 / 1000 mls/hr IV .[id number] [facility] Rx#: [id number] Midazolam HCl 125 mg In 250 ml 32.600 / 103.500 70.9 / 103.500 @ 3 MG/HR 6 mls/hr IV .[id number] [facility] Rx#:[id number] Norepinephrine/D5w 4 mg In 250 0 / 22.588 0 / 22.588 ml @ 0 MCG/KG/MIN IV .Q0M [facility] Rx#:[id number] Sodium Phosphate 21 mmol In 507 / 507 Dextrose 5% 500 ml @ 88 mls/hr IV [facility] Rx#:[id number] fentaNYL citrate 2,500 mcg In 53.125 / 84.292 29.542 / 84.292 250 ml @ 25 MCG/HR 2.5 mls/hr IV .Q96H [facility] Rx#:[id number] Tube Feeding 80 / 240 160 / 240 Tube Irrigant 300 / 360 Output: Urine Amount (Catheter) 380 / 1280 650 / 1280 Dolan/Indwelling 380 / 1280 650 / 1280 Other: Weight 48.9 kg Weight Measurement Method Built in [facility] (1) Acute and chronic respiratory failure, unspecified whether with hypoxia or hypercapnia Respiratory failure complication: hypoxia Qualified Code(s): J96.21 - Acute and chronic respiratory failure with hypoxia
[2024-09-19] MEDS: POT PHOSPHATE MONOBASIC W/ SOD TAB PO SCH (10:47)
[2024-09-19] MEDS: MAGNESIUM OXIDE 400 MG TAB PO SCH (10:47)
[2024-09-19] MEDS: guaiFENesin SUGAR FREE 200 MG/10 ML UDC PO SCH (11:28)
[2024-09-19] MEDS: clonazePAM 0.5 MG TAB PO PRN (12:17)
--- NOTE | 2024-09-19 14:32 | Hospitalist Progress Note ---
Date of Service September 19, 2024 Assessment & Plan (1) COPD exacerbation: (2) Acute bronchitis: (3) Elevated troponin: (4) Hypomagnesemia: (5) Hypokalemia: Plan: 59-year-old female with history of COPD, hypertension, peripheral artery disease, GERD, smoker, drinker presenting with cough and shortness of breath times few days. Acute respiratory failure with hypoxia and hypercarbia Acute COPD exacerbation Failed outpatient treatment with Augmentin, prednisone, doxycycline prescribed 2 days ago -- CTA: No pulmonary emboli identified. Emphysema with bronchitis and mucous plugging. Mild intralobular septal thickening likely represents a component of pulmonary edema. 5 mm solid nodule of the basal right lower lobe. --BioFire: Negative -- S/P extubation on 09/17/2024 --Reintubated on 09/17/2024 due to worsening respiratory acidosis, distress --Continue IV Solu-Medrol, budesonide, Perforomist, nebs --Continue doxycycline Counseled to quit smoking Appreciate critical care input Aspiration precautions Vent management as per critical care team Started on tube feeds Takotsubo syndrome Pulmonary edema Secondary to above Suspected NSTEMI H/O peripheral vascular disease S/P bilateral femoral bypass graft --ECHO: Severe diffuse hypokinesis akinesis of the left ventricular the apical and mid levels with relative sparing of the basal segments. EF 25 to 30%. Right ventricle is hyperdynamic. Trace mitral, tricuspid regurgitation, mild to moderate pulmonary hypertension. --Lipid panel within normal limits -- Continue Plavix, atorvastatin --Added aspirin -Appreciate cardiology input --Will need repeat echo in 1 month Received IV Lasix Monitor volume status closely Nitroglycerin, metoprolol held due to hypotension IV heparin discontinued Plan for cardiac catheterization today Right lower lobe pulmonary nodule Tobacco use disorder Counseled to quit smoking Needs follow-up as outpatient Hypomagnesemia Hypokalemia Hypophosphatemia Reports chronic diarrhea after colorectal surgery HCTZ likely contributing as well Monitor and replete electrolytes as needed Lyme arthritis flare, Right hand Diagnosed by PCP a few days ago Currently on doxycycline course Tobacco use disorder Counseled to quit smoking Alcohol use Patient's last drink was a few days ago patient Started on Precedex due to agitation, leading to hypotension Continue IV fluids as needed to help with hypotension Continue thiamine, folic acid Monitor for withdrawal Weaned off of pressors Other chronic conditions: Hypertension GERD Cachexia Continue home medications as able DVT Px: On IV heparin--discontinued for cath CODE STATUS Conditional code Admission and Anticipated Discharge Date Admission Date: September 16, 2024 Subjective Patient is seen and examined at bedside Patient anxious during my encounter Discussed with patient's family at bedside Plan for cardiac catheterization today Difficult to obtain history due to endotracheal tube Sinus tachycardia on monitor Review of Systems Review of Systems: Unobtainable due to endotracheal tube Physical Exam Physical Exam: Physical Exam: Vitals signs as noted above General Appearance: Thin, frail, no apparent distress, + intubated Head: normocephalic, Atraumatic Eyes: normal inspection, EOMI Neck: supple, Trachea midline Respiratory/Chest: B/L coarse breath sounds, scattered wheezes, crackles, no accessory muscle use Cardiovascular: S1, S2, No murmur, tachycardia Abdomen/GI:Soft, Non tender, Bowel sounds present Extremities/Musculoskeletal:normal inspection, no edema Neurologic/Psych:AAOX3, grossly no focal neurological deficits Skin: normal color, warm Results & Data Results & Data Vital Signs (Past 12 Hours) Vital Signs Temp Pulse Pulse Resp BP Pulse Ox O2 Del Method 09/19/24 13:05 110 H 18 94 Mechanical Vent 09/19/24 11:44 115 H 14 95 09/19/24 11:00 149/102 H 09/19/24 10:10 157/110 H 09/19/24 09:19 101 H 22 91 Mechanical Vent 09/19/24 09:18 110 H 19 92 09/19/24 09:00 142/84 H 09/19/24 08:15 Mechanical Vent 09/19/24 08:10 09/19/24 08:00 123/72 09/19/24 08:00 100 H 24 100 Mechanical Vent 09/19/24 07:31 87 24 100 09/19/24 07:03 93 H 24 100 09/19/24 07:00 132/85 09/19/24 05:09 84 24 99 09/19/24 05:00 118/74 09/19/24 04:33 87 28 H 99 09/19/24 04:25 84 29 H 98 09/19/24 04:00 93 H 28 H 100 09/19/24 04:00 112/69 09/19/24 04:00 36.9 C 09/19/24 04:00 09/19/24 03:30 93 H 28 H 98 09/19/24 03:06 87 28 H 100 09/19/24 03:00 117/73 09/19/24 02:30 94 H 28 H 99 FiO2 09/19/24 13:05 30 09/19/24 11:44 30 09/19/24 11:00 09/19/24 10:10 09/19/24 09:19 21 09/19/24 09:18 09/19/24 09:00 09/19/24 08:15 30 09/19/24 08:10 30 09/19/24 08:00 09/19/24 08:00 0.3 09/19/24 07:31 30 09/19/24 07:03 09/19/24 07:00 09/19/24 05:09 09/19/24 05:00 09/19/24 04:33 09/19/24 04:25 30 09/19/24 04:00 09/19/24 04:00 09/19/24 04:00 09/19/24 04:00 30 09/19/24 03:30 09/19/24 03:06 09/19/24 03:00 09/19/24 02:30
[2024-09-19] MEDS: NITROGLYCERIN/D5W 100MCG/ML 20ML SYR ONE (15:03)
[2024-09-19] MEDS: MIDAZOLAM BOLUS FROM BAG IV PRN (15:09)
--- NOTE | 2024-09-19 15:12 | Electrocardiogram Report ---
Test Reason : Blood Pressure : */* mmHG Vent. Rate : 122 BPM Atrial Rate : 122 BPM P-R Int : 116 ms QRS Dur : 80 ms QT Int : 294 ms P-R-T Axes : 77 54 109 degrees QTcB Int : 418 ms Sinus tachycardia Nonspecific ST and T wave abnormality Abnormal ECG When compared with ECG of 17-Sep-2024 05:19, Criteria for Anterior infarct are no longer Present Non-specific change in ST segment in Inferior leads ST no longer elevated in Anterior leads Nonspecific T wave abnormality has replaced inverted T waves in Inferior leads T wave inversion no longer evident in Anterior leads Confirmed by Dannie Watson ([id number]) on 09/19/2024 3:12:39 PM Referred By: REFERRED SELF Confirmed By: Dannie Watson
[2024-09-19] MEDS: OPTIRAY 350 ONE (15:15)
[2024-09-19] MEDS: HEPARIN (PORCINE) 1000 UNIT/ML 10 ML (CATH LAB USE ONLY) ONE (15:15)
--- NOTE | 2024-09-19 16:31 | Post Anesthesia Assessment ---
Date of Service September 19, 2024 Post Sedation Assessment Vital Signs Temp Pulse Pulse Resp BP BP Pulse Ox 09/19/24 15:36 122 H 17 93 09/19/24 14:03 116 H 16 95 09/19/24 13:30 114 H 15 94 09/19/24 13:05 110 H 18 94 09/19/24 13:00 115 H 19 95 09/19/24 12:30 113 H 14 95 09/19/24 12:03 119 H 13 95 09/19/24 12:00 09/19/24 11:44 115 H 14 95 09/19/24 11:09 121 H 20 95 09/19/24 11:00 149/102 H 09/19/24 10:39 139 H 19 86 L 09/19/24 10:10 157/110 H 09/19/24 10:03 160 H 22 96 09/19/24 09:39 124 H 18 88 L 09/19/24 09:19 101 H 22 91 09/19/24 09:18 110 H 19 92 09/19/24 09:00 142/84 H 09/19/24 08:15 09/19/24 08:10 09/19/24 08:00 123/72 09/19/24 08:00 100 H 24 100 09/19/24 07:31 87 24 100 09/19/24 07:03 93 H 24 100 09/19/24 07:00 132/85 09/19/24 05:09 84 24 99 09/19/24 05:00 118/74 09/19/24 04:33 87 28 H 99 09/19/24 04:25 84 29 H 98 09/19/24 04:00 93 H 28 H 100 09/19/24 04:00 112/69 09/19/24 04:00 98.4 F 09/19/24 04:00 09/19/24 03:30 93 H 28 H 98 09/19/24 03:06 87 28 H 100 09/19/24 03:00 117/73 09/19/24 02:30 94 H 28 H 99 09/19/24 02:09 98 H 28 H 100 09/19/24 02:00 133/85 09/19/24 01:30 93 H 28 H 99 09/19/24 01:21 100 H 28 H 97 09/19/24 01:00 116/64 11/04/24 00:30 90 28 H 99 09/19/24 00:00 87 28 H 99 09/19/24 00:00 09/19/24 00:00 117/76 09/18/24 23:45 94 H 28 H 100 09/18/24 23:39 85 09/18/24 23:30 83 28 H 100 09/18/24 23:09 92 H 28 H 100 09/18/24 23:04 98.4 F 131/80 09/18/24 22:42 86 28 H 99 09/18/24 22:00 80 28 H 100 09/18/24 22:00 113/69 09/18/24 21:51 81 28 H 100 09/18/24 21:00 110/70 09/18/24 21:00 79 28 H 100 09/18/24 20:39 81 28 H 100 09/18/24 20:00 115/72 09/18/24 20:00 98.4 F 09/18/24 20:00 09/18/24 20:00 09/18/24 19:45 79 28 H 100 09/18/24 19:33 85 28 H 100 09/18/24 19:03 79 28 H 100 09/18/24 19:00 109/69 09/18/24 19:00 09/18/24 18:00 80 28 H 111/69 100 09/18/24 17:00 84 28 H 104/69 100 O2 Del Method FiO2 09/19/24 15:36 30 09/19/24 14:03 09/19/24 13:30 09/19/24 13:05 Mechanical Vent 30 09/19/24 13:00 09/19/24 12:30 09/19/24 12:03 Mechanical Vent 0.3 09/19/24 12:00 30 09/19/24 11:44 30 09/19/24 11:09 09/19/24 11:00 09/19/24 10:39 09/19/24 10:10 09/19/24 10:03 09/19/24 09:39 09/19/24 09:19 Mechanical Vent 21 09/19/24 09:18 09/19/24 09:00 09/19/24 08:15 Mechanical Vent 30 09/19/24 08:10 30 09/19/24 08:00 09/19/24 08:00 Mechanical Vent 0.3 09/19/24 07:31 30 09/19/24 07:03 09/19/24 07:00 09/19/24 05:09 09/19/24 05:00 09/19/24 04:33 09/19/24 04:25 30 09/19/24 04:00 09/19/24 04:00 09/19/24 04:00 09/19/24 04:00 30 09/19/24 03:30 09/19/24 03:06 09/19/24 03:00 09/19/24 02:30 09/19/24 02:09 09/19/24 02:00 09/19/24 01:30 09/19/24 01:21 09/19/24 01:00 09/19/24 00:30 09/19/24 00:00 09/19/24 00:00 30 09/19/24 00:00 09/18/24 23:45 09/18/24 23:39 09/18/24 23:30 30 09/18/24 23:09 09/18/24 23:04 09/18/24 22:42 09/18/24 22:00 09/18/24 22:00 09/18/24 21:51 09/18/24 21:00 09/18/24 21:00 09/18/24 20:39 09/18/24 20:00 09/18/24 20:00 09/18/24 20:00 30 09/18/24 20:00 Mechanical Vent 30 09/18/24 19:45 30 09/18/24 19:33 09/18/24 19:03 09/18/24 19:00 09/18/24 19:00 30 09/18/24 18:00 Mechanical Vent 30 09/18/24 17:00 Mechanical Vent 30 Recovery Score Activity: Moves 4 extremities Circulation: +/-20% PreAnes Value Consciousness: Arouseable (by name) Oxygen Saturation: O2 needed for >90% Discharge Sedation Level of Care: Fast Track Phase II Post Sedation Plan On clinical assessment, the patient appears to have tolerated the sedation without complications. Patient is recovering as anticipated. Patient will continue to be monitored by nursing and may be discharged when sedation discharge criteria are met per below protocol. Upon Completions of procedure up to 15 minutes continue every 5 minute vital signs and the P.A.R. score; then discharge to a Phase I or Fast Track to Phase II per the following guidelines: * Discharge Patient to appropriate Phase II area if PAR is 8 or greater or return to pre- procedure baseline. The post - procedure orders will be as directed. * If PAR score is less than 8 or not return to pre-procedure baseline then patient will follow Phase I monitoring till PAR is reached for Phase II. The Phase I may be done in procedure room or may call to secure a Phase I area. * If naloxone or flumazenil are used for reversal, hold in Phase I for continued monitoring from when last reversal dose was given for a minimum of 60 minutes or longer pending the nurse and/or physician discretion of patient condition before discharge to Phase II. Please call the Sedation Physician to re-evaluate and complete post-note for discharge to Phase II area. Do NOT discharge from procedure sedation or Phase 1 until post- sedation evaluation note is complete by procedure /sedation MD Sedation Discharge Instructions to be given to the patient at discharge to home.
--- NOTE | 2024-09-19 16:44 | Cardiac Catheterization ---
[facility] Data: [employer] Cardiac Status Clinical evaluation leading to the procedure CAD Presenation: Non STEMI Heart Failure: NYHA Class: CCS IV Diagnostic Physicians Name: Lloyd Avila MD Closure Device Recommendations: Medical Therapy and/or Counseling Cardiac Cath Procedure Full Procedure Date September 19, 2024 Pre-Procedure Diagnosis Pre-Procedure Diagnosis: Non STEMI, CHF and Cardiomyopathy AUC Score AUC Score: 7 Post-Procedure Diagnosis Post-Procedure Diagnosis: Mild CAD and Elevated Intracardiac Pressures Procedure(s) Performed Procedure(s) Performed: Coronary Angiography and Left Heart Cath [employer] Consultant Lloyd Avila MD Lifter(s) Yaya Estimated Blood Loss Estimated Blood Loss: 10 Medication(s) Medication(s): Fentanyl, Lidocaine 1%, Nicardipine, Nitroglycerin and Versed Summary of Findings Indication: Cardiomyopathy, NSTEMI Access: 6 Fr slender right radial artery Catheters: [place] Findings: LM -Short almost separate ostium, normal caliber, eccentric calcified plaque with 30% ostial stenosis LAD -medium caliber, no significant disease, distal vessel extends around apex. Small diagonals without significant disease. Circumflex -medium caliber, AV groove circumflex without significant disease. Very small high OM1 with 70% ostial stenosis RCA -dominant, medium caliber, angiographically normal LVEDP - 37 Arterial Closure: TR band Summary: 1. Mild to moderate coronary artery disease -30% ostial, calcified left main Very small high OM1 with 60-70% ostial stenosis 2. Elevated intracardiac filling pressure (LVEDP 37) Recommendations: No obstructive epicardial or acute CAD to explain patient's LV dysfunction and presenting symptoms. Suspect possible stress-induced cardiomyopathy. Continue diuretics, GDMT per Dr. Lake. Hemodynamics Rest Ao:: 138/88/117 Final Ao: 145/90/115 LV: 138/37 Recommendations Recommendations: Medical Therapy and/or Counseling Radiation Exposure (mGy) 309 Contrast (mls) 45 Anesthesia Moderate 6260-9125 Procedural Complication(s) None Disposition ICU I attest to the content of the Intraoperative Record and any orders documented therein. Any exceptions are noted below. [employer] Card Cath Procedure Codes Cardiac Catheterization Procedure 1: Cardiovascular Cath Procedures: 76311 Coronaries and LHC (+/-LV) Moderate Sedation Procedure 1: Sedation/Anesthesia: 69100 Mod Sedation by the same physician;Init15 Min Child Age 5 & Up PG Care Time/CCT Total # of Minutes Spent Total Time Spent with Patient: Total time spent is greater than 50% in coordination of care (as documented) at patient's floor/unit and/or counseling patient:
[2024-09-20 04:40] LABS: iSTAT Art Bld Gas pCO2 Correct 38 mmHg (35-46); iSTAT Art Bld Gas pH Corrected 7.486 (7.35-7.45); iSTAT Arterial Blood Gas HCO3 29 meg/L (19-24); iSTAT Arterial Blood Gas pCO2 38 mmHg (35-46); iSTAT Arterial Blood Gas pH 7.49 (7.35-7.45); iSTAT Arterial Blood Gas pO2 54 mmHg (80-95); iSTAT Arterial Blood Gas pO2 C 54; iSTAT Carbon Dioxide 30 mmol/L (24-31); iSTAT FiO2 30 %; iSTAT Hematocrit 32 % (37-47); iSTAT Hemoglobin 10.9 g/dl (12.0-16.0); iSTAT Potassium 4.3 mmol/L (3.3-5.0); iSTAT Sample Type Arterial; iSTAT Site R Brachial; iSTAT Sodium 130 mmol/L (135-144); iSTAT SpO2 98
[2024-09-20 04:41] LABS: Hematocrit (blood only) 32.9 % (37.0-47.0); Mean Corpuscular Hemoglobin 33.6 pg (25.0-34.0); Mean Corpuscular Hgb Conc 33.4 g/dL (32.0-36.0); Mean Corpuscular Volume 100.6 fL (80.0-100.0); Mean Platelet Volume 9.3 fL (9.4-12.4); Platelet Count 256 K/uL (130-400); RDW Coefficient of Variation 12.5 % (11.5-14.5); RDW Standard Deviation 46.1 fL (36.4-46.3); Red Blood Count 3.27 M/uL (4.20-5.40); White Blood Count 10.74 K/ul (4.8-10.8)
[2024-09-20 05:00] LABS: Albumin Globulin Ratio 1.9 (0.9-2); Albumin Level 3.2 gm/dl (3.4-5.0); BUN Creatinine Ratio 25.6 (10-20); Bilirubin,Total 0.3 mg/dl (0.2-1.0); Calcium 8.3 mg/dl (8.6-10.3); Creatinine Clr Calc Pharmacy 121.4 ml/min; Globulin 1.7 gm/dl (2.5-4.0); Magnesium 2.1 mg/dl (1.7-2.4); Phosphorus 1.9 mg/dl (2.5-4.9); Potassium 4.5 mmol/L (3.5-5.1); Total Protein 4.9 gm/dl (6.0-8.3)
[2024-09-20] MEDS ORDERED: SODIUM PHOSPHATE 3 MMOL/1 ML INFUSION IV STA (05:50)
[2024-09-20] MEDS: SODIUM PHOSPHATE 21 MMOL in DEXTROSE 5% 500 ML IV ONE (06:17)
--- NOTE | 2024-09-20 07:49 | XRay Report ---
EXAM: XR chest 1V portable CLINICAL HISTORY: RESP FAILURE JTF/TGB INPATIENT TECHNIQUE: X-ra of the chest was performed in 1 view: AP projection. COMPARISON: X-ray dated 09/19/2024. FINDINGS: Pulmonary Parenchyma: ET tube is seen about 3.8 cm above the rolf as compared to 3.6 cm in the previous study. NGT tube noted coursing below the diaphragm, tip not included in field of view. Hyperinflated both lungs with flattening of both hemidiaphragm. Stable appearance of the rIght lower para cardiac interstitial opacity as well as diffuse bilateral increase interstitial markings. Subtle blunting of left costophrenic angle suggesting minimal left-sided pleural effusion. Heart and Mediastinum: Heart size and shape are normal. No mediastinal widening or masses. No hilar or mediastinal lymphadenopathy. Bony Thorax: Bony thorax appears intact without fractures or deformities. IMPRESSION: 1. ET tube is seen about 3.8 cm above the rolf. 2. Stable appearance of the right lower para cardiac interstitial opacity as well as diffuse bilateral increase interstitial markings. 3. No other significant interval changes. Electronically signed by Clyde Gabriel 09-20-2024 07:49 AM
[2024-09-20] MEDS: FUROSEMIDE INJ 20 MG/2 ML VIAL IV ONE (08:56)
--- NOTE | 2024-09-20 10:56 | Critical Care Progress Note ---
Date of Service September 20, 2024 Assessment & Plan (1) Acute and chronic respiratory failure, unspecified whether with hypoxia or hypercapnia: (2) COPD exacerbation: (3) NSTEMI (non-ST elevated myocardial infarction): (4) Cachexia: Plan Impression: 59-year-old female with extensive history of tobacco and alcohol abuse and cachexia admitted with shortness of breath likely due to COPD exacerbation. Also found to have elevated troponin and decreased ejection fraction, possibly Takotsubo. CT chest 09/16/2024 personally reviewed: Centrilobular emphysema appreciated bilaterally Increased bronchial wall thickening 5 mm right lower lobe pulmonary nodule No significant mediastinal lymphadenopathy Recommendations: -- Neurologic: Continue high-dose thiamine and folate replacement as well as daily multivitamin. Sedation with propofol and Precedex resulted in hypotension, fentanyl as needed --Severe anxiety Lexapro started 09/19/2024 Continue with clonazepam as needed -- Cardiovascular: --Type II DC Elevated troponin with decreased ejection fraction Cardiology on board --Peripheral vascular disease Status post bilateral femoral bypass graft. Currently on heparin infusion. -- Pulmonary: -- VDRF Likely secondary to hypercapnic hypoxic respiratory failure secondary to COPD exacerbation Continue with ventilatory support Daily sedation holidays and SBT's Reintubated 09/17/2024 Continue with nebulized treatment and Solu-Medrol, complete the course of doxycycline Respiratory BioFire negative for everything -- GI: Nutritional consult given her profound cachexia (body mass index of 15) -- Renal: -- Monitor BUNs/creatinine Avoid nephrotoxic medication -- Endocrine: ICU hypoglycemia protocol -- Heme-onc: Monitor H&H -- ID: Complete the course of doxycycline for COPD exacerbations --Prophylaxis VTE: Heparin drip GI: Lansoprazole Lines: Peripheral Diet: Tube feeds Plan: In/out: In/out: +519, urine output 2500 mL, +4.7 L since coming to the hospital Phosphorus being replaced Continue with nebulized treatment Continue with clonazepam for her anxiety decrease the frequency to every 8 as needed, increase escitalopram to 20 mg Trial of extubation today. Given the patient has severe anxiety to BiPAP will extubate to high flow, keeping O2 saturation goal around 90-92% I have personally spent 36 minutes of critical care time in the direct management of this patient. This is a life/limb threatening event. This includes time spent evaluating patient, direct bedside care, chart review, placing orders, interpretation of diagnostic studies, discussion with consultants, patient, and family members, as well as other required patient management activities. This time is exclusive of all separately billable procedures, and teaching time and separate from and in addition to any other critical care service time. Please note the above document was generated using voice recognition software. It may contain grammatical, syntax or spelling errors. Admission and Anticipated Discharge Date Admission Date: September 16, 2024 Subjective Patient seen and examined at bedside. No acute distress, notable symptoms overnight She was on pressure support at the time of examination. She was on fentanyl 25 which was turned off Denied any chest pain, shortness of breath is improved No headache, no nausea, no vomiting No abdominal pain Review of Systems 2 Review of Systems: All systems reviewed & are unremarkable except as noted in Subjective Physical Exam 2 Physical Exam: Constitutional: No acute distress HEENT: EOMI, PERRLA Respiratory system: Decreased air entry bilaterally, no rhonchi, mild crackles bilateral lower lobes, minimal expiratory wheeze, improved from before CVS: S1-S2 positive, no murmurs or gallops Abdomen: Soft, nontender, nondistended, positive bowel sounds x4 Extremities: +2 pulses bilaterally radialis/ dorsalis pedis, no cyanosis, no edema Neuro: Awake alert oriented x3 Psych: Normal mood and affect G/U: Positive [place] Skin: no rashes, warm and dry Lymphatic: no cervical or axillary lymphadenopathy Results & Data Results & Data Vital Signs (Past 12 Hours) Vital Signs Temp Pulse Pulse Resp BP BP Pulse Ox 09/20/24 09:13 92 H 14 92 09/20/24 09:00 97 H 19 146/89 H 95 09/20/24 08:00 96 H 19 99 09/20/24 08:00 09/20/24 08:00 37.2 C 09/20/24 08:00 09/20/24 07:03 94 H 18 100 09/20/24 07:03 93 H 15 100 09/20/24 06:06 94 H 15 142/85 H 99 09/20/24 05:33 96 H 15 100 09/20/24 05:20 92 H 15 128/82 98 09/20/24 04:32 97 H 14 98 09/20/24 04:23 97 H 18 98 09/20/24 04:11 92 H 22 118/74 98 09/20/24 04:00 09/20/24 04:00 37.9 C H 09/20/24 03:40 93 H 25 H 98 09/20/24 03:35 84 24 97 09/20/24 03:08 84 24 113/65 99 09/20/24 02:59 85 24 99 09/20/24 02:00 99 H 17 123/66 98 09/20/24 01:42 88 24 98 09/20/24 01:06 82 24 117/68 99 09/20/24 00:57 82 24 99 09/20/24 00:48 88 24 99 09/20/24 00:06 89 24 138/85 98 09/20/24 00:00 37.7 C H 09/20/24 00:00 09/20/24 00:00 90 09/19/24 23:33 86 24 100 09/19/24 23:00 84 24 125/74 99 O2 Del Method O2 Flow Rate FiO2 09/20/24 09:13 High Flow Nasal Cannula 30 21 09/20/24 09:00 09/20/24 08:00 09/20/24 08:00 Mechanical Vent 30 09/20/24 08:00 09/20/24 08:00 30 09/20/24 07:03 09/20/24 07:03 30 09/20/24 06:06 09/20/24 05:33 09/20/24 05:20 09/20/24 04:32 09/20/24 04:23 30 09/20/24 04:11 09/20/24 04:00 30 09/20/24 04:00 09/20/24 03:40 30 09/20/24 03:35 09/20/24 03:08 09/20/24 02:59 09/20/24 02:00 Mechanical Vent 30 09/20/24 01:42 09/20/24 01:06 09/20/24 00:57 Mechanical Vent 09/20/24 00:48 09/20/24 00:06 09/20/24 00:00 09/20/24 00:00 30 09/20/24 00:00 09/19/24 23:33 09/19/24 23:00 Laboratory Results 09/20/24 04:10 11/05/24 04:10 Coding Level of Care Code 67200 CRITICAL CARE 1ST 30-74M Diagnoses Acute on chronic respiratory failure with hypoxia J96.21 Respiratory failure complication: hypoxia COPD exacerbation J44.1 NSTEMI (non-ST elevated myocardial infarction) I21.4 Cachexia R64 (1) Acute and chronic respiratory failure, unspecified whether with hypoxia or hypercapnia Respiratory failure complication: hypoxia Qualified Code(s): J96.21 - Acute and chronic respiratory failure with hypoxia
[2024-09-20] MEDS: ESCITALOPRAM OXALATE 10 MG TAB PO ONE (11:26)
[2024-09-20] MEDS: MIDAZOLAM HCL 1 MG/ML 2ML VIAL IV PRN (12:05)
[2024-09-20] MEDS: HEPARIN SOD 5,000 UNIT/0.5 ML VIAL SQ SCH (13:51)
[2024-09-20] MEDS: POT PHOSPHATE MONOBASIC W/ SOD TAB PO SCH (13:52)
[2024-09-20] MEDS: clonazePAM 0.5 MG TAB PO PRN (13:52)
--- NOTE | 2024-09-20 14:07 | Hospitalist Progress Note ---
Date of Service September 20, 2024 Assessment & Plan (1) COPD exacerbation: (2) Acute bronchitis: (3) Elevated troponin: (4) Hypomagnesemia: (5) Hypokalemia: Plan: Patient is a 59 yr old female with history of COPD, hypertension, peripheral artery disease, GERD, smoker, drinker presenting with cough and shortness of breath times few days. Acute respiratory failure with hypoxia and hypercarbia Acute COPD exacerbation Failed outpatient treatment with Augmentin, prednisone, doxycycline prescribed 2 days ago -- CTA: No pulmonary emboli identified. Emphysema with bronchitis and mucous plugging. Mild intralobular septal thickening likely represents a component of pulmonary edema. 5 mm solid nodule of the basal right lower lobe. --BioFire: Negative -- S/P extubation on 09/17/2024 --Reintubated on 09/17/2024 due to worsening respiratory acidosis, distress --S/P Extubated on 09/20/24 --Continue IV Solu-Medrol, budesonide, Perforomist, nebs --Continue doxycycline Counseled to quit smoking Appreciate critical care input Aspiration precautions Continue high flow oxygen, wean as able Weaned off of pressors Started on Lexapro, Klonopin pain as needed to help with anxiety Continue to monitor in ICU today Advance diet as tolerated Takotsubo syndrome Pulmonary edema Secondary to above Suspected NSTEMI H/O peripheral vascular disease S/P bilateral femoral bypass graft --ECHO: Severe diffuse hypokinesis akinesis of the left ventricular the apical and mid levels with relative sparing of the basal segments. EF 25 to 30%. Right ventricle is hyperdynamic. Trace mitral, tricuspid regurgitation, mild to moderate pulmonary hypertension. --S/P Cardiac Cath on 09/20/24: Mild to moderate coronary artery disease. 30% ostial, calcified left main. Very small high OM1 with 60-70% ostial stenosis. Elevated intracardiac filling pressure (LVEDP 37) --Lipid panel within normal limits -- Continue Plavix, atorvastatin --Added aspirin -Appreciate cardiology input --Will need repeat echo in 1 month Received IV Lasix Monitor volume status closely Nitroglycerin, metoprolol held due to hypotension IV heparin discontinued Cardiology following Right lower lobe pulmonary nodule Tobacco use disorder Counseled to quit smoking Needs follow-up as outpatient Hypomagnesemia Hypokalemia Hypophosphatemia Reports chronic diarrhea after colorectal surgery HCTZ likely contributing as well Monitor and replete electrolytes as needed Lyme arthritis flare, Right hand Diagnosed by PCP a few days ago Currently on doxycycline course Tobacco use disorder Counseled to quit smoking Alcohol use Patient's last drink was a few days ago patient Precedex due to agitation, leading to hypotension--discontinued Continue thiamine, folic acid Monitor for withdrawal Weaned off of pressors Other chronic conditions: Hypertension GERD Cachexia Continue home medications as able DVT Px: Heparin SQ CODE STATUS Conditional code Admission and Anticipated Discharge Date Admission Date: September 16, 2024 Subjective Patient is seen and examined at bedside Patient feels a lot better today Less anxious Extubated this morning Currently on high flow oxygen Dyspnea much improved Denies any chest pain, dizziness, nausea, vomiting, abdominal pain States having mild soreness of lower back Family at bedside No other complaints Review of Systems Review of Systems: All systems reviewed & are unremarkable except as noted in Subjective Physical Exam Physical Exam: Physical Exam: Vitals signs as noted above General Appearance: Thin, frail, no apparent distress Head: normocephalic, Atraumatic Eyes: normal inspection, EOMI Neck: supple, Trachea midline Respiratory/Chest: B/L coarse breath sounds, scattered wheezes, crackles, no accessory muscle use Cardiovascular: S1, S2, No murmur, tachycardia Abdomen/GI:Soft, Non tender, Bowel sounds present Extremities/Musculoskeletal:normal inspection, no edema Neurologic/Psych:AAOX3, grossly no focal neurological deficits Skin: normal color, warm Results & Data Results & Data Vital Signs (Past 12 Hours) Vital Signs Temp Pulse Pulse Resp BP BP Pulse Ox 09/20/24 12:52 105 H 17 96 09/20/24 12:03 96 H 27 H 95 09/20/24 12:00 149/96 H 09/20/24 12:00 36.8 C 09/20/24 11:09 100 H 25 H 91 09/20/24 11:00 124/79 09/20/24 10:03 93 H 22 92 09/20/24 10:00 135/90 09/20/24 09:13 92 H 14 92 09/20/24 09:00 97 H 19 146/89 H 95 09/20/24 08:00 96 H 19 99 09/20/24 08:00 09/20/24 08:00 37.2 C 09/20/24 08:00 09/20/24 07:03 94 H 18 100 09/20/24 07:03 93 H 15 100 09/20/24 06:06 94 H 15 142/85 H 99 09/20/24 05:33 96 H 15 100 09/20/24 05:20 92 H 15 128/82 98 09/20/24 04:32 97 H 14 98 09/20/24 04:23 97 H 18 98 09/20/24 04:11 92 H 22 118/74 98 09/20/24 04:00 09/20/24 04:00 37.9 C H 09/20/24 03:40 93 H 25 H 98 09/20/24 03:35 84 24 97 09/20/24 03:08 84 24 113/65 99 09/20/24 02:59 85 24 99 09/20/24 02:00 99 H 17 123/66 98 O2 Del Method O2 Flow Rate FiO2 09/20/24 12:52 High Flow Nasal Cannula 30 21 09/20/24 12:03 09/20/24 12:00 09/20/24 12:00 09/20/24 11:09 09/20/24 11:00 09/20/24 10:03 09/20/24 10:00 09/20/24 09:13 High Flow Nasal Cannula 30 21 09/20/24 09:00 09/20/24 08:00 09/20/24 08:00 Mechanical Vent 30 09/20/24 08:00 09/20/24 08:00 30 09/20/24 07:03 09/20/24 07:03 30 09/20/24 06:06 09/20/24 05:33 09/20/24 05:20 09/20/24 04:32 09/20/24 04:23 30 09/20/24 04:11 09/20/24 04:00 30 09/20/24 04:00 09/20/24 03:40 30 09/20/24 03:35 09/20/24 03:08 09/20/24 02:59 09/20/24 02:00 Mechanical Vent 30 Laboratory Results Short CBC 09/20/24 Range/Units 04:10 WBC 10.74 (4.8-10.8) K/ul Hgb 11.0 L (12.0-16.0) g/dl Hct 32.9 L (37.0-47.0) % Plt Count 256 (130-400) K/uL BMP 09/20/24 04:10 Sodium 134 L Potassium 4.5 Chloride 100 Carbon Dioxide 29 BUN 10 Creatinine 0.39 L Glucose 178 H Calcium 8.3 L Liver Function 09/20/24 Range/Units 04:10 Total Bilirubin 0.3 (0.2-1.0) mg/dl AST 21 (13-39) U/L ALT 30 (7-52) U/L Alkaline Phosphatase 52 (34-104) U/L Albumin 3.2 L (3.4-5.0) gm/dl
--- NOTE | 2024-09-20 14:33 | Cardiology Progress Note ---
Date of Service September 20, 2024 Assessment & Plan (1) Takotsubo cardiomyopathy: (2) Acute heart failure with reduced ejection fraction (HFrEF, <= 40%) and combined systolic and diastolic dysfunction: (3) NSTEMI (non-ST elevated myocardial infarction): (4) COPD exacerbation: (5) PVD (peripheral vascular disease): Plan Results of cardiac catheterization discussed with both patient and her . Beta-charis will remain on hold due to ongoing wheezing/bronchospasm and need for reintubation over the weekend. Patient received 1 dose of IV furosemide today with moderate diuresis. Respiratory status improving. Reassess volume status in a.m. with consideration for additional IV furosemide. Anxiolytic therapy as per coil maker/IM. Smoking cessation advised. Admission and Anticipated Discharge Date Admission Date: September 16, 2024 Subjective 59-year-old female seen examined at the bedside. Cardiac catheterization performed 10/09 demonstrating mild nonobstructive coronary disease. Beta- charis on hold due to bronchospasm. Patient extubated and feeling better today. at bedside. Offers no new concerns/complaints. Fluid balance -1.4 L since receiving furosemide this a.m. Markedly elevated left ventricular end-diastolic pressure recorded during left heart catheterization. Beta-charis on hold since 09/18/2024. Mildly elevated heart rate on telemetry. Review of Systems Review of Systems: All systems reviewed & are unremarkable except as noted in Subjective Physical Exam Constitutional: + ill appearing Respiratory: no respiratory distress, no labored breathing and no retractions Auscultation: + rhonchi and + wheezes Cardiovascular: Rate/Rhythm: regular rate and regular rhythm Heart Sounds: normal S1 and normal S2; no murmur Vessels: no JVD and no carotid bruit Extremities: no edema Neurologic: moves all extremities; no focal motor deficits Results & Data Vital Signs (Past 12 Hours) Vital Signs Temp Pulse Pulse Resp BP BP Pulse Ox 09/20/24 12:52 105 H 17 96 09/20/24 12:03 96 H 27 H 95 09/20/24 12:00 149/96 H 09/20/24 12:00 36.8 C 09/20/24 11:09 100 H 25 H 91 09/20/24 11:00 124/79 09/20/24 10:03 93 H 22 92 09/20/24 10:00 135/90 09/20/24 09:13 92 H 14 92 09/20/24 09:00 97 H 19 146/89 H 95 09/20/24 08:00 96 H 19 99 09/20/24 08:00 09/20/24 08:00 37.2 C 09/20/24 08:00 09/20/24 07:03 94 H 18 100 09/20/24 07:03 93 H 15 100 09/20/24 06:06 94 H 15 142/85 H 99 09/20/24 05:33 96 H 15 100 09/20/24 05:20 92 H 15 128/82 98 09/20/24 04:32 97 H 14 98 09/20/24 04:23 97 H 18 98 09/20/24 04:11 92 H 22 118/74 98 09/20/24 04:00 09/20/24 04:00 37.9 C H 09/20/24 03:40 93 H 25 H 98 09/20/24 03:35 84 24 97 09/20/24 03:08 84 24 113/65 99 09/20/24 02:59 85 24 99 O2 Del Method O2 Flow Rate FiO2 09/20/24 12:52 High Flow Nasal Cannula 30 21 09/20/24 12:03 09/20/24 12:00 09/20/24 12:00 09/20/24 11:09 09/20/24 11:00 09/20/24 10:03 09/20/24 10:00 09/20/24 09:13 High Flow Nasal Cannula 30 21 09/20/24 09:00 09/20/24 08:00 09/20/24 08:00 Mechanical Vent 30 09/20/24 08:00 09/20/24 08:00 30 09/20/24 07:03 09/20/24 07:03 30 09/20/24 06:06 09/20/24 05:33 09/20/24 05:20 09/20/24 04:32 09/20/24 04:23 30 09/20/24 04:11 09/20/24 04:00 30 09/20/24 04:00 09/20/24 03:40 30 09/20/24 03:35 09/20/24 03:08 09/20/24 02:59 Laboratory Results Cardiac Enzymes 09/20/24 Range/Units 04:10 AST 21 (13-39) U/L CBC 09/20/24 Range/Units 04:10 WBC 10.74 (4.8-10.8) K/ul RBC 3.27 L (4.20-5.40) M/uL Hgb 11.0 L (12.0-16.0) g/dl Hct 32.9 L (37.0-47.0) % Plt Count 256 (130-400) K/uL Comprehensive Metabolic Panel 09/20/24 Range/Units 04:10 Sodium 134 L (136-145) mmol/L Potassium 4.5 (3.5-5.1) mmol/L Chloride 100 (98-107) mmol/L Carbon Dioxide 29 (21-32) mmol/L BUN 10 (6-23) mg/dl Creatinine 0.39 L (0.6-1.2) mg/dl Glucose 178 H (70-99(Fasting)) mg/dl Calcium 8.3 L (8.6-10.3) mg/dl AST 21 (13-39) U/L ALT 30 (7-52) U/L Alkaline Phosphatase 52 (34-104) U/L Total Protein 4.9 L (6.0-8.3) gm/dl Albumin 3.2 L (3.4-5.0) gm/dl Intake and Output 09/19/24 09/20/24 09/20/24 22:59 06:59 14:59 Intake Total 822.542 / 3026.850 599.708 / 3026.850 907 / 907 Output Total 650 / 2500 950 / 2500 2250 / 2250 Balance 172.542 / 526.850 -350.292 / 526.850 -1343 / -1343 Intake: IV 537.542 / 1686.850 29.708 / 1686.850 507 / 507 Heparin Sodium/Dextrose 25,000 0 / 112.6 units In 500 ml @ 800 UNITS/HR 16 mls/hr IV .Q24H [facility] Rx#: [id number] Midazolam HCl 125 mg In 250 ml 0 / 7 0 / 7 0 / 0 @ 0 MG/HR IV .Q0M [facility] Rx#: [id number] Norepinephrine/D5w 4 mg In 250 0 / 0 ml @ 0 MCG/KG/MIN IV .Q0M [facility] Rx#:[id number] Sodium Phosphate 21 mmol In 507 / 507 507 / 507 Dextrose 5% 500 ml @ 145 mls/hr IV ONE ONE Rx#:[id number] fentaNYL citrate 2,500 mcg In 30.542 / 60.250 29.708 / 60.250 0 / 0 250 ml @ 25 MCG/HR 2.5 mls/hr IV .Q96H [facility] Rx#:[id number] Oral 400 / 400 Tube Feeding 160 / 590 320 / 590 Tube Irrigant 125 / 500 250 / 500 Output: Urine Amount (Catheter) 650 / 2500 950 / 2500 2250 / 2250 Dolan/Indwelling 650 / 2500 950 / 2500 2250 / 2250 Other: Weight 48.1 kg Weight Measurement Method Built in [facility]
[2024-09-21] MEDS: ACETAMINOPHEN 325 MG TAB PO PRN (01:21)
[2024-09-21 05:13] LABS: Hematocrit (blood only) 35.5 % (37.0-47.0); Hemoglobin 12.1 g/dl (12.0-16.0); Mean Corpuscular Hemoglobin 33.9 pg (25.0-34.0); Mean Corpuscular Hgb Conc 34.1 g/dL (32.0-36.0); Mean Corpuscular Volume 99.4 fL (80.0-100.0); Mean Platelet Volume 9.3 fL (9.4-12.4); Platelet Count 281 K/uL (130-400); RDW Coefficient of Variation 12.4 % (11.5-14.5); RDW Standard Deviation 45.3 fL (36.4-46.3); Red Blood Count 3.57 M/uL (4.20-5.40); White Blood Count 10.78 K/ul (4.8-10.8)
[2024-09-21 05:34] LABS: BUN Creatinine Ratio 31.5 (10-20); Calcium 8.8 mg/dl (8.6-10.3); Creatinine Clr Calc Pharmacy 86.2 ml/min; Magnesium 2.1 mg/dl (1.7-2.4); Potassium 4.3 mmol/L (3.5-5.1)
--- NOTE | 2024-09-21 06:55 | Critical Care Progress Note ---
Date of Service September 21, 2024 Assessment & Plan (1) Acute and chronic respiratory failure, unspecified whether with hypoxia or hypercapnia: (2) COPD exacerbation: (3) NSTEMI (non-ST elevated myocardial infarction): (4) Cachexia: Plan Impression: 59-year-old female with extensive history of tobacco and alcohol abuse and cachexia admitted with shortness of breath likely due to COPD exacerbation. Also found to have elevated troponin and decreased ejection fraction, possibly Takotsubo. CT chest 09/16/2024 personally reviewed: Centrilobular emphysema appreciated bilaterally Increased bronchial wall thickening 5 mm right lower lobe pulmonary nodule No significant mediastinal lymphadenopathy Recommendations: -- Neurologic: Continue high-dose thiamine and folate replacement as well as daily multivitamin. Sedation with propofol and Precedex resulted in hypotension, fentanyl as needed --Severe anxiety Lexapro started 09/19/2024 Continue with clonazepam as needed -- Cardiovascular: --Type II HI Elevated troponin with decreased ejection fraction Cardiology on board --Peripheral vascular disease Status post bilateral femoral bypass graft. Currently on heparin infusion. -- Pulmonary: -- S/p VDRF Likely secondary to hypercapnic hypoxic respiratory failure secondary to COPD exacerbation Continue with ventilatory support Daily sedation holidays and SBT's Reintubated 09/17/2024 --> extubated 07/21/2020 Continue with nebulized treatment and Solu-Medrol, complete the course of doxycycline Respiratory BioFire negative for everything -- GI: Nutritional consult given her profound cachexia (body mass index of 15) -- Renal: -- Monitor BUNs/creatinine Avoid nephrotoxic medication -- Endocrine: ICU hypoglycemia protocol -- Heme-onc: Monitor H&H -- ID: Complete the course of doxycycline for COPD exacerbations --Prophylaxis VTE: Heparin GI: Lansoprazole Lines: Peripheral Diet: Cardiac diet Plan: In/out: -1.6 L, urine output 3075, +3.6 L since coming to the hospital Decrease Solu-Medrol to 40 mg every 12, will try to taper it off to p.o. prednisone over the next day or 2 DC Magdaleno On discharge would recommend to add Spiriva to her regimen or change her Symbicort to either BrezTri or Trelegy 200 Patient was supposed to be on doxycycline for questionable Lyme arthritis. Will defer to the primary team whether they want to continue with the thought process, I highly doubt Lyme arthritis Increase clonazepam to 1 mg 3 times daily Decrease the dose of midazolam. Continue with Lexapro 20 mg Hemodynamically stable to be downgraded to medical floor Please note the above document was generated using voice recognition software. It may contain grammatical, syntax or spelling errors.Any formal questions or concerns about the content, text or information contained within the body of this dictation should be directly addressed to the provider for clarification. Admission and Anticipated Discharge Date Admission Date: September 16, 2024 Subjective Patient seen and examined at bedside. No acute distress, no adverse events overnight Shortness of breath is improved Had a fair night sleep Shortness of breath is improved Has been coughing up clear phlegm now Fair appetite, no nausea or vomiting Review of Systems 2 Review of Systems: All systems reviewed & are unremarkable except as noted in Subjective Physical Exam 2 Physical Exam: Constitutional: No acute distress HEENT: EOMI, PERRLA Respiratory system: Decreased air entry bilaterally, no rhonchi, mild crackles bilateral lower lobes, no wheeze CVS: S1-S2 positive, no murmurs or gallops Abdomen: Soft, nontender, nondistended, positive bowel sounds x4 Extremities: +2 pulses bilaterally radialis/ dorsalis pedis, no cyanosis, no edema Neuro: Awake alert oriented x3 Psych: Normal mood and affect G/U: Positive Dolan Skin: no rashes, warm and dry Lymphatic: no cervical or axillary lymphadenopathy Results & Data Results & Data Vital Signs (Past 12 Hours) Vital Signs Temp Pulse Pulse Resp BP Pulse Ox O2 Del Method 09/21/24 06:06 98 H 16 92 09/21/24 06:00 36.8 C 155/104 H High Flow Nasal Cannula 09/21/24 05:00 36.7 C 104 H 24 164/109 H 90 High Flow Nasal Cannula 09/21/24 04:22 104 H 19 91 High Flow Nasal Cannula 09/21/24 04:18 102 H 21 92 09/21/24 04:00 36.7 C 149/91 H High Flow Nasal Cannula 09/21/24 03:00 36.7 C 150/93 H High Flow Nasal Cannula 09/21/24 03:00 102 H 16 89 L 09/21/24 02:06 110 H 15 90 09/21/24 02:00 36.8 C 155/94 H High Flow Nasal Cannula 09/21/24 01:00 98 H 15 91 09/21/24 01:00 36.5 C 143/92 H High Flow Nasal Cannula 09/21/24 00:22 98 H 16 90 High Flow Nasal Cannula 09/21/24 00:03 106 H 19 89 L 09/21/24 00:00 101 H 09/21/24 00:00 36.9 C 153/92 H High Flow Nasal Cannula 09/20/24 23:00 36.9 C 147/93 H High Flow Nasal Cannula 09/20/24 23:00 97 H 15 90 09/20/24 22:00 36.8 C 132/97 High Flow Nasal Cannula 09/20/24 22:00 96 H 20 91 09/20/24 21:12 104 H 18 93 09/20/24 21:00 36.8 C 147/93 H 09/20/24 20:36 98 H 18 92 High Flow Nasal Cannula 09/20/24 20:12 101 H 14 92 09/20/24 20:00 High Flow Nasal Cannula 09/20/24 20:00 36.8 C 145/90 H 09/20/24 19:06 97 H 16 91 09/20/24 19:00 36.7 C 140/87 O2 Flow Rate FiO2 09/21/24 06:06 09/21/24 06:00 30 21 09/21/24 05:00 30 21 09/21/24 04:22 30 21 09/21/24 04:18 09/21/24 04:00 30 21 09/21/24 03:00 30 21 09/21/24 03:00 09/21/24 02:06 09/21/24 02:00 30 21 09/21/24 01:00 09/21/24 01:00 30 21 09/21/24 00:22 30 21 09/21/24 00:03 09/21/24 00:00 09/21/24 00:00 30 21 09/20/24 23:00 30 21 09/20/24 23:00 09/20/24 22:00 30 21 09/20/24 22:00 09/20/24 21:12 09/20/24 21:00 09/20/24 20:36 30 21 09/20/24 20:12 09/20/24 20:00 30 21 09/20/24 20:00 09/20/24 19:06 09/20/24 19:00 Laboratory Results 09/21/24 04:40 09/21/24 04:41 Coding Level of Care Code 36293 SUB INP/OBS CARE 3/50MIN Diagnoses Acute on chronic respiratory failure with hypoxia and hypercapnia J96.21; J96.22 Respiratory failure complication: hypoxia and hypercapnia COPD exacerbation J44.1 NSTEMI (non-ST elevated myocardial infarction) I21.4 Cachexia R64 (1) Acute and chronic respiratory failure, unspecified whether with hypoxia or hypercapnia Respiratory failure complication: hypoxia and hypercapnia Qualified Code(s): J96.21 - Acute and chronic respiratory failure with hypoxia; J96.22 - Acute and chronic respiratory failure with hypercapnia
--- NOTE | 2024-09-21 07:50 | XRay Report ---
EXAM: XR chest 1V portable CLINICAL HISTORY: RESP FAILURE JTF/TGB INPATIENT TECHNIQUE: An X-ray image of the chest is obtained in AP projection. COMPARISON: 09/20/2024. FINDINGS: Pulmonary Parenchyma: Removal of the ETT and the NG tube. Hyperinflated both lungs with flattening of both hemidiaphragm. Increased the right lower zone patchy opacity Blunting of the right CP angle suggests mild pleural effusion or subpleural atelectasis. Subtle blunting of left costophrenic angle suggesting minimal left-sided pleural effusion. Heart and Mediastinum: Heart size and shape are normal. No mediastinal widening or masses. No hilar or mediastinal lymphadenopathy. Bony Thorax: Bony thorax appears intact without fractures or deformities. Soft Tissues: Soft tissues overlying the chest wall are unremarkable. IMPRESSION: Removal of the ETT and the NG tube. Increased the right lower zone patchy opacity and blunting of the right CP angle suggests mild pleural effusion(new findings) the rest of the findings are stable in comparison with x-ray 09/20/2024. Electronically signed by Clyde Gabriel 09-21-2024 07:50 AM
[2024-09-21] MEDS: methylPREDNISolone 40 MG in SYRINGE 0 ML IV SCH (08:16)
[2024-09-21] MEDS: ESCITALOPRAM OXALATE 20 MG TAB PO SCH (08:22)
[2024-09-21] MEDS ORDERED: MIDAZOLAM HCL 1 MG/ML 2ML VIAL IV PRN (09:37)
--- NOTE | 2024-09-21 11:31 | Cardiology Progress Note ---
Date of Service September 21, 2024 Assessment & Plan (1) Takotsubo cardiomyopathy: (2) Acute heart failure with reduced ejection fraction (HFrEF, <= 40%) and combined systolic and diastolic dysfunction: (3) NSTEMI (non-ST elevated myocardial infarction): (4) COPD exacerbation: (5) PVD (peripheral vascular disease): (6) HTN (hypertension): Plan Elevated heart rate and blood pressure noted. Prefer to avoid beta-charis therapy due to bronchospasm on admission with need for reintubation over the weekend. Currently her respiratory status is stable. Will initiate calcium channel charis therapy with Cardizem 60 mg 3 times daily. Consider restarting ARB pending clinical response. (Treated with telmisartan/HCTZ as outpatient) Results of cardiac catheterization discussed with both patient and her . Continue aspirin, clopidogrel, and statin therapy as ordered. Smoking cessation advised. Anxiolytic therapy as per zone maintenance technician/IM. Admission and Anticipated Discharge Date Admission Date: September 16, 2024 Subjective 59-year-old female seen examined at the bedside. Feeling better today. Currently on high flow room air. No longer requiring supplemental oxygen. Denies chest pain or palpitations. Elevated heart rate on telemetry. ARB and hydrochlorothiazide on hold since admission. Blood pressure elevated. Review of Systems Review of Systems: All systems reviewed & are unremarkable except as noted in Subjective Physical Exam Constitutional: + ill appearing Respiratory: no respiratory distress, no labored breathing and no retractions Auscultation: + diminished lung sounds; no rhonchi and no wheezes Cardiovascular: Rate/Rhythm: regular rate and regular rhythm Heart Sounds: normal S1 and normal S2; no murmur Vessels: no JVD and no carotid bruit Extremities: no edema Gastrointestinal (Abdomen): Inspection/Auscultation: normal bowel sounds; abdomen not distended Percussion/Palpation: abdomen soft; abdomen nontender, no guarding and abdomen not rigid Neurologic: moves all extremities; no focal motor deficits Results & Data Vital Signs (Past 12 Hours) Vital Signs Temp Pulse Pulse Resp BP BP Pulse Ox 09/21/24 10:42 111 H 22 165/113 H 90 09/21/24 10:40 101 H 18 93 09/21/24 10:06 109 H 20 160/106 H 94 09/21/24 09:33 114 H 23 94 09/21/24 09:03 113 H 20 139/88 94 09/21/24 08:51 114 H 19 122/87 94 09/21/24 08:09 119 H 21 91 09/21/24 08:00 106 H 09/21/24 08:00 09/21/24 07:30 112 H 23 89 L 09/21/24 07:09 105 H 17 92 09/21/24 07:09 103 H 19 92 09/21/24 07:00 36.8 C 104 H 19 166/103 H 92 09/21/24 06:06 98 H 16 92 09/21/24 06:00 36.8 C 155/104 H 09/21/24 05:00 36.7 C 104 H 24 164/109 H 90 09/21/24 04:22 104 H 19 91 09/21/24 04:18 102 H 21 92 09/21/24 04:00 36.7 C 149/91 H 09/21/24 03:00 36.7 C 150/93 H 09/21/24 03:00 102 H 16 89 L 09/21/24 02:06 110 H 15 90 09/21/24 02:00 36.8 C 155/94 H 09/21/24 01:00 98 H 15 91 09/21/24 01:00 36.5 C 143/92 H 09/21/24 00:22 98 H 16 90 09/21/24 00:03 106 H 19 89 L 09/21/24 00:00 101 H 09/21/24 00:00 36.9 C 153/92 H O2 Del Method O2 Flow Rate FiO2 09/21/24 10:42 09/21/24 10:40 High Flow Nasal Cannula 20 21 09/21/24 10:06 09/21/24 09:33 09/21/24 09:03 09/21/24 08:51 09/21/24 08:09 09/21/24 08:00 09/21/24 08:00 High Flow Nasal Cannula 25 35 09/21/24 07:30 09/21/24 07:09 09/21/24 07:09 High Flow Nasal Cannula 25 21 09/21/24 07:00 Room Air, High Flow Nasal Cannula 25 21 09/21/24 06:06 09/21/24 06:00 High Flow Nasal Cannula 30 21 09/21/24 05:00 High Flow Nasal Cannula 30 21 09/21/24 04:22 High Flow Nasal Cannula 30 21 09/21/24 04:18 09/21/24 04:00 High Flow Nasal Cannula 30 21 09/21/24 03:00 High Flow Nasal Cannula 30 21 09/21/24 03:00 09/21/24 02:06 09/21/24 02:00 High Flow Nasal Cannula 30 21 09/21/24 01:00 09/21/24 01:00 High Flow Nasal Cannula 30 21 09/21/24 00:22 High Flow Nasal Cannula 30 21 09/21/24 00:03 09/21/24 00:00 09/21/24 00:00 High Flow Nasal Cannula 30 21 Laboratory Results CBC 09/21/24 Range/Units 04:40 WBC 10.78 (4.8-10.8) K/ul RBC 3.57 L (4.20-5.40) M/uL Hgb 12.1 (12.0-16.0) g/dl Hct 35.5 L (37.0-47.0) % Plt Count 281 (130-400) K/uL Comprehensive Metabolic Panel 09/21/24 Range/Units 04:41 Sodium 136 (136-145) mmol/L Potassium 4.3 (3.5-5.1) mmol/L Chloride 98 (98-107) mmol/L Carbon Dioxide 31 (21-32) mmol/L BUN 17 (6-23) mg/dl Creatinine 0.54 L (0.6-1.2) mg/dl Glucose 112 H (70-99(Fasting)) mg/dl Calcium 8.8 (8.6-10.3) mg/dl Intake and Output 09/20/24 09/21/24 09/21/24 22:59 06:59 14:59 Intake Total 300 / 1407 200 / 1407 350 / 350 Output Total 375 / 3075 450 / 3075 350 / 350 Balance -75 / -1668 -250 / -1668 0 / 0 Intake: Oral 300 / 900 200 / 900 350 / 350 Output: Urine Amount (Catheter) 375 / 3075 450 / 3075 350 / 350 Dolan/Indwelling 375 / 3075 450 / 3075 350 / 350 Other: Weight 47.9 kg Weight Measurement Method Built in [facility] (6) HTN (hypertension) Hypertension type: primary hypertension Qualified Code(s): I10 - Essential (primary) hypertension
[2024-09-21] MEDS: clonazePAM 1 MG TAB PO PRN (13:31)
[2024-09-21] MEDS: dilTIAZem HCl 60 MG TAB PO SCH (13:31)
--- NOTE | 2024-09-21 14:15 | Hospitalist Progress Note ---
Date of Service September 21, 2024 Assessment & Plan (1) COPD exacerbation: (2) Acute bronchitis: (3) Elevated troponin: (4) Hypomagnesemia: (5) Hypokalemia: Plan: Patient is a 59 yr old female with history of COPD, hypertension, peripheral artery disease, GERD, smoker, drinker presenting with cough and shortness of breath times few days. Acute respiratory failure with hypoxia and hypercarbia Acute COPD exacerbation Failed outpatient treatment with Augmentin, prednisone, doxycycline prescribed 2 days ago -- CTA: No pulmonary emboli identified. Emphysema with bronchitis and mucous plugging. Mild intralobular septal thickening likely represents a component of pulmonary edema. 5 mm solid nodule of the basal right lower lobe. --BioFire: Negative --Required Intubation , S/P extubation on 09/17/2024 --Reintubated on 09/17/2024 due to worsening respiratory acidosis, distress --S/P Extubated on 09/20/24 --Continue IV Solu-Medrol, budesonide, Perforomist, nebs --Continue doxycycline Counseled to quit smoking Appreciate critical care input Aspiration precautions Continue high flow oxygen, wean as able Required IV pressors and that was subsequently discontinued Started on Lexapro, Klonopin pain as needed to help with anxiety Continue to monitor in ICU today Advance diet as tolerated Clinically much better and will continue current management for today Takotsubo syndrome Pulmonary edema Secondary to above Suspected NSTEMI H/O peripheral vascular disease S/P bilateral femoral bypass graft --ECHO: Severe diffuse hypokinesis akinesis of the left ventricular the apical and mid levels with relative sparing of the basal segments. EF 25 to 30%. Right ventricle is hyperdynamic. Trace mitral, tricuspid regurgitation, mild to moderate pulmonary hypertension. --S/P Cardiac Cath on 09/20/24: Mild to moderate coronary artery disease. 30% ostial, calcified left main. Very small high OM1 with 60-70% ostial stenosis. Elevated intracardiac filling pressure (LVEDP 37) --Lipid panel within normal limits -- Continue Plavix, atorvastatin --Added aspirin -Appreciate cardiology input --Will need repeat echo in 1 month Received IV Lasix Monitor volume status closely Nitroglycerin, metoprolol held due to hypotension IV heparin discontinued Denies any more cardiac symptoms has been having tachycardia but otherwise stable Right lower lobe pulmonary nodule Tobacco use disorder Counseled to quit smoking Needs follow-up as outpatient Hypomagnesemia Hypokalemia Hypophosphatemia Reports chronic diarrhea after colorectal surgery HCTZ likely contributing as well Monitor and replete electrolytes as needed Corrected Lyme arthritis flare, Right hand Diagnosed by PCP a few days ago Currently on doxycycline course Will continue Doxy and leave it up to the PCP to decide the duration Tobacco use disorder Counseled to quit smoking Alcohol use Patient's last drink was a few days ago patient Precedex due to agitation, leading to hypotension--discontinued Continue thiamine, folic acid Monitor for withdrawal Weaned off of pressors Other chronic conditions: Hypertension GERD Cachexia Continue home medications as able DVT Px: Heparin SQ CODE STATUS Conditional code Admission and Anticipated Discharge Date Admission Date: September 16, 2024 Subjective 09/21/2024 The patient was seen and examined in ICU She has been feeling much better but is still requiring high flow to maintain saturation at room air Denies any significant symptoms except for generalized weakness Review of Systems Review of Systems: All systems reviewed and are unremarkable except as noted below Physical Exam Constitutional: + ill appearing and + thin Eyes: PERRL, conjunctivae normal, anicteric sclerae ENMT: external ear and nose normal, oropharynx normal Neck: trachea midline, no thyromegaly Respiratory: no respiratory distress Auscultation: + diminished lung sounds, + crackles and + wheezes Cardiovascular: Rate/Rhythm: regular rate, regular rhythm and + tachycardic Heart Sounds: normal S1, normal S2 and + murmur Extremities: no edema Gastrointestinal (Abdomen): Inspection/Auscultation: normal bowel sounds; abdomen not distended Percussion/Palpation: abdomen soft; abdomen nontender Musculoskeletal: No acute arthritis involving any of the joint Neurologic: normal touch/pain/proprioception and moves all extremities; no focal motor deficits Lymphatic: no cervical or axillary lymphadenopathy Results & Data Results & Data Vital Signs (Past 12 Hours) Vital Signs Temp Pulse Pulse Resp BP BP Pulse Ox 09/21/24 12:00 36.8 C 116 H 21 149/117 H 95 09/21/24 10:42 111 H 22 165/113 H 90 09/21/24 10:40 101 H 18 93 09/21/24 10:06 109 H 20 160/106 H 94 09/21/24 09:33 114 H 23 94 09/21/24 09:03 113 H 20 139/88 94 09/21/24 08:51 114 H 19 122/87 94 09/21/24 08:09 119 H 21 91 09/21/24 08:00 106 H 09/21/24 08:00 09/21/24 07:30 112 H 23 89 L 09/21/24 07:09 105 H 17 92 09/21/24 07:09 103 H 19 92 09/21/24 07:00 36.8 C 104 H 19 166/103 H 92 09/21/24 06:06 98 H 16 92 09/21/24 06:00 36.8 C 155/104 H 09/21/24 05:00 36.7 C 104 H 24 164/109 H 90 09/21/24 04:22 104 H 19 91 09/21/24 04:18 102 H 21 92 09/21/24 04:00 36.7 C 149/91 H 09/21/24 03:00 36.7 C 150/93 H 09/21/24 03:00 102 H 16 89 L 09/21/24 02:06 110 H 15 90 O2 Del Method O2 Flow Rate FiO2 09/21/24 12:00 High Flow Nasal Cannula 20 21 09/21/24 10:42 09/21/24 10:40 High Flow Nasal Cannula 20 21 09/21/24 10:06 09/21/24 09:33 09/21/24 09:03 09/21/24 08:51 09/21/24 08:09 09/21/24 08:00 09/21/24 08:00 High Flow Nasal Cannula 25 35 09/21/24 07:30 09/21/24 07:09 09/21/24 07:09 High Flow Nasal Cannula 25 21 09/21/24 07:00 Room Air, High Flow Nasal Cannula 25 21 09/21/24 06:06 09/21/24 06:00 High Flow Nasal Cannula 30 21 09/21/24 05:00 High Flow Nasal Cannula 30 21 09/21/24 04:22 High Flow Nasal Cannula 30 21 09/21/24 04:18 09/21/24 04:00 High Flow Nasal Cannula 30 21 09/21/24 03:00 High Flow Nasal Cannula 30 21 09/21/24 03:00 09/21/24 02:06 Laboratory Results Short CBC 09/21/24 Range/Units 04:40 WBC 10.78 (4.8-10.8) K/ul Hgb 12.1 (12.0-16.0) g/dl Hct 35.5 L (37.0-47.0) % Plt Count 281 (130-400) K/uL [facility] 09/21/24 04:41 Sodium 136 Potassium 4.3 Chloride 98 Carbon Dioxide 31 BUN 17 Creatinine 0.54 L Glucose 112 H Calcium 8.8 Medications Administered Current Inpatient Medications Acetaminophen (Acetaminophen 325 Mg Tab) 650 mg PO Q4H PRN PRN Reason: Pain or Fever Stop: 10/16/24 13:24 Last Admin: 09/21/24 01:21 Dose: 650 mg Acetylcysteine (Acetylcysteine 20% Inhal Soln 4ml Dispensed By Resp.) 5 ml INH Q12R [facility] Stop: 10/19/24 09:14 Last Admin: 09/21/24 07:05 Dose: 5 ml Aspirin (Aspirin 81 Mg Chew) 81 mg PO DAILY NOELLE Stop: 10/17/24 08:59 Last Admin: 09/21/24 08:21 Dose: 81 mg Atorvastatin Calcium (Atorvastatin 20 Mg Tab) 20 mg OG QAM [facility] Stop: 10/16/24 15:44 Last Admin: 09/21/24 08:20 Dose: 20 mg Budesonide (Budesonide 0.5 Mg/2 Ml Vial (Pulmicort)) 0.5 mg NEB BIDR [facility] Stop: 10/16/24 18:59 Last Admin: 09/21/24 07:04 Dose: 0.5 mg Clonazepam (Clonazepam 1 Mg Tab) 1 mg PO Q8H PRN PRN Reason: Anxiety Stop: 10/20/24 13:59 Last Admin: 09/21/24 13:31 Dose: 1 mg Clopidogrel Bisulfate (Clopidogrel Bisulfate 75 Mg Tab) 75 mg PO QAM [facility] Stop: 10/17/24 08:59 Last Admin: 09/21/24 08:21 Dose: 75 mg Diltiazem HCl (Diltiazem Hcl 60 Mg Tab) 60 mg PO TID [facility] Stop: 10/21/24 13:59 Last Admin: 09/21/24 13:31 Dose: 60 mg Doxycycline Hyclate (Doxycycline Hyclate 100 Mg Cap) 100 mg PO 0700,1900 NOELLE Stop: 09/23/24 07:01 Escitalopram Oxalate (Escitalopram Oxalate 20 Mg Tab) 20 mg PO QAM [facility] Stop: 10/21/24 08:59 Last Admin: 09/21/24 08:22 Dose: 20 mg Folic Acid (Folic Acid 1 Mg Tab) 1 mg PO QAM [facility] Stop: 10/17/24 08:59 Last Admin: 09/21/24 08:21 Dose: 1 mg Formoterol Fumarate (Formoterol 20 Mcg/2 Ml Vial) 20 mcg NEB BIDR [facility] Stop: 10/16/24 18:59 Last Admin: 09/21/24 07:04 Dose: 20 mcg Guaifenesin (Guaifenesin Sugar Free 200 Mg/10 Ml Udc) 400 mg PO TID [facility] Stop: 10/19/24 10:44 Last Admin: 09/21/24 13:31 Dose: 400 mg Heparin Sodium (Porcine) (Heparin Sod 5,000 Unit/0.5 Ml Vial) 5,000 units SQ BID NOELLE Stop: 10/20/24 10:29 Last Admin: 09/21/24 08:16 Dose: 5,000 units Methylprednisolone 40 mg/ (Syringe) 0.64 mls @ 1.5 mls/min IV Q12 [facility] Stop: 10/21/24 08:59 Last Admin: 09/21/24 08:16 Dose: 1.5 mls/min Ipratropium Mesa (Ipratropium Mesa Neb Soln 0.02% 0.5mg/2.5ml Vial) 0.5 mg NEB Q6R [facility] Stop: 10/16/24 13:24 Last Admin: 09/21/24 13:21 Dose: 0.5 mg Lansoprazole (Lansoprazole 30 Mg Soltab) 30 mg PO QAM [facility] Stop: 10/16/24 15:59 Last Admin: 09/21/24 08:20 Dose: 30 mg Levalbuterol HCl (Levalbuterol 1.25 Mg/3 Ml Neb) 1.25 mg NEB Q6R NOELLE Stop: 10/16/24 13:59 Last Admin: 09/21/24 13:21 Dose: 1.25 mg Midazolam HCl (Midazolam Hcl 1 Mg/Ml 2ml Vial) 1 mg IV Q4H PRN PRN Reason: Anxiety Stop: 10/20/24 10:27 Miscellaneous (Icu Electrolyte Replacement Protocol) 1 each N/A BID@ [facility]; Protocol Stop: 09/25/24 17:59 Last Admin: 09/21/24 06:05 Dose: 1 each Multivitamins/Minerals (Multi Vit W/Minerals Liquid 15 Ml Udc) 15 ml PO QAM [facility] Stop: 10/19/24 08:59 Last Admin: 09/21/24 08:21 Dose: 15 ml Potassium Phosphate (Pot Phosphate Monobasic W/ Sod Tab) 1 tab PO QID [facility] Stop: 09/21/24 21:01 Last Admin: 09/21/24 12:25 Dose: 1 tab Thiamine HCl (Thiamine Hcl 100 Mg Tab) 100 mg PO BID [facility] Stop: 10/16/24 20:59 Last Admin: 09/21/24 08:21 Dose: 100 mg All pertinent has been working very hard above and beyond he he is staying above and going yes we have every day yeah just like yes yes will not do that last thinking about doing the same day but that will not be granted by the guys I am not sure that that would not last yeah yeah yeah 913 you do not have a admission for exam for example you at home and plan for the evening okay so in that case this if we can separate this day you come Thursday I want to see and somebody else come on and that way for few days the pain to be easily, he will come from home but I am telling the if you take 1 day in the early okay just say yes and just do like some work just laying correctly see what is should be required
[2024-09-21] MEDS: DOXYCYCLINE HYCLATE 100 MG CAP PO SCH (18:31)
[2024-09-22 05:31] LABS: BUN Creatinine Ratio 36.6 (10-20); Calcium 8.7 mg/dl (8.6-10.3); Creatinine Clr Calc Pharmacy 113.1 ml/min; Magnesium 1.9 mg/dl (1.7-2.4); Phosphorus 4.5 mg/dl (2.5-4.9); Potassium 4.1 mmol/L (3.5-5.1)
--- NOTE | 2024-09-22 08:27 | Pulmonology Progress Note ---
Date of Service September 22, 2024 Assessment & Plan (1) Acute and chronic respiratory failure, unspecified whether with hypoxia or hypercapnia: Respiratory failure complication: hypoxia and hypercapnia Qualified Code(s): J96.21 - Acute and chronic respiratory failure with hypoxia; J96.22 - Acute and chronic respiratory failure with hypercapnia (2) COPD exacerbation: (3) NSTEMI (non-ST elevated myocardial infarction): (4) Cachexia: Plan Impression: 59-year-old female with extensive history of tobacco and alcohol abuse and cachexia admitted with shortness of breath likely due to COPD exacerbation. Also found to have elevated troponin and decreased ejection fraction, possibly Takotsubo. CT chest 09/16/2024 personally reviewed: Centrilobular emphysema appreciated bilaterally Increased bronchial wall thickening 5 mm right lower lobe pulmonary nodule No significant mediastinal lymphadenopathy -- Severe COPD with emphysema Likely secondary to hypercapnic hypoxic respiratory failure secondary to COPD exacerbation Continue with ventilatory support Daily sedation holidays and SBT's Reintubated 09/17/2024 --> extubated 07/21/2020 Continue with nebulized treatment and Solu-Medrol, complete the course of doxycycline Respiratory BioFire negative for everything Given the very severe COPD and requiring the need for intubation twice. I think it would be appropriate to try to avoid beta-blockers on her unless there is absolute indication like coronary artery disease --Severe anxiety Lexapro started 09/19/2024 Continue with clonazepam as needed Patient was supposed to be on doxycycline for questionable Lyme arthritis. Will defer to the primary team whether they want to continue with the thought process, I highly doubt Lyme arthritis Plan: In/out: -1.7 L, urine output 2602, +2 L since coming to the hospital Decrease Solu-Medrol to 40 mg daily, start prednisone 40 mg tomorrow and taper it off over 7 days On discharge would recommend to add Spiriva to her regimen or change her Symbicort to either BrezTri or Trelegy 200 Patient will benefit from AVAPS machine but unfortunately patient is very claustrophobic and she was not even able to tolerate CPAP/BiPAP in the hospital Patient's anxiety does be a significant part as well. She is right now on clonazepam 1 mg 3 times daily. I think it would be reasonable to send her on something similar with good education that she cannot take more than what she is supposed to as it can cause respiratory suppression DC Dolan catheter Case was discussed with primary team No further recommendation from pulmonary perspective, will sign off Please call directly with any questions Please note the above document was generated using voice recognition software. It may contain grammatical, syntax or spelling errors.Any formal questions or concerns about the content, text or information contained within the body of this dictation should be directly addressed to the provider for clarification. Admission and Anticipated Discharge Date Admission Date: September 16, 2024 Subjective Patient seen and examined at bedside. No acute distress, no adverse events overnight Patient was saturating 97% on room air Heart rate was in the 100s She stated she is feeling much better Coughing up occasionally and bringing up clear phlegm. Denies any hemoptysis Shortness of breath is significantly improved. Denies any headache or blurry vision Review of Systems 2 Review of Systems: All systems reviewed & are unremarkable except as noted in Subjective Physical Exam 2 Physical Exam: Constitutional: No acute distress HEENT: EOMI, PERRLA Respiratory system: Decreased air entry bilaterally, no rhonchi, minimal crackles bilateral lower lobes, no wheeze CVS: S1-S2 positive, no murmurs or gallops Abdomen: Soft, nontender, nondistended, positive bowel sounds x4 Extremities: +2 pulses bilaterally radialis/ dorsalis pedis, no cyanosis, no edema Neuro: Awake alert oriented x3 Psych: Normal mood and affect G/U: Positive Dolan Skin: no rashes, warm and dry Lymphatic: no cervical or axillary lymphadenopathy Results & Data Results & Data Vital Signs (Past 12 Hours) Vital Signs Temp Pulse Pulse Resp BP BP Pulse Ox 09/22/24 08:00 88 09/22/24 08:00 09/22/24 07:31 75 18 96 09/22/24 07:00 36.8 C 98 H 24 131/97 94 09/22/24 06:06 88 19 151/93 H 97 09/22/24 05:00 88 21 136/83 94 09/22/24 04:03 87 17 136/85 93 09/22/24 04:00 36.9 C 09/22/24 03:06 91 H 18 138/79 92 09/22/24 02:06 94 H 18 125/77 92 09/22/24 01:03 104 H 22 130/78 87 L 11/07/24 00:31 92 H 17 91 09/22/24 00:18 93 H 17 131/85 91 09/22/24 00:00 36.9 C 09/22/24 00:00 106 H 09/21/24 23:33 87 20 89 L 09/21/24 23:00 98 H 20 146/89 H 89 L 09/21/24 22:45 94 H 19 89 L 09/21/24 22:03 93 H 17 136/86 91 09/21/24 21:45 96 H 19 92 09/21/24 21:15 105 H 18 139/92 93 09/21/24 20:30 108 H 16 97 O2 Del Method O2 Flow Rate 09/22/24 08:00 09/22/24 08:00 Nasal Cannula 2 09/22/24 07:31 Room Air 09/22/24 07:00 Room Air 09/22/24 06:06 09/22/24 05:00 09/22/24 04:03 09/22/24 04:00 09/22/24 03:06 09/22/24 02:06 09/22/24 01:03 09/22/24 00:31 Room Air 09/22/24 00:18 09/22/24 00:00 09/22/24 00:00 09/21/24 23:33 09/21/24 23:00 09/21/24 22:45 09/21/24 22:03 09/21/24 21:45 09/21/24 21:15 09/21/24 20:30 Laboratory Results 09/21/24 04:40 09/22/24 04:30 PG Care Time/CCT Total # of Minutes Spent Total Time Spent with Patient: Total time spent is greater than 50% in coordination of care (as documented) at patient's floor/unit and/or counseling patient: Coding Level of Care Code 94127 SUB INP/OBS CARE 2/35MIN Diagnoses Acute on chronic respiratory failure with hypoxia and hypercapnia J96.21; J96.22 Respiratory failure complication: hypoxia and hypercapnia COPD exacerbation J44.1 NSTEMI (non-ST elevated myocardial infarction) I21.4 Cachexia R64
--- NOTE | 2024-09-22 08:51 | XRay Report ---
EXAM: XR chest 1V portable CLINICAL HISTORY: RESP FAILURE JTF/TGB INPATIENT TECHNIQUE: CR chest, frontal projection. COMPARISON: 09/21/2024 FINDINGS: Pulmonary Parenchyma: Hyperinflated both lungs with flattening of both hemidiaphragm. Redemonstrated the right lower zone patchy opacity Blunting of the right CP angle suggests mild pleural effusion or subpleural atelectasis. Subtle blunting of left costophrenic angle suggesting minimal left-sided pleural effusion. Heart and Mediastinum: Heart size and shape are normal. No mediastinal widening or masses. No hilar or mediastinal lymphadenopathy. Bony Thorax: The bony thorax appears intact without fractures or deformities. Soft Tissues: Soft tissues overlying the chest wall are unremarkable. IMPRESSION: 1. Redemonstrated the right lower zone patchy opacity 2. Blunting of the right CP angle suggests mild pleural effusion or subpleural atelectasis. 3. Subtle blunting of left costophrenic angle suggesting minimal left-sided pleural effusion. 4. No significant interval changes. Electronically signed by Clyde Gabriel 09-22-2024 08:51 AM
[2024-09-22] MEDS: MAGNESIUM OXIDE 400 MG TAB PO SCH (10:07)
[2024-09-22 10:57] VITALS: BP 136/101
--- NOTE | 2024-09-22 12:05 | Hospitalist Progress Note ---
Date of Service September 22, 2024 Assessment & Plan (1) COPD exacerbation: (2) Acute bronchitis: (3) Elevated troponin: (4) Hypomagnesemia: (5) Hypokalemia: Plan: Patient is a 59 yr old female with history of COPD, hypertension, peripheral artery disease, GERD, smoker, drinker presenting with cough and shortness of breath times few days. Acute respiratory failure with hypoxia and hypercarbia Acute COPD exacerbation Failed outpatient treatment with Augmentin, prednisone, doxycycline prescribed 2 days ago -- CTA: No pulmonary emboli identified. Emphysema with bronchitis and mucous plugging. Mild intralobular septal thickening likely represents a component of pulmonary edema. 5 mm solid nodule of the basal right lower lobe. --BioFire: Negative --Required Intubation , S/P extubation on 09/17/2024 --Reintubated on 09/17/2024 due to worsening respiratory acidosis, distress --S/P Extubated on 09/20/24 --Continue IV Solu-Medrol, budesonide, Perforomist, nebs --Continue doxycycline Counseled to quit smoking Appreciate critical care input Aspiration precautions Continue high flow oxygen, wean as able Required IV pressors and that was subsequently discontinued Started on Lexapro, Klonopin pain as needed to help with anxiety Continue to monitor in ICU today Advance diet as tolerated Clinically much better and will continue current management for today Remains medically stable without any distress and no shortness of breath at rest She wants to go home today Will get it to a step O2 saturation test prior to discharge today Takotsubo syndrome Pulmonary edema Secondary to above Suspected NSTEMI H/O peripheral vascular disease S/P bilateral femoral bypass graft --ECHO: Severe diffuse hypokinesis akinesis of the left ventricular the apical and mid levels with relative sparing of the basal segments. EF 25 to 30%. Right ventricle is hyperdynamic. Trace mitral, tricuspid regurgitation, mild to moderate pulmonary hypertension. --S/P Cardiac Cath on 09/20/24: Mild to moderate coronary artery disease. 30% ostial, calcified left main. Very small high OM1 with 60-70% ostial stenosis. Elevated intracardiac filling pressure (LVEDP 37) --Lipid panel within normal limits -- Continue Plavix, atorvastatin --Added aspirin -Appreciate cardiology input --Will need repeat echo in 1 month Received IV Lasix Monitor volume status closely Nitroglycerin, metoprolol held due to hypotension IV heparin discontinued Denies any more cardiac symptoms has been having tachycardia but otherwise stable Remains hemodynamically stable with tachycardia around 100 Will have limited echo as per public relations intern and will be discharged home if cleared by public relations intern thereafter Right lower lobe pulmonary nodule Tobacco use disorder Counseled to quit smoking Needs follow-up as outpatient Hypomagnesemia Hypokalemia Hypophosphatemia Reports chronic diarrhea after colorectal surgery HCTZ likely contributing as well Monitor and replete electrolytes as needed Corrected Lyme arthritis flare, Right hand Diagnosed by PCP a few days ago Currently on doxycycline course Will continue Doxy and leave it up to the PCP to decide the duration Tobacco use disorder Counseled to quit smoking Alcohol use Patient's last drink was a few days ago patient Precedex due to agitation, leading to hypotension--discontinued Continue thiamine, folic acid Monitor for withdrawal Weaned off of pressors Strongly advised to quit drinking Other chronic conditions: Hypertension GERD Cachexia Continue home medications as able DVT Px: Heparin SQ CODE STATUS Conditional code Admission and Anticipated Discharge Date Admission Date: September 16, 2024 Subjective 09/21/2024 The patient was seen and examined in ICU She has been feeling much better but is still requiring high flow to maintain saturation at room air Denies any significant symptoms except for generalized weakness 09/22/2024 The patient was seen and examined in the ICU She has been doing much better and denies any significant symptoms Saturating normally on room air does not have any shortness of breath at rest Has had physical therapy and did very well Denies any significant tremors Review of Systems Review of Systems: All systems reviewed and are unremarkable except as noted below Physical Exam Physical Exam: Lying in bed without any acute distress Constitutional: + ill appearing and + thin Eyes: PERRL, conjunctivae normal, anicteric sclerae ENMT: external ear and nose normal, oropharynx normal Neck: trachea midline, no thyromegaly Respiratory: no respiratory distress Auscultation: + diminished lung sounds, + crackles and + wheezes Cardiovascular: Rate/Rhythm: regular rate, regular rhythm and + tachycardic Heart Sounds: normal S1, normal S2 and + murmur Extremities: no edema Gastrointestinal (Abdomen): Inspection/Auscultation: normal bowel sounds; abdomen not distended Percussion/Palpation: abdomen soft; abdomen nontender Neurologic: normal touch/pain/proprioception and moves all extremities; no focal motor deficits Lymphatic: no cervical or axillary lymphadenopathy Results & Data Results & Data Vital Signs (Past 12 Hours) Vital Signs Temp Pulse Pulse Resp BP BP Pulse Ox 09/22/24 10:56 36.9 C 98 H 21 136/101 H 97 09/22/24 08:00 88 09/22/24 08:00 09/22/24 07:31 75 18 96 09/22/24 07:00 36.8 C 98 H 24 131/97 94 09/22/24 06:06 88 19 151/93 H 97 09/22/24 05:00 88 21 136/83 94 09/22/24 04:03 87 17 136/85 93 09/22/24 04:00 36.9 C 09/22/24 03:06 91 H 18 138/79 92 09/22/24 02:06 94 H 18 125/77 92 09/22/24 01:03 104 H 22 130/78 87 L 09/22/24 00:31 92 H 17 91 09/22/24 00:18 93 H 17 131/85 91 O2 Del Method O2 Flow Rate 09/22/24 10:56 Room Air 09/22/24 08:00 09/22/24 08:00 Nasal Cannula 2 09/22/24 07:31 Room Air 09/22/24 07:00 Room Air 09/22/24 06:06 09/22/24 05:00 09/22/24 04:03 09/22/24 04:00 09/22/24 03:06 09/22/24 02:06 09/22/24 01:03 09/22/24 00:31 Room Air 09/22/24 00:18 Laboratory Results [facility] 09/22/24 04:30 Sodium 139 Potassium 4.1 Chloride 102 Carbon Dioxide 29 BUN 15 Creatinine 0.41 L Glucose 118 H Calcium 8.7 Medications Administered Current Inpatient Medications Acetaminophen (Acetaminophen 325 Mg Tab) 650 mg PO Q4H PRN PRN Reason: Pain or Fever Stop: 10/16/24 13:24 Last Admin: 09/21/24 01:21 Dose: 650 mg Acetylcysteine (Acetylcysteine 20% Inhal Soln 4ml Dispensed By Resp.) 5 ml INH Q12R NOELLE Stop: 10/19/24 09:14 Last Admin: 09/22/24 06:42 Dose: 5 ml Aspirin (Aspirin 81 Mg Chew) 81 mg PO DAILY [facility] Stop: 10/17/24 08:59 Last Admin: 09/22/24 08:25 Dose: 81 mg Atorvastatin Calcium (Atorvastatin 20 Mg Tab) 20 mg OG QAM [facility] Stop: 10/16/24 15:44 Last Admin: 09/22/24 08:25 Dose: 20 mg Budesonide (Budesonide 0.5 Mg/2 Ml Vial (Pulmicort)) 0.5 mg NEB BIDR [facility] Stop: 10/16/24 18:59 Last Admin: 09/22/24 06:42 Dose: 0.5 mg Clonazepam (Clonazepam 1 Mg Tab) 1 mg PO Q8H PRN PRN Reason: Anxiety Stop: 10/20/24 13:59 Last Admin: 09/22/24 08:41 Dose: 1 mg Clopidogrel Bisulfate (Clopidogrel Bisulfate 75 Mg Tab) [facility] [place] Stop: 10/17/24 08:59 Last Admin: 09/22/24 08:25 Dose: 75 mg Diltiazem HCl (Diltiazem Hcl 60 Mg Tab) 60 mg PO TID [facility] Stop: 10/21/24 13:59 Last Admin: 09/22/24 08:25 Dose: 60 mg Doxycycline Hyclate (Doxycycline Hyclate 100 Mg Cap) 100 mg PO 0700,1900 [facility] Stop: 09/23/24 07:01 Last Admin: 09/22/24 06:51 Dose: 100 mg Escitalopram Oxalate (Escitalopram Oxalate 20 Mg Tab) [facility] [place] Stop: 10/21/24 08:59 Last Admin: 09/22/24 08:26 Dose: 20 mg Folic Acid (Folic Acid 1 Mg Tab) [facility] [place] Stop: 10/17/24 08:59 Last Admin: 09/22/24 10:07 Dose: 1 mg Formoterol Fumarate (Formoterol 20 Mcg/2 Ml Vial) 20 mcg NEB BIDR [facility] Stop: 10/16/24 18:59 Last Admin: 09/22/24 07:26 Dose: Not Given Guaifenesin (Guaifenesin Sugar Free 200 Mg/10 Ml Udc) 400 mg PO TID [facility] Stop: 10/19/24 10:44 Last Admin: 09/22/24 08:26 Dose: 400 mg Heparin Sodium (Porcine) (Heparin Sod 5,000 Unit/0.5 Ml Vial) 5,000 units SQ BID [facility] Stop: 10/20/24 10:29 Last Admin: 09/22/24 08:28 Dose: 5,000 units Methylprednisolone 40 mg/ (Syringe) 0.64 mls @ 1.5 mls/min IV Q12 [facility] Stop: 10/21/24 08:59 Last Admin: 09/22/24 08:25 Dose: 1.5 mls/min Ipratropium Lytle (Ipratropium Lytle Neb Soln 0.02% 0.5mg/2.5ml Vial) 0.5 mg NEB Q6R [facility] Stop: 10/16/24 13:24 Last Admin: 09/22/24 06:42 Dose: 0.5 mg Lansoprazole (Lansoprazole 30 Mg Soltab) 30 mg PO QAM [facility] Stop: 10/16/24 15:59 Last Admin: 09/22/24 08:26 Dose: 30 mg Levalbuterol HCl (Levalbuterol 1.25 Mg/3 Ml Neb) 1.25 mg NEB Q6R [facility] Stop: 10/16/24 13:59 Last Admin: 09/22/24 06:42 Dose: 1.25 mg Magnesium Oxide (Magnesium Oxide 400 Mg Tab) 400 mg PO BID [facility] Stop: 09/24/24 08:59 Last Admin: 09/22/24 10:07 Dose: 400 mg Midazolam HCl (Midazolam Hcl 1 Mg/Ml 2ml Vial) 1 mg IV Q4H PRN PRN Reason: Anxiety Stop: 10/20/24 10:27 Miscellaneous (Icu Electrolyte Replacement Protocol) 1 each N/A BID@ [facility]; Protocol Stop: 09/25/24 17:59 Last Admin: 09/22/24 06:30 Dose: Not Given Multivitamins/Minerals (Multi Vit W/Minerals Liquid 15 Ml Udc) 15 ml PO QAM [facility] Stop: 10/19/24 08:59 Last Admin: 09/22/24 08:27 Dose: 15 ml Thiamine HCl (Thiamine Hcl 100 Mg Tab) 100 mg PO BID [facility] Stop: 10/16/24 20:59 Last Admin: 09/22/24 08:26 Dose: 100 mg
[2024-09-22 12:13] VITALS: TEMP 98.2
--- NOTE | 2024-09-22 12:36 | Cardiology Progress Note ---
Date of Service September 22, 2024 Assessment & Plan (1) Takotsubo cardiomyopathy: (2) Acute heart failure with reduced ejection fraction (HFrEF, <= 40%) and combined systolic and diastolic dysfunction: (3) NSTEMI (non-ST elevated myocardial infarction): (4) COPD exacerbation: (5) PVD (peripheral vascular disease): (6) HTN (hypertension): Plan Repeat limited resting 2D transthoracic echocardiogram. Continue Cardizem 60 mg 3 times daily. May be increased to Cardizem CD to 40 mg daily at discharge. Prefer to avoid beta-charis therapy due to bronchospasm on admission with need for reintubation over the weekend. (Treated with telmisartan/HCTZ as outpatient) Continue aspirin, clopidogrel, and statin therapy as ordered. Smoking cessation advised. Anxiolytic therapy as per manager maintenance/IM. Admission and Anticipated Discharge Date Admission Date: September 16, 2024 Subjective 59-year-old female seen and examined at the bedside. Feeling better today. Heart rate improved with addition of calcium channel charis therapy. No longer wearing high flow oxygen. Requesting discharge if possible. Review of Systems Review of Systems: All systems reviewed & are unremarkable except as noted in Subjective Physical Exam Constitutional: not ill appearing Respiratory: no respiratory distress, no labored breathing and no retractions Auscultation: + diminished lung sounds; no rhonchi and no wheezes Cardiovascular: Rate/Rhythm: regular rate and regular rhythm Heart Sounds: normal S1 and normal S2; no murmur Vessels: no JVD and no carotid bruit Extremities: no edema Gastrointestinal (Abdomen): Inspection/Auscultation: normal bowel sounds; abdomen not distended Percussion/Palpation: abdomen soft; abdomen nontender, no guarding and abdomen not rigid Neurologic: moves all extremities; no focal motor deficits Results & Data Vital Signs (Past 12 Hours) Vital Signs Temp Pulse Pulse Resp BP BP Pulse Ox 09/22/24 12:00 36.8 C 09/22/24 10:56 36.9 C 98 H 21 136/101 H 97 09/22/24 08:00 88 09/22/24 08:00 09/22/24 07:31 75 18 96 09/22/24 07:00 36.8 C 98 H 24 131/97 94 09/22/24 06:06 88 19 151/93 H 97 09/22/24 05:00 88 21 136/83 94 09/22/24 04:03 87 17 136/85 93 09/22/24 04:00 36.9 C 09/22/24 03:06 91 H 18 138/79 92 09/22/24 02:06 94 H 18 125/77 92 09/22/24 01:03 104 H 22 130/78 87 L O2 Del Method O2 Flow Rate 09/22/24 12:00 09/22/24 10:56 Room Air 09/22/24 08:00 09/22/24 08:00 Nasal Cannula 2 09/22/24 07:31 Room Air 09/22/24 07:00 Room Air 09/22/24 06:06 09/22/24 05:00 09/22/24 04:03 09/22/24 04:00 09/22/24 03:06 09/22/24 02:06 09/22/24 01:03 Laboratory Results Comprehensive Metabolic Panel 09/22/24 Range/Units 04:30 Sodium 139 (136-145) mmol/L Potassium 4.1 (3.5-5.1) mmol/L Chloride 102 (98-107) mmol/L Carbon Dioxide 29 (21-32) mmol/L BUN 15 (6-23) mg/dl Creatinine 0.41 L (0.6-1.2) mg/dl Glucose 118 H (70-99(Fasting)) mg/dl Calcium 8.7 (8.6-10.3) mg/dl Intake and Output 09/21/24 09/22/24 09/22/24 22:59 06:59 14:59 Intake Total 300 / 850 400 / 400 Output Total 351 / 2602 1600 / 2602 325 / 325 Balance -51 / -1752 -1600 / -175 75 / 75 Intake: Oral 300 / 850 400 / 400 Output: Urine Amount (Catheter) 350 / 2600 1600 / 2600 325 / 325 Dolan/Indwelling 350 / 2600 1600 / 2600 325 / 325 # Bowel Movements 1 / 2 (6) HTN (hypertension) Hypertension type: primary hypertension Qualified Code(s): I10 - Essential (primary) hypertension
[2024-09-22 13:19] VITALS: PULSE 89; RESP 20; O2SAT 98
--- NOTE | 2024-09-23 09:07 | Discharge Summary ---
Date of Service September 23, 2024 Admission HPI Per Admitting Provider 59-year-old female with history of COPD, hypertension, peripheral artery disease, GERD, smoker, drinker presenting with cough and shortness of breath times few days. Patient reports having cough, chest congestion and shortness of breath for the past few days. She had a PCP visit 2 days ago and was placed on Augmentin and prednisone taper starting at 50 mg. She was also continued on her doxycycline course which she was taking for a Lyme arthritis flareup of the hand. Unfortunately patient's symptoms worsened prompting consult to the ER. On admission, patient was received with O2 sats of 92% on room air but was having bilateral wheezing. She was given a DuoNeb treatment. Troponin level was in the 1999's, EKG no signs of acute ischemia or infarct. Cardiology consulted and was seen by Dr. De Jesus and JOSE Miller at the bedside. Patient also noted to have magnesium of 0.7 and potassium of 2.6 IV magnesium and IV potassium ordered at the ER. On my exam, patient seen resting in bed, sitting up, on 2 L of O2, not in distress. States breathing treatment earlier has helped somewhat but still feels short of breath. She says she is unable to expectorate sputum. No active chest pain, nausea, vomiting, dizziness, sweating, palpitations on my exam. Admission Exam Per Admitting Provider Physical Exam: General- oriented x 3, not in distress, speaks in sentences with no effort or accessory muscle use Head- atraumatic Eyes- PERRL, EOMI, anicteric ENT- oropharynx clear Neck- supple, no JVD, no adenopathy, no thyromegaly; carotids +2/2, no bruits appreciated Lungs- Positive mild scattered wheeze bilaterally, no crackles noted, (+) good air entry Heart- normal rate, regular rhythm; no murmur, no gallop, no rub appreciated Abdomen- normal bowel sounds, nondistended, soft, nontender, no masses or hepatosplenomegaly Extremities- no pretibial edema, no calf tenderness; peripheral pulses intact Neuro- alert, oriented x 3; CN 2-12 grossly intact; motor 5/5 bilaterally;sensation 100% on all extremities; no other gross focal neurologic deficits Skin- warm & dry Principal Diagnosis COPD exacerbation, Takotsubo syndrome, alcohol abuse Discharge Exam Lying in bed without any acute distress Constitutional + ill appearing and + thin Eyes PERRL, conjunctivae normal, anicteric sclerae ENMT external ear and nose normal, oropharynx normal Neck trachea midline, no thyromegaly Respiratory no respiratory distress Auscultation: + diminished lung sounds, + crackles and + wheezes Cardiovascular Rate/Rhythm: regular rate, regular rhythm and + tachycardic Heart Sounds: normal S1, normal S2 and + murmur Extremities: no edema Gastrointestinal (Abdomen) Inspection/Auscultation: normal bowel sounds; abdomen not distended Percussion/Palpation: abdomen soft; abdomen nontender Neurologic normal touch/pain/proprioception and moves all extremities; no focal motor deficits Lymphatic no cervical or axillary lymphadenopathy Discharge Data Allergies Allergy/AdvReac Type Severity Reaction Status Date / Time azithromycin Allergy Unknown turned Verified 09/16/24 12:52 red, hives erythromycin base Allergy Unknown PT BECOMES Verified 09/16/24 12:52 EXTREMELY RED celecoxib AdvReac Unknown GI UPSET Verified 09/16/24 12:52 Consultations 09/16/24 11:48 ED Decision to Admit Stat 09/16/24 13:25 Consult Cardiology Routine 09/19/24 08:33 Consult Wireless Internet Installer Routine Procedures Performed Operation Date: 09/19/24 14:00 Actual Procedures p Cineradiography w/Routine Exam - Lloyd Avila MD s Cath, Left with Cors and Vent - Lloyd Avila MD Ordered Studies 09/16/24 09:47 CT angio chest PE protocol Stat 09/16/24 11:54 CL Cath Imgs for PACS use only Stat 09/19/24 10:21 CL Cath Imgs for PACS use only Routine Hospital Course (1) COPD exacerbation: (2) Acute bronchitis: (3) Elevated troponin: (4) Hypomagnesemia: (5) Hypokalemia: Patient is a 59 yr old female with history of COPD, hypertension, peripheral artery disease, GERD, smoker, drinker presenting with cough and shortness of breath times few days. Acute respiratory failure with hypoxia and hypercarbia Acute COPD exacerbation Failed outpatient treatment with Augmentin, prednisone, doxycycline prescribed 2 days ago -- CTA: No pulmonary emboli identified. Emphysema with bronchitis and mucous plugging. Mild intralobular septal thickening likely represents a component of pulmonary edema. 5 mm solid nodule of the basal right lower lobe. --BioFire: Negative --Required Intubation , S/P extubation on 09/17/2024 --Reintubated on 09/17/2024 due to worsening respiratory acidosis, distress --S/P Extubated on 09/20/24 --Continue IV Solu-Medrol, budesonide, Perforomist, nebs --Continue doxycycline Counseled to quit smoking Appreciate critical care input Aspiration precautions Continue high flow oxygen, wean as able Required IV pressors and that was subsequently discontinued Started on Lexapro, Klonopin pain as needed to help with anxiety Continue to monitor in ICU today Advance diet as tolerated Clinically much better and will continue current management for today Remains medically stable without any distress and no shortness of breath at rest She wants to go home today Will get it to a step O2 saturation test prior to discharge today Takotsubo syndrome Pulmonary edema Secondary to above Suspected NSTEMI H/O peripheral vascular disease S/P bilateral femoral bypass graft --ECHO: Severe diffuse hypokinesis akinesis of the left ventricular the apical and mid levels with relative sparing of the basal segments. EF 25 to 30%. Right ventricle is hyperdynamic. Trace mitral, tricuspid regurgitation, mild to moderate pulmonary hypertension. --S/P Cardiac Cath on 09/20/24: Mild to moderate coronary artery disease. 30% ostial, calcified left main. Very small high OM1 with 60-70% ostial stenosis. Elevated intracardiac filling pressure (LVEDP 37) --Lipid panel within normal limits -- Continue Plavix, atorvastatin --Added aspirin -Appreciate cardiology input --Will need repeat echo in 1 month Received IV Lasix Monitor volume status closely Nitroglycerin, metoprolol held due to hypotension IV heparin discontinued Denies any more cardiac symptoms has been having tachycardia but otherwise stable Remains hemodynamically stable with tachycardia around 100 Will have limited echo as per flat surfacer and will be discharged home if cleared by flat surfacer thereafter Right lower lobe pulmonary nodule Tobacco use disorder Counseled to quit smoking Needs follow-up as outpatient Hypomagnesemia Hypokalemia Hypophosphatemia Reports chronic diarrhea after colorectal surgery HCTZ likely contributing as well Monitor and replete electrolytes as needed Corrected Lyme arthritis flare, Right hand Diagnosed by PCP a few days ago Currently on doxycycline course Will continue Doxy and leave it up to the PCP to decide the duration Tobacco use disorder Counseled to quit smoking Alcohol use Patient's last drink was a few days ago patient Precedex due to agitation, leading to hypotension--discontinued Continue thiamine, folic acid Monitor for withdrawal Weaned off of pressors Strongly advised to quit drinking Other chronic conditions: Hypertension GERD Cachexia Continue home medications as able DVT Px: Heparin SQ CODE STATUS Conditional code Total Time Total Time Spent Total Time Spent (In Minutes): 40 minutes Discharge Plan Discharge Items Patient Disposition: Home - Self-Care Reason For Visit: COPD EXACBERATION, POSSIBLE NSTEMI Discharge Diagnosis: COPD exacerbation, Takotsubo syndrome, alcohol abuse Condition on Discharge: Fair Activity: Resume your previous activity Non-emergency contact: Primary Care Provider Call non-emergency contact if: you have any medication questions and your symptoms worsen Follow-up/Referrals: Edwin Lake DO [[employer]] - (The Cardiology office will contact you for a follow up appointment.) Shauna Pope PA-C [Primary Care Provider] - (Date & Time 09/29/2024 11:00 AM Provider Shauna Pope PA-C Department [facility] ) Diet: Heart Healthy Addtl Attending Provider Instructions: Please take precautions to avoid falls Take your medications as advised Strongly advised to quit drinking Please keep appointments with your healthcare providers Pending Studies at Discharge: No Stand-Alone Forms: [facility] NSS Labs, Smoking Cessation Medications and DC Order Prescriptions: New atorvastatin 20 mg Tablet 20 mg OG QAM Qty: 3 0RF thiamine HCl (vitamin B1) 100 mg Tablet 100 mg PO BID Qty: 30 0RF folic acid 1 mg Tablet 1 mg PO QAM Qty: 3 0RF escitalopram oxalate 20 mg Tablet 20 mg PO QAM Qty: 30 0RF Trelegy Ellipta 200-62.5-25 mcg blister with device 1 inh inhalation DAILY Qty: 28 0RF diltiazem HCl [Cardizem CD] 240 mg capsule,extended release 24hr 240 mg PO DAILY Qty: 30 0RF prednisone 10 mg tablet 10 mg PO DIRECTED Qty: 20 0RF Rx Instructions: 4 po daily for 2 days,3 po daily for 2 days,2 po daily for 2 days and 1 po daily for 2 days. Continued aspirin 81 mg Tablet,Delayed Release (Dr/Ec) 81 mg PO DAILY Qty: 0 pantoprazole 40 mg tablet,delayed release (DR/EC) 40 mg PO DAILY Ultra CoQ10 75 mg capsule 75 mg PO DAILY prednisone 10 mg tablet See Rx Instructions .ROUTE .COMPLEX Rx Instructions: Take 50mg po daily x 2 days; 40mg x 2 days; 30mg x 2 days; 20mg x 2 days then 10mg x 2 days then stop doxycycline hyclate 100 mg capsule 100 mg PO BID Rx Instructions: Start Date 09/07/24 x21 day supply hydrocodone-acetaminophen 5-325 mg tablet 1 tab PO DAILY PRN (Reason: Pain) clopidogrel 75 mg tablet 75 mg PO QAM acetaminophen 500 mg Tablet 500 mg PO Q6H PRN (Reason: Pain) albuterol sulfate 90 mcg/actuation HFA aerosol inhaler 2 puff INHALATION Q4H PRN (Reason: SOB or wheezing) telmisartan-hydrochlorothiazid 80-25 mg tablet 1 tab PO DAILY cholecalciferol (vitamin D3) [Vitamin D3] 50 mcg (2,000 unit) Tablet 50 mcg PO DAILY Combivent Respimat 20-100 mcg/actuation mist 1 puff INHALATION QID Discontinued atorvastatin 10 mg tablet 10 mg PO HS budesonide-formoterol [Symbicort] 160-4.5 mcg/actuation HFA aerosol inhaler 2 puff INHALATION BID Discharge Orders: Discharge Order (Routine); Ordered 09/22/24 Ordered By: Ilan Kuo/Other Patient Handouts: Cardiomyopathy Dc, Heart Failure Dc, Takotsubo Cardiomyopathy, Smoking and Respiratory Diseases Admission Data Admit Date/Time: 09/16/24 12:17 Attending Provider: Ilan Simons Admit Provider: Bill Silva Primary Care Provider: Shauna Pope Other Providers: Bill Silva; Angel Mera; Rj Valencia; Jose Luis Ruiz Other Interventions: Discharge Summary Assessment (RN) Last Done: 09/22/24 15:05
== END 2024-09-22 15:28 | disposition home or self-care (01) | DRG 208 ==
LOC: ED 09:09 → 2S 12:17 → SUATTDRO 12:17 → 2S 13:20 → 1E 14:19

== ENCOUNTER 2024-12-14 10:07 | Inpatient (IN) ==
--- NOTE | 2024-12-14 10:26 | Emergency Department Note ---
History of Present Illness General Chief complaint: Sinus Congestion/Pressure Stated complaint: SINUS INFECTION, SOB Time Seen by Provider: 12/14/24 10:17 History of Present Illness The patient is a pleasant 59-year-old female who arrives to the emergency department for evaluation of sinus congestion since Thursday, which was previously treated with Augmentin. She reports she finished her antibiotic approximately 1 week ago, with slight resolution of her symptoms however symptoms have since returned. She states CHAVEZ, cough, postnasal drip, sweating without fevers. She denies chest pain, nausea, vomiting, diarrhea, chills, dysuria. She was reporting maxillary sinus tenderness, with some throat pain. Patient did have an AZ on 09/16, however today is without chest pain. Home Medications Medication Instructions Recorded Confirmed Type aspirin 81 mg tablet,delayed 81 mg PO DAILY ##0 07/26/15 12/14/24 History release pantoprazole 40 mg tablet,delayed 40 mg PO DAILY 09/30/22 12/14/24 History release acetaminophen 500 mg tablet 500 mg PO Q6H PRN Pain 09/16/24 12/14/24 History cholecalciferol (vitamin D3) 50 50 mcg PO DAILY 09/16/24 12/14/24 History mcg (2,000 unit) tablet (Vitamin D3) clopidogrel 75 mg tablet 75 mg PO QAM 09/16/24 12/14/24 History hydrocodone 5 mg-acetaminophen 325 1 tab PO DAILY PRN Moderate Pain 09/16/24 12/14/24 History mg tablet (Scale Score 5-6) ipratropium 20 mcg-albuterol 100 1 puff inhalation QID 09/16/24 12/14/24 History mcg/actuation mist for inhalation (Combivent Respimat) telmisartan 80 1 tab PO DAILY 09/16/24 12/14/24 History mg-hydrochlorothiazide 25 mg tablet escitalopram oxalate 20 mg tablet 20 mg PO QAM #30 tabs 09/22/24 12/14/24 Rx folic acid 1 mg tablet 1 mg PO QAM #3 tabs 09/22/24 12/14/24 Rx atorvastatin 20 mg tablet 20 mg PO QAM 12/14/24 12/14/24 History diltiazem HCl 180 mg 180 mg PO DAILY 12/14/24 12/14/24 History capsule,extended release 24 hr, controlled magnesium oxide 400 mg PO DAILY 12/14/24 12/14/24 History potassium chloride 20 mEq 20 meq PO DAILY 12/14/24 12/14/24 History tablet,extended release thiamine HCl (vitamin B1) 100 mg 100 mg PO DAILY 12/14/24 12/14/24 History tablet L.acidop,casei,lactis,rham-B.lact,loren 1 cap PO DAILY #7 caps 12/16/24 Rx 625 mg (10 billion cell) capsule (Advanced Probiotic) cefuroxime axetil 500 mg tablet 500 mg PO BID 4 days #8 tabs 12/16/24 Rx doxycycline hyclate 100 mg capsule 100 mg PO BID 4 days #8 caps 12/16/24 Rx prednisone 20 mg tablet 40 mg (2 x 20 mg) PO DAILY 4 days 12/16/24 Rx #8 tabs Allergies Allergy/AdvReac Type Severity Reaction Status Date / Time azithromycin Allergy Unknown turned Verified 09/16/24 12:52 red, hives erythromycin base Allergy Unknown PT BECOMES Verified 09/16/24 12:52 EXTREMELY RED celecoxib AdvReac Unknown GI UPSET Verified 09/16/24 12:52 atorvastatin AdvReac elevated Verified 12/14/24 12:17 LFTs ciprofloxacin [From Cipro] AdvReac Rash Verified 12/14/24 12:17 Past Med/Surg History Problem List (Updated 12/18/24 @ 20:34 by MARTINA Amaya) GERD (gastroesophageal reflux disease) Elevated LFTs (Acute) HTN (hypertension) Takotsubo cardiomyopathy PVD (peripheral vascular disease) Acute heart failure with reduced ejection fraction (HFrEF, <= 40%) and combined systolic and diastolic dysfunction Cachexia Acute and chronic respiratory failure, unspecified whether with hypoxia or hypercapnia Dyspnea (Acute) Acute heart failure with preserved ejection fraction (HFpEF) NSTEMI (non-ST elevated myocardial infarction) (Acute) COPD exacerbation (Acute) Hypomagnesemia (Acute) Hypokalemia (Acute) Elevated troponin (Acute) Chest pain Arthritis Iliac artery occlusion (Acute) Surgical History (Updated 12/14/24 @ 19:14 by Donna Oconnor PA-C) History of colonoscopy Family History (Updated 12/14/24 @ 19:14 by Donna Oconnor PA-C) Other Breast cancer Dyslipidemia Hypertension Social History (Updated 12/14/24 @ 19:19 by Donna Oconnor PA-C) Smoking Status: Former smoker Tobacco Type: Cigarettes Cigarettes Per Day: 10-20; Second Hand Exposure: No; Do You Dip or Chew Tobacco: No; Hx Alcohol Use: Yes (1-2 beers a day. Last beer 3 days ago) Alcohol type: beer Hx Substance Use: No Preferred Language: Tajik Communication Ability: Effective Administrative Support Assoc Required: No Beliefs That Will Affect Care: None Current Living Situation: Spouse Current Living Situation Comment: Son Feels Safe at Home: Yes Assistive Devices: None Physical Exam Vital Signs Vital Signs - 24 hr 12/14/24 10:13 12/14/24 10:25 12/14/24 10:26 Temperature 36.7 C Temperature Source Oral Pulse Rate 119 H 114 H Pulse Rate [Left Finger] 115 H Respiratory Rate 18 22 Respiratory Effort / Characteristics Non-Labored Spontaneous Respiratory Depth Normal Blood Pressure 135/85 Blood Pressure [Left Arm] Blood Pressure Mean 101 Blood Pressure Mean [Left Arm] Blood Pressure Position Sitting Pulse Oximetry 89 L 93 Oxygen Delivery Method Room Air Room Air Oxygen Flow Rate Sepsis Recent Fever Within 48 Hours No Sepsis New/Unexplained Change in Mental Status No Sepsis Action Taken by Nursing No Action Required 12/14/24 11:50 12/14/24 11:53 12/14/24 13:00 Temperature Temperature Source Pulse Rate Pulse Rate [Left Finger] 113 H 115 H Respiratory Rate 26 H 22 Respiratory Effort / Characteristics Respiratory Depth Blood Pressure Blood Pressure [Left Arm] 115/72 115/72 Blood Pressure Mean Blood Pressure Mean [Left Arm] 86 86 Blood Pressure Position Pulse Oximetry 86 L 94 98 Oxygen Delivery Method Room Air Nasal Cannula Nasal Cannula Oxygen Flow Rate 3 3 Sepsis Recent Fever Within 48 Hours Sepsis New/Unexplained Change in Mental Status Sepsis Action Taken by Nursing VITALS: Vitals are noted on the nurse's note and reviewed by myself. Vital signs stable. GENERAL: 59-year-old female, in no acute distress, nondiaphoretic. SKIN: The skin was without rashes, erythema, edema, or bruising. HEAD: Normocephalic atraumatic. NECK: Supple without nuchal rigidity. Cervical spine is nontender. No JVD. HEART: Regular rate and rhythm without murmurs gallops or rubs. LUNGS: Wheezing noted bilateral upper lobes with coarse lung sounds in bases. ABDOMEN: Positive bowel sounds x 4. Soft, nontender, without masses or organomegaly. Sarah sign negative. No guarding or rebound tenderness. NEURO: Patient was alert and oriented to person place and time. No focal neurological deficits. Course Administered Medications Discontinued Medications Acetaminophen (Acetaminophen 325 Mg Tab) 650 mg PO Q4H PRN PRN Reason: Pain or Fever Stop: 01/13/25 14:45 Last Admin: 12/16/24 15:25 Dose: 650 mg Documented By: Admin: 12/16/24 04:08 Dose: 650 mg Documented By: AKSebastian Admin: 12/15/24 20:15 Dose: 650 mg Documented By: Admin: 12/15/24 11:10 Dose: 650 mg Documented By: ANTHONY Albuterol (Albut/Ipratrop 3mg/0.5mg Neb 3 Ml Vial) 3 ml NEB NOW STA; Protocol Stop: 12/14/24 10:32 Last Admin: 12/14/24 10:58 Dose: 3 ml Documented By: JIHAN Albuterol (Albut/Ipratrop 3mg/0.5mg Neb 3 Ml Vial) 9 ml NEB ONE ONE; Protocol Stop: 12/14/24 12:05 Last Admin: 12/14/24 13:17 Dose: 9 ml Documented By: JIHAN Albuterol (Albut/Ipratrop 3mg/0.5mg Neb 3 Ml Vial) 3 ml NEB Q6R NOELLE; Protocol Stop: 01/13/25 18:59 Last Admin: 12/16/24 13:09 Dose: 3 ml Documented By: Admin: 12/16/24 07:56 Dose: Not Given Documented By: Admin: 12/16/24 01:47 Dose: 3 ml Documented By: Admin: 12/15/24 19:46 Dose: Not Given Documented By: Admin: 12/15/24 13:02 Dose: 3 ml Documented By: Admin: 12/15/24 08:02 Dose: Not Given Documented By: Admin: 12/15/24 01:28 Dose: 3 ml Documented By: Admin: 12/14/24 21:05 Dose: Not Given Documented By: DAR Aspirin (Aspirin 81 Mg Ectab) 81 mg PO DAILY NOELLE Stop: 01/14/25 08:59 Last Admin: 12/16/24 09:13 Dose: 81 mg Documented By: Admin: 12/15/24 08:24 Dose: 81 mg Documented By: EP Atorvastatin Calcium (Atorvastatin 20 Mg Tab) [facility] [place] Stop: 01/14/25 08:59 Last Admin: 12/16/24 09:15 Dose: 20 mg Documented By: Admin: 12/15/24 08:25 Dose: 20 mg Documented By: EP Budesonide (Budesonide 0.5 Mg/2 Ml Vial (Pulmicort)) 0.5 mg NEB BIDR [facility] Stop: 01/13/25 18:59 Last Admin: 12/16/24 07:56 Dose: 0.5 mg Documented By: Admin: 12/15/24 19:46 Dose: 0.5 mg Documented By: Admin: 12/15/24 08:02 Dose: 0.5 mg Documented By: Admin: 12/14/24 21:04 Dose: 0.5 mg Documented By: DAR Clopidogrel Bisulfate (Clopidogrel Bisulfate 75 Mg Tab) 75 mg PO [facility] Stop: 01/14/25 08:59 Last Admin: 12/16/24 09:15 Dose: 75 mg Documented By: Admin: 12/15/24 08:27 Dose: 75 mg Documented By: EP Diltiazem HCl (Diltiazem Hcl 180 Mg Capcr) 180 mg PO DAILY [facility] Stop: 01/14/25 08:59 Last Admin: 12/16/24 09:13 Dose: 180 mg Documented By: Admin: 12/15/24 08:27 Dose: 180 mg Documented By: EP Doxycycline Hyclate (Doxycycline Hyclate 100 Mg Cap) 100 mg PO NOW STA Stop: 12/14/24 13:31 Last Admin: 12/14/24 15:45 Dose: 100 mg Documented By: MAKSIM Doxycycline Hyclate (Doxycycline Hyclate 100 Mg Cap) 100 mg PO BID [facility] Stop: 12/19/24 20:59 Last Admin: 12/16/24 09:13 Dose: 100 mg Documented By: Admin: 12/15/24 20:03 Dose: 100 mg Documented By: Admin: 12/15/24 08:28 Dose: 100 mg Documented By: Admin: 12/14/24 20:08 Dose: 100 mg Documented By: KDL Escitalopram Oxalate (Escitalopram Oxalate 20 Mg Tab) [facility] [place] Stop: 01/14/25 08:59 Last Admin: 12/16/24 09:15 Dose: 20 mg Documented By: Admin: 12/15/24 08:25 Dose: 20 mg Documented By: EP Folic Acid (Folic Acid 1 Mg Tab) [facility] [place] Stop: 01/14/25 08:59 Last Admin: 12/16/24 09:15 Dose: 1 mg Documented By: Admin: 12/15/24 08:24 Dose: 1 mg Documented By: EP Formoterol Fumarate (Formoterol 20 Mcg/2 Ml Vial) 20 mcg NEB BIDR [facility] Stop: 01/13/25 18:59 Last Admin: 12/16/24 07:56 Dose: 20 mcg Documented By: Admin: 12/15/24 19:46 Dose: 20 mcg Documented By: Admin: 12/15/24 08:03 Dose: 20 mcg Documented By: Admin: 12/14/24 21:04 Dose: 20 mcg Documented By: DAR Heparin Sodium (Porcine) (Heparin Sod 5,000 Unit/0.5 Ml Vial) 5,000 units SQ Q12 [facility] Stop: 01/13/25 20:59 Last Admin: 12/16/24 10:38 Dose: 5,000 units Documented By: Admin: 12/15/24 20:02 Dose: 5,000 units Documented By: Admin: 12/15/24 08:34 Dose: 5,000 units Documented By: Admin: 12/14/24 20:07 Dose: 5,000 units Documented By: DAY Sodium Chloride (Nss) 500 mls @ 999 mls/hr IV .Q31M ONE Stop: 12/14/24 11:03 Last Infusion: 12/14/24 11:30 Dose: Infused Documented By: Admin: 12/14/24 10:59 Dose: 999 mls/hr Documented By: JIHAN Magnesium Sulfate/Dextrose (Magnesium Sulfate / D5w) 1 gm in 100 mls @ 100 mls/hr IV NOW STA Stop: 12/14/24 14:11 Last Infusion: 12/14/24 14:35 Dose: Infused Documented By: Admin: 12/14/24 13:41 Dose: 100 mls/hr Documented By: JIHAN Ceftriaxone Sodium (Rocephin) 2,000 mg in 50 mls @ 100 mls/hr IV NOW STA Stop: 12/14/24 13:59 Last Infusion: 12/14/24 17:12 Dose: Infused Documented By: Admin: 12/14/24 16:33 Dose: 100 mls/hr Documented By: MAKSIM Ceftriaxone Sodium (Rocephin) 2,000 mg in 50 mls @ 100 mls/hr IV Q24H NOELLE Stop: 12/20/24 08:59 Last Infusion: 12/16/24 13:52 Dose: Infused Documented By: Admin: 12/16/24 09:16 Dose: 100 mls/hr Documented By: Infusion: 12/15/24 11:13 Dose: Infused Documented By: Admin: 12/15/24 10:43 Dose: 100 mls/hr Documented By: EP Methylprednisolone 40 mg/ (Syringe) 0.64 mls @ 1.5 mls/min IV Q8H NOELLE Stop: 01/13/25 19:59 Last Admin: 12/16/24 12:04 Dose: 1.5 mls/min Documented By: Admin: 12/16/24 04:08 Dose: 1.5 mls/min Documented By: Admin: 12/15/24 20:03 Dose: 1.5 mls/min Documented By: Admin: 12/15/24 11:12 Dose: 1.5 mls/min Documented By: Admin: 12/15/24 04:27 Dose: 1.5 mls/min Documented By: KDLina Admin: 12/14/24 19:18 Dose: 1.5 mls/min Documented By: DAY Sodium Chloride (Nss) 500 mls @ 125 mls/hr IV .Q4H NOELLE Stop: 12/14/24 22:59 Last Infusion: 12/14/24 23:25 Dose: Infused Documented By: Admin: 12/14/24 19:13 Dose: 125 mls/hr Documented By: DAY Magnesium Sulfate/Dextrose (Magnesium Sulfate / D5w) 1 gm in 100 mls @ 50 mls/hr IV ONE ONE Stop: 12/15/24 12:50 Last Infusion: 12/15/24 13:41 Dose: Infused Documented By: Admin: 12/15/24 11:12 Dose: 50 mls/hr Documented By: EP Sodium Phosphate 6 mmol/ (Sodium Chloride) 102 mls @ 88 mls/hr IV ONE ONE Stop: 12/16/24 12:09 Last Infusion: 12/16/24 13:52 Dose: Infused Documented By: Admin: 12/16/24 12:03 Dose: 88 mls/hr Documented By: EP Losartan Potassium (Losartan Potassium 50 Mg Tab) 100 mg PO QAM NOELLE Stop: 01/14/25 08:59 Last Admin: 12/16/24 09:14 Dose: 100 mg Documented By: Admin: 12/15/24 08:28 Dose: 100 mg Documented By: EP Magnesium Oxide (Magnesium Oxide 400 Mg Tab) 400 mg PO DAILY@1100 NOELLE Stop: 01/14/25 10:59 Last Admin: 12/16/24 10:39 Dose: 400 mg Documented By: Admin: 12/15/24 10:48 Dose: 400 mg Documented By: ANTHONY Melatonin (Melatonin 3 Mg Tab) 3 mg PO HS PRN PRN Reason: Sleep Stop: 01/13/25 23:34 Last Admin: 12/15/24 01:32 Dose: 3 mg Documented By: DAY Methylprednisolone (Methylprednisolone 125 Mg/2 Ml Vial) 125 mg IV NOW STA Stop: 12/14/24 12:05 Last Admin: 12/14/24 13:14 Dose: 125 mg Documented By: JIHAN Pantoprazole Sodium (Pantoprazole 40 Mg Tab) 40 mg PO DAILY NOELLE Stop: 01/14/25 08:59 Last Admin: 12/16/24 09:15 Dose: 40 mg Documented By: Admin: 12/15/24 08:27 Dose: 40 mg Documented By: ANTHONY Potassium Chloride (Potassium Chloride Crtab 20 Meq Tabcr) 40 meq PO NOW STA Stop: 12/14/24 12:14 Last Admin: 12/14/24 13:16 Dose: 40 meq Documented By: JIHAN Potassium Chloride (Potassium Chloride Crtab 20 Meq Tabcr) 40 meq PO ONE ONE Stop: 12/14/24 17:01 Last Admin: 12/14/24 16:36 Dose: 40 meq Documented By: MAKSIM Potassium Chloride (Potassium Chloride Crtab 20 Meq Tabcr) 20 meq PO DAILY NOELLE Stop: 01/14/25 08:59 Last Admin: 12/16/24 10:39 Dose: 20 meq Documented By: Admin: 12/15/24 08:34 Dose: 20 meq Documented By: EP Sodium Chloride (Sodium Chlor 7% 4 Ml Neb) 4 ml NEB BIDR NOELLE Stop: 01/13/25 18:59 Last Admin: 12/16/24 07:56 Dose: 4 ml Documented By: Admin: 12/15/24 19:46 Dose: 4 ml Documented By: Admin: 12/15/24 08:03 Dose: 4 ml Documented By: Admin: 12/14/24 21:04 Dose: 4 ml Documented By: DAR Thiamine HCl (Thiamine Hcl 100 Mg Tab) 100 mg PO DAILY NOELLE Stop: 01/14/25 08:59 Last Admin: 12/16/24 09:14 Dose: 100 mg Documented By: Admin: 12/15/24 08:25 Dose: 100 mg Documented By: EP Vitamin D (Cholecalciferol 25 Mcg (1000 Units) Tab) 50 mcg PO DAILY NOELLE Stop: 01/14/25 08:59 Last Admin: 12/16/24 09:13 Dose: 50 mcg Documented By: Admin: 12/15/24 08:26 Dose: 50 mcg Documented By: EP Medical Decision Making Differential Diagnosis Viral syndrome, strep pharyngitis, tonsillitis, mononucleosis, retropharyngeal abscess, peritonsillar abscess, otitis media, sinusitis, bronchitis, pneumonia, as well as other pathologies. Medical Records Attestation: I reviewed the patient's medical records. Home Medications Current Medication List: was personally reviewed by me Laboratory Data Attestation: I reviewed the patient's lab results. 12/16/24 06:11 12/16/24 06:11 Lab Results 12/14/24 12/14/24 Range/Units 10:50 11:07 WBC 7.05 (4.8-10.8) K/ul RBC 4.54 (4.20-5.40) M/uL Hgb 15.4 (12.0-16.0) g/dl Hct 43.4 (37.0-47.0) % MCV 95.6 (80.0-100.0) fL MCH 33.9 (25.0-34.0) pg MCHC 35.5 (32.0-36.0) g/dL RDW Std Deviation 47.4 H (36.4-46.3) fL RDW Coeff of Marisol 13.3 (11.5-14.5) % Plt Count 250 (130-400) K/uL MPV 9.2 L (9.4-12.4) fL Immature Gran % (Auto) 0.6 % Neut % (Auto) 72.5 % Lymph % (Auto) 15.3 % Miller % (Auto) 11.3 % Eos % (Auto) 0.0 % Baso % (Auto) 0.3 % Neut # (Auto) 5.11 (1.40-6.50) K/uL Lymph # (Auto) 1.08 L (1.20-3.40) K/uL Miller # (Auto) 0.80 H (0.11-0.59) K/uL Eos # (Auto) 0.00 (0.00-0.50) K/uL Baso # (Auto) 0.02 (0.00-0.20) K/uL Immature Gran # (Auto) 0.04 (0.01-0.20) K/uL Sodium 131 L (136-145) mmol/L Potassium 3.1 L (3.5-5.1) mmol/L Chloride 92 L (98-107) mmol/L Carbon Dioxide 28 (21-32) mmol/L Anion Gap 11 (3-11) BUN 8 (6-23) mg/dl Creatinine 0.77 (0.6-1.2) mg/dl Est Cr Clr Drug Dosing 50.0 ml/min eGFR 89.36 BUN/Creatinine Ratio 10.4 (10-20) Glucose 111 H (70-99(Fasting)) mg/dl Calcium 9.0 (8.6-10.3) mg/dl Magnesium 1.6 L (1.7-2.4) mg/dl Total Bilirubin 0.6 (0.2-1.0) mg/dl AST 106 H (13-39) U/L ALT 90 H (7-52) U/L Alkaline Phosphatase 173 H (34-104) U/L Troponin I High Sens 11.2 (0-14) pg/ml Total Protein 6.2 (6.0-8.3) gm/dl Albumin 3.8 (3.4-5.0) gm/dl Globulin 2.4 L (2.5-4.0) gm/dl Albumin/Globulin Ratio 1.6 (0.9-2) Procalcitonin 13.50 H (0-0.5) ng/ml Adenovirus (PCR) Not Detected (NotDetected) B. pertussis DNA (PCR) Not Detected (NotDetected) B.parapertussis DNA PCR Not Detected (NotDetected) C. pneumoniae DNA (PCR) Not Detected (NotDetected) Coronavirus OC43 (PCR) Not Detected (NotDetected) Coronavirus HKU1 (PCR) Not Detected (NotDetected) Coronavirus 229E (PCR) Not Detected (NotDetected) SARS-CoV-2 (PCR) Not Detected (NotDetected) Coronavirus NL63 (PCR) Not Detected (NotDetected) Monoscreen Negative (Negative) Human Metapneumovir PCR Not Detected (NotDetected) Influenza Type A (PCR) Not Detected (NotDetected) Influenza Type B (PCR) Not Detected (NotDetected) M. pneumoniae (PCR) Not Detected (NotDetected) Parainfluenza 1 (PCR) Not Detected (NotDetected) Parainfluenza 2 (PCR) Not Detected (NotDetected) Parainfluenza 3 (PCR) Not Detected (NotDetected) Parainfluenza 4 (PCR) Not Detected (NotDetected) RSV (PCR) Not Detected (NotDetected) Entero/Rhino (PCR) Not Detected (NotDetected) Imaging Data Attestation: I personally reviewed and interpreted this imaging study as follows: Radiologist's Impression: Chest X-Ray 12/14/24 10:31 XR chest 2V PA/lateral CLINICAL HISTORY: pna COMPARISON STUDY: 09/22/2024 and 09/20/2024 FINDINGS: PA and lateral views of the chest demonstrate evidence of bilateral air trapping with depressed diaphragms and increased AP diameter. There is no focal airspace opacity or pleural effusion. There is no pneumothorax or atelectasis. The heart and pulmonary vascularity are unremarkable. IMPRESSION: Obstructive airway disease with bilateral hyperinflation. ACT 112: Negative or not required by law. Electronically signed by: Malaika Torres M.D. 12/14/2024 11:06 AM MDM Narrative The patient is a pleasant 59-year-old female who arrives to the emergency department for evaluation of the above-stated complaint. A saline lock was established, CBC, CMP, upper respiratory BioFire panel, troponin, EKG were obtained. CBC shows no leukocytosis, with a stable hemoglobin and hematocrit, CMP showed slight hyponatremia, with hypokalemia which was replenished with 40 mEq p.o. potassium. Patient did also have slight hypomagnesemia, with transaminitis, likely from excessive Tylenol use. Troponin negative. EKG shows sinus tachycardia at a rate of 116 bpm, with no ST elevation, or depression. There is a nonspecific T wave abnormality which is improved in the anterolateral leads and no longer evident in inferior leads. This is when compared with EKG of September 19, 2024. Upper respiratory viral panel was obtained which was negative. Chest x-ray shows obstructive airway disease with bilateral hyperinflation based on radiology report. The patient is requiring supplemental O2, for a saturation in the low to mid 90s. The patient does not wear oxygen at baseline, and is as low as 89% on room air. The patient does have wheezing on examination, was provided DuoNeb treatments. She was also provided 125 IV Solu- Medrol, and 1 L of normal saline. Due to the patient's oxygen requirement, she will require admission to the hospital for further evaluation and management. I spoke with Donna Oconnor PA-C from the [facility] hospitalist group who, along with her attending, Dr. Jones, agreed to accept the patient for further patient workup and care. Continuous pattern vault clerk: Order was placed for continuous pattern vault clerk. Patient was placed on the pattern vault clerk. Patient was noted to be in sinus tachycardia at an initial rate of 113 bpm. The chart was completed utilizing [employer] Speech voice recognition software. Grammatical errors, random word insertions, pronoun errors, and incomplete sentences are an occasional consequence of this system due to software limitations, ambient noise, and hardware issues. Any formal questions or concerns about the content, text, or information contained within the body of this dictation should be directly addressed to the physician for clarification. Impression & Plan Elevated LFTs, Hypokalemia, Hypomagnesemia, COPD exacerbation Discharge Plan Visit Data Chief Complaint: Sinus Congestion/Pressure Stated Complaint: SINUS INFECTION, SOB ED Provider: Tiffany Echevarria ED Midlevel Provider: Rulon,Nicci C Discharge Problem: Elevated LFTs, Hypokalemia, Hypomagnesemia, COPD exacerbation Patient Disposition: Admitted As Inpatient Discharge Instructions Interventions: ED Discharge Assessment Last Done: 12/14/24 14:26
[2024-12-14] MEDS: ALBUT/IPRATROP 3MG/0.5MG NEB 3 ML VIAL NEB STA (10:58)
[2024-12-14] MEDS: SODIUM CHLORIDE 0.9% 500 ML IV ONE (10:59)
--- NOTE | 2024-12-14 11:07 | XRay Report ---
XR chest 2V PA/lateral CLINICAL HISTORY: pna COMPARISON STUDY: 09/22/2024 and 09/20/2024 FINDINGS: PA and lateral views of the chest demonstrate evidence of bilateral air trapping with depre ssed diaphragms and increased AP diameter. There is no focal airspace opacity or pleural effusion. Th ere is no pneumothorax or atelectasis. The heart and pulmonary vascularity are unremarkable. IMPRESSION: Obstructive airway disease with bilateral hyperinflation. ACT 112: Negative or not required by law. Electronically signed by: Malaika Torres M.D. 12/14/2024 11:06 AM
[2024-12-14 11:28] LABS: Albumin Globulin Ratio 1.6 (0.9-2); Albumin Level 3.8 gm/dl (3.4-5.0); BUN Creatinine Ratio 10.4 (10-20); Bilirubin,Total 0.6 mg/dl (0.2-1.0); Globulin 2.4 gm/dl (2.5-4.0); Potassium 3.1 mmol/L (3.5-5.1); Total Protein 6.2 gm/dl (6.0-8.3)
[2024-12-14 11:30] LABS: Basophils # (auto) 0.02 K/uL (0.00-0.20); Basophils % (auto) 0.3 %; Hematocrit (blood only) 43.4 % (37.0-47.0); Hemoglobin 15.4 g/dl (12.0-16.0); Immature Granulocytes # (auto) 0.04 K/uL (0.01-0.20); Immature Granulocytes % (auto) 0.6 %; Lymphocytes # (auto) 1.08 K/uL (1.20-3.40); Lymphocytes % (auto) 15.3 %; Mean Corpuscular Hemoglobin 33.9 pg (25.0-34.0); Mean Corpuscular Hgb Conc 35.5 g/dL (32.0-36.0); Mean Corpuscular Volume 95.6 fL (80.0-100.0); Mean Platelet Volume 9.2 fL (9.4-12.4); Monocytes % (auto) 11.3 %; Neutrophils # (auto) 5.11 K/uL (1.40-6.50); Neutrophils % (auto) 72.5 %; Platelet Count 250 K/uL (130-400); RDW Coefficient of Variation 13.3 % (11.5-14.5); RDW Standard Deviation 47.4 fL (36.4-46.3); Red Blood Count 4.54 M/uL (4.20-5.40); White Blood Count 7.05 K/ul (4.8-10.8)
--- NOTE | 2024-12-14 11:58 | Electrocardiogram Report ---
Test Reason : Blood Pressure : */* mmHG Vent. Rate : 116 BPM Atrial Rate : 116 BPM P-R Int : 116 ms QRS Dur : 82 ms QT Int : 322 ms P-R-T Axes : 83 69 88 degrees QTcB Int : 447 ms Sinus tachycardia Biatrial enlargement Poor R wave progression, consider anterior IA vs. lead placement vs. LVH Abnormal ECG When compared with ECG of 19-Sep-2024 10:54, Nonspecific T wave abnormality no longer evident in Inferior leads Nonspecific T wave abnormality, improved in Anterolateral leads Confirmed by Dannie Watson ([id number]) on 12/14/2024 11:57:45 AM Referred By: Confirmed By: Dannie Watson
[2024-12-14 12:09] LABS: Adenovirus PCR Not Detected (NotDetected); Bordetella parapertussis PCR Not Detected (NotDetected); Bordetella pertussis PCR Not Detected (NotDetected); Chlamydia pneumoniae PCR Not Detected (NotDetected); Coronavirus 229E PCR Not Detected (NotDetected); Coronavirus CoV-2 (COVID19)PCR Not Detected (NotDetected); Coronavirus HKU1 PCR Not Detected (NotDetected); Coronavirus NL63 PCR Not Detected (NotDetected); Coronavirus OC43PCR Not Detected (NotDetected); Human Metapneumovirus PCR Not Detected (NotDetected); Influenza A PCR Not Detected (NotDetected); Influenza B PCR Not Detected (NotDetected); Mycoplasma pneumoniae PCR Not Detected (NotDetected); Parainfluenza Virus 1 PCR Not Detected (NotDetected); Parainfluenza Virus 2 PCR Not Detected (NotDetected); Parainfluenza Virus 3 PCR Not Detected (NotDetected); Parainfluenza Virus 4 PCR Not Detected (NotDetected); Respiratory Syncytial VirusPCR Not Detected (NotDetected); Rhinovirus/Enterovirus PCR Not Detected (NotDetected)
--- NOTE | 2024-12-14 12:21 | History & Physical Report ---
Date of Service December 14, 2024 Assessment & Plan (1) COPD exacerbation: Plan: Patient is 59 year old female with PMH HTN, PVD, history stress induced cardiomyopathy in 09/2024, prior tobacco use, ETOH use, GERD presented to ER with c/o congestion and SOB x 5 days. In ER afebrile, P: 119, R: 18, BP: 135/85, 89% on RA up to 94% on 3L via NC No leukocytosis. Respiratory biofire panel negative. Negative troponin CXR:Obstructive airway disease with bilateral hyperinflation. In ER given hour-long albuterol neb, Solu-Medrol 125 mg IV, 500 mL NSS, KCl 40 mEq p.o. Obtain procalcitonin Supplemental oxygen as needed. Goal O2 sat of 89-93% Start Rocephin, doxycycline Scheduled duonebs, budesonide, formoterol nebs Solumedrol 40mg IV Q8H Pt no longer taking Trelegy as pt reports "shouldn't be on it by insurance pharmacist". Will need to consider restarting maintanence inhaler CBC in am (2) Hypokalemia: Plan: K: 3.1 In ER given 40meq po KCl Replace and monitor (3) Hypomagnesemia: Plan: Magnesium: 1.6 Replace and monitor (4) Elevated LFTs: Plan: T bili: 0.6, AST: 106, ALT: 90, Alk Phos: 173 (Outpatient AST: 65, ALT: 56, alk phos: 92 on 06/29/2024. Mildly elevated LFTs 09/16/2024 which improved during hospital course) Denies abdominal pain Reported history Elevated LFTs on atorvastatin in past. Was restarted on atorvastatin in 09/2024 after stress induced cardiomyopathy Repeat LFTs in am Consider abdominal imaging May need to consider statin adjustment (5) Takotsubo cardiomyopathy: Plan: History stress induced cardiomyopathy in 09/202409/19/24 cardiac cath: LM -Short almost separate ostium, normal caliber, eccentric calcified plaque with 30% ostial stenosis LAD -medium caliber, no significant disease, distal vessel extends around apex. Small diagonals without significant disease. Circumflex -medium caliber, AV groove circumflex without significant disease. Very small high OM1 with 70% ostial stenosis RCA -dominant, medium caliber, angiographically normal Echo: 09/16/24: EF: 25-30% Echo on 09/22/2024 with EF 45-50% Outpatient echo 11/03/24: EF: 60-64% Today Denies CP. Troponin negative. Continue home diltiazem, aspirin, and statin (6) HTN (hypertension): Plan: Hold home HCTZ and reassess tomorrow Continue telmisartan, diltiazem (7) PVD (peripheral vascular disease): Plan: Continue aspirin, Plavix, statin (8) GERD (gastroesophageal reflux disease): Plan: Continue PPI DVT Prophylaxis Heparin SQ Admit telemetry Full Code as per discussion with pt Follows with Shauna Pope PA-C for routine care Pt was seen and care coordinated with Dr Jones. See addendum I spent a total of 76 minutes reviewing notes, outpatient records, labs, medication, coordinating, documenting and providing care for this patient ex cluding time spent in the performance of separately billed services and excluding time spent by another provider/QHP. History of Present Illness Chief Complaint: congestion Primary Care Provider: Shauna Pope PA-C Patient is 59 year old female with PMH HTN, PVD, history stress induced cardiomyopathy in 09/2024, prior tobacco use, ETOH use, GERD presented to ER with c/o congestion and SOB x 5 days. Per inpatient chart review history of hospitalization 09/16/2024-09/23/2024 for acute hypoxic respiratory failure requiring intubation, thought secondary to COPD exacerbation, elevated troponin levels, found to have EF 25-30%, cardiac cath performed showing mild to moderate CAD without obstruction, diagnosed with stress-induced cardiomyopathy/Takotsubo cardiomyopathy. Repeat echo on 09/22/2024 with EF 45-50%. Patient was started on Cardizem daily instead of beta-charis as felt was contraindicated with acute respiratory issues and Plavix, statin, aspirin was continued. Patient states 4 weeks ago started with sinus congestion, facial pain and completed course of Augmentin with relief. States 5 days ago started with nasal congestion, facial pressure, TIRADO, and cough. States cough productive yellow/green sputum. Couple of days ago tried Mucinex and states since is unable to have productive cough. She complains of feeling SOB and having wheezing. Takes Combivent inhaler three times a day at baseline and has been using without relief of wheezing or SOB. She states previously was on Trelegy inhaler but was called by a pharmacist several months ago and was told "shouldn't take with other meds" so she stopped taking it. She has stopped smoking. She complains of decreased appetite and decreased oral intake past several days. Denies any noted fever or chills. Taking 1000mg Tylenol twice daily over past 4 days. Denies any known ill contact. Denies diaphoresis, N/V/D/C, dizziness, syncope, vision changes, neck pain, CP, palpitations, hemoptysis, otalgia, abdominal pain, paresthesias, extremity weakness, extremity edema, rashes, urinary symptoms. Allergies Allergy/AdvReac Type Severity Reaction Status Date / Time azithromycin Allergy Unknown turned Verified 09/16/24 12:52 red, hives erythromycin base Allergy Unknown PT BECOMES Verified 09/16/24 12:52 EXTREMELY RED celecoxib AdvReac Unknown GI UPSET Verified 09/16/24 12:52 atorvastatin AdvReac elevated Verified 12/14/24 12:17 LFTs ciprofloxacin [From Cipro] AdvReac Rash Verified 12/14/24 12:17 Home Medications Medication Instructions Recorded Confirmed Type aspirin 81 mg tablet,delayed 81 mg PO DAILY ##0 07/26/15 12/14/24 History release pantoprazole 40 mg tablet,delayed 40 mg PO DAILY 09/30/22 12/14/24 History release acetaminophen 500 mg tablet 500 mg PO Q6H PRN Pain 09/16/24 12/14/24 History cholecalciferol (vitamin D3) 50 50 mcg PO DAILY 09/16/24 12/14/24 History mcg (2,000 unit) tablet (Vitamin D3) clopidogrel 75 mg tablet 75 mg PO QAM 09/16/24 12/14/24 History hydrocodone 5 mg-acetaminophen 325 1 tab PO DAILY PRN Moderate Pain 09/16/24 12/14/24 History mg tablet (Scale Score 5-6) ipratropium 20 mcg-albuterol 100 1 puff inhalation QID 09/16/24 12/14/24 History mcg/actuation mist for inhalation (Combivent Respimat) telmisartan 80 1 tab PO DAILY 09/16/24 12/14/24 History mg-hydrochlorothiazide 25 mg tablet escitalopram oxalate 20 mg tablet 20 mg PO QAM #30 tabs 09/22/24 12/14/24 Rx folic acid 1 mg tablet 1 mg PO QAM #3 tabs 09/22/24 12/14/24 Rx atorvastatin 20 mg tablet 20 mg PO QAM 12/14/24 12/14/24 History diltiazem HCl 180 mg 180 mg PO DAILY 12/14/24 12/14/24 History capsule,extended release 24 hr, controlled magnesium oxide 400 mg PO DAILY 12/14/24 12/14/24 History potassium chloride 20 mEq 20 meq PO DAILY 12/14/24 12/14/24 History tablet,extended release thiamine HCl (vitamin B1) 100 mg 100 mg PO DAILY 12/14/24 12/14/24 History tablet Past Med/Surg History Problem List (Updated 12/14/24 @ 19:19 by Donna Oconnor PA-C) GERD (gastroesophageal reflux disease) Elevated LFTs HTN (hypertension) Takotsubo cardiomyopathy PVD (peripheral vascular disease) Acute heart failure with reduced ejection fraction (HFrEF, <= 40%) and combined systolic and diastolic dysfunction Cachexia Acute and chronic respiratory failure, unspecified whether with hypoxia or hypercapnia Dyspnea (Acute) Acute heart failure with preserved ejection fraction (HFpEF) NSTEMI (non-ST elevated myocardial infarction) (Acute) COPD exacerbation (Acute) Hypomagnesemia (Acute) Hypokalemia (Acute) Elevated troponin (Acute) Chest pain Arthritis Iliac artery occlusion (Acute) Surgical History (Updated 12/14/24 @ 19:14 by Donna Oconnor PA-C) History of colonoscopy Family History (Updated 12/14/24 @ 19:14 by Donna Oconnor PA-C) Other Breast cancer Dyslipidemia Hypertension Social History (Updated 12/14/24 @ 19:19 by Donna Oconnor PA-C) Smoking Status: Former smoker Tobacco Type: Cigarettes Cigarettes Per Day: 10-20; Second Hand Exposure: No; Do You Dip or Chew Tobacco: No; Hx Alcohol Use: Yes (1-2 beers a day. Last beer 3 days ago) Alcohol type: beer Hx Substance Use: No Preferred Language: Portuguese Communication Ability: Effective Associate Financial Planner Required: No Beliefs That Will Affect Care: None Current Living Situation: Spouse Current Living Situation Comment: Son Feels Safe at Home: Yes Safety Concerns: Feels Safe At This Time Assistive Devices: None Review of Systems Review of Systems: All systems reviewed & are unremarkable except as noted in HPI & below Physical Exam Physical Exam: General: no distress at rest in bed on 2L oxygen via NC, Thin female Head: normocephalic, atraumatic Eyes: conjunctiva non-injected, anicteric ENT: normal inspection external ears, nose, mucous membranes mildly dry Neck: supple, trachea midline Lungs:no respiratory distress on current 2L O2 via NC with O2 sat 94%, +diffuse inspiratory and expiratory wheezing, no rales noted CV: tachycardia rate 112, regular rhythm, no pretibial edema Abd: normal BS, soft, non-tender Ext: no cyanosis, no calf tenderness Neuro: A&O x 3, no focal deficits noted, normal affect Skin: warm, dry Results & Data Results & Data Vital Signs (Past 12 Hours) Vital Signs Temp Pulse Pulse Resp BP BP Pulse Ox 12/14/24 11:53 94 12/14/24 11:50 113 H 26 H 115/72 86 L 12/14/24 10:26 114 H 12/14/24 10:25 115 H 22 93 12/14/24 10:13 36.7 C 119 H 18 135/85 89 L O2 Del Method O2 Flow Rate 12/14/24 11:53 Nasal Cannula 3 12/14/24 11:50 Room Air 12/14/24 10:26 12/14/24 10:25 Room Air 12/14/24 10:13 Room Air Laboratory Results Short CBC 12/14/24 Range/Units 10:50 WBC 7.05 (4.8-10.8) K/ul Hgb 15.4 (12.0-16.0) g/dl Hct 43.4 (37.0-47.0) % Plt Count 250 (130-400) K/uL BMP 12/14/24 10:50 Sodium 131 L Potassium 3.1 L Chloride 92 L Carbon Dioxide 28 BUN 8 Creatinine 0.77 Glucose 111 H Calcium 9.0 Liver Function 12/14/24 Range/Units 10:50 Total Bilirubin 0.6 (0.2-1.0) mg/dl AST 106 H (13-39) U/L ALT 90 H (7-52) U/L Alkaline Phosphatase 173 H (34-104) U/L Albumin 3.8 (3.4-5.0) gm/dl Diagnostic Findings Chest X-Ray 12/14/24 10:31 XR chest 2V PA/lateral CLINICAL HISTORY: pna COMPARISON STUDY: 09/22/2024 and 09/20/2024 FINDINGS: PA and lateral views of the chest demonstrate evidence of bilateral air trapping with depressed diaphragms and increased AP diameter. There is no focal airspace opacity or pleural effusion. There is no pneumothorax or atelectasis. The heart and pulmonary vascularity are unremarkable. IMPRESSION: Obstructive airway disease with bilateral hyperinflation. ACT 112: Negative or not required by law. Electronically signed by: Malaika Torres M.D. 12/14/2024 11:06 AM Supervising Physician Co-Signing Physician Notes Patient seen and examined independently. Discussed with above provider. Patient is a 59-year-old female with past medical history of severe COPD with recent hospitalization who presents with increasing productive cough, shortness of breath, nasal congestion. Assessment/plan Constitutional: awake alert oriented x 3. Reports that she is feeling much better Respiratory: Bilateral occasional wheeze present. Cardiovascular: RRR, no murmur, no edema Vessels: no JVD or carotid bruit Chest: normal inspection of chest Abdomen: normal bowel sounds, soft, nontender, no hepatosplenomegaly Musculoskeletal: no cyanosis or clubbing, extremities motor strength 5/5 Skin: no rashes, warm and dry normal turgor Neurologic: PERRL, EOMI, accommodation nl, no face palsy, no dysarthria CN's II- XI intact bilaterally and moves all extremities Psychiatric: A+Ox3, euthymic affect Assessment/plan Acute COPD exacerbation Severe malnutrition Hyponatremia Started on [id number] DuoNebs, formoterol, budesonide, IV steroid, antibiotics. Airway clearance therapy with hypertonic saline, flutter valve Obtain a sputum culture Patient is only on Combivent Respimat; discussed possibly prescribing nebulizer at the time of the discharge. Also, possibly adding trelegy or any other alternative ICS/LABA/LAMA. Obtain right upper quadrant ultrasound for elevated liver enzymes. CMP tomorrow a.m. Hold hctz for hyponatremia I have reviewed the advanced practitioner's documentation, and I agree with, and take responsibility for the plan of care I spent a total of 30 minutes coordinating, documenting, and providing care for this patient excluding time spent in the performance of separately billed s ervices. All of the aforementioned completed while collaborating with the assigned advanced practitioner for a full treatment plan (6) HTN (hypertension) Hypertension type: primary hypertension Qualified Code(s): I10 - Essential (primary) hypertension
[2024-12-14 13:00] LABS: Magnesium 1.6 mg/dl (1.7-2.4)
[2024-12-14] MEDS: methylPREDNISolone 125 MG/2 ML VIAL IV STA (13:14)
[2024-12-14] MEDS: POTASSIUM CHLORIDE CRTAB 20 MEQ TABCR PO STA (13:16)
[2024-12-14] MEDS: ALBUT/IPRATROP 3MG/0.5MG NEB 3 ML VIAL NEB ONE (13:17)
[2024-12-14] MEDS: MAGNESIUM SULFATE / D5W 1 GM/100 ML BAG IV STA (13:41)
--- OUTSIDE RECORDS SUMMARY | 2024-12-14 14:27 | External Medical Summary | Summary of Care ---
Author Name Unknown Organization [facility] Address [address] [facility] [place] [address] Phone [phone] Care Team Providers Care Graphic Production Artist Name Role Phone Shauna Pope PA-C Primary Care Provider [phone] Reason for Visit * Reason Onset Date Comments Med Request 11/24/202411/24 Encounter Details Date Type Department Care Team (Late st Contact Info) Description 11/24/2024 Telephone [facility] [address] [place] [phone] Shauna Pope PA-C [address] [place] [phone] Med Request (11/24) Allergies Active Allergy Reactions Criticality Noted Date Comments Atorvastatin Liver complications (Please comment) 06/26/2022 Elevated LFTs Celecoxib Diarrhea 11/20/2014 Severe diarrhea Ciprofloxacin Rash 11/29/2019 Rosuvastatin Muscle pain 06/26/2022 Erythromycin Hives 11/20/2014 Itchy hives Metronidazole Rash 11/29/2019 Sulfa Antibiotics Unknown 08/25/2024 Patient had sob Azithromycin Rash Medium 02/21/2013 documented as of this encounter (statuses as of 12/06/2024) Medications Aspirin 81 MG Tablet Take 1 Tablet by mouth in the morning. Active Vitamin D (Cholecalciferol) 25 MCG (1000 UT) Oral CapsuleIndication s:Dyslipidemia, goal LDL below 70,Encounter for long-term (current) use of medications Take 1 Capsule by mouth in the morning. Please assist patient in finding this OTC. Thanks!. 90 Capsule 1 2 Active Pantoprazole Sodium 40 MG Oral Tablet Delayed Release (Protonix)Indicat ions:Gastroesopha geal reflux disease without esophagitis TAKE 1 TABLET BY MOUTH EVERY DAY IN THE MORNING 90 Tablet 3 4 Active Clopidogrel Bisulfate 75 MG Oral Tablet (pLAVix)Indicatio ns:PAD (peripheral artery disease) ([facility]) TAKE 1 TABLET BY MOUTH DAILY IN THE MORNING. 90 Tablet 3 4 Active Telmisartan-HCTZ 80-25 MG Oral TabletIndications :HTN, goal below 130/80 TAKE 1 TABLET BY MOUTH EVERY DAY 90 Tablet 3 4 Active Doxycycline Hyclate 100 MG Oral CapsuleIndication s:Lyme disease Take 1 Capsule by mouth in the morning and 1 Capsule before bedtime. Until gone.. 42 Capsule 4 Active Combivent Respimat 20-100 MCG/ACT Inhalation Aerosol Solution (Ipratropium-Albu terol)Indications :COPD exacerbation ([facility]) Inhale 1 Puff by mouth in the morning and 1 Puff at noon and 1 Puff in the evening and 1 Puff before bedtime. 4 g 11 4 Active Fluticasone-Umecl idin-Vilant 200-62.5-25 MCG/ACT Aerosol Powder Breath Activated (Trelegy Ellipta) Inhale 1 Puff by mouth in the morning. 4 Active B-1 100 MG Oral Tablet Take 100 mg by mouth every evening. 4 Active Atorvastatin Calcium 20 MG Oral Tablet (Lipitor)Indicati ons:PAD (peripheral artery disease) ([facility]),Dyslipidemi a, goal LDL below 70 Take 1 Tablet by mouth in the morning. 90 Tablet 3 4 Active Folic Acid 1 MG Oral TabletIndications :NSTEMI (non-ST elevated myocardial infarction) ([facility]),HTN, goal below 130/80,Dyslipidem ia, goal LDL below 70,Hypokalemia,PA D (peripheral artery disease) ([facility]) Take 1 Tablet by mouth in the morning. 90 Tablet 3 4 Active Potassium Chloride ER 20 MEQ Oral Tablet Extended Release Take 1 Tablet by mouth in the morning. 90 Tablet 3 4 Active Magnesium Oxide 400 MG Oral Capsule Take 1 Capsule by mouth in the morning. 90 Capsule 3 4 Active dilTIAZem HCl ER 180 MG Oral Capsule Extended Release 24 HourIndications:H TN, goal below 130/80 Take 1 Capsule by mouth in the morning. 90 Capsule 3 4 Active Escitalopram Oxalate 20 MG Oral Tablet (Lexapro) Take 1 Tablet by mouth in the morning. 90 Tablet 1 4 Active HYDROcodone-Aceta minophen 5-325 MG Oral TabletIndications :Lyme arthritis of hand (HCC) Take 1 Tablet by mouth daily as needed for Pain, Moderate. 30 Tablet 4 Active Amoxicillin-Pot Clavulanate 875-125 MG Oral Tablet (Augmentin) Take 1 Tablet by mouth in the morning and 1 Tablet before bedtime. Do all this for 10 days. 20 Tablet 5 12/04/19 25 documented as of this encounter (statuses as of 12/06/2024) Active Problems Problem Noted Date Diagnosed Date Alcohol abuse 10/22/2024 Hypomagnesemia 09/29/2024 NSTEMI (non-ST elevated myocardial infarction) 1 11/29/2023 Takotsubo cardiomyopathy 09/29/2024 COPD, group B, by GOLD 2017 classification 10/27 Overview: Per COPD GOLD Classification Gastroesophageal reflux disease without esophagi tis 06/02/2022 Dyslipidemia, goal LDL below 70 05/14/2018 Hypokalemia 05/15/2016 HTN, goal below 130/80 04/28/2016 Overview: Per HTN Protocol Tobacco abuse disorder 12/14/2014 PAD (peripheral artery disease) 05/05/2014 AK (actinic keratosis) 03/07/2013 documented as of this encounter (statuses as of 12/06/2024) Resolved Problems Problem Noted Date Diagnosed Date Resolved Date DONN (generalized anxiety disorder) 12/14/2014 11/29/2019 COPD, mild 05/05/2014 10/30/2022 Overview: Per COPD GOLD Classification HTN, goal below 140/80 05/05/201405/01 Overview: Per HTN Protocol documented as of this encounter (statuses as of 12/06/2024) Immunizations Name Administration Dates Next Due Covid-19 Ad26, Single Dose (Jen/J&J) 05/24/2021 H1N1 2009 Influenza, IM 10/22/2009 Pneumococcal Conjugate Vacci ne, 20-valent ([id number]) 06/16/2023 Pneumococcal Polysaccharide PPV23 (Pneumovax) 11/05/2018,03/16/2012 Seasonal [...] Types Packs/Day Years Used Date Smoking Tobacco: Former Cigarettes 0.5 38 S tarted: 09/29/1986 Smokeless Tobacco: Never Alcohol Use Standard Drinks/Week [...] money to get more. Never true 06/02/2022 Comments No Sex and Gender Information Value Date Recorded Sex Assigned at Female 06/02/2022 7:04 AM EDT Legal Sex Female 5:51 AM EST Gender Identity Female 06/02/2022 7:04 AM EDT Sexual Orientation Straight 06/02/2022 7: 04 AM EDT documented as of this encounter Miscellaneous Notes * Telephone Encounter - Linda Briggs LPN - 11/25/2024 9:25 AM EST Patient(s) returned call. Informed of message. Verbalized understanding. * Telephone Encounter - Ruth Pool CCMA - 11/24/2024 5:44 PM EST T/C to pt at this time - no answer LVM to return call [phone] * Telephone Encounter - Shauna Pope PA-C - 11/24/2024 1:57 PM EST Rx sent for Augmentin. If she worsens/fails to improve she will need to be seen. * Telephone Encounter - Kay Mariano LPN - 11/24/2024 9:39 AM EST Please review and advise at this time * Telephone Encounter - Penny Rolon clinical appeals rn - 11/24/2024 9:16 AM EST Pt calling with complaints of sinus infection and is requesting a medication be prescribed. Pt did not want to schedule an appointment at this time. Call details was completed, please refer to this for further information. Thank you, Penny Rolon Mattress Filler [facility] 11/24/2024,9:18 AM documented in this encounter Plan of Treatment Upcoming Encounters Date Type Department Care Team (Late st Contact Info) Description 12/12/2024 2:30 PM EST Office Visit Cardiology, [facility] [address] [place] [phone] Jessica Zamora PA-C [address] [place] [phone] 12/30/2024 3:40 PM EST Office Visit [facility] [address] [place] [phone] Shauna Pope PA-C [address] [place] [phone] 02/21/2025 10:20 AM EDT Office Visit Dermatology, [facility] [address] [place] [phone] Germaine Rosa PA-C [address] [place] [place] [phone] 06/26/2025 8:20 AM EDT Office Visit [facility] [address] [place] [phone] Shauna Pope PA-C [address] [place] [phone] Health Maintenance Due Date Last Done Comments Alpha-1 Antitrypsin 1984 Hepatitis B Vaccine (1 of 3 - 19+ 3-dose series) 1985 Fecal Occult Blood Test 2011 Cologuard 12/08/2020 12/08/2017 Depression Screening 06/02/2023 06/02/2022, 06/15/2015 (Discussed) Sigmoidoscopy 11/02/2023 11/02/2018 COVID-19 Vaccine ( season) 2024 05/24/2021 Mammogram 09/10/2024 09/10/2023, 07/18, 07/19/2021, Additional history exists O2 ASSESSMENT COMPLETED IN PAST YEAR FOR COPD 10/06/2025 10/06/2024 GFR 10/18/2025 10/18/2024, 09/17, 09/29/2024, Additional history exists Albumin/Creatinine Ratio 06/16/2026 06/16/2023 [...] Zoster Vaccines Completed 07/31/2020, 05/30/2020 Pneumococcal Vaccine: 50+ Years Completed 06/16/2023, 11/05/2018, 03/16/2012 RETIRED - COLONOSCOPY-EVERY [...] filedocumented as of this encounter Care Teams Graphic Production Artist Relationship Specialty Start Date End Date Shauna Pope PA-C [address] [facility] [place] [phone] PCP - General Physician [employer] Ware Maker 05/13/17 documented as of this encounter
--- OUTSIDE RECORDS SUMMARY | 2024-12-14 14:27 | External Medical Summary | Summary of Care ---
Author Name Unknown Organization [facility] Address [address] [address] Phone [phone] Care Team Providers Care Solid Waste Division Supervisor Name Role Phone Shauna Pope PA-C Primary Care Provider [phone]- [phone] Reason for Visit * Reason Onset Date Comments Hospital Follow-Up Pt was in [place] [facility] from 09/16-09/23. Pt went into the hosp. For difficulty breathing, pt asking if she went into cardiac arrest. Pt stopped smoking since 09/15. Pt was in ICU for 7 days while in hosp. Kay Mariano LPN Hospital Follow-Up 09/29/2024 Encounter Details Date Type Department Care Team (Late st Contact Info) Description 09/29/2024 11:00 AM EST Office Visit [facility] [address] [place] [address] Shauna Pope PA-C [address] [place] [address] Hospital discharge follow-up*; NSTEMI (non-ST elevated myocardial infarction) (HCC); Hypomagnesemia; Takotsubo cardiomyopathy; Hypokalemia; HTN, goal below 130/80; Alcohol abuse Allergies Active Allergy Reactions Criticality Noted Date Comments Atorvastatin Liver complications (Please comment) 06/26/2022 Elevated LFTs Celecoxib Diarrhea 11/20/2014 Severe diarrhea Ciprofloxacin Rash 11/29/2019 Rosuvastatin Muscle pain 06/26/2022 Erythromycin Hives 11/20/2014 Itchy hives Metronidazole Rash 11/29/2019 Sulfa Antibiotics Unknown 08/25/2024 Patient had sob Azithromycin Rash Medium 02/21/2013 documented as of this encounter (statuses as of 10/22/2024) Medications Aspirin 81 MG Tablet Take 1 Tablet by mouth in the morning. Active Vitamin D (Cholecalciferol ) 25 MCG (1000 UT) Oral CapsuleIndicatio ns:Dyslipidemia, goal LDL below 70,Encounter for long-term (current) use of medications Take 1 Capsule by mouth in the morning. Please assist patient in finding this OTC. Thanks!. 90 Capsule 1 11/14/20 22 Active Pantoprazole Sodium 40 MG Oral Tablet Delayed Release (Protonix)Indica tions:Gastroesop hageal reflux disease without esophagitis TAKE 1 TABLET BY MOUTH EVERY DAY IN THE MORNING 90 Tablet 3 06/23/20 24 Active Clopidogrel Bisulfate 75 MG Oral Tablet (pLAVix)Indicati ons:PAD (peripheral artery disease) (HCC) TAKE 1 TABLET BY MOUTH DAILY IN THE MORNING. 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 30 Tablet 09/07/20 24 Active Doxycycline Hyclate 100 MG Oral CapsuleIndicatio ns:Lyme disease Take 1 Capsule by mouth in the morning and 1 Capsule before bedtime. Until gone.. 42 Capsule 09/07/20 24 Active Combivent Respimat 20-100 MCG/ACT Inhalation Aerosol Solution (Ipratropium-Alb uterol)Indicatio ns:COPD exacerbation (HCC) Inhale 1 Puff by mouth in the morning and 1 Puff at noon and 1 Puff in the evening and 1 Puff before bedtime. 4 g 11 09/13/20 24 Active Fluticasone-Umec lidin-Vilant 200-62.5-25 MCG/ACT Aerosol Powder Breath Activated (Trelegy Ellipta) Inhale 1 Puff by mouth in the morning. 09/22/20 24 Active B-1 100 MG Oral Tablet Take 100 mg by mouth every evening. 09/22/20 24 Active Atorvastatin Calcium 20 MG Oral Tablet (Lipitor)Indicat ions:PAD (peripheral artery disease) (HCC),Dyslipidem ia, goal LDL below 70 Take 1 Tablet by mouth in the morning. 90 Tablet 3 09/26/20 Active predniSONE 10 MG Oral Tablet (Deltasone)Indic ations:COPD exacerbation (HCC) Take 5 tabs for 2 days, 4 tabs for 2 days, 3 tabs for 2 days, 2 tabs for 2 days 1 tab for 2 days 30 Tablet 09/13/20 24 024 Discontinued dilTIAZem HCl ER 240 MG Oral Tablet Extended Release 24 Hour Take 240 mg by mouth every morning. 09/22/20 24 024 Discontinued(Re fill) Escitalopram Oxalate 20 MG Oral Tablet (Lexapro) Take 1 Tablet by mouth in the morning. 09/22/20 24 024 Discontinued(Re fill) Folic Acid 1 MG Oral Tablet Take 1 Tablet by mouth in the morning. 09/22/20 24 024 Discontinued documented as of this encounter (statuses as of 10/22/2024) Active Problems Problem Noted Date Diagnosed Date [...] as of this encounter (statuses as of 10/22/2024) Resolved Problems Problem Noted Date Diagnosed Date Resolved Date DONN (generalized anxiety disorder) 12/14/2014 11/29/2019 COPD, mild 05/05/2014 10/30/2022 Overview: Per COPD GOLD Classification HTN, goal below 140/80 05/05/201405/01 Overview: Per HTN Protocol documented as of this encounter (statuses as of 10/22/2024) Immunizations Name Administration Dates Next Due Covid-19 Ad26, Single Dose (Jen/J&J) 05/24/2021 H1N1 2009 Influenza, IM 10/22/2009 Pneumococcal Conjugate Vacci ne, 20-valent ([id number]) 06/16/2023 Pneumococcal Polysaccharide PPV23 (Pneumovax) 11/05/2018,03/16/2012 Seasonal [...] 38 S tarted: 09/29/1986 Smokeless Tobacco: Never Tobacco Cessation:Counseling Given: Not Answered Alcohol Use Standard Drinks/Week [...] AM EDT documented as of this encounter Last Filed Vital Signs Vital Sign Reading Time Taken Comments Blood Pressure 120/64 09/29/2024 11:03 AM EST Pulse 97 09/29/2024 11:03 AM EST Temperature 36.5 C (97.7 F) 09/29/2024 11:[address] Respiratory Rate 18 09/29/2024 11:03 AM EST Oxygen Saturation 95% 09/29/2024 11:03 AM EST Inhaled Oxygen Concentration - - Weight 40.6 kg (89 lb 8 oz) 09/29/2024 11:03 AM EST Height 167.6 cm (5' 6") 09/29/2024 11:03 AM EST Body Mass Index 14.45 09/29/2024 11:03 AM EST documented in this encounter Progress Notes * Shauna Pope PA-C - 09/29/2024 11:23 AM EST SUBJECTIVE: Nelsy Ng is a 59 year old female. Chief Complaint Patient presents with Hospital Follow-Up Pt was in [facility] from 09/16-09/23. Pt went into the hosp. For difficulty breathing, pt asking if she went into cardiac arrest. Pt stopped smoking since 09/15. Pt was in ICU for 7 days while in hosp. Kay Mariano LPN Hospital Follow-Up Recent Admission: Patient was recently admitted to [facility] on 09/16/24. The date of discharge was 09/23/24. Discharge report received and reviewed. HPI: Patient presents for hospital follow up. Admitted for COPD exacerbation, Takotsubo Syndrome, suspected NSTEMI. She required intubation. Given IV steroids, nebs, high flow oxygen, IV pressors. Anxiety was high and started on Lexapro and Klonopin. Cardiac Cath showed mild to moderate CAD. Deficiency in magnesium, potassium, and folic acid (ETOH abuse) - only provided with 3 day supply. She denies smoking or drinking since discharge. Has Cardiology follow up scheduled for 10/06. Cardiology follow up scheduled. Generally feeling better, but fatigued. Denies SOB, chest pain, edema, syncope, or palpitations. Patient Active Problem List Diagnosis AK (actinic keratosis) PAD (peripheral artery disease) ([facility]) Tobacco abuse disorder HTN, goal below 130/80 Hypokalemia Dyslipidemia, goal LDL below 70 Gastroesophageal reflux disease without esophagitis COPD, group B, by GOLD 2017 classification ([facility]) Hypomagnesemia NSTEMI (non-ST elevated myocardial infarction) ([facility]) Takotsubo cardiomyopathy Current Outpatient Medications Medication Sig Dispense Refill Aspirin 81 MG Tablet Take 1 Tablet by mouth in the morning. Vitamin D (Cholecalciferol) 25 MCG (1000 UT) Oral Capsule Take 1 Capsule by mouth in the morning. Please assist patient in finding this OTC. Thanks!. 90 Capsule 1 Pantoprazole Sodium 40 MG Oral Tablet Delayed Release (Protonix) TAKE 1 TABLET BY MOUTH EVERY DAY IN THE MORNING 90 Tablet 3 Clopidogrel Bisulfate 75 MG Oral Tablet (pLAVix) TAKE 1 TABLET BY MOUTH DAILY IN THE MORNING. 90 Tablet 3 Telmisartan-HCTZ 80-25 MG Oral Tablet TAKE 1 TABLET BY MOUTH EVERY DAY 90 Tablet 3 HYDROcodone-Acetaminophen 5-325 MG Oral Tablet Take 1 Tablet by mouth daily as needed for Pain, Moderate. 30 Tablet 0 Doxycycline Hyclate 100 MG Oral Capsule Take 1 Capsule by mouth in the morning and 1 Capsule beforebedtime. Until gone.. 42 Capsule 0 Combivent Respimat 20-100 MCG/ACT Inhalation Aerosol Solution (Ipratropium- Albuterol) Inhale 1 Puffby mouth in the morning and 1 Puff at noon and 1 Puff in the evening and 1 Puff before bedtime. 4 g11 predniSONE 10 MG Oral Tablet (Deltasone) Take 5 tabs for 2 days, 4 tabs for 2 days, 3 tabs for 2 days, 2 tabs for 2 days 1 tab for 2 days 30 Tablet 0 dilTIAZem HCl ER 240 MG Oral Tablet Extended Release 24 Hour Take 240 mg by mouth every morning. Escitalopram Oxalate 20 MG Oral Tablet (Lexapro) Take 1 Tablet by mouth in the morning. Vuzmuaviphy-Zpvklvdmm-Zgyuxf 200-62.5-25 MCG/ACT Aerosol Powder Breath Activated (Trelegy Ellipta) Inhale 1 Puff by mouth in the morning. Folic Acid 1 MG Oral Tablet Take 1 Tablet by mouth in the morning. B-1 100 MG Oral Tablet Take 100 mg by mouth in the morning and 100 mg before bedtime. Atorvastatin Calcium 20 MG Oral Tablet (Lipitor) Take 1 Tablet by mouth in the morning. 90 Tablet 3 No current facility-administered medications for this visit. Current and discharge medications have been reconciled. Review of patient's allergies indicates: Allergen Reactions Z-Raymond [Azithromycin] Rash Atorvastatin Liver complications (Please comment) Elevated LFTs Celebrex [Celecoxib] Diarrhea Severe diarrhea Ciprofloxacin Rash Crestor [Rosuvastatin] Muscle pain Erythromycin Hives Itchy hives Metronidazole Rash Sulfa Antibiotics Unknown Patient had sob Review of Systems: All reviewed and negative unless mentioned in HPI. OBJECTIVE: BP 120/64 | Pulse 97 | Temp 36.5 C (97.7 F) (Temporal Artery) | Resp 18 | Ht 1.676 m (5' 6") | Wt 40.6 kg (89 lb 8 oz) | SpO2 95% | BMI 14.45 kg/m | BSA 1.37 m Physical Exam: General: alert, healthy, no [...] texture, turgor are normal, no rashes ASSESSMENT/PLAN: Hospital discharge follow-up (Primary) - DISCH MED RECON CUR MED LIS NSTEMI (non-ST elevated myocardial infarction) (HCC) Hypomagnesemia - MAGNESIUM; Future; Expected date: 09/29/2024 Takotsubo cardiomyopathy Hypokalemia - BASIC METABOLIC PANEL; Future; Expected date: 09/29/2024 HTN, goal below 130/80 Alcohol abuse - FOLIC ACID; Future; Expected date: 09/30/2024 Follow Up: Return in about 3 months (around 12/30/2024). I spent a total of 40-54 minutes (exact time 42 mins) minutes on the date of service in preparation, delivery, and documentation of the care provided to Nelsy Ng excluding any time spent in performance of separately billed services. Shauna Pope PA-C documented in this encounter Nursing Notes * Kay Mariano LPN - 09/29/2024 11:06 AM EST Chief Complaint Patient presents with Hospital Follow-Up Pt was in [facility] from 09/16-09/23. Pt went into the hosp. For difficulty breathing, pt asking if she went into cardiac arrest. Pt stopped smoking since 09/15. Pt was in ICU for 7 days while in hosp. IBIS Martin LPN documented in this encounter Plan of Treatment Upcoming Encounters Date Type Department Care Team (Late st Contact Info) Description 11/03/2024 1:00 PM EST Cardiac Studies Cardiac Studies, [facility] [address] [place] [address] 12/12/2024 2:30 PM EST Office Visit Cardiology, [facility] [address] [place] [address] Jessica Zamora PA-C [address] [address] 12/30/2024 3:40 PM EST Office Visit [facility] [address] [place] [address] Shauna Pope PA-C [address] [place] [address] 02/21/2025 8:20 AM EDT Office Visit Dermatology, [facility] [address] [address] Germaine Rosa PA-C [address] [address] 06/26/2025 8:20 AM EDT Office Visit Family Practice, [place] [address] [place] [address] Shauna Pope PA-C [address] [place] [address] Health Maintenance Due Date Last Done Comments [...] Not on filedocumented as of this encounter Results * FOLIC ACID (09/29/2024 11:54 AM EST) Folic Acid 11.9 >4.5 ng/mL 09/30/2024 2:43 PM EST LABORATORY [facility] Blood Venous blood specimen / Unknown Venipuncture / Unknown 09/29/2024 11:54 AM EST 09/29/2024 11:54 AM EST us Shauna Pope PA-C LAB BLOOD ORDERABLES Final Result LABORATORY [facility] [address] [place] [address] * (ABNORMAL) MAGNESIUM (09/29/2024 11:54 AM EST) Magnesium 0.7(L) 1.5 - 2.6 mg/dL 09/29/2024 10:57 PM EST LAB[facility]ATORY [facility] Blood Venous blood specimen / Unknown Venipuncture / Unknown 09/29/2024 11:54 AM EST 09/29/2024 11:54 AM EST Shauna Pope PA-C LAB BLOOD ORDERABLES Final Result LAB[facility]ATORY [facility] [address] [place] [address] * (ABNORMAL) BASIC METABOLIC PANEL (09/29/2024 11:54 AM EST) BUN 17 6 - 20 mg/dL 09/29/2024 10:57 PM EST [facility] CREATININE 0.6 0.5 - 1.0 mg/dL 09/29/2024 10:57 PM EST [facility] EGFR >90 >=60 mL/min 09/29/2024 10:57 PM EST [facility] Comment:eGFR is calculated b ased on the CKD-EPI 2020 equation. SODIUM 136 135 - 146 mmol/L 09/29/2024 10:57 PM EST [facility] POTASSIUM 3.0(L) 3.5 - 5.1 mmol/L 09/29/2024 10:57 PM EST [facility] CHLORIDE 91(L) 98 - 107 mmol/L 09/29/2024 10:57 PM EST [facility] CO2 28 22 - 32 mmol/L 09/29/2024 10:57 PM EST [facility] ANION GAP 17(H) 7 - 15 mmol/L 09/29/2024 10:57 PM EST [facility] GLUCOSE 105 70 - 120 mg/dL 09/29/2024 10:57 PM EST [facility] CALCIUM 9.3 8.4 - 10.2 mg/dL 09/29/2024 10:57 PM EST [facility] Blood Venous blood specimen / Unknown Venipuncture / Unknown 09/29/2024 11:54 AM EST 09/29/2024 11:54 AM EST Shauna Pope PA-C LAB BLOOD ORDERABLES Final Result LABORATORY [facility] [address] [facility] [place] [address] documented in this encounter Visit Diagnoses Diagnosis Hospital discharge follow-up- Primary Other follow-up examination NSTEMI (non-ST elevated myocardial infarction) (HCC) Acute myocardial infarction, subendocardial infarction, episode of care unspecified Hypomagnesemia Disorders of magnesium metabolism Takotsubo cardiomyopathy Takotsubo syndrome Hypokalemia Hypopotassemia HTN, goal below 130/80 Unspecified essential hypertension Alcohol abuse Alcohol abuse, unspecified documented in this encounter Care Teams Solid Waste Division Supervisor Relationship Specialty Start Date End Date Shauna Pope PA-C [facility] [facility] [address] [facility] [place] [id number] PCP - General Physician Materials Tech 05/13/17 documented as of this encounter
--- OUTSIDE RECORDS SUMMARY | 2024-12-14 14:27 | External Medical Summary | Summary of Care ---
Author Name Unknown Organization [facility] Address [address] [facility] [place] [address] Phone [phone] Care Team Providers Care Literacy Coordinator Name Role Phone Shauna Pope PA-C Primary Care Provider +1- [phone] Reason for Visit * Reason Onset Date Comments Information 10/19/2024 Encounter Details Date Type Department Care Team (Late st Contact Info) Description 10/19/2024 Telephone Cardiology, [facility] [address] [place] [phone] Jessica Zamora PA-C [address] [place] [phone] Information Allergies Active Allergy Reactions Criticality Noted Date Comments Atorvastatin Liver complications (Please comment) 06/26/2022 Elevated LFTs Celecoxib Diarrhea 11/20/2014 Severe diarrhea Ciprofloxacin Rash 11/29/2019 Rosuvastatin Muscle pain 06/26/2022 Erythromycin Hives 11/20/2014 Itchy hives Metronidazole Rash 11/29/2019 Sulfa Antibiotics Unknown 08/25/2024 Patient had sob Azithromycin Rash Medium 02/21/2013 documented as of this encounter (statuses as of 10/19/2024) Medications Aspirin 81 MG Tablet Take 1 [...] Oral Tablet (pLAVix)Indicatio ns:PAD (peripheral artery disease) ([facility]) TAKE 1 TABLET BY MOUTH DAILY IN THE MORNING. 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 30 Tablet 4 Active Doxycycline Hyclate 100 MG Oral CapsuleIndication s:Lyme disease Take 1 Capsule by mouth in the morning and 1 Capsule before bedtime. Until gone.. 42 Capsule 4 Active Combivent Respimat 20-100 MCG/ACT Inhalation Aerosol Solution (Ipratropium-Albu terol)Indications :COPD exacerbation ([facility]) Inhale 1 Puff by mouth in the morning and 1 Puff at noon and 1 Puff in the evening and 1 Puff before bedtime. 4 g 11 4 Active Escitalopram Oxalate 20 MG Oral Tablet (Lexapro) Take 1 Tablet by mouth in the morning. 4 Active Fluticasone-Umecl idin-Vilant 200-62.5-25 MCG/ACT Aerosol Powder Breath Activated (Trelegy Ellipta) Inhale 1 Puff by mouth in the morning. 4 Active B-1 100 MG Oral Tablet Take 100 mg by mouth every evening. 4 Active Atorvastatin Calcium 20 MG Oral Tablet (Lipitor)Indicati ons:PAD (peripheral artery disease) ([facility]),Dyslipidemi a, goal LDL below 70 Take 1 Tablet by mouth in the morning. 90 Tablet 3 4 Active Folic Acid 1 MG Oral TabletIndications :NSTEMI (non-ST elevated myocardial infarction) (HCC),HTN, goal below 130/80,Dyslipidem ia, goal LDL below 70,Hypokalemia,PA D (peripheral artery disease) (HCC) Take 1 Tablet by mouth in the morning. 90 Tablet 3 4 Active dilTIAZem HCl ER 240 MG Oral Tablet Extended Release 24 Hour Take 1 Tablet by mouth every morning. 90 Tablet 3 4 Active Potassium Chloride ER 20 MEQ Oral Tablet Extended Release Take 1 Tablet by mouth in the morning. 90 Tablet 3 4 Active Magnesium Oxide 400 MG Oral Capsule Take 1 Capsule by mouth in the morning. 90 Capsule 3 4 Active documented as of this encounter (statuses as of 10/19/2024) Active Problems Problem Noted Date Diagnosed Date Hypomagnesemia 09/29/2024 NSTEMI (non-ST elevated myocardial infarction) [...] as of this encounter (statuses as of 10/19/2024) Resolved Problems Problem Noted Date Diagnosed Date Resolved Date DONN (generalized anxiety disorder) 12/14/2014 11/29/2019 COPD, mild 05/05/2014 10/30/2022 Overview: Per COPD GOLD Classification HTN, goal below 140/80 05/05/201405/01 Overview: Per HTN Protocol documented as of this encounter (statuses as of 10/19/2024) Immunizations Name Administration Dates Next Due Covid-19 Ad26, Single Dose (Jen/J&J) 05/24/2021 H1N1 2009 Influenza, IM 10/22/2009 Pneumococcal Conjugate Vacci ne, 20-valent ([id number]) 06/16/2023 Pneumococcal Polysaccharide PPV23 (Pneumovax) 11/05/2018,03/16/2012 Seasonal [...] encounter Miscellaneous Notes * Telephone Encounter - Tonya Kauffman LPN - 10/19/2024 2:22 PM EST Spoke with pt, she notes increased swelling in her feet and around her eyes. States she has some diarrhea. Pt asking about decreasing Diltiazem. * Telephone Encounter - Tonya Kauffman LPN - 10/19/2024 2:22 PM EST ----- Message from Jessica Zamora sent at 10/19/2024 1:31 PM EST ----- Magnesium and potassium much improved. Per last encounter potassium and magnesium doses were increased to twice per day. She should continue this dosing. Please update med list and scripts. documented in this encounter Plan of Treatment Upcoming Encounters Date Type Department Care Team (Late st Contact Info) Description 11/03/2024 1:00 PM EST Cardiac Studies Cardiac Studies, [facility] [address] [address] 12/12/2024 2:30 PM EST Office Visit Cardiology, [facility] [address] [place] [address] Jessica Zamora PA-C [address] [place] [address] 12/30/2024 3:40 PM EST Office Visit [facility] [address] [place] [address] [address] Shauna Pope PA-C [address] [phone] 02/21/2025 8:20 AM EDT Office Visit Dermatology, [facility] [address] [address] Germaine Rosa PA-C [address] [address] 06/26/2025 8:20 AM EDT Office Visit [facility] [place] [address] [place] [address] Shauna Pope PA-C [address] [address] Health Maintenance Due Date Last Done Comments [...] filedocumented as of this encounter Care Teams Literacy Coordinator Relationship Specialty Start Date End Date Shauna Pope PA-C [address] [address] [place] [address] PCP - General Physician Account Manager [employer] 05/13/17 documented as of this encounter
--- OUTSIDE RECORDS SUMMARY | 2024-12-14 14:27 | External Medical Summary | Summary of Care ---
Author Name Unknown Organization [facility] Address [address] [facility] [place] [address] Phone [phone] Care Team Providers Care Veterinary Assistant Name Role Phone Shauna Pope PA-C Primary Care Provider +1- [phone] Reason for Visit * Reason Onset Date Comments Information 10/19/2024 Encounter Details Date Type Department Care Team (Late st Contact Info) Description 10/19/2024 Telephone Cardiology, [facility] [address] [place] [address] Dilan Cox PA-C [address] [place] [address] Information Allergies Active Allergy Reactions Criticality Noted Date Comments Atorvastatin Liver complications (Please comment) 06/26/2022 Elevated LFTs Celecoxib Diarrhea 11/20/2014 Severe diarrhea Ciprofloxacin Rash 11/29/2019 Rosuvastatin Muscle pain 06/26/2022 Erythromycin Hives 11/20/2014 Itchy hives Metronidazole Rash 11/29/2019 Sulfa Antibiotics Unknown 08/25/2024 Patient had sob Azithromycin Rash Medium 02/21/2013 documented as of this encounter (statuses as of 10/20/2024) Medications Aspirin 81 MG Tablet Take 1 [...] Oral Tablet (pLAVix)Indicati ons:PAD (peripheral artery disease) ([facility]) TAKE 1 TABLET BY MOUTH DAILY IN THE MORNING. 90 Tablet 3 06/23/20 24 Active Telmisartan-HCTZ 80-25 MG Oral TabletIndication s:HTN, goal below 130/80 TAKE 1 TABLET BY MOUTH EVERY DAY 90 Tablet 3 07/09/20 24 Active HYDROcodone-Acet aminophen 5-325 MG Oral TabletIndication s:Lyme arthritis of hand ([facility]) Take 1 Tablet by mouth daily as needed for Pain, Moderate. 30 Tablet 09/07/20 24 Active Doxycycline Hyclate 100 MG Oral CapsuleIndicatio ns:Lyme disease Take 1 Capsule by mouth in the morning and 1 Capsule before bedtime. Until gone.. 42 Capsule 09/07/20 24 Active Combivent Respimat 20-100 MCG/ACT Inhalation Aerosol Solution (Ipratropium-Alb uterol)Indicatio ns:COPD exacerbation ([facility]) Inhale 1 Puff by mouth in the morning and 1 Puff at noon and 1 Puff in the evening and 1 Puff before bedtime. 4 g 11 09/13/20 24 Active Escitalopram Oxalate 20 MG Oral Tablet (Lexapro) Take 1 Tablet by mouth in the morning. 09/22/20 24 Active Fluticasone-Umec lidin-Vilant 200-62.5-25 MCG/ACT Aerosol Powder Breath Activated (Trelegy Ellipta) Inhale 1 Puff by mouth in the morning. 09/22/20 24 Active B-1 100 MG Oral Tablet Take 100 mg by mouth every evening. 09/22/20 24 Active Atorvastatin Calcium 20 MG Oral Tablet (Lipitor)Indicat ions:PAD (peripheral artery disease) ([facility]),Dyslipidem ia, goal LDL below 70 Take 1 Tablet by mouth in the morning. 90 Tablet 3 09/26/20 24 Active Folic Acid 1 MG Oral TabletIndication s:NSTEMI (non-ST elevated myocardial infarction) (HCC),HTN, goal below 130/80,Dyslipide tomy, goal LDL below 70,Hypokalemia,P AD (peripheral artery disease) (HCC) Take 1 Tablet by mouth in the morning. 90 Tablet 3 10/06/20 24 Active Potassium Chloride ER 20 MEQ Oral Tablet Extended Release Take 1 Tablet by mouth in the morning. 90 Tablet 3 10/06/20 24 Active Magnesium Oxide 400 MG Oral Capsule Take 1 Capsule by mouth in the morning. 90 Capsule 3 10/06/20 24 Active dilTIAZem HCl ER 240 MG Oral Tablet Extended Release 24 Hour Take 1 Tablet by mouth every morning. 90 Tablet 3 10/06/20 24 024 Discontinued documented as of this encounter (statuses as of 10/20/2024) Active Problems Problem Noted Date Diagnosed Date [...] as of this encounter (statuses as of 10/20/2024) Resolved Problems Problem Noted Date Diagnosed Date Resolved Date DONN (generalized anxiety disorder) 12/14/2014 11/29/2019 COPD, mild 05/05/2014 10/30/2022 Overview: Per COPD GOLD Classification HTN, goal below 140/80 05/05/201405/01 Overview: Per HTN Protocol documented as of this encounter (statuses as of 10/20/2024) Immunizations Name Administration Dates Next Due Covid-19 Ad26, Single Dose (Jen/J&J) 05/24/2021 H1N1 2009 Influenza, IM 10/22/2009 Pneumococcal Conjugate Vacci ne, 20-valent ([id number]) 06/16/2023 Pneumococcal Polysaccharide PPV23 (Pneumovax) 11/05/2018,03/16/2012 Seasonal [...] encounter Miscellaneous Notes * Addendum Note - Dilan Cox PA-C - 10/20/2024 8:33 AM ESTAddended by: DILAN COX on: 10/20/2024 08:33 AM Modules accepted: Orders * Telephone Encounter - Dilan Cox PA-C - 10/20/2024 8:32 AM EST Noted. Reduce diltiazem to 180 mg daily Please confirm pharmacy Monitor swelling and let us know if things get worse * Telephone Encounter - Tonya Kauffman LPN - 10/19/2024 2:22 PM EST Spoke with pt, she notes increased swelling in her feet and around her eyes. States she has some diarrhea. Pt asking about decreasing Diltiazem. * Telephone Encounter - Tonya Kauffman LPN - 10/19/2024 2:22 PM EST ----- Message from Dilan Cox sent at 10/19/2024 1:31 PM EST ----- Magnesium and potassium much improved. Per last encounter potassium and magnesium doses were increased to twice per day. She should continue this dosing. Please update med list and scripts. documented in this encounter Plan of Treatment Upcoming Encounters Date Type Department Care Team (Late st Contact Info) Description 11/03/2024 1:00 PM EST Cardiac Studies Cardiac Studies, [facility] [address] [facility] [place] [address] 12/12/2024 2:30 PM EST Office Visit Cardiology, [facility] [address] [facility] [place] [address] Dilan Cox PA-C [address] [place] [address] 12/30/2024 3:40 PM EST Office Visit [facility] [address] [place] [address] Shauna Pope PA-C [address] [place] [phone] 02/21/2025 8:20 AM EDT Office Visit Dermatology, Tono Gonzalez [address] [place] [phone] Germaine Rosa PA-C [address] [place] [address] 06/26/2025 8:20 AM EDT Office Visit [facility] [address] [place] [phone] Shauna Pope PA-C [address] [place] [address] Health Maintenance Due Date Last Done Comments [...] HPV/Co-Test 12/30/2028 12/30/2023 Lipid Panel 06/29/2029 06/29/2024, 080 11/2022, 01/12/2023, Additional history exists *COPD SEVERITY [...] filedocumented as of this encounter Care Teams Veterinary Assistant Relationship Specialty Start Date End Date Shauna Pope PA-C [address] [place] [address] [address] [facility] [place] [address] PCP - General Physician Information Assurance 05/13/17 documented as of this encounter
--- OUTSIDE RECORDS SUMMARY | 2024-12-14 14:27 | External Medical Summary | Summary of Care ---
Author Name Unknown Organization [facility] Address [address] [facility] [place] [address] Phone [phone] Care Team Providers Care Cash Applications Manager Name Role Phone Shauna Pope PA-C Primary Care Provider +1- [phone] Reason for Visit * Reason Onset Date Comments Information 10/19/2024 Encounter Details Date Type Department Care Team (Late st Contact Info) Description 10/19/2024 Telephone Cardiology, [facility] [address] [place] [address] Dilan Cox PA-C [address] [place] [address] Information Allergies Active Allergy Reactions Criticality Noted Date Comments Atorvastatin Liver complications (Please comment) 06/26/2022 Elevated LFTs Celecoxib Diarrhea 11/20/2014 Severe diarrhea Ciprofloxacin Rash 11/29/2019 Rosuvastatin Muscle pain 06/26/2022 Erythromycin Hives 11/20/2014 Itchy hives Metronidazole Rash 11/29/2019 Sulfa Antibiotics Unknown 08/25/2024 Patient had sob Azithromycin Rash Medium 02/21/2013 documented as of this encounter (statuses as of 10/21/2024) Medications Aspirin 81 MG Tablet Take 1 [...] Oral Tablet (pLAVix)Indicati ons:PAD (peripheral artery disease) ([facility]) TAKE 1 TABLET BY MOUTH DAILY IN THE MORNING. 90 Tablet 3 06/23/20 24 Active Telmisartan-HCTZ 80-25 MG Oral TabletIndication s:HTN, goal below 130/80 TAKE 1 TABLET BY MOUTH EVERY DAY 90 Tablet 3 07/09/20 24 Active HYDROcodone-Acet aminophen 5-325 MG Oral TabletIndication s:Lyme arthritis of hand ([facility]) Take 1 Tablet by mouth daily as needed for Pain, Moderate. 30 Tablet 09/07/20 24 Active Doxycycline Hyclate 100 MG Oral CapsuleIndicatio ns:Lyme disease Take 1 Capsule by mouth in the morning and 1 Capsule before bedtime. Until gone.. 42 Capsule 09/07/20 24 Active Combivent Respimat 20-100 MCG/ACT Inhalation Aerosol Solution (Ipratropium-Alb uterol)Indicatio ns:COPD exacerbation ([facility]) Inhale 1 Puff by mouth in the [...] Oral Tablet (Lipitor)Indicat ions:PAD (peripheral artery disease) ([facility]),Dyslipidem ia, goal LDL below 70 Take 1 Tablet by mouth in the morning. 90 Tablet 3 09/26/20 24 Active Folic Acid 1 MG Oral TabletIndication s:NSTEMI (non-ST elevated myocardial infarction) ([facility]),HTN, goal below 130/80,Dyslipide tomy, goal LDL below 70,Hypokalemia,P AD (peripheral artery disease) ([facility]) Take 1 Tablet by mouth in the morning. 90 Tablet 3 10/06/20 24 Active Potassium Chloride ER 20 MEQ Oral Tablet Extended Release Take 1 Tablet by mouth in the morning. 90 Tablet 3 10/06/20 24 Active Magnesium Oxide 400 MG Oral Capsule Take 1 Capsule by mouth in the morning. 90 Capsule 3 10/06/20 24 Active dilTIAZem HCl ER 180 MG Oral Capsule Extended Release 24 HourIndications: HTN, goal below 130/80 Take 1 Capsule by mouth in the morning. 90 Capsule 3 10/21/20 24 Active Escitalopram Oxalate 20 MG Oral Tablet (Lexapro) Take 1 Tablet by mouth in the morning. 09/22/20 24 024 Discontinued(Re fill) dilTIAZem HCl ER 240 MG Oral Tablet Extended Release 24 Hour Take 1 Tablet by mouth every morning. 90 Tablet 3 10/06/20 24 024 Discontinued documented as of this encounter (statuses as of 10/21/2024) Active Problems Problem Noted Date Diagnosed Date [...] as of this encounter (statuses as of 10/21/2024) Resolved Problems Problem Noted Date Diagnosed Date Resolved Date DONN (generalized anxiety disorder) 12/14/2014 11/29/2019 COPD, mild 05/05/2014 10/30/2022 Overview: Per COPD GOLD Classification HTN, goal below 140/80 05/05/201405/01 Overview: Per HTN Protocol documented as of this encounter (statuses as of 10/21/2024) Immunizations Name Administration Dates Next Due Covid-19 Ad26, Single Dose (Jen/J&J) 05/24/2021 H1N1 2009 Influenza, IM 10/22/2009 Pneumococcal Conjugate Vacci ne, 20-valent ([id number]) 06/16/2023 Pneumococcal Polysaccharide PPV23 (Pneumovax) 11/05/2018,03/16/2012 Seasonal [...] Addendum Note - Dilan Cox PA-C - 10/21/2024 8:32 AM ESTAddended by: DILAN COX on: 10/21/2024 08:32 AM Modules accepted: Orders * Telephone Encounter - Dilan Cox PA-C - 10/21/2024 8:32 AM EST Noted. Orders signed as requested. * Addendum Note - Hortensia Moya LPN - 10/20/2024 1:32 PM ESTAddended by: HORTENSIA MOYA on: 10/20/2024 01:32 PM Modules accepted: Orders * Telephone Encounter - Hortensia Moya LPN - 10/20/2024 1:31 PM EST Spoke with patient by phone, gave information in this encounter. Verbalized understanding Agreed to plan of care. Medication pended * Addendum Note - Dilan Cox PA-C [...] 1:00 PM EST Cardiac Studies Cardiac Studies, [facility] [address] [facility] [place] [address] 12/12/2024 2:30 PM EST Office Visit Cardiology, [facility] [address] [facility] [place] [address] Dilan Cox PA-C [address] [facility] [place] [address] 12/30/2024 3:40 PM EST Office Visit [facility] [address] [place] [phone] Shauna Pope PA-C [address] [place] [address] 02/21/2025 8:20 AM EDT Office Visit Dermatology, Nayla HaleyTono [address] [place] [address] Germaine Rosa PA-C [address] [place] [address] 06/26/2025 8:20 AM EDT Office Visit Family [facility] [place] [address] [place] [phone] Shauna Pope PA-C [address] [place] [phone] Health Maintenance Due Date Last Done Comments [...] encounter Visit Diagnoses Diagnosis HTN, goal below 130/80- Primary Unspecified essential hypertension documented in this encounter Care Teams Cash Applications Manager Relationship Specialty Start Date End Date Shauna Pope PA-C [address] [facility] [address] [place] [address] PCP - General Physician School Director 05/13/17 documented as of this encounter
--- OUTSIDE RECORDS SUMMARY | 2024-12-14 14:27 | External Medical Summary | Summary of Care ---
Author Name Unknown Organization [facility] Address [address] [facility] [place] [address] Phone [phone] Care Team Providers Care Safety Sealer Name Role Phone Shauna Pope PA-C Primary Care Provider +1- [phone] Reason for Visit * Reason Onset Date Comments Med Request 10/20/2024 Encounter Details Date Type Department Care Team (Late st Contact Info) Description 10/20/2024 Telephone [facility] [address] [place] [address] Shauna Pope PA-C [address] [place] [address] Med Request Allergies Active Allergy Reactions Criticality Noted [...] (pLAVix)Indicatio ns:PAD (peripheral artery disease) ([facility]) TAKE 1 TABLET BY MOUTH DAILY IN THE MORNING. 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 30 Tablet 4 Active Doxycycline Hyclate 100 MG Oral CapsuleIndication s:Lyme disease Take 1 Capsule by mouth in the morning and 1 Capsule before bedtime. Until gone.. 42 Capsule 4 Active Combivent Respimat 20-100 MCG/ACT Inhalation Aerosol Solution (Ipratropium-Albu terol)Indications :COPD exacerbation ([facility]) Inhale 1 Puff by mouth in [...] (Lipitor)Indicati ons:PAD (peripheral artery disease) ([facility]),Dyslipidemi a, goal LDL below 70 Take 1 Tablet by mouth in the morning. 90 Tablet 3 4 Active Folic Acid 1 MG Oral TabletIndications :NSTEMI (non-ST elevated myocardial infarction) ([facility]),HTN, goal below 130/80,Dyslipidem ia, goal LDL below 70,Hypokalemia,PA D (peripheral artery disease) ([facility]) Take 1 Tablet by mouth in the [...] the morning. 90 Tablet 1 4 Active Escitalopram Oxalate 20 MG Oral Tablet (Lexapro) Take 1 Tablet by mouth in the morning. 4 10/20/20 24 Discontinu ed(Refill) documented as of this encounter (statuses as [...] IM 10/22/2009 Pneumococcal Conjugate Vacci ne, 20-valent ([id number]) 06/16/2023 Pneumococcal Polysaccharide PPV23 (Pneumovax) 11/05/2018,03/16/2012 Seasonal [...] Telephone Encounter - Shauna Pope PA-C - 10/20/2024 4:18 PM EST Rx sent. * Telephone Encounter - Sparkle Saxena CCMA - 10/20/2024 11:38 AM EST Please read message below and advise. Thank You * Telephone Encounter - Mili Whitehead CPhT - 10/20/2024 11:28 AM EST Patient calling requesting the following medication below that is listed as "Historical". The following information was provided: Medication Name: Escitalopram Oxalate 20 MG Oral Tablet (Lexapro) Strength: 20mg Directions: once a day in the AM Preferred Quantity: 90 Previous Prescriber: Carolyn Jj [facility] [place] [address] [facility] Medication Name: Ikmzumydjmu-Wgqyfmsmr-Llpdxa 200-62.5-25 MCG/ACT Aerosol Powder Breath Activated (Trelegy Ellipta) Strength: 200-62.5-25 MCG/ACT Directions: one puff in the morning AM Preferred Quantity: NA Previous Prescriber: Carolyn Jj [facility] [place] [address] [facility] Please review and approve if appropriate. Thank you, Mili Whitehead [facility] 10/20/2024, 11:28 AM documented in this encounter Plan of Treatment Upcoming Encounters Date Type Department Care Team (Late st Contact Info) Description 11/03/2024 1:00 PM EST Cardiac Studies Cardiac Studies, [address] [place] [address] 12/12/2024 2:30 PM EST Office Visit Cardiology, [address] [place] [address] Jessica Zamora PA-C [address] [place] [address] 12/30/2024 3:40 PM EST Office Visit [facility] [address] [place] [phone] Shauna Pope PA-C [address] [place] [phone] 02/21/2025 8:20 AM EDT Office Visit Dermatology, Tono Gonzalez [address] [place] [address] Germaine Rosa PA-C [address] [place] [phone] 06/26/2025 8:20 AM EDT Office Visit [facility] [address] [place] [address] Shauna Pope PA-C [address] [place] [phone] Health Maintenance Due Date Last Done Comments [...] filedocumented as of this encounter Care Teams Safety Sealer Relationship Specialty Start Date End Date Shauna Pope PA-C [address] [place] [address] [facility] [place] [address] PCP - General Physician Prorate Clerk 05/13/17 documented as of this encounter
--- OUTSIDE RECORDS SUMMARY | 2024-12-14 14:27 | External Medical Summary | Summary of Care ---
Author Name Unknown Organization [facility] Address [address] [facility] [place] [address] Phone [phone] Care Team Providers Care Vulcanizer Name Role Phone Shauna Pope PA-C Primary Care Provider +1- [phone] Reason for Visit * Reason Onset Date Comments Test Results 11/14/2024 Encounter Details Date Type Department Care Team (Late st Contact Info) Description 11/14/2024 Telephone Cardiology, [facility] [address] [place] [address] Jessica Zamora PA-C [address] [place] [address] Test Results Allergies Active Allergy Reactions Criticality Noted Date Comments Atorvastatin Liver complications (Please comment) 06/26/2022 Elevated LFTs Celecoxib Diarrhea 11/20/2014 Severe diarrhea Ciprofloxacin Rash 11/29/2019 Rosuvastatin Muscle pain 06/26/2022 Erythromycin Hives 11/20/2014 Itchy hives Metronidazole Rash 11/29/2019 Sulfa Antibiotics Unknown 08/25/2024 Patient had sob Azithromycin Rash Medium 02/21/2013 documented as of this encounter (statuses as of 11/17/2024) Medications Aspirin 81 MG Tablet Take 1 [...] Tablet (pLAVix)Indicatio ns:PAD (peripheral artery disease) ([facility]) TAKE 1 TABLET BY MOUTH DAILY IN [...] Inhalation Aerosol Solution (Ipratropium-Albu terol)Indications :COPD exacerbation ([facility]) Inhale 1 Puff by mouth in the [...] Oral Tablet (Lipitor)Indicati ons:PAD (peripheral artery disease) ([facility]),Dyslipidemi a, goal LDL below 70 Take 1 Tablet by mouth in the morning. 90 Tablet 3 4 Active Folic Acid 1 MG Oral TabletIndications :NSTEMI (non-ST elevated myocardial infarction) ([facility]),HTN, goal below 130/80,Dyslipidem ia, goal LDL below 70,Hypokalemia,PA D (peripheral artery disease) ([facility]) Take 1 Tablet by mouth in the [...] for Pain, Moderate. 30 Tablet 4 Active documented as of this encounter (statuses as of 11/17/2024) Active Problems Problem Noted Date Diagnosed Date [...] as of this encounter (statuses as of 11/17/2024) Resolved Problems Problem Noted Date Diagnosed Date Resolved Date DONN (generalized anxiety disorder) 12/14/2014 11/29/2019 COPD, mild 05/05/2014 10/30/2022 Overview: Per COPD GOLD Classification HTN, goal below 140/80 05/05/201405/01 Overview: Per HTN Protocol documented as of this encounter (statuses as of 11/17/2024) Immunizations Name Administration Dates Next Due Covid-19 Ad26, Single Dose (Jen/J&J) 05/24/2021 H1N1 2009 Influenza, IM 10/22/2009 Pneumococcal Conjugate Vacci ne, 20-valent ([id number]) 06/16/2023 Pneumococcal Polysaccharide PPV23 (Pneumovax) 11/05/2018,03/16/2012 Seasonal [...] Telephone Encounter - Tonya Kauffman LPN - 11/14/2024 8:46 AM EST Attempted to call pt, no answer, will call back later * Telephone Encounter - Tonya Kauffman LPN - 11/14/2024 8:45 AM EST ----- Message from Jessica Zamora sent at 11/13/2024 2:03 PM EST ----- Echo results reviewed. Normal LVEF at 60-64% Great news. Heart function has returned to normal compared to hospitalization. No significant valvular disease. BP was elevated at time of echo but typically well controlled. See if she has been monitoring BP at home. BP Readings from Last 4 Encounters: 10/06/24 : 122/72 09/29/24 : 120/64 09/13/24 : 96/52 08/25/24 : 116/60 documented in this encounter Plan of Treatment Upcoming Encounters Date Type Department Care Team (Late st Contact Info) Description 12/12/2024 2:30 PM EST Office Visit Cardiology, [facility] [address] [place] [address] Jessica Zamora PA-C [address] [place] [address] 12/30/2024 3:40 PM EST Office Visit Family [facility] [address] [place] [phone] Shauna Pope PA-C [address] [place] [phone] 02/21/2025 8:20 AM EDT Office Visit Dermatology, Tono Gonzalez [address] [place] [address] Germaine Rosa PA-C [address] [place] [address] 06/26/2025 8:20 AM EDT Office Visit [facility] [address] [place] [address] Shauna Pope PA-C [address] [place] [address] Health Maintenance Due Date Last Done Comments [...] filedocumented as of this encounter Care Teams Vulcanizer Relationship Specialty Start Date End Date Shauna Pope PA-C [facility] [place] [address] PCP - General Physician Ecommerce Merchandising Manager 05/13/17 documented as of this encounter
--- OUTSIDE RECORDS SUMMARY | 2024-12-14 14:27 | External Medical Summary | Summary of Care ---
Author Name Unknown Organization [facility] Address [address] [facility] [place] [address] Phone [phone] Care Team Providers Care Farm Crops Teacher Name Role Phone Dennis Pope PA-C Primary Care Provider +1- [phone] Reason for Visit * Reason Onset Date Comments Med Request 11/01/2024 Refills needed Encounter Details Date Type Department Care Team (Late st Contact Info) Description 11/01/2024 Refill [facility] [address] [place] [address] Dennis Pope PA-C [address] [place] [address] Lyme arthritis of hand (HCC) Allergies Active Allergy Reactions Criticality Noted Date Comments Atorvastatin Liver complications (Please comment) 06/26/2022 Elevated LFTs Celecoxib Diarrhea 11/20/2014 Severe diarrhea Ciprofloxacin Rash 11/29/2019 Rosuvastatin Muscle pain 06/26/2022 Erythromycin Hives 11/20/2014 Itchy hives Metronidazole Rash 11/29/2019 Sulfa Antibiotics Unknown 08/25/2024 Patient had sob Azithromycin Rash Medium 02/21/2013 documented as of this encounter (statuses as of 11/02/2024) Medications Aspirin 81 MG Tablet Take 1 [...] (pLAVix)Indicatio ns:PAD (peripheral artery disease) ([facility]) TAKE 1 TABLET BY MOUTH DAILY IN [...] Solution (Ipratropium-Albu terol)Indications :COPD exacerbation ([facility]) Inhale 1 Puff by mouth in the [...] (Lipitor)Indicati ons:PAD (peripheral artery disease) ([facility]),Dyslipidemi a, goal LDL below 70 Take 1 Tablet by mouth in the morning. 90 Tablet 3 4 Active Folic Acid 1 MG Oral TabletIndications :NSTEMI (non-ST elevated myocardial infarction) ([facility]),HTN, goal below 130/80,Dyslipidem ia, goal LDL below 70,Hypokalemia,PA D (peripheral artery disease) ([facility]) Take 1 Tablet by mouth in the [...] for Pain, Moderate. 30 Tablet 4 Active HYDROcodone-Aceta minophen 5-325 MG Oral TabletIndications :Lyme arthritis of hand (HCC) Take 1 Tablet by mouth daily as needed for Pain, Moderate. 30 Tablet 4 11/01/20 24 Discontinu ed(Refill) documented as of this encounter (statuses as of 11/02/2024) Active Problems Problem Noted Date Diagnosed Date [...] as of this encounter (statuses as of 11/02/2024) Resolved Problems Problem Noted Date Diagnosed Date Resolved Date DONN (generalized anxiety disorder) 12/14/2014 11/29/2019 COPD, mild 05/05/2014 10/30/2022 Overview: Per COPD GOLD Classification HTN, goal below 140/80 05/05/201405/01 Overview: Per HTN Protocol documented as of this encounter (statuses as of 11/02/2024) Immunizations Name Administration Dates Next Due Covid-19 Ad26, Single Dose (Jen/J&J) 05/24/2021 H1N1 2009 Influenza, IM 10/22/2009 Pneumococcal Conjugate Vacci ne, 20-valent ([id number]) 06/16/2023 Pneumococcal Polysaccharide PPV23 (Pneumovax) 11/05/2018,03/16/2012 Seasonal [...] Telephone Encounter - Dennis Pope PA-C - 11/02/2024 8:49 AM ESTSigned Prescriptions: Disp Refills HYDROcodone-Acetaminophen 5-325 MG Oral Ta*30 Tab*0 Sig: Take 1 Tablet by mouth daily as needed for Pain, Moderate. Authorizing Provider: DENNIS POPE * Telephone Encounter - Ruth Pool CCMA - 11/01/2024 2:45 PM EST Did you pend patient's preferred pharmacy and medication before forwarding?yes [facility] - [address] Pending Prescriptions: Disp Refills HYDROcodone-Acetaminophen 5-325 MG Oral T*30 Tab*0 Sig: Take 1 Tablet by mouth daily as needed for Pain, Moderate. Last Visit: 09/29/2024 (in office), Visit date not found (telemedicine) Next Visit: 12/30/2024 If no future appointments scheduled, and last appointment is greater than a year ago, please schedule patient for a follow-up appointment Last date the medication was ordered: 09/07/2024 Is this request for a controlled substance?No Urine Drug Screen:No results found for this or any previous visit. Patient Phone Numbers Labs: Lab Results Component Value Date/Time CREAT 0.5 10/18/2024 01:58 PM CREAT 0.6 05/30/2020 09:14 AM POTASSIUM 3.8 10/18/2024 01:58 PM POTASSIUM 3.9 05/30/2020 09:14 AM TSH 0.58 05/14/2016 08:44 AM LDL 71 06/29/2024 10:43 AM LDL 67 01/12/2023 08:01 AM LDL 66 05/30/2020 09:14 AM LDL NOT APPLICABLE 05/30/2020 09:14 AM ALT 56 (H) 06/29/2024 10:43 AM ALT 33 05/30/2020 09:14 AM * Telephone Encounter - Ngoc Jones OSA - 11/01/2024 2:37 PM EST A medication prescription change, dosage change, or quantity change was requested for this patient. Name of Requestor: patient Medication: Hydrocodone-Acteaminophen 5-325mg Reason for request: zero refills Current dose (if applicable): once daily as needed Dose requested (if applicable/Mail Order should be 90 day Supply): 30day supply Current quantity (if applicable): 7 days worth Quantity requested (if applicable): na Preferred pharmacy: [facility] Applicable to [facility] Requests: Does the order need to be faxed somewhere? If so, where?: na Fax Number, if applicable: na documented in this encounter Plan of Treatment Upcoming Encounters Date Type Department Care Team (Late st Contact Info) Description 11/03/2024 1:00 PM EST Cardiac Studies Cardiac Studies, [facility] [address] [address] 12/12/2024 2:30 PM EST Office Visit Cardiology, [facility] [address] [place] [address] Jessica Zamora PA-C [address] [place] [address] 12/30/2024 3:40 PM EST Office Visit [facility] [address] [place] [address] Dennis Pope PA-C [address] [place] [address] 02/21/2025 8:20 AM EDT Office Visit Dermatology, [facility] [address] [place] [address] [place] [address] Germaine Rosa PA-C [address] [place] [address] 06/26/2025 8:20 AM EDT Office Visit Family Practice, [place] [address] [place] [address] Dennis Pope PA-C [address] [place] [address] Health Maintenance Due Date Last Done Comments [...] disease documented in this encounter Care Teams Farm Crops Teacher Relationship Specialty Start Date End Date Dennis Pope PA-C [facility]2 [facility] [address] [facility] [place] [address] PCP - General Physician Occupational Health Professional 05/13/17 documented as of this encounter
--- OUTSIDE RECORDS SUMMARY | 2024-12-14 14:27 | External Medical Summary | Summary of Care ---
Author Name Unknown Organization [facility] Address [address] [facility] [place] [address] Phone [phone] Care Team Providers Care Sales Developer Name Role Phone Shauna Pope PA-C Primary Care Provider +1- [phone] Reason for Visit * Reason Onset Date Comments Test Results 11/14/2024 Encounter Details Date Type Department Care Team (Late st Contact Info) Description 11/14/2024 Telephone Cardiology, [facility] [address] [place] [address] Jessica Zamora PA-C [address] [place] [address] Test Results Allergies Active Allergy Reactions Criticality [...] Tablet (pLAVix)Indicatio ns:PAD (peripheral artery disease) ([facility]) TAKE 1 TABLET BY MOUTH DAILY [...] Aerosol Solution (Ipratropium-Albu terol)Indications :COPD exacerbation ([facility]) Inhale 1 Puff by mouth in [...] Tablet (Lipitor)Indicati ons:PAD (peripheral artery disease) ([facility]),Dyslipidemi a, goal LDL below 70 Take 1 Tablet by mouth in the morning. 90 Tablet 3 4 Active Folic Acid 1 MG Oral TabletIndications :NSTEMI (non-ST elevated myocardial infarction) ([facility]),HTN, goal below 130/80,Dyslipidem ia, goal LDL below 70,Hypokalemia,PA D (peripheral artery disease) ([facility]) Take 1 Tablet by mouth in [...] IM 10/22/2009 Pneumococcal Conjugate Vacci ne, 20-valent ([id number]) 06/16/2023 Pneumococcal Polysaccharide PPV23 (Pneumovax) 11/05/2018,03/16/2012 Seasonal [...] 12/12/2024 2:30 PM EST Office Visit Cardiology, [facility] [address] [place] [address] [address] Jessica Zamora PA-C [address] [place] [address] 12/30/2024 3:40 PM EST Office Visit Family [facility], [place] [address] [place] [phone] Shauna Pope PA-C [address] [place] [phone] 02/21/2025 8:20 AM EDT Office Visit Dermatology, [place] [address] [place] [address] [place] [address] [address] Germaine Rosa PA-C [address] [place] [address] 06/26/2025 8:20 AM EDT Office Visit [facility] [address] [place] [address] Shauna Pope PA-C [address] [place] [address] Health Maintenance Due Date Last Done Comments [...] filedocumented as of this encounter Care Teams Sales Developer Relationship Specialty Start Date End Date Shauna Pope PA-C [facility] [place] [address] PCP - General Physician Shank Faker 05/13/17 documented as of this encounter
--- OUTSIDE RECORDS SUMMARY | 2024-12-14 14:27 | External Medical Summary | Summary of Care ---
Author Name Unknown Organization [facility] Address [address] [facility] [place] [address] Phone [phone] Care Team Providers Care Import Dispatcher Name Role Phone Shauna Pope PA-C Primary Care Provider +1- [phone] Reason for Visit * Reason Onset Date Comments Information 10/19/2024 Encounter Details Date Type Department Care Team (Late st Contact Info) Description 10/19/2024 Telephone Cardiology, [facility] [address] [place] [address] Dilan Cox PA-C [address] [place] [address] Information Allergies Active Allergy Reactions Criticality Noted [...] IM 10/22/2009 Pneumococcal Conjugate Vacci ne, 20-valent ([id number]) 06/16/2023 Pneumococcal Polysaccharide PPV23 (Pneumovax) 11/05/2018,03/16/2012 Seasonal [...] encounter Miscellaneous Notes * Addendum Note - Hortensia Moya LPN [...] 1:00 PM EST Cardiac Studies Cardiac Studies, [facility] [address] [facility] [place] [address] 12/12/2024 2:30 PM EST Office Visit Cardiology, [facility] 132 [facility] [place] [address] Dilan Cox PA-C [address] [place] [address] 12/30/2024 3:40 PM EST Office Visit [facility] [address] [place] [place] [phone] Shauna Pope PA-C [address] [place] [place] [address] 02/21/2025 8:20 AM EDT Office Visit Dermatology, [place] Gonzalez [address] [facility] [address] [address] Germaine Rosa PA-C [address] [place] [address] 06/26/2025 8:20 AM EDT Office Visit [facility] [address] [place] [address] Shauna Pope PA-C [address] [place] [phone] Health Maintenance Due Date Last Done Comments [...] hypertension documented in this encounter Care Teams Import Dispatcher Relationship Specialty Start Date End Date Shauna Pope PA-C [address] [facility] [place] [address] PCP - General Physician Automobile Body Customizer 05/13/17 documented as of this encounter
--- OUTSIDE RECORDS SUMMARY | 2024-12-14 14:28 | External Medical Summary ---
Author Name Unknown Address Unknown Organization K01:LABORATORY [facility] - [address] [address] Laboratory Report Ordering Provider Test Date Status BOBY COLLINS 09/29/2024 11:54:43 Final Observation Date Value Abnormality Reference (Units ) Status Folic Acid 09/29/2024 11:54:43 11.9 >4.5 (ng/ mL) Final Performing Location LABORATORY [facility] - [address] [place] [address]
--- OUTSIDE RECORDS SUMMARY | 2024-12-14 14:28 | External Medical Summary | Summary of Care ---
Author Name Unknown Organization [facility] Address [address] [facility] [address] Phone [phone] Care Team Providers Care Roof Truss Machine Tender Name Role Phone Shauna Pope PA-C Primary Care Provider +1- [phone] Reason for Visit * Reason Onset Date Comments Test Results 10/12/2024 Encounter Details Date Type Department Care Team (Late st Contact Info) Description 10/12/2024 Telephone Cardiology, [facility] [address] [place] [address] Jessica Zamora PA-C [address] [place] [address] Test Results Allergies Active Allergy Reactions Criticality Noted Date Comments Atorvastatin Liver complications (Please comment) 06/26/2022 Elevated LFTs Celecoxib Diarrhea 11/20/2014 Severe diarrhea Ciprofloxacin Rash 11/29/2019 Rosuvastatin Muscle pain 06/26/2022 Erythromycin Hives 11/20/2014 Itchy hives Metronidazole Rash 11/29/2019 Sulfa Antibiotics Unknown 08/25/2024 Patient had sob Azithromycin Rash Medium 02/21/2013 documented as of this encounter (statuses as of 10/12/2024) Medications Aspirin 81 MG Tablet Take 1 [...] (pLAVix)Indicatio ns:PAD (peripheral artery disease) ([facility]) TAKE 1 TABLET BY MOUTH DAILY IN THE MORNING. 90 Tablet 3 4 Active Telmisartan-HCTZ 80-25 MG Oral TabletIndications :HTN, goal below 130/80 TAKE 1 TABLET BY MOUTH EVERY DAY 90 Tablet 3 4 Active HYDROcodone-Aceta minophen 5-325 MG Oral TabletIndications :Lyme arthritis of hand ([facility]) Take 1 Tablet by mouth daily as needed for Pain, Moderate. 30 Tablet 4 Active Doxycycline Hyclate 100 MG Oral CapsuleIndication s:Lyme disease Take 1 Capsule by mouth in the morning and 1 Capsule before bedtime. Until gone.. 42 Capsule 4 Active Combivent Respimat 20-100 MCG/ACT Inhalation Aerosol Solution (Ipratropium-Albu terol)Indications :COPD exacerbation ([facility]) Inhale 1 Puff by mouth in [...] (Lipitor)Indicati ons:PAD (peripheral artery disease) ([facility]),Dyslipidemi a, goal LDL below 70 Take [...] as of this encounter (statuses as of 10/12/2024) Active Problems Problem Noted Date Diagnosed Date [...] as of this encounter (statuses as of 10/12/2024) Resolved Problems Problem Noted Date Diagnosed Date Resolved Date DONN (generalized anxiety disorder) 12/14/2014 11/29/2019 COPD, mild 05/05/2014 10/30/2022 Overview: Per COPD GOLD Classification HTN, goal below 140/80 05/05/201405/01 Overview: Per HTN Protocol documented as of this encounter (statuses as of 10/12/2024) Immunizations Name Administration Dates Next Due Covid-19 Ad26, Single Dose (Jen/J&J) 05/24/2021 H1N1 2009 Influenza, IM 10/22/2009 Pneumococcal Conjugate Vacci ne, 20-valent ([id number]) 06/16/2023 Pneumococcal Polysaccharide PPV23 (Pneumovax) 11/05/2018,03/16/2012 Seasonal [...] encounter Miscellaneous Notes * Telephone Encounter - Oscar Kat LPN - 10/12/2024 4:48 PM EST Called patient and informed of Jessica's message. Patient verbalized understanding. Labs ordered. ----- Message from Jessica Zamora sent at 10/12/2024 4:31 PM EST ----- Patients potassium and magnesium are still very low She should take an additional potassium 20 x2 now Then increase potassium to 20 meq - 1 tab twice per day Increase mag ox 400 mg 1 tab twice per day Repeat BMP and magnesium next week documented in this encounter Plan of Treatment Upcoming Encounters Date Type Department Care Team (Late st Contact Info) Description 11/03/2024 1:00 PM EST Cardiac Studies Cardiac Studies, [facility] [address] [facility] [place] [address] 12/12/2024 2:30 PM EST Office Visit Cardiology, [facility] [address] [facility] [place] [address] Jessica Zamora, THEE 132 [facility] [place] [address] 12/30/2024 3:40 PM EST Office Visit [facility] [address] [place] [phone] Shauna Pope PAJeremias [address] [place] [address] 02/21/2025 8:20 AM EDT Office Visit Dermatology, [place] Gonzalez [address] [place] [address] [place] [address] [phone] Germaine Rosa PA-C [address] [place] [address] 06/26/2025 8:20 AM EDT Office Visit [facility] [address] [place] [address] Shauna Pope PA-C [address] [place] [address] Scheduled Orders Name Type Priority Associated Diagnoses Orde r Schedule BASIC METABOLIC PANEL Lab Routine Hypokalemia Hypomagnesemia Expected: 10/19/2024 (Approximate), Expires: 10/12/2025 MAGNESIUM Lab Routine Hypokalemia Hypomagnesemia Expected: 10/19/2024 (Approximate), Expires: 10/12/2025 Health Maintenance Due Date Last Done Comments Alpha-1 Antitrypsin 1984 Hepatitis B Vaccine (1 of 3 - 19+ 3-dose series) 1985 Fecal Occult Blood Test 2011 Cologuard 12/08/2020 12/08/2017 Depression Screening 06/02/2023 06/02/2022, 06/15/2015 (Discussed) Sigmoidoscopy 11/02/2023 11/02/2018 COVID-19 Vaccine ( season) 2024 05/24/2021 Mammogram 09/10/2024 09/10/2023, 07/18, 07/19/2021, Additional history exists O2 ASSESSMENT COMPLETED IN PAST YEAR FOR COPD 10/06/2025 10/06/2024 GFR 10/10/2025 10/10/2024, 09/16, 06/29/2024, Additional history exists Albumin/Creatinine Ratio 06/16/2026 06/16/2023 Pap Smear 12/30/2026 12/30/2023, 05/16, 05/14/2017, Additional history exists DTap/Tdap Vaccines (3 - Td or Tdap) 10/25/2028 10/25/2018, 03/16/2012 Colonoscopy 11/06/2028 11/06/2023, 10/17, 02/04/2018, Additional history exists Colorectal Cancer Screening 11/06/2028 Cervical Cancer Screening 12/30/2028 HPV/Co-Test 12/30/2028 12/30/2023 Lipid Panel 06/29/2029 06/29/2024, 08/3, 01/12/2023, Additional history exists *COPD SEVERITY VERIFIED [...] encounter Visit Diagnoses Diagnosis Hypokalemia- Primary Hypopotassemia Hypomagnesemia Disorders of magnesium metabolism documented in this encounter Care Teams Roof Truss Machine Tender Relationship Specialty Start Date End Date Shauna Pope PA-C [facility] [address] [facility] [place] [address] PCP - General Physician Inclusion Paraeducator 05/13/17 documented as of this encounter
--- OUTSIDE RECORDS SUMMARY | 2024-12-14 14:28 | External Medical Summary | Summary of Care ---
Author Name Unknown Organization [facility] Address [address] [facility] [place] [address] Phone [phone] Care Team Providers Care Motion Picture Equipment Machinist Name Role Phone Shauna Pope PA-C Primary Care Provider +1- [phone] Reason for Visit * Reason Onset Date Comments Hospital Follow-Up 09/26/2024 Encounter Details Date Type Department Care Team (Late st Contact Info) Description 09/26/2024 Telephone General Internal Medicine [facility] [place] [address] [place] [phone] Shauna Pope PA-C [address] [place] [address] Hospital Follow-Up Allergies Active Allergy Reactions Criticality Noted Date Comments Atorvastatin Liver complications (Please comment) 06/26/2022 Elevated LFTs Celecoxib Diarrhea 11/20/2014 Severe diarrhea Ciprofloxacin Rash 11/29/2019 Rosuvastatin Muscle pain 06/26/2022 Erythromycin Hives 11/20/2014 Itchy hives Metronidazole Rash 11/29/2019 Sulfa Antibiotics Unknown 08/25/2024 Patient had sob Azithromycin Rash Medium 02/21/2013 documented as of this encounter (statuses as of 09/27/2024) Medications Aspirin 81 MG Tablet Take 1 [...] Inhalation Aerosol Solution (Ipratropium-Albu terol)Indications :COPD exacerbation (HCC) Inhale 1 Puff by mouth in the morning and 1 Puff at noon and 1 Puff in the evening and 1 Puff before bedtime. 4 g 11 4 Active predniSONE 10 MG Oral Tablet (Deltasone)Indica tions:COPD exacerbation (HCC) Take 5 tabs for 2 days, 4 tabs for 2 days, 3 tabs for 2 days, 2 tabs for 2 days 1 tab for 2 days 30 Tablet 4 Active dilTIAZem HCl ER 240 MG Oral Tablet Extended Release 24 Hour Take 240 mg by mouth every morning. 4 Active Escitalopram Oxalate 20 MG Oral Tablet (Lexapro) Take 1 Tablet by mouth in the morning. 4 Active Fluticasone-Umecl idin-Vilant 200-62.5-25 MCG/ACT Aerosol Powder Breath Activated (Trelegy Ellipta) Inhale 1 Puff by mouth in the morning. 4 Active Folic Acid 1 MG Oral Tablet Take 1 Tablet by mouth in the morning. 4 Active B-1 100 MG Oral Tablet Take 100 mg by mouth in the morning and 100 mg before bedtime. 4 Active Atorvastatin Calcium 20 MG Oral Tablet (Lipitor)Indicati ons:PAD (peripheral artery disease) (HCC),Dyslipidemi a, goal LDL below 70 Take 1 Tablet by mouth in the morning. 90 Tablet 3 4 Active documented as of this encounter (statuses as of 09/27/2024) Active Problems Problem Noted Date Diagnosed Date [...] as of this encounter (statuses as of 09/27/2024) Resolved Problems Problem Noted Date Diagnosed Date Resolved Date DONN (generalized anxiety disorder) 12/14/2014 11/29/2019 COPD, mild 05/05/2014 10/30/2022 Overview: Per COPD GOLD Classification HTN, goal below 140/80 05/05/201405/01 Overview: Per HTN Protocol documented as of this encounter (statuses as of 09/27/2024) Immunizations Name Administration Dates Next Due Covid-19 Ad26, Single Dose (Jne/J&J) 05/24/2021 H1N1 2009 Influenza, IM 10/22/2009 Pneumococcal Conjugate Vacci ne, 20-valent ([id number]) 06/16/2023 Pneumococcal Polysaccharide PPV23 (Pneumovax) 11/05/2018,03/16/2012 Seasonal [...] years and over) Not on file 05/03/2024 Comments No Sex and Gender Information Value Date Recorded Sex Assigned at Female 06/02/2022 7:04 AM EDT Legal Sex Female 5:51 AM EST Gender Identity Female 06/02/2022 7:04 AM EDT Sexual Orientation Straight 06/02/2022 7: 04 AM EDT documented as of this encounter Miscellaneous Notes * Telephone Encounter - Kenzie Thomas OSA - 09/27/2024 8:58 AM EST Spoke to pt, scheduled pt for 10/06/24 with Jessica Zamora on 10/06/24. Pt stated that she was told at discharge from [facility] that she was supposed to follow up with Dr. Lake. Informed pt that Jessicaworked in the same office as Dr. Lake. * Telephone Encounter - Alf Cordova OSA - 09/26/2024 1:48 PM EST Patient is from the [facility], please forward to [facility], thank you. * Telephone Encounter - Ti Jose RN - 09/26/2024 1:37 PM EST Patient discharged 09/22/24 from [facility]. Cardiology consulted for Takotsubo CM, NSTEMI, HF. Patient will require cardiology follow up. Please assist with scheduling. Thank you documented in this encounter Plan of Treatment Upcoming Encounters Date Type Department Care Team (Late st Contact Info) Description 09/29/2024 11:00 AM EST Office Visit Family [facility] [place] [address] [place] [address] Shauna Pope PA-C [address] [place] [address] 10/06/2024 11:30 AM EST Office Visit Cardiology, [facility] [address] [place] [address] Jessica Zamora PA-C [address] [place] [address] 02/21/2025 8:20 AM EDT Office Visit Dermatology, [place] Gonzalez [address] [place] [address] [address] [address] Germaine Rosa PA-C [address] [place] [address] [phone] 06/26/2025 8:20 AM EDT Office Visit Family Practice, [place] [address] [place] [address] Shauna Pope PA-C [address] [place] [address] Health Maintenance Due Date Last Done Comments [...] filedocumented as of this encounter Care Teams Motion Picture Equipment Machinist Relationship Specialty Start Date End Date Shauna Pope PA-C [address] [facility] [place] [address] PCP - General Physician Injection Molding Process Technician 05/13/17 documented as of this encounter
--- OUTSIDE RECORDS SUMMARY | 2024-12-14 14:28 | External Medical Summary | Summary of Care ---
Author Name Unknown Organization [facility] Address [address] [facility] [place] [address] Phone [phone] Care Team Providers Care Collateral Analyst Name Role Phone Shauna Pope PA-C Primary Care Provider +1- [phone] Reason for Visit * Reason Onset Date Comments Medication Question 10/07/2024 Encounter Details Date Type Department Care Team (Late st Contact Info) Description 10/07/2024 Telephone [facility] [address] [place] [address] Shauna Pope PA-C [address] [place] [address] Medication Question Allergies Active Allergy Reactions Criticality Noted Date Comments Atorvastatin Liver complications (Please comment) 06/26/2022 Elevated LFTs Celecoxib Diarrhea 11/20/2014 Severe diarrhea Ciprofloxacin Rash 11/29/2019 Rosuvastatin Muscle pain 06/26/2022 Erythromycin Hives 11/20/2014 Itchy hives Metronidazole Rash 11/29/2019 Sulfa Antibiotics Unknown 08/25/2024 Patient had sob Azithromycin Rash Medium 02/21/2013 documented as of this encounter (statuses as of 10/07/2024) Medications Aspirin 81 MG Tablet Take 1 [...] Oral Tablet (pLAVix)Indicatio ns:PAD (peripheral artery disease) ([facility]) TAKE 1 TABLET BY MOUTH DAILY IN THE MORNING. 90 Tablet 3 4 Active Telmisartan-HCTZ 80-25 MG Oral TabletIndications :HTN, goal below 130/80 TAKE 1 TABLET BY MOUTH EVERY DAY 90 Tablet 3 4 Active HYDROcodone-Aceta minophen 5-325 MG Oral TabletIndications :Lyme arthritis of hand ([facility]) Take 1 Tablet by mouth daily as needed for Pain, Moderate. 30 Tablet 4 Active Doxycycline Hyclate 100 MG Oral CapsuleIndication s:Lyme disease Take 1 Capsule by mouth in the morning and 1 Capsule before bedtime. Until gone.. 42 Capsule 4 Active Combivent Respimat 20-100 MCG/ACT Inhalation Aerosol Solution (Ipratropium-Albu terol)Indications :COPD exacerbation ([facility]) Inhale 1 Puff by mouth [...] Oral Tablet (Lipitor)Indicati ons:PAD (peripheral artery disease) ([facility]),Dyslipidemi a, goal LDL below 70 Take 1 Tablet by mouth in the morning. 90 Tablet 3 4 Active Folic Acid 1 MG Oral TabletIndications :NSTEMI (non-ST elevated myocardial infarction) ([facility]),HTN, goal below 130/80,Dyslipidem ia, goal [...] as of this encounter (statuses as of 10/07/2024) Active Problems Problem Noted Date Diagnosed Date [...] as of this encounter (statuses as of 10/07/2024) Resolved Problems Problem Noted Date Diagnosed Date Resolved Date DONN (generalized anxiety disorder) 12/14/2014 11/29/2019 COPD, mild 05/05/2014 10/30/2022 Overview: Per COPD GOLD Classification HTN, goal below 140/80 05/05/201405/01 Overview: Per HTN Protocol documented as of this encounter (statuses as of 10/07/2024) Immunizations Name Administration Dates Next Due Covid-19 Ad26, Single Dose (Jen/J&J) 05/24/2021 H1N1 2009 Influenza, IM 10/22/2009 Pneumococcal Conjugate Vacci ne, 20-valent ([id number]) 06/16/2023 Pneumococcal Polysaccharide PPV23 (Pneumovax) 11/05/2018,03/16/2012 Seasonal [...] Telephone Encounter - Shauna Pope PA-C - 10/07/2024 4:30 PM EST Yes, combivent can be discontinued. It was started prior to being on Trelegy. * Telephone Encounter - Jose Stevens PHARM Tech - 10/07/2024 10:07 AM EST Nataly [facility] with [employer] calling stating she did a medication review with the patient and the pt reported taking Trelegy 200mcg daily, Combivent 2-3 times per day and using albuterol PRN. Nataly states that the pt reports she is no longer using Symbicort. Nataly is asking if the Combivent can be discontinued since the pt is now using Trelegy. Please contact Nataly at [phone] ThanksJose, [facility] Veterinary Receptionist III [facility] 10/07/2024,10:10 AM documented in this encounter Plan of Treatment Upcoming Encounters Date Type Department Care Team (Late st Contact Info) Description 11/03/2024 1:00 PM EST Cardiac Studies Cardiac Studies, [facility] [address] [facility] [place] [address] 12/12/2024 2:30 PM EST Office Visit Cardiology, [facility] [address] [facility] [place] [address] Jessica Zamora PA-C 132 [facility] [place] [address] 12/30/2024 3:40 PM EST Office Visit [facility] [address] [place] [phone] Shauna Pope PA-C [address] [place] [phone] 02/21/2025 8:20 AM EDT Office [facility]at[facility], [facility] [address] [facility] [address] [place] [phone] Germaine Rosa PA-C [address] [place] [address] 06/26/2025 8:20 AM EDT Office Visit [facility] [address] [place] [address] Shauna Pope PA-C [address] [place] [address] Health Maintenance Due Date Last Done Comments Alpha-1 Antitrypsin 1984 Hepatitis B Vaccine (1 of 3 - 19+ 3-dose series) 1985 Fecal Occult Blood Test 2011 Cologuard 12/08/2020 12/08/2017 Depression Screening 06/02/2023 06/02/2022, 06/15/2015 (Discussed) Sigmoidoscopy 11/02/2023 11/02/2018 COVID-19 Vaccine ( season) 2024 05/24/2021 Mammogram 09/10/2024 09/10/2023, 07/18, 07/19/2021, Additional history exists GFR 09/29/2025 09/29/2024, 06/16, 06/16/2023, Additional history exists O2 ASSESSMENT COMPLETED IN PAST YEAR FOR COPD 10/06/2025 10/06/2024 Albumin/Creatinine Ratio 06/16/2026 06/16/2023 Pap Smear 12/30/2026 12/30/2023, 05/16, 05/14/2017, Additional history exists DTap/Tdap Vaccines (3 - Td or Tdap) 10/25/2028 10/25/2018, 03/16/2012 Colonoscopy 11/06/2028 11/06/2023, 10/17, 02/04/2018, Additional history exists Colorectal Cancer Screening 11/06/2028 Cervical Cancer Screening 12/30/2028 HPV/Co-Test 12/30/2028 12/30/2023 Lipid Panel 06/29/2029 06/29/2024, 08/11/2022, 01/12/2023, Additional history exists *COPD SEVERITY VERIFIED [...] filedocumented as of this encounter Care Teams Collateral Analyst Relationship Specialty Start Date End Date Shauna Pope, PAAndresC [address] [facility] [address] [place] [address] PCP - General Physician Steel Fitter 05/13/17 documented as of this encounter
--- OUTSIDE RECORDS SUMMARY | 2024-12-14 14:28 | External Medical Summary | Summary of Care ---
Author Name Unknown Organization [facility] Address [address] [facility] [place] [address] Phone [phone] Care Team Providers Care Co Pilot Name Role Phone Shauna Pope PA-C Primary Care Provider +1- [phone] Reason for Visit * Reason Onset Date Comments Medication Question 10/07/2024 Encounter Details Date Type Department Care Team (Late st Contact Info) Description 10/07/2024 Telephone [facility] [address] [place] [address] Shauna Pope PA-C [address] [place] [address] Medication Question Allergies Active Allergy Reactions Criticality Noted Date Comments Atorvastatin Liver complications (Please comment) 06/26/2022 Elevated LFTs Celecoxib Diarrhea 11/20/2014 Severe diarrhea Ciprofloxacin Rash 11/29/2019 Rosuvastatin Muscle pain 06/26/2022 Erythromycin Hives 11/20/2014 Itchy hives Metronidazole Rash 11/29/2019 Sulfa Antibiotics Unknown 08/25/2024 Patient had sob Azithromycin Rash Medium 02/21/2013 documented as of this encounter (statuses as of 10/11/2024) Medications Aspirin 81 MG Tablet Take 1 [...] Oral Tablet (pLAVix)Indicatio ns:PAD (peripheral artery disease) ([facility]) TAKE 1 TABLET BY MOUTH DAILY IN THE MORNING. 90 Tablet 3 4 Active Telmisartan-HCTZ 80-25 MG Oral TabletIndications :HTN, goal below 130/80 TAKE 1 TABLET BY MOUTH EVERY DAY 90 Tablet 3 4 Active HYDROcodone-Aceta minophen 5-325 MG Oral TabletIndications :Lyme arthritis of hand ([facility]) Take 1 Tablet by mouth daily as needed for Pain, Moderate. 30 Tablet 4 Active Doxycycline Hyclate 100 MG Oral CapsuleIndication s:Lyme disease Take 1 Capsule by mouth in the morning and 1 Capsule before bedtime. Until gone.. 42 Capsule 4 Active Combivent Respimat 20-100 MCG/ACT Inhalation Aerosol Solution (Ipratropium-Albu terol)Indications :COPD exacerbation ([facility]) Inhale 1 Puff by mouth in [...] Oral Tablet (Lipitor)Indicati ons:PAD (peripheral artery disease) ([facility]),Dyslipidemi a, goal LDL below 70 Take 1 Tablet by mouth in the morning. 90 Tablet 3 4 Active Folic Acid 1 MG Oral TabletIndications :NSTEMI (non-ST elevated myocardial infarction) ([facility]),HTN, goal below 130/80,Dyslipidem ia, goal LDL [...] as of this encounter (statuses as of 10/11/2024) Active Problems Problem Noted Date Diagnosed Date [...] as of this encounter (statuses as of 10/11/2024) Resolved Problems Problem Noted Date Diagnosed Date Resolved Date DONN (generalized anxiety disorder) 12/14/2014 11/29/2019 COPD, mild 05/05/2014 10/30/2022 Overview: Per COPD GOLD Classification HTN, goal below 140/80 05/05/201405/01 Overview: Per HTN Protocol documented as of this encounter (statuses as of 10/11/2024) Immunizations Name Administration Dates Next Due Covid-19 Ad26, Single Dose (Jen/J&J) 05/24/2021 H1N1 2009 Influenza, IM 10/22/2009 Pneumococcal Conjugate Vacci ne, 20-valent ([id number]) 06/16/2023 Pneumococcal Polysaccharide PPV23 (Pneumovax) 11/05/2018,03/16/2012 Seasonal [...] encounter Miscellaneous Notes * Telephone Encounter - Rodlofo Walton CPhT - 10/11/2024 10:54 AM EST Nataly from [employer] calling to check on update from PCP. Advised of PCP's note, Nataly verbalized understanding, and stated she will let the pt know. Thank you, Rodolfo Walton Rn Labor And Delivery [facility] ([facility]) 10/11/2024,10:55 AM * Telephone Encounter - Shauna Pope PA-C - 10/07/2024 4:30 PM EST Yes, combivent can be discontinued. It was started prior to being on Trelegy. * Telephone Encounter - Jose Stevens translator deaf - 10/07/2024 10:07 AM EST Nataly [facility] with [employer] calling stating she did a medication review with the patient and the pt reported taking Trelegy 200mcg daily, Combivent 2-3 times per day and using albuterol PRN. Nataly states that the pt reports she is no longer using Symbicort. Nataly is asking if the Combivent can be discontinued since the pt is now using Trelegy. Please contact Nataly at [phone] Thanks, Jose Canseco CPht Warp Tension Tester III [facility] 10/07/2024,10:10 AM documented in this encounter Plan of Treatment Upcoming Encounters Date Type Department Care Team (Late st Contact Info) Description 11/03/2024 1:00 PM EST Cardiac Studies Cardiac Studies, [facility] [address] [place] [address] 12/12/2024 2:30 PM EST Office Visit Cardiology, [facility] [address] [place] [address] Jessica Zamora PA-C 132 [facility] [place] [address] 12/30/2024 3:40 PM EST Office Visit [facility] [address] [place] [address] Shauna Pope PA-C [address] [place] [address] 02/21/2025 8:20 AM EDT Office Visit Dermatology, [facility] Gonzalez [address] [place] [address] [place] [address] Germaine Rosa PA-C 27 [place] [address] 06/26/2025 8:20 AM EDT Office Visit [facility] [address] [place] [address] Shauna Pope PA-C [address] [place] [address] Health Maintenance Due Date Last Done Comments [...] filedocumented as of this encounter Care Teams Co Pilot Relationship Specialty Start Date End Date Shauna Pope, PAAndresC [address] [facility] [address] [place] [address] PCP - General Physician Secured Entrance Monitor 05/13/17 documented as of this encounter
--- OUTSIDE RECORDS SUMMARY | 2024-12-14 14:28 | External Medical Summary ---
Author Name Unknown Address Unknown Organization [id number]:[facility] - [address] [place] [address] Laboratory Report Ordering Provider Test Date Status BROOKE KONG 10/18/2024 13:58:05 Final Observation Date Value Abnormality Reference (Units ) Status Magnesium 10/18/2024 13:58:05 1.8 1.5-2.6 (m g/dL) Final Performing Location [facility] - [address] [place] [address]
--- OUTSIDE RECORDS SUMMARY | 2024-12-14 14:28 | External Medical Summary ---
Author Name Unknown Address Unknown Organization K01:[facility] [place] [address] [facility] [address] [address] [place] [address] Laboratory Report Ordering Provider Test Date Status BROOKE KONG 10/10/2024 10:37:00 Final Observation Date Value Abnormality Reference (Units ) Status Magnesium 10/10/2024 10:37:00 0.7 Below low normal 1.5 -2.6 (mg/dL) Final Performing Location [facility] - [address] [place] [address]
--- OUTSIDE RECORDS SUMMARY | 2024-12-14 14:28 | External Medical Summary | Summary of Care ---
Author Name Unknown Organization [facility] Address [address] [facility] [place] [address] Phone [phone] Care Team Providers Care Cloth Sander Name Role Phone Dennis Pope PA-C Primary Care Provider +1- [phone] Encounter Details Date Type Department Care Team (Late st Contact Info) Description 10/06/2024 Refill [facility] [address] [place] [address] Dennis Pope PA-C [address] [place] [address] NSTEMI (non-ST elevated myocardial infarction) ([facility])*; HTN, goal below 130/80; Dyslipidemia, goal LDL below 70; Hypokalemia; PAD (peripheral artery disease) (HCC) Allergies Active Allergy Reactions Criticality Noted Date Comments Atorvastatin Liver complications (Please comment) 06/26/2022 Elevated LFTs Celecoxib Diarrhea 11/20/2014 Severe diarrhea Ciprofloxacin Rash 11/29/2019 Rosuvastatin Muscle pain 06/26/2022 Erythromycin Hives 11/20/2014 Itchy hives Metronidazole Rash 11/29/2019 Sulfa Antibiotics Unknown 08/25/2024 Patient had sob Azithromycin Rash Medium 02/21/2013 documented as of this encounter (statuses as of 10/06/2024) Medications Aspirin 81 MG Tablet Take 1 [...] Tablet (pLAVix)Indicati ons:PAD (peripheral artery disease) ([facility]) TAKE 1 TABLET BY MOUTH DAILY IN THE MORNING. 90 Tablet 3 06/23/20 24 Active Telmisartan-HCTZ 80-25 MG Oral TabletIndication s:HTN, goal below 130/80 TAKE 1 TABLET BY MOUTH EVERY DAY 90 Tablet 3 07/09/20 24 Active HYDROcodone-Acet aminophen 5-325 MG Oral TabletIndication s:Lyme arthritis of hand ([facility]) Take 1 Tablet by mouth daily as needed for Pain, Moderate. 30 Tablet 09/07/20 24 Active Doxycycline Hyclate 100 MG Oral CapsuleIndicatio ns:Lyme disease Take 1 Capsule by mouth in the morning and 1 Capsule before bedtime. Until gone.. 42 Capsule 09/07/20 24 Active Combivent Respimat 20-100 MCG/ACT Inhalation Aerosol Solution (Ipratropium-Alb uterol)Indicatio ns:COPD exacerbation ([facility]) Inhale 1 Puff by mouth [...] TabletIndication s:NSTEMI (non-ST elevated myocardial infarction) ([facility]),HTN, goal below 130/80,Dyslipide tomy, goal LDL below 70,Hypokalemia,P AD (peripheral artery disease) ([facility]) Take 1 Tablet by mouth in the morning. 90 Tablet 3 10/06/20 Active dilTIAZem HCl ER 240 MG Oral Tablet Extended Release 24 Hour Take 1 Tablet by mouth every morning. 90 Tablet 3 10/06/20 24 Active Potassium Chloride ER 20 MEQ Oral Tablet Extended Release Take 1 Tablet by mouth in the morning. 90 Tablet 3 10/06/20 24 Active Magnesium Oxide 400 MG Oral Capsule Take 1 Capsule by mouth in the morning. 90 Capsule 3 10/06/20 24 Active Folic Acid 1 MG Oral Tablet Take 1 Tablet by mouth in the morning. 09/22/20 24 024 Discontinued documented as of this encounter (statuses as of 10/06/2024) Active Problems Problem Noted Date Diagnosed Date [...] as of this encounter (statuses as of 10/06/2024) Resolved Problems Problem Noted Date Diagnosed Date Resolved Date DONN (generalized anxiety disorder) 12/14/2014 11/29/2019 COPD, mild 05/05/2014 10/30/2022 Overview: Per COPD GOLD Classification HTN, goal below 140/80 05/05/201405/01 Overview: Per HTN Protocol documented as of this encounter (statuses as of 10/06/2024) Immunizations Name Administration Dates Next Due Covid-19 Ad26, Single Dose (Jen/J&J) 05/24/2021 H1N1 2009 Influenza, IM 10/22/2009 Pneumococcal Conjugate Vacci ne, 20-valent ([id number]) 06/16/2023 Pneumococcal Polysaccharide PPV23 (Pneumovax) 11/05/2018,03/16/2012 Seasonal [...] Telephone Encounter - Dennis Pope PA-C - 10/06/2024 3:03 PM ESTSigned Prescriptions: Disp Refills Folic Acid 1 MG Oral Tablet 90 Tab*3 Sig: Take 1 Tablet by mouthin the morning.Authorizing Provider: DENNIS POPE * Telephone Encounter - Toya Holder CMA - 10/06/2024 11:52 AM EST Pt asked for refill on folic acid while at cardio appt. Please refill if appropriate . documented in this encounter Plan of Treatment Upcoming Encounters Date Type Department Care Team (Late st Contact Info) Description 11/03/2024 1:00 PM EST [facility] [address] 12/12/2024 2:30 PM EST Office Visit Cardiology, [facility] 132 [facility] [place] [address] Jessica Zamora PA-C 132 [facility] [place] [address] 12/30/2024 3:40 PM EST Office Visit [facility] [address] [place] [phone] Dennis Pope PA-C [address] [place] [address] 02/21/2025 8:20 AM EDT Office Visit DermatologyN[facility]la[facility] [address] [place] [address] [place] [address] Germaine Rosa PA-C [address] [place] [address] 06/26/2025 8:20 AM EDT [facility] [address] [place] [address] Dennis Pope PA-C [address] [place] [address] Health Maintenance Due Date Last Done Comments [...] as of this encounter Visit Diagnoses Diagnosis NSTEMI (non-ST elevated myocardial infarction) (HCC)- Primary Acute myocardial infarction, subendocardial infarction, episode of care unspecified HTN, goal below 130/80 Unspecified essential hypertension Dyslipidemia, goal LDL below 70 Other and unspecified hyperlipidemia Hypokalemia Hypopotassemia PAD (peripheral artery disease) (HCC) Peripheral vascular disease, unspecified documented in this encounter Care Teams Cloth Sander Relationship Specialty Start Date End Date Dennis Pope PA-C [address] [facility] [address] [place] [address] PCP - General Physician Grain Oilseed Or Pasture Grower 05/13/17 documented as of this encounter
--- OUTSIDE RECORDS SUMMARY | 2024-12-14 14:28 | External Medical Summary ---
Author Name Unknown Address Unknown Organization K01:[facility] [place] - [address] [place] [address] Laboratory Report Ordering Provider Test Date Status DENNISADRIANMARCUS 09/29/2024 11:54:43 Final Observation Date Value Abnormality Reference (Units ) Status Magnesium 09/29/2024 11:54:43 0.7 Below low normal 1.5 -2.6 (mg/dL) Final Performing Location [facility] - [address] [place] [address]
--- OUTSIDE RECORDS SUMMARY | 2024-12-14 14:28 | External Medical Summary | Summary of Care ---
Author Name Unknown Organization [facility] Address [address] [facility] [place] [address] Phone [phone] Care Team Providers Care Personal Caregiver Name Role Phone Shauna Pope PA-C Primary Care Provider +1- [phone] Reason for Visit * Reason Comments Outpatient Testing Encounter Details Date Type Department Care Team (Late st Contact Info) Description 09/29/2024 11:50 AM EST Laboratory Laboratory, [place] [address] [place] [address] [place] [address] [place] [address] Hypokalemia; Hypomagnesemia Allergies Active Allergy Reactions Criticality Noted Date Comments Atorvastatin Liver complications (Please comment) 06/26/2022 Elevated LFTs Celecoxib Diarrhea 11/20/2014 Severe diarrhea Ciprofloxacin Rash 11/29/2019 Rosuvastatin Muscle pain 06/26/2022 Erythromycin Hives 11/20/2014 Itchy hives Metronidazole Rash 11/29/2019 Sulfa Antibiotics Unknown 08/25/2024 Patient had sob Azithromycin Rash Medium 02/21/2013 documented as of this encounter (statuses as of 09/29/2024) Medications Aspirin 81 MG Tablet Take 1 [...] MG Oral TabletIndications :Lyme arthritis of hand ([facility]) Take 1 Tablet by mouth daily as [...] as of this encounter (statuses as of 09/29/2024) Active Problems Problem Noted Date Diagnosed Date [...] as of this encounter (statuses as of 09/29/2024) Resolved Problems Problem Noted Date Diagnosed Date Resolved Date DONN (generalized anxiety disorder) 12/14/2014 11/29/2019 COPD, mild 05/05/2014 10/30/2022 Overview: Per COPD GOLD Classification HTN, goal below 140/80 05/05/201405/01 Overview: Per HTN Protocol documented as of this encounter (statuses as of 09/29/2024) Immunizations Name Administration Dates Next Due Covid-19 Ad26, Single Dose (Jen/J&J) 05/24/2021 H1N1 2009 Influenza, IM 10/22/2009 Pneumococcal Conjugate Vacci ne, 20-valent ([id number]) 06/16/2023 Pneumococcal Polysaccharide PPV23 (Pneumovax) 11/05/2018,03/16/2012 Seasonal [...] Orientation Straight 06/02/2022 7 :04 AM EDT documented as of this encounter Plan of Treatment Upcoming Encounters Date Type Department Care Team (Late st Contact Info) Description 10/06/2024 11:30 AM EST Office Visit Cardiology, [facility] [address] [place] [address] Jessica Zamora PA-C [address] [place] [address] 12/30/2024 3:40 PM EST Office Visit [facility] [address] [place] [phone] Shauna Pope PA-C [address] [place] [address] 02/21/2025 8:20 AM EDT Office Visit Dermatology, [facility] Gonzalez [address] [place] [address] [place] [address] Germaine Rosa PA-C [address] [place] [address] 06/26/2025 8:20 AM EDT Office Visit [facility] [address] [place] [address] Shauna Pope PA-C [address] [place] [phone] Pending Results Name Type Priority Associated Diagnoses Date /Time BASIC METABOLIC PANEL Lab Routine Hypokalemia 09/29/2024 11:54 AM EST MAGNESIUM Lab Routine Hypomagnesemia 09/29/2024 11:54 AM EST Health Maintenance Due Date Last Done Comments [...] as of this encounter Visit Diagnoses Diagnosis Hypokalemia Hypopotassemia Hypomagnesemia Disorders of magnesium metabolism documented in this encounter Care Teams Personal Caregiver Relationship Specialty Start Date End Date Shauna Pope PA-C [address] [address] [place] [address] PCP - General Physician Claims Processor 05/13/17 documented as of this encounter
--- OUTSIDE RECORDS SUMMARY | 2024-12-14 14:28 | External Medical Summary | Summary of Care ---
Author Name Unknown Organization [facility] Address [address] [facility] [place] [address] Phone [phone] Care Team Providers Care Cullet Washer Name Role Phone Shauna Pope PA-C Primary Care Provider +1- [phone] Reason for Visit * Reason Onset Date Comments Hospital Follow-Up 09/23/2024 Hever for [facility] Encounter Details Date Type Department Care Team (Late st Contact Info) Description 09/23/2024 Telephone Ancillary, [place] [address] [place] [address] Carolyn Jj, DAREN Hospital Follow-Up (Hever for [facility]) Allergies Active Allergy Reactions Criticality Noted Date Comments Atorvastatin Liver complications (Please comment) 06/26/2022 Elevated LFTs Celecoxib Diarrhea 11/20/2014 Severe diarrhea Ciprofloxacin Rash 11/29/2019 Rosuvastatin Muscle pain 06/26/2022 Erythromycin Hives 11/20/2014 Itchy hives Metronidazole Rash 11/29/2019 Sulfa Antibiotics Unknown 08/25/2024 Patient had sob Azithromycin Rash Medium 02/21/2013 documented as of this encounter (statuses as of 09/26/2024) Medications Aspirin 81 MG Tablet Take 1 [...] bedtime. 4 g 11 09/13/20 24 Active predniSONE 10 MG Oral Tablet (Deltasone)Indic ations:COPD exacerbation (HCC) Take 5 tabs for 2 days, 4 tabs for 2 days, 3 tabs for 2 days, 2 tabs for 2 days 1 tab for 2 days 30 Tablet 09/13/20 24 Active dilTIAZem HCl ER 240 MG Oral Tablet Extended Release 24 Hour Take 240 mg by mouth every morning. 09/22/20 24 Active Escitalopram Oxalate 20 MG Oral Tablet (Lexapro) Take 1 Tablet by mouth in the morning. 09/22/20 24 Active Fluticasone-Umec lidin-Vilant 200-62.5-25 MCG/ACT Aerosol Powder Breath Activated (Trelegy Ellipta) Inhale 1 Puff by mouth in the morning. 09/22/20 24 Active Folic Acid 1 MG Oral Tablet Take 1 Tablet by mouth in the morning. 09/22/20 24 Active B-1 100 MG Oral Tablet Take 100 mg by mouth in the morning and 100 mg before bedtime. 09/22/20 24 Active Atorvastatin Calcium 20 MG Oral Tablet (Lipitor)Indicat ions:PAD (peripheral artery disease) (HCC),Dyslipidem ia, goal LDL below 70 Take 1 Tablet by mouth in the morning. 90 Tablet 3 09/26/20 24 Active Symbicort 160-4.5 MCG/ACT Inhalation AerosolIndicatio ns:COPD, mild (HCC) INHALE 2 PUFFS BY MOUTH IN THE MORNING AND BEFORE BEDTIME 30.6 g 3 06/23/20 24 024 Discontinued(Me dication List Clean Up) Atorvastatin Calcium 10 MG Oral Tablet (Lipitor)Indicat ions:PAD (peripheral artery disease) (HCC),Dyslipidem ia, goal LDL below 70 TAKE 1 TABLET BY MOUTH EVERYDAY AT BEDTIME 90 Tablet 3 07/16/20 24 024 Discontinued Sulfamethoxazole -Trimethoprim 800-160 MG Oral Tablet (Bactrim DS) Take 1 Tablet by mouth in the morning and 1 Tablet before bedtime. Do all this for 7 days. Until gone. 14 Tablet 07/15/20 24 024 Discontinued(Me dication List Clean Up) Nortriptyline HCl 10 MG Oral Capsule (Pamelor)Indicat ions:Lyme arthritis of hand (HCC) Take 1 Capsule by mouth at bedtime. 30 Capsule 1 07/25/20 24 024 Discontinued(Me dication List Clean Up) Amoxicillin-Pot Clavulanate 875-125 MG Oral Tablet (Augmentin)Indic ations:COPD exacerbation (HCC) Take 1 Tablet by mouth in the morning and 1 Tablet before bedtime. Do all this for 10 days. 20 Tablet 09/13/20 24 024 Discontinued(Me dication List Clean Up) Atorvastatin Calcium 10 MG Oral Tablet (Lipitor)Indicat ions:PAD (peripheral artery disease) (HCC),Dyslipidem ia, goal LDL below 70 Take 2 Tablets by mouth in the morning. 09/23/20 24 024 Discontinued(Re fill) documented as of this encounter (statuses as of 09/26/2024) Active Problems Problem Noted Date Diagnosed Date [...] as of this encounter (statuses as of 09/26/2024) Resolved Problems Problem Noted Date Diagnosed Date Resolved Date DONN (generalized anxiety disorder) 12/14/2014 11/29/2019 COPD, mild 05/05/2014 10/30/2022 Overview: Per COPD GOLD Classification HTN, goal below 140/80 05/05/201405/01 Overview: Per HTN Protocol documented as of this encounter (statuses as of 09/26/2024) Immunizations Name Administration Dates Next Due Covid-19 Ad26, Single Dose (Jen/J&J) 05/24/2021 H1N1 2009 Influenza, IM 10/22/2009 Pneumococcal Conjugate Vacci ne, 20-valent ([id number]) 06/16/2023 Pneumococcal Polysaccharide PPV23 (Pneumovax) 11/05/2018,03/16/2012 Seasonal [...] encounter Miscellaneous Notes * Addendum Note - Archie Robbins MD - 09/26/2024 12:57 PM ESTAddended by: ARCHIE ROBBINS on: 09/26/2024 12:57 PM Modules accepted: Orders * Telephone Encounter - Archie Robbins MD - 09/26/2024 12:57 PM EST Refill sent in, per request. Archie Robbins MD 09/26/2024 * Telephone Encounter - Анна Carolyn, RN - 09/23/2024 3:15 PM EST Transitions of Care Note Reason for Referral:Recent Admission Phone visit for follow up: hever Admitted to: [facility], Date: 09.16.24 Discharged to: home, Date: 09.23.24 Diagnosis driving hospitalization: COPD exacerbation, Takotsubo syndrome, alcohol abuse Operation Date: 09/19/24 14:00 Actual Procedures p Cineradiography w/Routine Exam - Lloyd Avila MD s Cath, Left with Cors and Vent - Lloyd Avila MD Source/Contact: Patient SUBJECTIVE Consent: Verbal consent for review of hospital discharge: Yes REVIEW OF SYSTEMS Patient/Other Reports: Current patient/caregiver problems or concerns: doing well, "thankful to be here" CV: Denies problems Pulmonary: Denies problems Chills/Sweats/Fever:Denies chills/sweats Denies fever Appetite:Denies problems such as nausea, vomiting, burning, decreased appetite Current diet: heart healthy Bowel: denies problems Bladder: denies problems Wound (If applicable): Site-right hand is doing well, still bandaged Pain:Denies Sleep:Denies problems FUNCTIONAL STATUS: ADL'S: Needs Assistance With:N/A as pt is independent IADL'S: Needs Assistance With:N/A as pt is independent Patient 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 Cognitive and Mental Health: denies problems, alert and oriented x 3, and able to communicate, understand instructions, process information. MEDICATION RECONCILIATION Medications: Reports all medications taken as prescribed. New atorvastatin 20 mg Tablet (patient will need RF) 20 mg OG QAM Qty: 3 0RF thiamine HCl (vitamin B1) 100 mg Tablet 100 mg PO BID Qty: 30 0RF folic acid 1 mg Tablet 1 mg PO QAM Qty: 3 0RF escitalopram oxalate 20 mg Tablet 20 mg PO QAM Qty: 30 0RF Trelegy Ellipta 200-62.5-25 mcg blister with device 1 inh inhalation DAILY Qty: 28 0RF diltiazem HCl [Cardizem CD] 240 mg capsule,extended release 24hr 240 mg PO DAILY Qty: 30 0RF prednisone 10 mg tablet 10 mg PO DIRECTED Qty: 20 0RF Rx Instructions: 4 po daily for 2 days,3 po daily for 2 days,2 po daily for 2 days and 1 po daily for 2 days. Discontinued atorvastatin 10 mg tablet 10 mg PO HS budesonide-formoterol [Symbicort] 160-4.5 mcg/actuation HFA aerosol inhaler 2 puff INHALATION BID OBJECTIVE ASSESSMENT Medication Risk Assessment: No risks identified Did patient fail outpatient treatment? No Discharge instructions available for review? Yes PLAN Symptom Monitoring Interventions:Member/caregiver education - signs and symptoms to contact PrimaryCare (DO NOT DELETE-Three knight symptoms patient is to report to PCP) 1. Chest pain 2. sob 3. palpitations Residence Leasing AgentWafer Production Worker of Care interventions/Action Plan: 5 - 7 day follow-up with PCP in place - Date: 09.29.24 Educated on role of HEVER completed with patient/caregiver. Educated patient/caregiver on patient right to have input on HEVER plan of care. Verification of Home Health/DME if indicated: NO Identified Care Gaps: Yes Care Gaps closed this call: Transition of Care follow-up communication Re-evaluation of Plan of Care and progress towards goals achievement: Patient education this visit: Verbal, patient to rest and stay hydrated, she will need a new prescription for atorvastatin 20mg (patient has enough to double the 10mg but was only given 3 pills ) Plan to follow-up as previously scheduled, instructed to call Primary Care Provider with change in symptoms or as needed before next follow-up, verbalizes understanding and agrees with plan. Carolyn Jj RN documented in this encounter Plan of Treatment Upcoming Encounters Date Type Department Care Team (Late st Contact Info) Description 09/29/2024 11:00 AM EST Office Visit [facility] [address] [place] [phone] Shauna Pope PA-C [address] [place] [phone] 02/21/2025 8:20 AM EDT Office Visit Dermatology, [facility] [address] [place] [address] Germaine Rosa PA-C [address] [place] [phone] 06/26/2025 8:20 AM EDT Office Visit Family [facility], [place] [address] [place] [phone] Shauna Pope PA-C [address] [place] [address] Health Maintenance Due Date [...] and unspecified hyperlipidemia documented in this encounter Care Teams Cullet Washer Relationship Specialty Start Date End Date Shauna Pope PA-C [facility] [address] [facility] [place] [address] PCP - General Physician Assistant Bookkeeper 05/13/17 documented as of this encounter
--- OUTSIDE RECORDS SUMMARY | 2024-12-14 14:28 | External Medical Summary | Summary of Care ---
Author Name Unknown Organization [facility] Address [address] [facility] [place] [address] Phone [phone] Care Team Providers Care Wheat Washer Name Role Phone Shauna Pope PA-C Primary Care Provider +1- [phone] Reason for Visit * Reason Comments Outpatient Testing Encounter Details Date Type Department Care Team (Late st Contact Info) Description 10/10/2024 11:00 AM EST Laboratory Laboratory, [place] [address] [place] [address] [place], Lab [address] [place] [address] HTN, goal below 130/80; Takotsubo cardiomyopathy; Hypokalemia; Hypomagnesemia Allergies Active Allergy Reactions Criticality Noted Date Comments Atorvastatin Liver complications (Please comment) 06/26/2022 Elevated LFTs Celecoxib Diarrhea 11/20/2014 Severe diarrhea Ciprofloxacin Rash 11/29/2019 Rosuvastatin Muscle pain 06/26/2022 Erythromycin Hives 11/20/2014 Itchy hives Metronidazole Rash 11/29/2019 Sulfa Antibiotics Unknown 08/25/2024 Patient had sob Azithromycin Rash Medium 02/21/2013 documented as of this encounter (statuses as of 10/10/2024) Medications Aspirin 81 MG Tablet Take 1 [...] Oral Tablet (pLAVix)Indicatio ns:PAD (peripheral artery disease) ([facility]) TAKE 1 TABLET BY MOUTH DAILY IN THE MORNING. 90 Tablet 3 4 Active Telmisartan-HCTZ 80-25 MG Oral TabletIndications :HTN, goal below 130/80 TAKE 1 TABLET BY MOUTH EVERY DAY 90 Tablet 3 4 Active HYDROcodone-Aceta minophen 5-325 MG Oral TabletIndications :Lyme arthritis of hand ([facility]) Take 1 Tablet by mouth daily as needed for Pain, Moderate. 30 Tablet 4 Active Doxycycline Hyclate 100 MG Oral CapsuleIndication s:Lyme disease Take 1 Capsule by mouth in the morning and 1 Capsule before bedtime. Until gone.. 42 Capsule 4 Active Combivent Respimat 20-100 MCG/ACT Inhalation Aerosol Solution (Ipratropium-Albu terol)Indications :COPD exacerbation ([facility]) Inhale 1 Puff by mouth in [...] Oral Tablet (Lipitor)Indicati ons:PAD (peripheral artery disease) ([facility]),Dyslipidemi a, goal LDL below 70 Take [...] as of this encounter (statuses as of 10/10/2024) Active Problems Problem Noted Date Diagnosed Date [...] as of this encounter (statuses as of 10/10/2024) Resolved Problems Problem Noted Date Diagnosed Date Resolved Date DONN (generalized anxiety disorder) 12/14/2014 11/29/2019 COPD, mild 05/05/2014 10/30/2022 Overview: Per COPD GOLD Classification HTN, goal below 140/80 05/05/201405/01 Overview: Per HTN Protocol documented as of this encounter (statuses as of 10/10/2024) Immunizations Name Administration Dates Next Due Covid-19 Ad26, Single Dose (Jen/J&J) 05/24/2021 H1N1 2009 Influenza, IM 10/22/2009 Pneumococcal Conjugate Vacci ne, 20-valent ([id number]) 06/16/2023 Pneumococcal Polysaccharide PPV23 (Pneumovax) 11/05/2018,03/16/2012 Seasonal [...] 1:00 PM EST Cardiac Studies Cardiac Studies, [facility] [place] [address] [place] [address] 12/12/2024 2:30 PM EST Office Visit Cardiology, [facility] [address] [place] [address] Jessica Zamora PAJeremias [address] [place] [address] 12/30/2024 3:40 PM EST Office Visit [facility] [address] [place] [address] Shauna Pope PA-C [address] [place] [address] 02/21/2025 8:20 AM EDT Office Visit Dermatology, [place] [address] [place] [address] Germaine Rosa PA-C [address] [place] [address] 06/26/2025 8:20 AM EDT Office Visit [facility] [address] [place] [address] Shauna Pope PA-C [address] [place] [address] Pending Results Name Type Priority Associated Diagnoses Date /Time BASIC METABOLIC PANEL Lab Routine HTN, goal below 130/80 Takotsubo cardiomyopathy Hypokalemia Hypomagnesemia 10/10/2024 10:37 AM EST MAGNESIUM Lab Routine HTN, goal below 130/80 Takotsubo cardiomyopathy Hypokalemia Hypomagnesemia 10/10/2024 10:37 AM EST Health Maintenance Due Date Last [...] HTN, goal below 130/80 Unspecified essential hypertension Takotsubo cardiomyopathy Takotsubo syndrome Hypokalemia Hypopotassemia Hypomagnesemia Disorders of magnesium metabolism documented in this encounter Care Teams Wheat Washer Relationship Specialty Start Date End Date Shauna Pope PA-C [address] [facility] [place] [address] PCP - General Physician Can Reconditioner 05/13/17 documented as of this encounter
--- OUTSIDE RECORDS SUMMARY | 2024-12-14 14:28 | External Medical Summary | Summary of Care ---
Author Name Unknown Organization [facility] Address [address] [facility] [place] [address] Phone [phone] Care Team Providers Care Retirement Officer Name Role Phone Shauna Pope PA-C Primary Care Provider +1- [phone] Reason for Visit * Reason Comments Outpatient Testing Encounter Details Date Type Department Care Team (Late st Contact Info) Description 10/18/2024 2:00 PM EST Laboratory Laboratory, [place] [address] [place] [address] [place], Lab [address] [place] [address] Hypokalemia; Hypomagnesemia Allergies Active Allergy Reactions Criticality Noted Date Comments Atorvastatin Liver complications (Please comment) 06/26/2022 Elevated LFTs Celecoxib Diarrhea 11/20/2014 Severe diarrhea Ciprofloxacin Rash 11/29/2019 Rosuvastatin Muscle pain 06/26/2022 Erythromycin Hives 11/20/2014 Itchy hives Metronidazole Rash 11/29/2019 Sulfa Antibiotics Unknown 08/25/2024 Patient had sob Azithromycin Rash Medium 02/21/2013 documented as of this encounter (statuses as of 10/18/2024) Medications Aspirin 81 MG Tablet Take 1 [...] Tablet (pLAVix)Indicatio ns:PAD (peripheral artery disease) ([facility]) TAKE 1 TABLET BY MOUTH DAILY IN THE MORNING. 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 30 Tablet 4 Active Doxycycline Hyclate 100 MG Oral CapsuleIndication s:Lyme disease Take 1 Capsule by mouth in the morning and 1 Capsule before bedtime. Until gone.. 42 Capsule 4 Active Combivent Respimat 20-100 MCG/ACT Inhalation Aerosol Solution (Ipratropium-Albu terol)Indications :COPD exacerbation ([facility]) Inhale 1 Puff by mouth [...] Tablet (Lipitor)Indicati ons:PAD (peripheral artery disease) ([facility]),Dyslipidemi a, goal LDL below 70 Take 1 Tablet by mouth in the morning. 90 Tablet 3 4 Active Folic Acid 1 MG Oral TabletIndications :NSTEMI (non-ST elevated myocardial infarction) ([facility]),HTN, goal below 130/80,Dyslipidem ia, goal [...] as of this encounter (statuses as of 10/18/2024) Active Problems Problem Noted Date Diagnosed Date [...] as of this encounter (statuses as of 10/18/2024) Resolved Problems Problem Noted Date Diagnosed Date Resolved Date DONN (generalized anxiety disorder) 12/14/2014 11/29/2019 COPD, mild 05/05/2014 10/30/2022 Overview: Per COPD GOLD Classification HTN, goal below 140/80 05/05/201405/01 Overview: Per HTN Protocol documented as of this encounter (statuses as of 10/18/2024) Immunizations Name Administration Dates Next Due Covid-19 Ad26, Single Dose (Jen/J&J) 05/24/2021 H1N1 2009 Influenza, IM 10/22/2009 Pneumococcal Conjugate Vacci ne, 20-valent ([id number]) 06/16/2023 Pneumococcal Polysaccharide PPV23 (Pneumovax) 11/05/2018,03/16/2012 Seasonal [...] 1:00 PM EST Cardiac Studies Cardiac Studies, [facility] [address] [place] [address] 12/12/2024 2:30 PM EST Office Visit Cardiology, [facility] [address] [place] [address] Jessica Zamora PA-C [address] [place] [address] 12/30/2024 3:40 PM EST Office Visit [facility] [address] [place] [address] Shauna Pope PA-C [address] [place] [phone] 02/21/2025 8:20 AM EDT Office Visit Dermatology, [place] [address] [place] [phone] Germaine Rosa PA-C [address] [place] [address] 06/26/2025 8:20 AM EDT Office Visit [facility] [address] [place] [phone] Shauna Pope PA-C [address] [place] [phone] Pending Results Name Type Priority Associated Diagnoses Date /Time BASIC METABOLIC PANEL Lab Routine Hypokalemia Hypomagnesemia 10/18/2024 1:58 PM EST MAGNESIUM Lab Routine Hypokalemia Hypomagnesemia 10/18/2024 1:58 PM EST Health Maintenance Due Date Last Done [...] metabolism documented in this encounter Care Teams Retirement Officer Relationship Specialty Start Date End Date Shauna Pope PA-C [address] [facility] [place] [address] PCP - General Physician Diesel Fitter Mechanic 05/13/17 documented as of this encounter
--- OUTSIDE RECORDS SUMMARY | 2024-12-14 14:28 | External Medical Summary ---
Author Name Unknown Address Unknown Organization K01:LABORATORY [facility] - [facility] [address] [facility] [address] Laboratory Report Ordering Provider Test Date Status BROOKE KONG 10/10/2024 10:37:00 Final Observation Date Value Abnormality Reference (Units ) Status BUN 10/10/2024 10:37:00 15 6-20 (mg/dL) Final Creatinine 10/10/2024 10:37:00 0.5 0.5-1.0 (mg/dL) Final Glomerular filtration rate/1.73 sq M.predicted [Volume Rate/Area] in Serum, Plasma or Blood by Creatinine-based formula (CKD-EPI) 10/10/2024 10:37:00 >90 >=60 (mL/min) Final eGFR is calculated based on the CKD-EPI 2020 equation. Sodium 10/10/2024 10:37:00 136 135-146 (m mol/L) Final Potassium 10/10/2024 10:37:00 2.9 Below low normal 3.5 -5.1 (mmol/L) Final Cl 10/10/2024 10:37:00 95 Below low normal 98- 107 (mmol/L) Final CO2 10/10/2024 10:37:00 27 22-32 (mmo l/L) Final Anion gap 10/10/2024 10:37:00 14 7-15 (mmol /L) Final Glucose 10/10/2024 10:37:00 157 Above high normal 70 -120 (mg/dL) Final Calcium 10/10/2024 10:37:00 8.4 8.4-10.2 ( mg/dL) Final Performing Location LABORATORY [facility] - [address] [place] [address]
--- OUTSIDE RECORDS SUMMARY | 2024-12-14 14:28 | External Medical Summary | Summary of Care ---
Author Name Unknown Organization [facility] Address [address] [facility] [place] [address] Phone [phone] Care Team Providers Care Insole Coverer Name Role Phone Shauna Pope PA-C Primary Care Provider +1- [phone] Encounter Details Date Type Department Care Team (Late st Contact Info) Description 09/22/2024 Result Scan Unspecified Department Edwin Lake, DO [address] [place] [address] <No scans attached> Allergies Active Allergy Reactions Criticality Noted Date Comments Atorvastatin Liver complications (Please comment) 06/26/2022 Elevated LFTs Celecoxib Diarrhea 11/20/2014 Severe diarrhea Ciprofloxacin Rash 11/29/2019 Rosuvastatin Muscle pain 06/26/2022 Erythromycin Hives 11/20/2014 Itchy hives Metronidazole Rash 11/29/2019 Sulfa Antibiotics Unknown 08/25/2024 Patient had sob Azithromycin Rash Medium 02/21/2013 documented as of this encounter (statuses as of 09/28/2024) Medications Aspirin 81 MG Tablet Take 1 [...] for 2 days 30 Tablet 4 Active documented as of this encounter (statuses as of 09/28/2024) Active Problems Problem Noted Date Diagnosed Date [...] as of this encounter (statuses as of 09/28/2024) Resolved Problems Problem Noted Date Diagnosed Date Resolved Date DONN (generalized anxiety disorder) 12/14/2014 11/29/2019 COPD, mild 05/05/2014 10/30/2022 Overview: Per COPD GOLD Classification HTN, goal below 140/80 05/05/201405/01 Overview: Per HTN Protocol documented as of this encounter (statuses as of 09/28/2024) Immunizations Name Administration Dates Next Due Covid-19 Ad26, Single Dose (Jen/J&J) 05/24/2021 H1N1 2009 Influenza, IM 10/22/2009 Pneumococcal Conjugate Vacci ne, 20-valent ([id number]) 06/16/2023 Pneumococcal Polysaccharide PPV23 (Pneumovax) 11/05/2018,03/16/2012 Seasonal [...] 09/29/2024 11:00 AM EST Office Visit Family [facility] [address] [place] [address] Shauna Pope PA-C [address] [place] [address] 10/06/2024 11:30 AM EST Office Visit Cardiology, [facility] [address] [place] [address] Jessica Zamora PA-C [address] [place] [address] 02/21/2025 8:20 AM EDT Office Visit Dermatology, [place] [address] [place] [address] [phone] Germaine Rosa PA-C [address] [place] [address] [address] 06/26/2025 8:20 AM EDT Office Visit [facility] [address] [place] [phone] Shauna Pope PA-C [address] [place] [phone] Health Maintenance Due Date Last Done Comments [...] Not on filedocumented as of this encounter Procedures Procedure Name Priority Date/Time Associated Diagnosis Comments ECHOCARDIOLOGY SCANNED RESULT 09/22/2024 documented in this encounter Results * ECHOCARDIOLOGY SCANNED RESULT (09/22/2024) 09/22/2024 Edwin Lake DO ECHOCARDIOLOGY Final Resul t documented in this encounter Care Teams Insole Coverer Relationship Specialty Start Date End Date Shauna Pope PA-C [address] [facility] [address] [place] [address] PCP - General Physician Track Vehicle Repairer 05/13/17 documented as of this encounter
--- OUTSIDE RECORDS SUMMARY | 2024-12-14 14:28 | External Medical Summary ---
Author Name Unknown Address Unknown Organization K01:LABORATORY [facility] - [address] [place] [address] Laboratory Report Ordering Provider Test Date Status BROOKE KONG 10/18/2024 13:58:05 Final Observation Date Value Abnormality Reference (Units ) Status BUN 10/18/2024 13:58:05 13 6-20 (mg/dL) Final Creatinine 10/18/2024 13:58:05 0.5 0.5-1.0 (mg/dL) Final Glomerular filtration rate/1.73 sq M.predicted [Volume Rate/Area] in Serum, Plasma or Blood by Creatinine-based formula (CKD-EPI) 10/18/2024 13:58:05 >90 >=60 (mL/min) Final eGFR is calculated based on the CKD-EPI 2020 equation. Sodium 10/18/2024 13:58:05 139 135-146 (m mol/L) Final Potassium 10/18/2024 13:58:05 3.8 3.5-5.1 (m mol/L) Final Cl 10/18/2024 13:58:05 100 98-107 (mm ol/L) Final CO2 10/18/2024 13:58:05 29 22-32 (mmo l/L) Final Anion gap 10/18/2024 13:58:05 10 7-15 (mmol /L) Final Glucose 10/18/2024 13:58:05 93 70-120 (mg /dL) Final Calcium 10/18/2024 13:58:05 9.1 8.4-10.2 ( mg/dL) Final Performing Location LABORATORY [facility] - [address] [place] [address]
--- OUTSIDE RECORDS SUMMARY | 2024-12-14 14:28 | External Medical Summary | Summary of Care ---
Author Name Unknown Organization [facility] Address [address] [facility] [place] [address] Phone [phone] Care Team Providers Care Merchandise Flow Associate Name Role Phone Shauna Pope PA-C Primary Care Provider +1- [phone] Reason for Referral * Precert (Diagnostic Medical) (Within 10 days (routine)) - Authorized Specialty Diagnoses / Procedures Referred By Contac t Referred To Contact Cardiac Studies Diagnoses HTN, goal below 130/80 NSTEMI (non-ST elevated myocardial infarction) (HCC) Takotsubo cardiomyopathy Hypokalemia Hypomagnesemia Procedures ECHO, COMPLETE (2D), TRANS-THORACIC Jessica Zamora PA-C [address] [place] [address] Phone: tel: fax: Referral ID Status Reason Start Date Expiration Date V isits Requested Visits Authorized [id number] Authorized Precert 10/20/2024 999 999 Reason for Visit * Reason Comments Follow Up Encounter Details Date Type Department Care Team (Late st Contact Info) Description 10/06/2024 11:30 AM EST Office Visit Cardiology, [facility] [address] [place] [phone] Jessica Zamora PA-C [address] [place] [address] Takotsubo cardiomyopathy*; HTN, goal below 130/80; NSTEMI (non-ST elevated myocardial infarction) ([facility]); Hypokalemia; Hypomagnesemia Allergies Active Allergy Reactions Criticality [...] Tablet (pLAVix)Indicati ons:PAD (peripheral artery disease) ([facility]) TAKE 1 TABLET BY MOUTH DAILY IN [...] Puff before bedtime. 4 g 11 09/13/20 Active Escitalopram Oxalate 20 MG Oral Tablet (Lexapro) Take 1 Tablet by mouth in the morning. 09/22/20 Active Fluticasone-Umec lidin-Vilant 200-62.5-25 MCG/ACT Aerosol Powder Breath Activated (Trelegy Ellipta) Inhale 1 Puff by mouth in the morning. 09/22/20 Active Folic Acid 1 MG Oral Tablet Take 1 Tablet by mouth in the morning. 09/22/20 Active B-1 100 MG Oral Tablet Take 100 mg by mouth every evening. 09/22/20 Active Atorvastatin Calcium 20 MG Oral Tablet (Lipitor)Indicat ions:PAD (peripheral artery disease) (HCC),Dyslipidem ia, goal LDL below 70 Take 1 Tablet by mouth in the morning. 90 Tablet 3 09/26/20 24 Active dilTIAZem HCl ER 240 MG [...] morning. 90 Capsule 3 10/06/20 24 Active predniSONE 10 MG Oral Tablet [...] every morning. 09/22/20 24 024 Discontinued(Re fill) documented as of [...] Dates Next Due Covid-19 Ad26, Single Dose ([employer]/J&J) 05/24/2021 H1N1 2009 Influenza, IM 10/22/2009 Pneumococcal Conjugate Vacci ne, 20-valent ([id number]) 06/16/2023 Pneumococcal Polysaccharide PPV23 (Pneumovax) 11/05/2018,03/16/2012 Seasonal [...] Sign Reading Time Taken Comments Blood Pressure 122/72 10/06/2024 11:43 AM EST Pulse 80 10/06/2024 11:43 AM EST Temperature - - Respiratory Rate - - Oxygen Saturation 90% 10/06/2024 11:43 AM EST Inhaled Oxygen Concentration - - Weight 40.8 kg (90 lb) 10/06/2024 11:43 AM EST Height - - Body Mass Index 14.53 09/29/2024 11:03 AM EST documented in this encounter Patient Instructions * Patient Instructions* Jessica Zamora PA-C - 10/06/2024 12:07 PM EST Start potassium 20 meq - 1 tablet daily (sent to your pharmacy) Start magnesium oxide 400 mg - 1 tablet daily (sent to your pharmacy) Blood work next week (Thursday or Thursday) Schedule echo for october documented in this encounter Progress Notes * Jessica Zamora PA-C - 10/06/2024 11:46 AM EST Images from the original note were not included. 10/06/2024 Cardiology Hospital F/U: Patient is a 59-year-old female here today with her for close Cardiology hospital follow-up. History includes: Stress induced cardiomyopathy/Takotsubo cardiomyopathy October 05, 2024 with initial LVEF 25%, improving to 45% prior to discharge Mild/moderate non obstructive disease per cath Sep 2024 - med management recommended COPD with prior tobacco abuse (quitting Sep 2024) Hypertension Dyslipidemia PVD S/P fem bypass in 2014 - follows with Dr. Peters Chronic diarrhea, prior colon resection History of Present Illness The patient, a 59-year-old individual with a history of COPD, was admitted to [facility] in Septemberue to acute respiratory failure with hypoxia, necessitating intubation. The exacerbation of COPD was suspected to be the primary cause of the respiratory distress. During the hospital stay, the patient was found to have elevated troponin levels and reduced left ventricular (LV) systolic function with an ejection fraction of 25-30%. After stabilization of respiratory status, cardiac catheterization was performed, revealing mild to moderate coronary artery disease without obstruction. An echocardiogram showed improved LV systolic function with an ejection fraction of 45-50% prior to discharge.The patient was started on Cardizem 240 mg daily, despite mild LV dysfunction. BB felt to be contraindicated with acute wheezing and recurrent respiratory issues. Other medications, including Plavix, statin, and aspirin, were continued. The patient received several doses of IV Lasix during the hosp ital stay. The patient's respiratory status improved significantly during hospitalization, and she has since quit smoking. The findings of cardiomyopathy were thought to be stress-induced or Takotsubo cardiomyopathy related to her COPD/respiratory status The patient reports a significant improvement in breathing, stating it is "100% better" than before. She denies any chest pain but mentions feeling her heart race at times She is currently taking Cardizem and will need refills on all medications. The patient has not experienced any dizziness or lightheadedness. She denies any swelling in the legs and reports that previous fluid retention has improved. The patient's blood work showed low potassium and magnesium levels. The patient has not reported any new symptoms or concerns. No chest pain, shortness of breath, palpitations, dizziness, syncope or near syncope. No orthopnea,PND, or increased lower extremity edema. No fever, chills, cough, hematochezia, melena, or hemoptysis. Review of Systems: See HPI for pertinent positives. All others negative, other than those noted in HPI. Patient Active Problem List Diagnosis AK (actinic keratosis) PAD (peripheral artery disease) ([facility]) Tobacco abuse disorder HTN, goal below 130/80 Hypokalemia Dyslipidemia, goal LDL below 70 Gastroesophageal reflux disease without esophagitis COPD, group B, by GOLD 2017 classification ([facility]) Hypomagnesemia NSTEMI (non-ST elevated myocardial infarction) ([facility]) Takotsubo cardiomyopathy Social History Tobacco Use Smoking status: Former Average packs/day: 0.5 packs/day for 38.0 years (19.0 ttl pk-yrs) Types: Cigarettes Start date: 09/29/1986 Smokeless tobacco: Never Vaping Use Vaping status: Never Used Substance Use Topics Alcohol use: Yes Alcohol/week: 8.0 standard drinks of alcohol Types: 8 12 oz of beer per week Comment: occasionally Drug use: No Family History Problem Relation Name Age of [...] to accident Breast Cancer Grandmother (Maternal) 50 Past Surgical History: Procedure Laterality Date DELIVERY COLONOSCOPY, DIAGNOSTIC (RECTUM) N/A 02/04/2018 serrated adenomatous polyp/1 year recall/Colonoscopy COLONOSCOPY, DIAGNOSTIC (RECTUM) N/A 02/04/2018 COLONOSCOPY FLEXIBLE PROXIMAL DIAGNOSTIC performed by Angelito Mendez MD at ENDOSCOPY [facility] DENTAL SURGERY PROCEDURE NEC REMOVE TONSILS & ADENOIDS, AGE 12+ SINUS SURGERY PROCEDURE NEC 09/12/2011 XR SINUS TRACT Review of patient's allergies indicates: Allergen Reactions Z-Raymond [Azithromycin] Rash Atorvastatin Liver complications (Please comment) Elevated LFTs Celebrex [Celecoxib] Diarrhea Severe diarrhea Ciprofloxacin Rash Crestor [Rosuvastatin] Muscle pain Erythromycin Hives Itchy hives Metronidazole Rash Sulfa Antibiotics Unknown Patient had sob Current Outpatient Medications Medication Sig Dispense Refill dilTIAZem HCl ER 240 MG Oral Tablet Extended Release 24 Hour Take 1 Tablet by mouth every morning. 90 Tablet 3 Magnesium Oxide 400 MG Oral Capsule Take 1 Capsule by mouth in the morning. 90 Capsule 3 Potassium Chloride ER 20 MEQ Oral Tablet Extended Release Take 1 Tablet by mouth in the morning. 90Tablet 3 Atorvastatin Calcium 20 MG Oral Tablet (Lipitor) Take 1 Tablet by mouth in the morning. 90 Tablet 3 B-1 100 MG Oral Tablet Take 100 mg by mouth every evening. Escitalopram Oxalate 20 MG Oral Tablet (Lexapro) Take 1 Tablet by mouth in the morning. Ggbocvqiiay-Hkrlvoiet-Tnycyo 200-62.5-25 MCG/ACT Aerosol Powder Breath Activated (Trelegy Ellipta) Inhale 1 Puff by mouth in the morning. Folic Acid 1 MG Oral Tablet Take 1 Tablet by mouth in the morning. Combivent Respimat 20-100 MCG/ACT Inhalation Aerosol Solution (Ipratropium- Albuterol) Inhale 1 Puffby mouth in the morning and 1 Puff at noon and 1 Puff in the evening and 1 Puff before bedtime. 4 g11 Doxycycline Hyclate 100 MG Oral Capsule Take 1 Capsule by mouth in the morning and 1 Capsule beforebedtime. Until gone.. 42 Capsule 0 HYDROcodone-Acetaminophen 5-325 MG Oral Tablet Take 1 Tablet by mouth daily as needed for Pain, Moderate. 30 Tablet 0 Telmisartan-HCTZ 80-25 MG Oral Tablet TAKE 1 TABLET BY MOUTH EVERY DAY 90 Tablet 3 Clopidogrel Bisulfate 75 MG Oral Tablet (pLAVix) TAKE 1 TABLET BY MOUTH DAILY IN THE MORNING. 90 Tablet 3 Pantoprazole Sodium 40 MG Oral Tablet Delayed Release (Protonix) TAKE 1 TABLET BY MOUTH EVERY DAY IN THE MORNING 90 Tablet 3 Vitamin D (Cholecalciferol) 25 MCG (1000 UT) Oral Capsule Take 1 Capsule by mouth in the morning. Please assist patient in finding this OTC. Thanks!. 90 Capsule 1 Aspirin 81 MG Tablet Take 1 Tablet by mouth in the morning. No current facility-administered medications for this visit. Physical Exam: Blood pressure 122/72, pulse 80, weight 40.8 kg (90 lb), SpO2 90%, not currently . General: No acute distress. A+Ox3. Thin HEENT: Normocephalic. Atraumatic. Conjunctiva and sclera clear. NECK: No carotid bruits. No JVD. Carotid upstrokes are brisk. Heart: RRR. S1 and S2 noted without murmur, rubs, gallops. PMI non displaced. Lungs: Clear to auscultation. No wheezes, rhonchi, rales. Abdomen: Normal bowel sounds. Soft. Nontender. No masses or organomegaly. No abdominal bruits. Extremities: No edema. No clubbing or cyanosis. Pulses: radial=2/4, posterior tibial=2/4, dorsalis pedis = 2/4. NEURO: No focal deficits. PSYCH: Normal. Cardiac studies/labs: EKG performed today and reviewed personally: Normal sinus rhythm ST & Marked T wave abnormality, consider inferior ischemia ST & Marked T wave abnormality, consider anterolateral ischemia Prolonged QT interval or tu fusion, consider myocardial disease, electrolyte imbalance, or drug effects Abnormal ECG When compared with ECG of 30-Dec-2023 09:37, The axis Shifted left T wave inversion now evident in Inferior leads T wave inversion more evident in Anterior-lateral leads Cardiac cath report reviewed from Sep 19, 2024: Summary: 1. Mild to moderate coronary artery disease -30% ostial, calcified left main - Very small high OM1 with 60-70% ostial stenosis 2. Elevated intracardiac filling pressure (LVEDP 37) Recommendations: No obstructive epicardial or acute CAD to explain patient's LV dysfunction and presenting symptoms.Suspect possible stress-induced cardiomyopathy. Continue diuretics, GDMT per Dr. Lake. Echo report reviewed from Sep 22, 2024: Echo report reviewed dated Sep 16, 2024: Latest Reference Range & Units 09/29/24 11:54 SODIUM 135 - 146 mmol/L 136 POTASSIUM 3.5 - 5.1 mmol/L 3.0 (L) CHLORIDE 98 - 107 mmol/L 91 (L) CO2 22 - 32 mmol/L 28 BUN 6 - 20 mg/dL 17 CREATININE 0.5 - 1.0 mg/dL 0.6 EGFR >=60 mL/min >90 ANION GAP 7 - 15 mmol/L 17 (H) GLUCOSE 70 - 120 mg/dL 105 CALCIUM 8.4 - 10.2 mg/dL 9.3 Magnesium 1.5 - 2.6 mg/dL 0.7 (L) Folic Acid >4.5 ng/mL 11.9 (L): Data is abnormally low (H): Data is abnormally high Assessment and Plan 59 year old female Assessment & Plan Recent admission for Acute Respiratory Failure with Hypoxia/COPD exacerbation Admitted in September 2024 with acute respiratory failure requiring intubation, likely due to COPD exacerbation. Respiratory status improved during hospitalization. Quit smoking since discharge. - Encourage smoking cessation Stress-Induced Cardiomyopathy (Takotsubo Cardiomyopathy) Presented with elevated troponin and reduced LV systolic function (EF 25-30%). Cardiac catheterization showed mild to moderate CAD without obstruction. Repeat echo showed improved LV function (EF 45-50%). Likely stress-induced due to respiratory failure.. - Continue Cardizem (diltiazem) 240 mg daily (despite mildly reduced LVEF). Thought to be not a candidate for BB due to active wheezing during admission. Consider in the future if respiratory status continues to improve. - Recheck echocardiogram in early October - Continue atorvastatin 20 mg daily - Continue Plavix and aspirin Mild/moderate non obstructive CAD - -med management Hypokalemia and Hypomagnesemia Recent blood work showed low potassium and magnesium levels, ordered by PCP. No supplements ordered - Start potassium 20 mEq daily - Start magnesium (Mag ox 400) daily - Recheck blood work early next week Hypertension -controlled HFrEF -Appears euvolemic currently PVD -continue statin, ASA, plavix General Health Maintenance Advised to maintain good blood pressure control and continue medications. - Encourage adherence to medications - Schedule follow-up appointment in November Follow-up - Schedule echocardiogram for mid - Follow-up appointment in November. The patient is to continue all current medications as listed above. No changes were made at today'isit. Patient Instructions Start potassium 20 meq - 1 tablet daily (sent to your pharmacy) Start magnesium oxide 400 mg - 1 tablet daily (sent to your pharmacy) Blood work next week (Thursday or Thursday) Schedule echo for mid October Patient is being evaluated in the cardiology office for ongoing care/risk management for Stress induced cardiomyopathy; HTN; HFrEF; mild CAD. I spent a total of 55 minutes on the date of service in preparation, delivery, and documentation ofthe care provided to Nelsy Ng excluding any time spent in the performance of separately billed services. The patient agrees to the above plan and will call with additional questions or concerns. ER with all emergencies advised. Follow-up: Return in about 2 months (around 12/06/2024). | Check-out note: Print instructions Schedule echo for mid Oct F/u in Biju Zamora PA-C Department of Cardiology Text in this note was generated using an ambient documentation service. I discussed the use of a device to record and summarize our discussion today. All persons present during the encounter consented to its use. This chart was completed in part utilizing [employer] Speech Voice Recognition Software. Grammatical errors, random word insertions, prounoun errors, and incomplete sentences are an occasional consequence of this system due to software limitations, ambient noise, and hardware issues. Any formal questions or concerns about the content, text, or information contained within the body of this dictation should be directly addressed to the provider for clarification. documented in this encounter Procedure Notes * Quinn Hayes MD - 10/06/2024 11:42 AM ESTAssociated Order(s): EKG REASON FOR STUDY: routine;routine CONCLUSIONS: Normal sinus rhythm ST & Marked T wave abnormality, consider inferior ischemia ST & Marked T wave abnormality, consider anterolateral ischemia Prolonged QT interval or tu fusion, consider myocardial disease, electrolyte imbalance, or drug effects Abnormal ECG When compared with ECG of 30-Dec-2023 09:37, The axis Shifted left T wave inversion now evident in Inferior leads T wave inversion more evident in Anterior-lateral leads Ventricular Rate: 80 Atrial Rate: 80 GA Interval: 124 QRS Duration: 94 QT/QTc: 400/461 ms P-R-T G[place]: 76 : 66 : 252 degrees documented in this encounter Nursing Notes * Toya Holder CMA - 10/06/2024 11:42 AM EST Examination Room: 1 Name: Nelsy Ng Date of : (1965) Reason for Visit: new pt / HD Interim Hospitalization(s): 09/16/24 Problems/Concerns: denied Chest Pain/SOB: denied chest pain, but does have SOB . [facility] is a way you can talk to your provider online through e-mail. Would you like to sign up? I can activate it for you? DECLINES Patient was instructed to not get up on the exam table until directed and assisted by their provider; patient is to remain seated in the chair/ wheelchair/ exam table for fall prevention and safety reasons. Patient is aware to have assistance to step down off exam table with personnel. Patient voiced full comprehension of instructions. documented in this encounter Plan of Treatment Upcoming Encounters Date Type Department Care Team (Late st Contact Info) Description 11/03/2024 1:00 PM EST Cardiac Studies Cardiac Studies, [facility] [address] [phone] 12/12/2024 2:30 PM EST Office Visit Cardiology, [facility] [address] [place] [phone] Jessica Zamora PA-C [address] [place] [address] 12/30/2024 3:40 PM EST Office Visit [facility] [address] [place] [address] Shauna Pope PA-C [address] [place] [address] 02/21/2025 8:20 AM EDT Office Visit Dermatology, [facility] [address] [place] [address] Germaine Rosa PA-C [address] [place] [place] [address] 06/26/2025 8:20 AM EDT Office Visit [facility] [address] [place] [address] Shauna Pope PA-C [address] [place] [address] Scheduled Orders Name Type Priority Associated Diagnoses Orde r Schedule BASIC METABOLIC PANEL Lab Routine HTN, goal below 130/80 Takotsubo cardiomyopathy Hypokalemia Hypomagnesemia Expected: 10/10/2024, Expires: 10/06/2025 MAGNESIUM Lab Routine HTN, goal below 130/80 Takotsubo cardiomyopathy Hypokalemia Hypomagnesemia Expected: 10/10/2024, Expires: 10/06/2025 ECHO, COMPLETE (2D), TRANS-THORACIC Echocardiology Routine HTN, goal below 130/80 NSTEMI (non-ST elevated myocardial infarction) (HCC) Takotsubo cardiomyopathy Hypokalemia Hypomagnesemia Expected: 10/20/2024 (Approximate), Expires: 11/05/2026 Health Maintenance Due Date Last Done Comments [...] Procedure Name Priority Date/Time Associated Diagnosis Comments GA ECG ROUTINE ECG W/LEAST 12 LDS W/I&R Routine 10/06/2024 11:42 AM EST HTN, goal below 130/80 NSTEMI (non-ST elevated myocardial infarction) (HCC) documented in this encounter Results * EKG (10/06/2024 11:42 AM EST) 10/06/2024 11:4 2 AM EST Narrative Procedure Note Quinn Hayes MD - 10/06/2024 11:42 AM EST REASON FOR STUDY: routine;routine CONCLUSIONS: Normal sinus rhythm ST & Marked T wave abnormality, consider inferior ischemia ST & Marked T wave abnormality, consider anterolateral ischemia Prolonged QT interval or tu fusion, consider myocardial disease,electrolyte imbalance, or drug effects Abnormal ECG When compared with ECG of 30-Dec-2023 09:37, The axis Shifted left T wave inversion now evident in Inferior leads T wave inversion more evident in Anterior-lateral leads Ventricular Rate: 80 Atrial Rate: 80 GA Interval: 124 QRS Duration: 94 QT/QTc: 400/461 ms P-R-T G[place]am: 76 : 66 : 252 degrees us Jessica Zamora PA-C EKG Final Result [facility] documented in this encounter Visit Diagnoses Diagnosis Takotsubo cardiomyopathy- Primary Takotsubo syndrome HTN, goal below 130/80 Unspecified essential hypertension NSTEMI (non-ST elevated myocardial infarction) (HCC) Acute myocardial infarction, subendocardial infarction, episode of care unspecified Hypokalemia Hypopotassemia Hypomagnesemia Disorders of magnesium metabolism documented in this encounter Care Teams Merchandise Flow Associate Relationship Specialty Start Date End Date Shauna Pope PA-C [address] [facility] [place] [address] PCP - General Physician Lunchroom Mother 05/13/17 documented as of this encounter
--- OUTSIDE RECORDS SUMMARY | 2024-12-14 14:29 | External Medical Summary | Summary of Care ---
Author Name Unknown Organization [facility] Address [address] [facility] [place] [address] Phone [phone] Care Team Providers Care Printing Estimator Name Role Phone Shauna Pope PA-C Primary Care Provider +1- [phone] Reason for Visit * Reason Onset Date Comments Hospital Follow-Up 09/23/2024 [facility] for [facility] Encounter Details Date Type Department Care Team (Late st Contact Info) Description 09/23/2024 Telephone Ancillary, [place] [address] [place] [address] Carolyn Jj, DAREN Hospital Follow-Up ([facility] for [facility]) Allergies Active Allergy Reactions Criticality Noted Date Comments Atorvastatin Liver complications (Please comment) 06/26/2022 Elevated LFTs Celecoxib Diarrhea 11/20/2014 Severe diarrhea Ciprofloxacin Rash 11/29/2019 Rosuvastatin Muscle pain 06/26/2022 Erythromycin Hives 11/20/2014 Itchy hives Metronidazole Rash 11/29/2019 Sulfa Antibiotics Unknown 08/25/2024 Patient had sob Azithromycin Rash Medium 02/21/2013 documented as of this encounter (statuses as of 09/23/2024) Medications Aspirin 81 MG Tablet Take 1 [...] Oral Tablet (pLAVix)Indicati ons:PAD (peripheral artery disease) ([facility]) TAKE 1 TABLET BY MOUTH DAILY IN THE MORNING. 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 09/23/20 24 Active dilTIAZem HCl ER 240 MG [...] morning and 100 mg before bedtime. 09/22/20 Active Symbicort 160-4.5 MCG/ACT Inhalation AerosolIndicatio ns:COPD, [...] 24 024 Discontinued(Me dication List Clean Up) documented as of this encounter (statuses as of 09/23/2024) Active Problems Problem Noted Date Diagnosed Date [...] as of this encounter (statuses as of 09/23/2024) Resolved Problems Problem Noted Date Diagnosed Date Resolved Date DONN (generalized anxiety disorder) 12/14/2014 11/29/2019 COPD, mild 05/05/2014 10/30/2022 Overview: Per COPD GOLD Classification HTN, goal below 140/80 05/05/201405/01 Overview: Per HTN Protocol documented as of this encounter (statuses as of 09/23/2024) Immunizations Name Administration Dates Next Due Covid-19 Ad26, Single Dose (Jen/J&J) 05/24/2021 H1N1 2009 Influenza, IM 10/22/2009 Pneumococcal Conjugate Vacci ne, 20-valent ([id number]) 06/16/2023 Pneumococcal Polysaccharide PPV23 (Pneumovax) 11/05/2018,03/16/2012 Seasonal [...] encounter Miscellaneous Notes * Telephone Encounter - Carolyn Jj RN - 09/23/2024 3:15 PM EST Transitions of Care Note Reason for Referral:Recent Admission Phone visit for follow up: hever Admitted to: [facility], Date: 09.16.24 Discharged to: home, Date: 09.23.24 [...] 1. Chest pain 2. sob 3. palpitations Auditor InternalFinal Assembler Boat of Care interventions/Action Plan: 5 - 7 [...] Description 09/29/2024 11:00 AM EST Office Visit [facility] [address] [place] [phone] Shauna Pope PA-C [address] [place] [address] 02/21/2025 8:20 AM EDT Office Visit Dermatology, [facility] Gonzalez [address] [phone] Germaine Rosa PA-C [address] [address] 06/26/2025 8:20 AM EDT Office Visit [facility] [address] [place] [address] Shauna Pope PA-C [address] [place] [address] Health Maintenance Due Date [...] hyperlipidemia documented in this encounter Care Teams Printing Estimator Relationship Specialty Start Date End Date Shauna Pope PA-C [address] [address] [place] [address] PCP - General Physician Melting Furnace Skimmer 05/13/17 documented as of this encounter
--- OUTSIDE RECORDS SUMMARY | 2024-12-14 14:29 | External Medical Summary | Summary of Care ---
Author Name Unknown Organization [facility] Address [address] [facility] [place] [address] Phone [phone] Care Team Providers Care Ic Designer [employer] Name Role Phone Shauna Pope PA-C Primary Care Provider +1- [phone] Encounter Details Date Type Department Care Team (Late st Contact Info) Description 09/16/2024 Result Scan Unspecified Department Angel Mera, DO [address] [place] [address] <No scans attached> Allergies Active Allergy Reactions Criticality Noted Date Comments Atorvastatin Liver complications (Please comment) 06/26/2022 Elevated LFTs Celecoxib Diarrhea 11/20/2014 Severe diarrhea Ciprofloxacin Rash 11/29/2019 Rosuvastatin Muscle pain 06/26/2022 Erythromycin Hives 11/20/2014 Itchy hives Metronidazole Rash 11/29/2019 Sulfa Antibiotics Unknown 08/25/2024 Patient had sob Azithromycin Rash Medium 02/21/2013 documented as of this encounter (statuses as of 09/20/2024) Medications Medication Sig Dispensed Refills Start Date [...] Oral Tablet (pLAVix)Indications: PAD (peripheral artery disease) ([facility]) TAKE 1 TABLET BY MOUTH [...] Oral Tablet (Lipitor)Indications :PAD (peripheral artery disease) ([facility]),Dyslipidemia, goal LDL below 70 TAKE 1 TABLET BY MOUTH EVERYDAY AT BEDTIME 90 Tablet 3 07/16/2024 Active Nortriptyline HCl 10 MG Oral Capsule (Pamelor)Indications :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 30 Capsule 1 07/25/2024 Active HYDROcodone-Acetamin ophen 5-325 MG Oral TabletIndications:Ly me arthritis of hand ([facility]) Take 1 Tablet by mouth [...] as of this encounter (statuses as of 09/20/2024) Active Problems Problem Noted Date Diagnosed Date [...] as of this encounter (statuses as of 09/20/2024) Resolved Problems Problem Noted Date Diagnosed Date Resolved Date DONN (generalized anxiety disorder) 12/14/2014 11/29/2019 COPD, mild 05/05/2014 10/30/2022 Overview: Per COPD GOLD Classification HTN, goal below 140/80 05/05/201405/01 Overview: Per HTN Protocol documented as of this encounter (statuses as of 09/20/2024) Immunizations Name Administration Dates Next Due Covid-19 Ad26, Single Dose (Jen/J&J) 05/24/2021 H1N1 2009 Influenza, IM 10/22/2009 Pneumococcal Conjugate Vacci ne, 20-valent ([id number]) 06/16/2023 Pneumococcal Polysaccharide PPV23 (Pneumovax) 11/05/2018,03/16/2012 Seasonal [...] Care Team (Late st Contact Info) Description 02/21/2025 8:20 AM EDT Office Visit Dermatology, [facility] [address] [place] [address] Germaine Rosa PA-C [address] [place] [id number] 06/26/2025 8:20 AM EDT Office Visit [facility] [address] [place] [address] Shauna Pope PAJeremias [address] [facility] [address] [place] [id number] Health Maintenance Due Date Last Done Comments [...] Date/Time Associated Diagnosis Comments ECHOCARDIOLOGY SCANNED RESULT 09/16/2024 documented in this encounter Results * ECHOCARDIOLOGY SCANNED RESULT (09/16/2024) 09/16/2024 Angel Mera DO ECHOCARDIOLOGY documented in this encounter Care Teams Ic Designer Gate Arrays Relationship Specialty Start Date End Date Shauna Pope PA-C [facility] [facility] [address] [facility] [place] [id number] PCP - General Physician Forestry Foreman 05/13/17 documented as of this encounter
--- OUTSIDE RECORDS SUMMARY | 2024-12-14 14:29 | External Medical Summary | Summary of Care ---
Author Name Unknown Organization [facility] Address [address] [facility] [place] [address] Phone [phone] Care Team Providers Care Public Safety Police Name Role Phone Shauna Pope PA-C Primary Care Provider +1- [phone] Encounter Details Date Type Department Care Team (Late st Contact Info) Description 09/19/2024 Result Scan Unspecified Department <No scans attached> Allergies Active Allergy Reactions [...] IM 10/22/2009 Pneumococcal Conjugate Vacci ne, 20-valent ([id number]) 06/16/2023 Pneumococcal Polysaccharide PPV23 (Pneumovax) 11/05/2018,03/16/2012 Seasonal [...] [address] [place] [address] Germaine Rosa PA-C [address] [place] [phone] 06/26/2025 8:20 AM EDT Office Visit Family Practice, [place] [address] [place] [phone] Shauna Pope PA-C [address] [facility] [address] [place] [address] Health Maintenance Due Date Last Done Comments [...] Procedure Name Priority Date/Time Associated Diagnosis Comments CARDIAC CATH SCANNED RESULT 09/19/2024 documented in this encounter Results * CARDIAC CATH SCANNED RESULT (09/19/2024) 09/19/2024 No Physician Data Unknown CARD CATH documented in this encounter Care Teams Public Safety Police Relationship Specialty Start Date End Date Shauna Pope PA-C [address] [facility] [address] [facility] [place] [phone] PCP - General Physician Chemist Intern 05/13/17 documented as of this encounter
[2024-12-14 14:33] LABS: Troponin I High Sensitivity 11.2 pg/ml (0-14)
[2024-12-14] MEDS ORDERED: HYDROCODONE/ACETAMOPHEN 5/325MG TAB PO PRN (14:46)
[2024-12-14] MEDS ORDERED: POLYETHYLENE (MIRALAX) 17 GM PACK PO PRN (14:46)
[2024-12-14] MEDS ORDERED: PROMETHAZINE 6.25 MG/50.25 ML BAG IV PRN (14:46)
[2024-12-14] MEDS: DOXYCYCLINE HYCLATE 100 MG CAP PO STA (15:45)
[2024-12-14] MEDS: cefTRIAXone SODIUM 2,000 MG/50 ML BAG IV STA (16:33)
[2024-12-14] MEDS: POTASSIUM CHLORIDE CRTAB 20 MEQ TABCR PO ONE (16:36)
--- NOTE | 2024-12-14 17:02 | Ultrasound Report ---
EXAM: US Abdomen Limited Right Upper Quadrant INDICATION: Elevated liver functions. TECHNIQUE: Real-time ultrasound of the right upper quadrant with image documentation. COMPARISON: No relevant prior studies available. FINDINGS: Liver: The liver is mildly echogenic. Smooth contour. No ductal dilatation. Gallbladder: The gallbladder is distended. No stones, wall thickening or surrounding fluid noted. Common bile duct: The common bile duct is minimally dilated to 8 mm. No visible ductal stone. Pancreas: No significant abnormality noted. Right kidney: 10.4 cm long. Normal cortical thickness and echotexture. No mass, stone or hydronephrosis. IMPRESSION: 1. Minimally dilated common bile duct of 8 mm. 2. Hepatic steatosis. No ductal dilatation. ACT 112: Negative or not required by law. Electronically signed by Poly Carrillo 12-14-2024 5:01 PM
[2024-12-14] MEDS: SODIUM CHLORIDE 0.9% 500 ML IV SCH (19:13)
[2024-12-14] MEDS: methylPREDNISolone 40 MG in SYRINGE 0 ML IV SCH (19:18)
[2024-12-14] MEDS ORDERED: methylPREDNISolone 125 MG/2 ML VIAL IV SCH (20:00)
[2024-12-14] MEDS: HEPARIN SOD 5,000 UNIT/0.5 ML VIAL SQ SCH (20:07)
[2024-12-14] MEDS: DOXYCYCLINE HYCLATE 100 MG CAP PO SCH (20:08)
[2024-12-14] MEDS: FORMOTEROL 20 MCG/2 ML VIAL NEB SCH (21:04)
[2024-12-14] MEDS: BUDESONIDE 0.5 MG/2 ML VIAL (PULMICORT) NEB SCH (21:04)
[2024-12-14] MEDS: SODIUM CHLOR 7% 4 ML NEB NEB SCH (21:04)
[2024-12-14] MEDS: ALBUT/IPRATROP 3MG/0.5MG NEB 3 ML VIAL NEB SCH (21:05)
[2024-12-14] MEDS ORDERED: methylPREDNISolone 40 MG in SYRINGE 0 ML IV SCH (22:00)
[2024-12-15] MEDS: MELATONIN 3 MG TAB PO PRN (01:32)
[2024-12-15 08:18] LABS: Hematocrit (blood only) 38.2 % (37.0-47.0); Hemoglobin 13.4 g/dl (12.0-16.0); Immature Granulocytes # (auto) 0.04 K/uL (0.01-0.20); Immature Granulocytes % (auto) 0.7 %; Lymphocytes # (auto) 0.92 K/uL (1.20-3.40); Lymphocytes % (auto) 16.5 %; Mean Corpuscular Hemoglobin 33.8 pg (25.0-34.0); Mean Corpuscular Hgb Conc 35.1 g/dL (32.0-36.0); Mean Corpuscular Volume 96.5 fL (80.0-100.0); Monocytes # (auto) 0.31 K/uL (0.11-0.59); Monocytes % (auto) 5.6 %; Neutrophils # (auto) 4.29 K/uL (1.40-6.50); Neutrophils % (auto) 77.2 %; Platelet Count 207 K/uL (130-400); RDW Coefficient of Variation 13.4 % (11.5-14.5); RDW Standard Deviation 48.1 fL (36.4-46.3); Red Blood Count 3.96 M/uL (4.20-5.40); White Blood Count 5.56 K/ul (4.8-10.8)
[2024-12-15] MEDS: FOLIC ACID 1 MG TAB PO SCH (08:24)
[2024-12-15] MEDS: ASPIRIN 81 MG ECTAB PO SCH (08:24)
[2024-12-15] MEDS: THIAMINE HCL 100 MG TAB PO SCH (08:25)
[2024-12-15] MEDS: ESCITALOPRAM OXALATE 20 MG TAB PO SCH (08:25)
[2024-12-15] MEDS: ATORVASTATIN 20 MG TAB PO SCH (08:25)
[2024-12-15] MEDS: CHOLECALCIFEROL 25 MCG (1000 UNITS) TAB PO SCH (08:26)
[2024-12-15] MEDS: dilTIAZem HCL 180 MG CAPCR PO SCH (08:27)
[2024-12-15] MEDS: CLOPIDOGREL BISULFATE 75 MG TAB PO SCH (08:27)
[2024-12-15] MEDS: PANTOprazole 40 MG TAB PO SCH (08:27)
[2024-12-15] MEDS: LOSARTAN POTASSIUM 50 MG TAB PO SCH (08:28)
[2024-12-15] MEDS: POTASSIUM CHLORIDE CRTAB 20 MEQ TABCR PO SCH (08:34)
[2024-12-15 08:38] LABS: Albumin Globulin Ratio 1.5 (0.9-2); Albumin Level 3.4 gm/dl (3.4-5.0); Bilirubin,Total 0.3 mg/dl (0.2-1.0); Calcium 8.6 mg/dl (8.6-10.3); Creatinine Clr Calc Pharmacy 96.6 ml/min; Globulin 2.2 gm/dl (2.5-4.0); Magnesium 1.8 mg/dl (1.7-2.4); Potassium 3.6 mmol/L (3.5-5.1); Total Protein 5.6 gm/dl (6.0-8.3)
[2024-12-15] MEDS: cefTRIAXone SODIUM 2,000 MG/50 ML BAG IV SCH (10:43)
--- NOTE | 2024-12-15 10:45 | Hospitalist Progress Note ---
Date of Service December 15, 2024 Assessment & Plan (1) COPD exacerbation: Plan: Patient is 59 year old female with PMH HTN, PVD, history stress induced cardiomyopathy in 09/2024, prior tobacco use, ETOH use, GERD presented to ER with c/o congestion and SOB x 5 days. In ER afebrile, P: 119, R: 18, BP: 135/85, 89% on RA up to 94% on 3L via NC No leukocytosis. Respiratory biofire panel negative. Negative troponin CXR:Obstructive airway disease with bilateral hyperinflation. In ER given hour-long albuterol neb, Solu-Medrol 125 mg IV, 500 mL NSS, KCl 40 mEq p.o. procalcitonin 13.5 Supplemental oxygen as needed. Goal O2 sat of 89-93% Started Rocephin, doxycycline - will cont. Scheduled duonebs, budesonide, formoterol nebs Solumedrol 40mg IV Q8H per admitting team - Pt no longer taking Trelegy as pt reports "shouldn't be on it by insurance pharmacist". Will need to consider restarting maintanence inhaler CBC in am (2) Hypokalemia: Plan: Replace and monitor (3) Hypomagnesemia: Plan: Replace and monitor (4) Elevated LFTs: Plan: T bili: 0.6, AST: 106, ALT: 90, Alk Phos: 173 (Outpatient AST: 65, ALT: 56, alk phos: 92 on 06/29/2024. Mildly elevated LFTs 09/16/2024 which improved during hospital course) Denies abdominal pain Reported history Elevated LFTs on atorvastatin in past. Was restarted on atorvastatin in 09/2024 after stress induced cardiomyopathy Repeat LFTs trending down US abd - 1. Minimally dilated common bile duct of 8 mm. 2. Hepatic steatosis. No ductal dilatation. May need to consider statin adjustment (5) Takotsubo cardiomyopathy: Plan: History stress induced cardiomyopathy in 09/202409/19/24 cardiac cath: LM -Short almost separate ostium, normal caliber, eccentric calcified plaque with 30% ostial stenosis LAD -medium caliber, no significant disease, distal vessel extends around apex. Small diagonals without significant disease. Circumflex -medium caliber, AV groove circumflex without significant disease. Very small high OM1 with 70% ostial stenosis RCA -dominant, medium caliber, angiographically normal Echo: 09/16/24: EF: 25-30% Echo on 09/22/2024 with EF 45-50% Outpatient echo 11/03/24: EF: 60-64% Today Denies CP. Troponin negative. Continue home diltiazem, aspirin, and statin (6) HTN (hypertension): Plan: Hold home HCTZ and reassess tomorrow Continue telmisartan, diltiazem Hyponatremia - hold HCTZ (7) PVD (peripheral vascular disease): Plan: Continue aspirin, Plavix, statin (8) GERD (gastroesophageal reflux disease): Plan: Continue PPI DVT Prophylaxis Heparin SQ Full Code as per admitting team discussion with pt Follows with Shauna Pope PA-C for routine care Admission and Anticipated Discharge Date Admission Date: December 14, 2024 Subjective Pt seen in follow up of COPD exacerbation Currently sitting up in bed in [facility], says she is feeling much better Currently denies any fever, chills, chest pain, shortness of breath Review of Systems Review of Systems: All systems reviewed & are unremarkable except as noted in Subjective Physical Exam Physical Exam: General: no distress at rest in bed on 1L oxygen via NC, Thin female Head: normocephalic, atraumatic Eyes: conjunctiva non-injected, anicteric ENT: normal inspection external ears, nose Neck: supple Lungs:no respiratory distress, +mild diffuse expiratory wheezing, no rales noted CV: regular rhythm, no pretibial edema Abd: normal BS, soft, non-tender Ext: no LE edema, moves extremities Neuro: A&O x 3, no focal deficits noted, normal affect Skin: warm, dry Results & Data Results & Data Vital Signs (Past 12 Hours) Vital Signs Temp Pulse Resp BP Pulse Ox O2 Del Method O2 Flow Rate 12/15/24 08:15 36.4 C L 67 20 175/91 H 96 Nasal Cannula 1 12/15/24 08:03 84 16 97 Nasal Cannula 1 12/15/24 02:48 37.0 C 99 H 18 155/89 H 97 Nasal Cannula 2 12/15/24 01:28 94 H 18 99 Nasal Cannula 2 12/14/24 22:46 37.3 C 99 H 19 157/80 H 96 Nasal Cannula 3 Laboratory Results 01/12/14/24 12/14/24 Range/Units 07:36 11:07 10:50 WBC 5.56 7.05 (4.8-10.8) K/ul RBC 3.96 L 4.54 (4.20-5.40) M/uL Hgb 13.4 15.4 (12.0-16.0) g/dl Hct 38.2 43.4 (37.0-47.0) % MCV 96.5 95.6 (80.0-100.0) fL MCH 33.8 33.9 (25.0-34.0) pg MCHC 35.1 35.5 (32.0-36.0) g/dL RDW Std Deviation 48.1 H 47.4 H (36.4-46.3) fL RDW Coeff of Marisol 13.4 13.3 (11.5-14.5) % Plt Count 207 250 (130-400) K/uL MPV 9.0 L 9.2 L (9.4-12.4) fL Immature Gran % (Auto) 0.7 0.6 % Neut % (Auto) 77.2 72.5 % Lymph % (Auto) 16.5 15.3 % [place] % (Auto) 5.6 11.3 % Eos % (Auto) 0.0 0.0 % Baso % (Auto) 0.0 0.3 % Neut # (Auto) 4.29 5.11 (1.40-6.50) K/uL Lymph # (Auto) 0.92 L 1.08 L (1.20-3.40) K/uL [place] # (Auto) 0.31 0.80 H (0.11-0.59) K/uL Eos # (Auto) 0.00 0.00 (0.00-0.50) K/uL Baso # (Auto) 0.00 0.02 (0.00-0.20) K/uL Immature Gran # (Auto) 0.04 0.04 (0.01-0.20) K/uL Sodium 135 L 131 L (136-145) mmol/L Potassium 3.6 3.1 L (3.5-5.1) mmol/L Chloride 98 92 L (98-107) mmol/L Carbon Dioxide 29 28 (21-32) mmol/L Anion Gap 8 11 (3-11) BUN 6 8 (6-23) mg/dl Creatinine 0.43 L D 0.77 (0.6-1.2) mg/dl Est Cr Clr Drug Dosing 96.6 50.0 ml/min eGFR 112.67 89.36 BUN/Creatinine Ratio 14.0 10.4 (10-20) Glucose 196 H 111 H (70-99(Fasting)) mg/dl Calcium 8.6 9.0 (8.6-10.3) mg/dl Magnesium 1.8 1.6 L (1.7-2.4) mg/dl Total Bilirubin 0.3 0.6 (0.2-1.0) mg/dl AST 59 H 106 H (13-39) U/L ALT 61 H 90 H (7-52) U/L Alkaline Phosphatase 136 H 173 H (34-104) U/L Troponin I High Sens 11.2 (0-14) pg/ml Total Protein 5.6 L 6.2 (6.0-8.3) gm/dl Albumin 3.4 3.8 (3.4-5.0) gm/dl Globulin 2.2 L 2.4 L (2.5-4.0) gm/dl Albumin/Globulin Ratio 1.5 1.6 (0.9-2) Procalcitonin 13.50 H (0-0.5) ng/ml Adenovirus (PCR) Not Detected (NotDetected) B. pertussis DNA (PCR) Not Detected (NotDetected) B.parapertussis DNA PCR Not Detected (NotDetected) C. pneumoniae DNA (PCR) Not Detected (NotDetected) Coronavirus OC43 (PCR) Not Detected (NotDetected) Coronavirus HKU1 (PCR) Not Detected (NotDetected) Coronavirus 229E (PCR) Not Detected (NotDetected) SARS-CoV-2 (PCR) Not Detected (NotDetected) Coronavirus NL63 (PCR) Not Detected (NotDetected) Monoscreen Negative (Negative) Human Metapneumovir PCR Not Detected (NotDetected) Influenza Type A (PCR) Not Detected (NotDetected) Influenza Type B (PCR) Not Detected (NotDetected) M. pneumoniae (PCR) Not Detected (NotDetected) Parainfluenza 1 (PCR) Not Detected (NotDetected) Parainfluenza 2 (PCR) Not Detected (NotDetected) Parainfluenza 3 (PCR) Not Detected (NotDetected) Parainfluenza 4 (PCR) Not Detected (NotDetected) RSV (PCR) Not Detected (NotDetected) Entero/Rhino (PCR) Not Detected (NotDetected) Medications Administered Current Inpatient Medications Acetaminophen (Acetaminophen 325 Mg Tab) 650 mg PO Q4H PRN PRN Reason: Pain or Fever Stop: 01/13/25 14:45 Hydrocodone Bitart/Acetaminophen (Hydrocodone/Acetamophen 5/325mg Tab) 1 tab PO BID PRN PRN Reason: Mod-Sev Pain (Scale 4-10) Stop: 12/28/24 14:45 Albuterol (Albut/Ipratrop 3mg/0.5mg Neb 3 Ml Vial) 3 ml NEB Q6R [facility]; Protocol Stop: 01/13/25 18:59 Last Admin: 12/15/24 08:02 Dose: Not Given Aspirin (Aspirin 81 Mg Ectab) 81 mg PO DAILY [facility] Stop: 01/14/25 08:59 Last Admin: 12/15/24 08:24 Dose: 81 mg Atorvastatin Calcium (Atorvastatin 20 Mg Tab) 20 mg PO [facility] Stop: 01/14/25 08:59 Last Admin: 12/15/24 08:25 Dose: 20 mg Budesonide (Budesonide 0.5 Mg/2 Ml Vial (Pulmicort)) 0.5 mg NEB BIDR [facility] Stop: 01/13/25 18:59 Last Admin: 12/15/24 08:02 Dose: 0.5 mg Clopidogrel Bisulfate (Clopidogrel Bisulfate 75 Mg Tab) [facility] Stop: 01/14/25 08:59 Last Admin: 12/15/24 08:27 Dose: 75 mg Diltiazem HCl (Diltiazem Hcl 180 Mg Capcr) 180 mg PO DAILY [facility] Stop: 01/14/25 08:59 Last Admin: 12/15/24 08:27 Dose: 180 mg Doxycycline Hyclate (Doxycycline Hyclate 100 Mg Cap) 100 mg PO BID [facility] Stop: 12/19/24 20:59 Last Admin: 12/15/24 08:28 Dose: 100 mg Escitalopram Oxalate (Escitalopram Oxalate 20 Mg Tab) 20 mg PO QAM [facility] Stop: 01/14/25 08:59 Last Admin: 12/15/24 08:25 Dose: 20 mg Folic Acid (Folic Acid 1 Mg Tab) 1 mg PO QAM [facility] Stop: 01/14/25 08:59 Last Admin: 12/15/24 08:24 Dose: 1 mg Formoterol Fumarate (Formoterol 20 Mcg/2 Ml Vial) 20 mcg NEB BIDR [facility] Stop: 01/13/25 18:59 Last Admin: 12/15/24 08:03 Dose: 20 mcg Heparin Sodium (Porcine) (Heparin Sod 5,000 Unit/0.5 Ml Vial) 5,000 units SQ Q12 [facility] Stop: 01/13/25 20:59 Last Admin: 12/15/24 08:34 Dose: 5,000 units Promethazine HCl (Phenergan) 6.25 mg in 50.25 mls @ 201 mls/hr IV Q6H PRN PRN Reason: Nausea And Vomiting Stop: 01/13/25 14:45 Ceftriaxone Sodium (Rocephin) 2,000 mg in 50 mls @ 100 mls/hr IV Q24H [facility] Stop: 12/20/24 08:59 Last Admin: 12/15/24 10:43 Dose: 100 mls/hr Methylprednisolone 40 mg/ (Syringe) 0.64 mls @ 1.5 mls/min IV Q8H [facility] Stop: 01/13/25 19:59 Last Admin: 12/15/24 04:27 Dose: 1.5 mls/min Losartan Potassium (Losartan Potassium 50 Mg Tab) [facility] Stop: 01/14/25 08:59 Last Admin: 12/15/24 08:28 Dose: 100 mg Magnesium Oxide (Magnesium Oxide 400 Mg Tab) 400 mg PO DAILY@1100 [facility] Stop: 01/14/25 10:59 Last Admin: 12/15/24 10:48 Dose: 400 mg Melatonin (Melatonin 3 Mg Tab) 3 mg PO HS PRN PRN Reason: Sleep Stop: 01/13/25 23:34 Last Admin: 12/15/24 01:32 Dose: 3 mg Pantoprazole Sodium (Pantoprazole 40 Mg Tab) 40 mg PO DAILY [facility] Stop: 01/14/25 08:59 Last Admin: 12/15/24 08:27 Dose: 40 mg Polyethylene Glycol (Polyethylene (Miralax) 17 Gm Pack) 17 gm PO DAILY PRN PRN Reason: Constipation Stop: 01/13/25 14:45 Potassium Chloride (Potassium Chloride Crtab 20 Meq Tabcr) 20 meq PO DAILY [facility] Stop: 01/14/25 08:59 Last Admin: 12/15/24 08:34 Dose: 20 meq Sodium Chloride (Sodium Chlor 7% 4 Ml Neb) 4 ml NEB BIDR [facility] Stop: 01/13/25 18:59 Last Admin: 12/15/24 08:03 Dose: 4 ml Thiamine HCl (Thiamine Hcl 100 Mg Tab) 100 mg PO DAILY [facility] Stop: 01/14/25 08:59 Last Admin: 12/15/24 08:25 Dose: 100 mg Vitamin D (Cholecalciferol 25 Mcg (1000 Units) Tab) 50 mcg PO DAILY [facility] Stop: 01/14/25 08:59 Last Admin: 12/15/24 08:26 Dose: 50 mcg (6) HTN (hypertension) Hypertension type: primary hypertension Qualified Code(s): I10 - Essential (primary) hypertension
[2024-12-15] MEDS: MAGNESIUM OXIDE 400 MG TAB PO SCH (10:48)
[2024-12-15] MEDS: ACETAMINOPHEN 325 MG TAB PO PRN (11:10)
[2024-12-15] MEDS: MAGNESIUM SULFATE / D5W 1 GM/100 ML BAG IV ONE (11:12)
[2024-12-16 06:31] LABS: Hematocrit (blood only) 36.7 % (37.0-47.0); Hemoglobin 12.8 g/dl (12.0-16.0); Mean Corpuscular Hemoglobin 33.7 pg (25.0-34.0); Mean Corpuscular Hgb Conc 34.9 g/dL (32.0-36.0); Mean Corpuscular Volume 96.6 fL (80.0-100.0); Platelet Count 213 K/uL (130-400); RDW Coefficient of Variation 13.4 % (11.5-14.5); RDW Standard Deviation 48.2 fL (36.4-46.3); White Blood Count 12.34 K/ul (4.8-10.8)
[2024-12-16 06:49] LABS: BUN Creatinine Ratio 33.3 (10-20); Calcium 8.8 mg/dl (8.6-10.3); Creatinine Clr Calc Pharmacy 95.2 ml/min; Magnesium 1.9 mg/dl (1.7-2.4); Phosphorus 1.9 mg/dl (2.5-4.9); Potassium 4.1 mmol/L (3.5-5.1)
[2024-12-16] MEDS ORDERED: SODIUM PHOSPHATE 3 MMOL/1 ML INFUSION IV STA (10:26)
[2024-12-16] MEDS: SODIUM PHOSPHATE 6 MMOL in SODIUM CHLORIDE 0.9% 100 ML IV ONE (12:03)
[2024-12-16 12:10] VITALS: BP 157/80; TEMP 98.1
[2024-12-16 13:10] VITALS: RESP 16; O2SAT 95
--- NOTE | 2024-12-16 14:34 | Electrocardiogram Report ---
Test Reason : Blood Pressure : */* mmHG Vent. Rate : 94 BPM Atrial Rate : 94 BPM P-R Int : 132 ms QRS Dur : 78 ms QT Int : 348 ms P-R-T Axes : 78 53 75 degrees QTcB Int : 435 ms Normal sinus rhythm Possible Left atrial enlargement Borderline ECG When compared with ECG of 14-Dec-2024 10:23, No significant change was found Confirmed by Dannie Watson [id number]) on 12/16/2024 2:34:47 PM Referred By: REFERRED SELF Confirmed By: Dannie Watson
[2024-12-16] MEDS ORDERED: ADVANCED PROBIOTIC 625 MG CAPSULE PO SCH (15:30)
--- NOTE | 2024-12-16 15:38 | Discharge Summary ---
Date of Service December 16, 2024 Admission HPI Per Admitting Provider Patient is 59 year old female with PMH HTN, PVD, history stress induced cardiomyopathy in 09/2024, prior tobacco use, ETOH use, GERD presented to ER with c/o congestion and SOB x 5 days. Per inpatient chart review history of hospitalization 09/16/2024-09/23/2024 for acute hypoxic respiratory failure requiring intubation, thought secondary to COPD exacerbation, elevated troponin levels, found to have EF 25-30%, cardiac cath performed showing mild to moderate CAD without obstruction, diagnosed with stress-induced cardiomyopathy/Takotsubo cardiomyopathy. Repeat echo on 09/22/2024 with EF 45-50%. Patient was started on Cardizem daily instead of beta-charis as felt was contraindicated with acute respiratory issues and Plavix, statin, aspirin was continued. Patient states 4 weeks ago started with sinus congestion, facial pain and completed course of Augmentin with relief. States 5 days ago started with nasal congestion, facial pressure, TIRADO, and cough. States cough productive yellow/green sputum. Couple of days ago tried Mucinex and states since is unable to have productive cough. She complains of feeling SOB and having wheezing. Takes Combivent inhaler three times a day at baseline and has been using without relief of wheezing or SOB. She states previously was on Trelegy inhaler but was called by a pharmacist several months ago and was told "shouldn't take with other meds" so she stopped taking it. She has stopped smoking. She complains of decreased appetite and decreased oral intake past several days. Denies any noted fever or chills. Taking 1000mg Tylenol twice daily over past 4 days. Denies any known ill contact. Denies diaphoresis, N/V/D/C, dizziness, syncope, vision changes, neck pain, CP, palpitations, hemoptysis, otalgia, abdominal pain, paresthesias, extremity weakness, extremity edema, rashes, urinary symptoms. Admission Exam Per Admitting Provider General: no distress at rest in bed on 2L oxygen via NC, Thin female Head: normocephalic, atraumatic Eyes: conjunctiva non-injected, anicteric ENT: normal inspection external ears, nose, mucous membranes mildly dry Neck: supple, trachea midline Lungs:no respiratory distress on current 2L O2 via NC with O2 sat 94%, +diffuse inspiratory and expiratory wheezing, no rales noted CV: tachycardia rate 112, regular rhythm, no pretibial edema Abd: normal BS, soft, non-tender Ext: no cyanosis, no calf tenderness Neuro: A&O x 3, no focal deficits noted, normal affect Skin: warm, dry Principal Diagnosis Acute resp. failure with hypoxia, COPD exacerbation Discharge Exam General: Thin female in NAD, on RA Head: normocephalic, atraumatic Eyes: conjunctiva non-injected, anicteric ENT: normal inspection external ears, nose Neck: supple Lungs:no respiratory distress, +mild diffuse expiratory wheezing, no rales noted CV: regular rhythm, no pretibial edema Abd: normal BS, soft, non-tender Ext: no LE edema, moves extremities Neuro: A&O x 3, no focal deficits noted, normal affect Skin: warm, dry Discharge Data Allergies Allergy/AdvReac Type Severity Reaction Status Date / Time azithromycin Allergy Unknown turned Verified 09/16/24 12:52 red, hives erythromycin base Allergy Unknown PT BECOMES Verified 09/16/24 12:52 EXTREMELY RED celecoxib AdvReac Unknown GI UPSET Verified 09/16/24 12:52 atorvastatin AdvReac elevated Verified 12/14/24 12:17 LFTs ciprofloxacin [From Cipro] AdvReac Rash Verified 12/14/24 12:17 Consultations 12/14/24 12:20 ED Decision to Admit Stat Ordered Studies 12/14/24 14:46 US liver Routine FINDINGS: Liver: The liver is mildly echogenic. Smooth contour. No ductal dilatation. Gallbladder: The gallbladder is distended. No stones, wall thickening or surrounding fluid noted. Common bile duct: The common bile duct is minimally dilated to 8 mm. No visible ductal stone. Pancreas: No significant abnormality noted. Right kidney: 10.4 cm long. Normal cortical thickness and echotexture. No mass, stone or hydronephrosis. IMPRESSION: 1. Minimally dilated common bile duct of 8 mm. 2. Hepatic steatosis. No ductal dilatation. Hospital Course (1) COPD exacerbation: Patient is 59 year old female with PMH HTN, PVD, history stress induced cardiomyopathy in 09/2024, prior tobacco use, ETOH use, GERD presented to ER with c/o congestion and SOB x 5 days. In ER afebrile, P: 119, R: 18, BP: 135/85, 89% on RA up to 94% on 3L via NC No leukocytosis. Respiratory biofire panel negative. Negative troponin CXR:Obstructive airway disease with bilateral hyperinflation. In ER given hour-long albuterol neb, Solu-Medrol 125 mg IV, 500 mL NSS, KCl 40 mEq p.o. procalcitonin 13.5 Supplemental oxygen as needed. Goal O2 sat of 89-93% Started Rocephin, doxycycline - will cont. Scheduled duonebs, budesonide, formoterol nebs Solumedrol 40mg IV Q8H per admitting team - Pt no longer taking Trelegy as pt reports "shouldn't be on it by insurance pharmacist". Will need to discuss with PCP / ? referral to pulm 12/16 Sputum cultx pending. Pt on RA feeling well and requests to be discharged. Will DC on PO abx , and po prednisone. Close follow up w/ pcp arranged (2) Hypokalemia: Replace and monitor (3) Hypomagnesemia: Replace and monitor (4) Elevated LFTs: T bili: 0.6, AST: 106, ALT: 90, Alk Phos: 173 (Outpatient AST: 65, ALT: 56, alk phos: 92 on 06/29/2024. Mildly elevated LFTs 09/16/2024 which improved during hospital course) Denies abdominal pain Reported history Elevated LFTs on atorvastatin in past. Was restarted on atorvastatin in 09/2024 after stress induced cardiomyopathy Repeat LFTs trending down US abd - 1. Minimally dilated common bile duct of 8 mm. 2. Hepatic steatosis. No ductal dilatation. May need to consider statin adjustment (5) Takotsubo cardiomyopathy: History stress induced cardiomyopathy in 09/202409/19/24 cardiac cath: LM -Short almost separate ostium, normal caliber, eccentric calcified plaque with 30% ostial stenosis LAD -medium caliber, no significant disease, distal vessel extends around apex. Small diagonals without significant disease. Circumflex -medium caliber, AV groove circumflex without significant disease. Very small high OM1 with 70% ostial stenosis RCA -dominant, medium caliber, angiographically normal Echo: 09/16/24: EF: 25-30% Echo on 09/22/2024 with EF 45-50% Outpatient echo 11/03/24: EF: 60-64% Today Denies CP. Troponin negative. Continue home diltiazem, aspirin, and statin (6) HTN (hypertension): Held home HCTZ Continued telmisartan, diltiazem Hyponatremia - held HCTZ - re-check sodium as outpt at pcp follow up / discuss if ok to continue HCTZ (7) PVD (peripheral vascular disease): Continue aspirin, Plavix, statin (8) GERD (gastroesophageal reflux disease): Continue PPI Total Time Total Time Spent Total Time Spent (In Minutes): 40 Discharge Plan Discharge Items Patient Disposition: Home - Self-Care Reason For Visit: ACUTE RESPIRATORY FAILURE Discharge Diagnosis: Acute resp. failure with hypoxia, COPD exacerbation Activity: Per Instructions section Non-emergency contact: Primary Care Provider Call non-emergency contact if: you have any medication questions and your symptoms worsen Follow-up/Referrals: Shauna Pope PA-C [Primary Care Provider] - (Date & Time 12/23/2024 12:20 PM Provider: Shauna Pope PA-C [facility] ) Diet: Regular and Heart Healthy Addtl Attending Provider Instructions: Follow up with your primary care doctor. Discuss what inhalers you should be using. You may need to be referred to help desk technician as well. Finish antibiotic course as prescribed. Sputum culture is not finalized yet. Your antibiotic may need to change. Finish steroid course as well. Pending Studies at Discharge: Yes Studies:: Sputum cultx results Stand-Alone Forms: My [facility], Smoking Cessation Medications and DC Order Prescriptions: New doxycycline hyclate 100 mg Capsule 100 mg PO BID 4 Days Qty: 8 0RF prednisone 20 mg tablet 40 mg PO DAILY 4 Days Qty: 8 0RF cefuroxime axetil 500 mg tablet 500 mg PO BID 4 Days Qty: 8 0RF Advanced Probiotic 625 mg (10 billion cell) Capsule 1 cap PO DAILY Qty: 7 0RF Continued aspirin 81 mg Tablet,Delayed Release (Dr/Ec) 81 mg PO DAILY Qty: 0 pantoprazole 40 mg tablet,delayed release (DR/EC) 40 mg PO DAILY hydrocodone-acetaminophen 5-325 mg tablet 1 tab PO DAILY PRN (Reason: Moderate Pain (Scale Score 5-6)) clopidogrel 75 mg tablet 75 mg PO QAM acetaminophen 500 mg Tablet 500 mg PO Q6H PRN (Reason: Pain) telmisartan-hydrochlorothiazid 80-25 mg tablet 1 tab PO DAILY cholecalciferol (vitamin D3) [Vitamin D3] 50 mcg (2,000 unit) Tablet 50 mcg PO DAILY Combivent Respimat 20-100 mcg/actuation mist 1 puff INHALATION QID folic acid 1 mg Tablet 1 mg PO QAM Qty: 3 0RF escitalopram oxalate 20 mg Tablet 20 mg PO QAM Qty: 30 0RF diltiazem HCl 180 mg capsule,ext.rel 24h degradable 180 mg PO DAILY atorvastatin 20 mg tablet 20 mg PO QAM thiamine HCl (vitamin B1) 100 mg tablet 100 mg PO DAILY magnesium oxide 400 mg magnesium Capsule 400 mg PO DAILY potassium chloride 20 mEq Tablet Extended Release 20 meq PO DAILY Discharge Orders: Discharge Order (Routine); Ordered 12/16/24 Ordered By: Rafita Miranda Admission Data Admit Date/Time: 12/14/24 13:05 Attending Provider: Rafita Miranda Admit Provider: Bear Jones Primary Care Provider: Shauna Pope Other Providers: Bear Jones
[2024-12-16 16:21] VITALS: PULSE 94
== END 2024-12-16 17:25 | disposition home or self-care (01) | DRG 190 ==
LOC: ED 10:07 → SUATTDRO 13:05 → 4W 13:05